=== PATIENT | male | born 1935 | race African-American/Black ===

== ENCOUNTER 2019-04-15 11:43 | Inpatient (IN) | payer MEDICARE, OTHER ==
[~2019-04-15] VITALS: Ht 175.3 cm; Wt 63.7 kg
--- NOTE | 2019-04-15 11:43 | NUR ---
ED Nurse Note: Pt brought in by ambulance from SNF d/t ALOC. Staff report change from baseline of mentation. Pt has eyes open, but does not answer questions in full sentences. Pt makes noises, but not words. Vital signs stable as documented. Respirations even and unlabored on room air.
[2019-04-15] MEDS ORDERED: Cefepime HCl 2 GM in D5W 55 ML IVPB ONE (11:45)
[2019-04-15] MEDS ORDERED: Vancomycin 1 GM in NS 275 ML IVPB ONE (11:45)
[2019-04-15 12:00] VITALS: BP 92/48
[2019-04-15 12:39] LABS: HEMATOCRIT 29.3 % (42.0-52.0); HEMOGLOBIN 9.9 G/DL (14.2-18.0); MEAN CORPUSCULAR VOLUME 91 FL (80-99); PLATELET COUNT 142 K/UL (150-450); RED BLOOD COUNT 3.23 M/UL (4.70-6.10); RED CELL DISTRIBUTION WIDTH 12.4 % (11.6-14.8)
[2019-04-15 12:43] LABS: APPEARANCE,URINE CLOUDY; BILIRUBIN, URINE NEGATIVE (NEGATIVE); GLUCOSE, URINE (UA) NEGATIVE (NEGATIVE); KETONES,URINE 1+ (NEGATIVE); LEUKOCYTE ESTERASE ,URINE 3+ (NEGATIVE); NITRITE,URINE NEGATIVE (NEGATIVE); PH,URINE 8 (4.5-8.0); PROTEIN,URINE 4+ (NEGATIVE); UROBILINOGEN,URINE NORMAL MG/DL (0.0-1.0)
--- NOTE | 2019-04-15 12:44 | Diagnostic Imaging Report ---
Indication: Altered level of consciousness Technique: Contiguous 5 mm thick transaxial imaging of the head obtained in a Siemens Sensation [address] scanner. Soft tissue and bone windows generated. Automatic Exposure Control was utilized. Total Dose length Product (DLP): 1457.[address] Dose Index Volume (CTDIvol): 62.7 mGy Comparison: none Findings: There is moderate prominence of the ventricles, basal cisterns, and cerebral sulci consistent with atrophy. Moderate, nonspecific, white matter hypoattenuation is noted throughout the brain consistent with chronic small vessel disease. There is no midline shift, edema, acute hemorrhage, mass effect, or abnormal extra-axial fluid collections. Bones are unremarkable. Fluid noted in the visualized part of the left maxillary sinus. Impression: No acute intracranial bleed, mass effect or edema. Moderate atrophy of the brain. Evidence of chronic small vessel disease involving white matter tracts. Sinusitis suspected. The CT scanner at [facility] is accredited by the [employer] and the scans are performed using dose optimization techniques as appropriate to a performed exam including Automatic Exposure control.
[2019-04-15 12:45] LABS: WHITE BLOOD COUNT 23.9 K/UL (4.8-10.8)
[2019-04-15 12:48] LABS: INR 1.1 (0.9-1.1)
[2019-04-15 12:50] LABS: COLOR,URINE YELLOW
--- NOTE | 2019-04-15 13:05 | NUR ---
ED Nurse Note: Pt is very hard stick. Attempting re-insertion of IV
[2019-04-15 13:10] LABS: ANION GAP 15 mmol/L (5-15); BLOOD UREA NITROGEN 41 mg/dL (7-18); CALCIUM 9.9 MG/DL (8.5-10.1); CARBON DIOXIDE 22 MMOL/L (21-32); CHLORIDE 107 MMOL/L (98-107); CREATININE 2.3 MG/DL (0.55-1.30); POTASSIUM 4.5 MMOL/L (3.5-5.1); SODIUM 144 MMOL/L (136-145)
[2019-04-15 13:22] LABS: ALANINE AMINOTRANSFERASE 37 U/L (12-78); ALBUMIN 2.2 G/DL (3.4-5.0); ALBUMIN/GLOBULIN RATIO 0.4 (1.0-2.7); ALKALINE PHOSPHATASE 145 U/L (46-116); ASPARTATE AMINO TRANSFERASE 119 U/L (15-37); BILIRUBIN,TOTAL 1.1 MG/DL (0.2-1.0)
--- NOTE | 2019-04-15 13:23 | Diagnostic Imaging Report ---
Indication: Dyspnea Comparison: 11/30/2010 A single view chest radiograph was obtained. Findings: The heart is mildly enlarged. The pulmonary vessels appear mildly prominent. Aorta is mildly ectatic. No pleural effusion appreciated. IMPRESSION: Suspected mild CHF. Correlate clinically
[2019-04-15 13:32] LABS: BILIRUBIN,DIRECT < 0.1 MG/DL (0.0-0.3)
--- NOTE | 2019-04-15 14:00 | NUR ---
ED Nurse Note: Multiple nurses attempted IV with no success. Let ED MD know and she said okay to insert IV in foot. Left foot 22 g inserted successfully
--- NOTE | 2019-04-15 14:38 | Emergency Room Report ---
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 Unclear baseline mental status. Unable to obtain further history due to patient being nonverbal at this time. Allergies: Coded Allergies: No Known Allergies (Unverified , 04/15/19) Patient History Limited by: other - non verbal Nursing Documentation-[facility] Past Medical History: No History, Except For Review of Systems All Other Systems: limited - ams Physical Exam Vital Signs Date Time Temp Pulse Resp B/P (MAP) Pulse Ox O2 Delivery O2 Flow Rate FiO2 04/15/19 11:18 98.2 94 18 91/46 (61) 98 Room Air Sp02 EP Interpretation: reviewed, normal General Appearance: normal inspection, no apparent distress, non-toxic Head: normocephalic, atraumatic ENT: dry mucus membranes Neck: normal inspection, supple Respiratory: no respiratory distress, no retraction, no accessory muscle use Cardiovascular #1: normal inspection, regular rate, rhythm Gastrointestinal: normal inspection, normal bowel sounds Rectal: deferred Genitourinary: other - indwelling jay catheter in foul smelling urine Neurologic: other - non-verbal Skin: no rash, normal color, warm/dry Procedures Critical Care Time Critical Care Time Total critical care time: Approximately 35 minutes. Due to a high probability of clinically significant, life threatening deterioration, the patient required my highest level of preparedness to intervene emergently and I personally spent this critical care time directly and personally managing the patient. This critical care time included obtaining a history; examining the patient; pulse oximetry; ordering and review of studies; arranging urgent treatment with development of a management plan; evaluation of patient's response to treatment ; frequent reassessment; and, discussions with other providers.This critical care time was performed to assess and manage the high probability of imminent, life-threatening deterioration that could result in multi-organ failure. It was exclusive of separately billable procedures and treating other patients and teaching time. Please see MDM section and the rest of the note for further information on patient assessment and treatment. Medical Decision Making Diagnostic Impression: Primary Impression: Sepsis Additional Impressions: UTI (urinary tract infection) Dehydration Severe sepsis Acute renal failure ER Course Patient started on broad-spectrum antibiotics and IV fluids. Patient's vital signs are stable. He will be admitted for further treatment and evaluation. Pending insurance authorization signed out to the oncoming physician EKG Diagnostic Results EKG Time: 12:17 EP Interpretation: MD Piper Rate: normal Rhythm: NSR ST Segments: no acute changes Rhythm Strip Diag. Results Rhythm Strip Time: 14:39 EP Interpretation: yes Rate: 87 Rhythm: NSR, no PVC's, no ectopy Last Vital Signs Date Time Temp Pulse Resp B/P (MAP) Pulse Ox O2 Delivery O2 Flow Rate FiO2 04/15/19 11:18 98.2 94 18 91/46 (61) 98 Room Air Disposition: ADMITTED INPATIENT Condition: Critical Signed Out To: Dr. Arthur Referrals: NOT CHOSEN IPA/,REFERRING (PCP) Sepsis Event Note Evaluation Current Stage of Sepsis: Severe Sepsis Possible Source: GI Tract/Intra-Abdominal, Genitourinary Focused Exam Allergies: Coded Allergies: No Known Allergies (Unverified , 04/15/19) Date Exam Occurred: Apr 15, 2019 Time Exam Occurred: 14:38 Laboratory Studies Laboratory Tests Test 04/15/19 12:00 04/15/19 13:40 White Blood Count 23.9 K/UL (4.8-10.8) *H Red Blood Count 3.23 M/UL (4.70-6.10) L Hemoglobin 9.9 G/DL (14.2-18.0) L Hematocrit 29.3 % (42.0-52.0) L Mean Corpuscular Volume 91 FL (80-99) Mean Corpuscular Hemoglobin 30.6 PG (27.0-31.0) Mean Corpuscular Hemoglobin Concent 33.6 G/DL (32.0-36.0) Red Cell Distribution Width 12.4 % (11.6-14.8) Platelet Count 142 K/UL (150-450) L Mean Platelet Volume 7.0 FL (6.5-10.1) Neutrophils (%) (Auto) % (45.0-75.0) Lymphocytes (%) (Auto) % (20.0-45.0) Monocytes (%) (Auto) % (1.0-10.0) Eosinophils (%) (Auto) % (0.0-3.0) Basophils (%) (Auto) % (0.0-2.0) Differential Total Cells Counted 100 Neutrophils % (Manual) 74 % (45-75) Lymphocytes % (Manual) 8 % (20-45) L Monocytes % (Manual) 6 % (1-10) Eosinophils % (Manual) 0 % (0-3) Basophils % (Manual) 0 % (0-2) Band Neutrophils 12 % (0-8) H Platelet Estimate Decreased L Platelet Morphology Normal Red Blood Cell Morphology Normal Prothrombin Time 11.4 SEC (9.30-11.50) Prothromb Time International Ratio 1.1 (0.9-1.1) Activated Partial Thromboplast Time 38 SEC (23-33) H Urine Color Yellow Urine Appearance Cloudy Urine pH 8 (4.5-8.0) Urine Specific [place] 1.010 (1.005-1.035) Urine Protein 4+ (NEGATIVE) H Urine Glucose (UA) Negative (NEGATIVE) Urine Ketones 1+ (NEGATIVE) H Urine Blood 5+ (NEGATIVE) H Urine Nitrite Negative (NEGATIVE) Urine Bilirubin Negative (NEGATIVE) Urine Urobilinogen Normal MG/DL (0.0-1.0) Urine Leukocyte Esterase 3+ (NEGATIVE) H Urine RBC 40-60 /HPF (0 - 0) H Urine WBC 30-40 /HPF (0 - 0) H Urine Squamous Epithelial Cells Occasional /LPF Urine Bacteria Moderate /HPF (NONE) H Sodium Level 144 MMOL/L (136-145) Potassium Level 4.5 MMOL/L (3.5-5.1) Chloride Level 107 MMOL/L (98-107) Carbon Dioxide Level 22 MMOL/L (21-32) Anion Gap 15 mmol/L (5-15) Blood Urea Nitrogen 41 mg/dL (7-18) H Creatinine 2.3 MG/DL (0.55-1.30) H Estimat Glomerular Filtration Rate mL/min (>60) Glucose Level 172 MG/DL (74-106) H Lactic Acid Level 4.50 mmol/L (0.4-2.0) H 3.90 mmol/L (0.66-2.22) H Calcium Level 9.9 MG/DL (8.5-10.1) Magnesium Level 1.1 MG/DL (1.8-2.4) L Total Bilirubin 1.1 MG/DL (0.2-1.0) H Direct Bilirubin < 0.1 MG/DL (0.0-0.3) Aspartate Amino Transf (AST/SGOT) 119 U/L (15-37) H Alanine Aminotransferase (ALT/SGPT) 37 U/L (12-78) Alkaline Phosphatase 145 U/L (46-116) H Troponin I 1.100 ng/mL (0.000-0.056) Pro-B-Type Natriuretic Peptide 8396 pg/mL (0-125) H Total Protein 7.2 G/DL (6.4-8.2) Albumin 2.2 G/DL (3.4-5.0) L Globulin 5.0 g/dL Albumin/Globulin Ratio 0.4 (1.0-2.7) L Vital Signs Last 24 Hour Vital Signs Date Time Temp Pulse Resp B/P (MAP) Pulse Ox O2 Delivery O2 Flow Rate FiO2 04/15/19 11:18 98.2 94 18 91/46 (61) 98 Room Air Respiratory Exam: Clear Cardiovascular Exam: RRR Capillary Refill: Less Than 2 Seconds Peripheral Pulse: Strong Veronika Saldaña M.D. Apr 15, 2019 14:38
[2019-04-15] MEDS ORDERED: ALBUTEROL2.5 MG/3 M INH (16:56)
[2019-04-15] MEDS ORDERED: BISACODYL5 MG ORAL (17:00)
[2019-04-15] MEDS ORDERED: LOVENOX10 M4 SUBQ (17:00)
[2019-04-15] MEDS ORDERED: ATORVASTATIN CA20 MG ORAL (17:00)
--- NOTE | 2019-04-15 17:05 | NUR ---
ED Nurse Note: Pike replaced 16 Fr. patent and draining.
[2019-04-15] MEDS ORDERED: METFORMIN HCL1000 M1 ORAL (17:06)
[2019-04-15] MEDS ORDERED: MULTIVITAMINS1 EAC2 ORAL (17:06)
[2019-04-15] MEDS ORDERED: LANTUS SOL100 UNIT/1 SUBQ (17:06)
[2019-04-15] MEDS ORDERED: GABAPENTIN100 MG ORAL (17:06)
[2019-04-15] MEDS ORDERED: LOSARTAN POTASS25 MG ORAL (17:06)
[2019-04-15] MEDS ORDERED: ACETAMINOPHEN325 M1 ORAL (17:06)
[2019-04-15] MEDS ORDERED: MELATONIN 3 MG1 EAC1 PO (17:06)
[2019-04-15] MEDS ORDERED: LATANOPROST2.5 ML BOTH EYES (17:06)
--- NOTE | 2019-04-15 18:20 | NUR ---
NURSE NOTES: Handoff received from KWASI Martinez from ED. Patient received awake and alert and able to make needs known, Patient has L foot IV 22g. Patient blood pressure 88/62 placed in Trendelenburg and BP went up to 119/91. Patient oriented to room and call light, no acute signs of distress noted. Contacted Dr Montes De Oca and left a message for admission orders. patient vitals are 113/91, pulse rate 117 patient has PVC's, RR of 19 and temp of 98.1, will continue to monitor.
--- NOTE | 2019-04-15 18:26 | NUR ---
ED Nurse Note: Pt transported safely to 2E. Plan of care endorsed to KWASI Laws
--- NOTE | 2019-04-15 19:42 | NUR ---
HAND-OFF: Report given to KWASI Carey.
--- NOTE | 2019-04-15 19:43 | NUR ---
NURSE NOTES: Received pt from KWASI Laws. Pt is awake and resting in bed in no acute distress. IV site intact. Bed locked in lowest position, bed alarm on, call light within reach. Will continue with plan of care.
[2019-04-15 20:00] VITALS: BP 99/60
[2019-04-15 20:15] VITALS: BP 109/58
[2019-04-15 23:26] LABS: BILIRUBIN, URINE NEGATIVE (NEGATIVE); GLUCOSE, URINE (UA) NEGATIVE (NEGATIVE); KETONES,URINE 1+ (NEGATIVE); NITRITE,URINE NEGATIVE (NEGATIVE); PH,URINE 6.5 (4.5-8.0); PROTEIN,URINE 4+ (NEGATIVE); UROBILINOGEN,URINE NORMAL MG/DL (0.0-1.0)
[2019-04-15 23:49] LABS: APPEARANCE,URINE CLOUDY; COLOR,URINE YELLOW; LEUKOCYTE ESTERASE ,URINE 2+ (NEGATIVE)
[2019-04-16] VITALS: BP 112/44
[2019-04-16 04:00] VITALS: BP 114/58
--- NOTE | 2019-04-16 04:45 | History and Physical Report ---
DATE OF ADMISSION: 04/15/2019 This is one of several admissions to [facility] of this 83-year-old patient because of dislodged G-tube. HISTORY OF PRESENT ILLNESS: The patient is a resident of [facility] where he has been for several years since his admission. He is known to have chronic medical syndrome, but has been stable on current medication. On the day of admission, G-tube got dislodged and he got the impression of having hemiparesis in the left upper extremity and left lower extremity. He was transferred by paramedics to [facility] ER where assessment revealed the patient has left and right legs, in addition hypotension, dehydration, and sepsis were identified and the patient was admitted. PAST MEDICAL HISTORY: Again, gastrostomy, tracheostomy, and [id number] amputation, which is approximately five years ago. Medically, known to have high blood pressure, diabetes mellitus, hyperlipidemia, and . FAMILY HISTORY: Noncontributory. SOCIAL HISTORY: He is single. He was born in [place]. He was a resident there for many years. 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 HABITS: The patient does not smoke, drink, or use illicit drugs. REVIEW OF SYSTEMS: CARDIOVASCULAR: The patient denied any chest pain, shortness of breath, palpitations, or dizziness. PULMONARY: The patient has chronic cough, intermittent wheezing, and chronic expectoration. GASTROINTESTINAL: Appetite is moderate and weight is stable. He has no dysphagia or dyspepsia. No bowel movement disorder. GENITOURINARY: The patient denied any dysuria, frequency, incontinence, and nocturia. Currently, has banding sensation to left knee. CENTRAL NERVOUS SYSTEM: Sleep is of good quality. No numbness, tingling, or seizure disorder, and has no headache. PHYSICAL EXAMINATION: VITAL SIGNS: Blood pressure 109/68, his pulse is 94, respirations are 20, and temperature 98.5 degrees. HEENT: Eyes were normal. Pupils were round, equal, and reactive to light. Sclerae were white. Conjunctivae were pink. Extraocular movements were normal. Temporal arteries were palpable bilaterally. There was no bilateral temporal wasting. Visual khanna to confrontation was normal and neglect sign was negative. ENT, mucous membranes were not dehydrated. Auditory canals were clear and tympanic membranes could not be visualized. Nasal cavity was not congested. Nasal septum was intact. Soft palate was free of ulcerations. Pharynx was clear from exudate or tonsillar hypertrophy. Uvula steven to phonation. Tongue was moist, midline, and normally papillated. NECK: Supple. There was no goiter. No mass. No lymphadenopathy. There was no JVD. No bruits. Carotid upstroke was 2+. LUNGS: Clear. HEART: PMI was in fourth left intercostal space in midclavicular line. There was normal S1 and normal S2. There was no murmur. No arrhythmia. No S3. No S4. No pericardial rub. ABDOMEN: Soft and nontender without organomegaly. There were no masses palpable. Normal bowel sounds without bruits. There was no guarding. No rebound tenderness. No ascites. No hernia. No CVA tenderness. Liver span was 8 cm, mostly nontender. IMPRESSION: The patient had high blood pressure, diabetes mellitus, and dryyq-etk-wjag amputation as well as sepsis. PLAN: The patient will be placed on cefepime 1 g IV piggyback q.12 h., vancomycin will be 1 g, . Repeat laboratory tests will be done in a.m. with abdomen and pelvic ultrasound. Domingo Anderson M.D. DR: CARLO JOB#: [id number] CC:
[2019-04-16] MEDS: NovoLOG Insulin Flexpen SUBQ SCH ×4 (06:17→21:00)
--- NOTE | 2019-04-16 07:10 | NUR ---
HAND-OFF: Report given to KWASI Snyder. Pt is awake and resting in bed in no acute distress. Endorsed plan of care.
--- NOTE | 2019-04-16 07:15 | NUR ---
NURSE NOTES: Received report from Aurelio/RN, Observed patient lying semi-cade's, resting comfortably, On room air, no acute distress/SOB noted. Breathing evenly and unlabored. Priti pain at this time. IV on left foot 22G, patent, and asymptomatic, NS running at 100cc/hr. Pike draining well to gravity. Bed in low position and locked, Bed alarm engaged. Call light within reach, Encouraged to use call light when needed. Will continue plan of care.
[2019-04-16 07:42] LABS: HEMATOCRIT 27.4 % (42.0-52.0); HEMOGLOBIN 9.2 G/DL (14.2-18.0); MEAN CORPUSCULAR VOLUME 90 FL (80-99); PLATELET COUNT 161 K/UL (150-450); RED BLOOD COUNT 3.04 M/UL (4.70-6.10); RED CELL DISTRIBUTION WIDTH 12.5 % (11.6-14.8); WHITE BLOOD COUNT 16.9 K/UL (4.8-10.8)
[2019-04-16 08:00] VITALS: BP 104/57
[2019-04-16 08:13] LABS: ALANINE AMINOTRANSFERASE 61 U/L (12-78); ALBUMIN 1.9 G/DL (3.4-5.0); ALKALINE PHOSPHATASE 143 U/L (46-116); ANION GAP 11 mmol/L (5-15); ASPARTATE AMINO TRANSFERASE 149 U/L (15-37); BILIRUBIN,DIRECT 0.3 MG/DL (0.0-0.3); BLOOD UREA NITROGEN 50 mg/dL (7-18); CALCIUM 8.7 MG/DL (8.5-10.1); CARBON DIOXIDE 23 MMOL/L (21-32); CHLORIDE 119 MMOL/L (98-107); CREATININE 2.1 MG/DL (0.55-1.30); POTASSIUM 3.8 MMOL/L (3.5-5.1); SODIUM 153 MMOL/L (136-145)
[2019-04-16] MEDS: Pantoprazole Inj IVP SCH ×2 (08:39→21:32)
[2019-04-16] MEDS: Heparin 5000 units/ml inj SUBQ SCH ×2 (08:40→21:34)
[2019-04-16] MEDS ORDERED: Vancomycin 1 GM in NS 275 ML IVPB ONE (10:00)
--- NOTE | 2019-04-16 11:04 | Consultation ---
History of Present Illness General Date patient seen: Apr 16, 2019 Chief Complaint: Altered Level of Consciousness Present Illness HPI 83-year-old male past medical history of right BKA diabetes, cognitive communication deficit, COPD, retirement resident who presents to the ER with CC of altered mental status. Unclear baseline mental status. Pt was diagnosed to have sepsis and admitted to telemetry for further management. Allergies: Coded Allergies: No Known Allergies (Unverified , 04/15/19) Medication History Scheduled Atorvastatin Calcium* (Atorvastatin Calcium*), 10 MG ORAL BEDTIME, (Reported) Bisacodyl* (Dulcolax*), 10 MG ORAL DAILY, (Reported) Enoxaparin* (Lovenox*), 40 MG SUBQ DAILY, (Reported) Gabapentin* (Gabapentin*), 100 MG ORAL THREE TIMES A DAY, (Reported) Insulin Glargine (Lantus), 0 SUBQ BEDTIME, (Reported) Latanoprost* (Xalatan*), 1 DROP BOTH EYES BEDTIME, (Reported) Losartan Potassium* (Losartan Potassium*), 25 MG ORAL DAILY, (Reported) Metformin Hcl* (Metformin Hcl*), 1,000 MG ORAL BID, (Reported) Multivitamins* (Multivitamins*), 1 TAB ORAL DAILY, (Reported) Scheduled PRN Acetaminophen* (Acetaminophen 325MG Tablet*), 650 MG ORAL Q4H PRN for Pain Scale (3-5), (Reported) Albuterol Sulfate* (Albuterol Sulfate Hhn*), 3 ML INH Q4H PRN for Shortness of Breath, (Reported) Miscellaneous Medications Melatonin/Pyridoxine HCl (B6) (Melatonin 3 mg Tablet), 1 EACH PO, (Reported) Patient History Healthcare decision maker N Resuscitation status Full Code Advanced Directive on File Past Medical/Surgical History Past Medical/Surgical History: (1) Hx of right BKA (2) COPD (chronic obstructive pulmonary disease) (3) History of hypertension (4) Diabetes mellitus Review of Systems All Other Systems: negative except mentioned in HPI Physical Exam General Appearance: cachetic, thin Lines, tubes and drains: peripheral HEENT: normocephalic, atraumatic Neck: non-tender, normal alignment Respiratory/Chest: chest wall non-tender, lungs clear Cardiovascular/Chest: normal peripheral pulses, normal rate Abdomen: normal bowel sounds, non tender Genitourinary/Rectal: normal genital exam Extremities: normal range of motion, non-pitting Neurologic: inspector returned materials II-XII grossly normal Last 24 Hour Vital Signs Date Time Temp Pulse Resp B/P (MAP) Pulse Ox O2 Delivery O2 Flow Rate FiO2 04/16/19 08:00 97.5 89 20 104/57 (73) 98 04/16/19 04:00 96 04/16/19 04:00 98.2 96 16 114/58 (76) 95 04/16/19 00:08 Room Air 04/16/19 00:00 92 04/16/19 00:00 98.1 92 16 112/44 (66) 93 04/15/19 20:15 109/58 (75) 04/15/19 20:00 97.7 92 17 99/60 (73) 95 04/15/19 20:00 92 04/15/19 19:35 98.5 94 20 109/68 98 Room Air 04/15/19 12:00 102 22 Room Air 04/15/19 12:00 98.0 102 18 92/48 98 Room Air 04/15/19 11:18 98.2 94 18 91/46 (61) 98 Room Air Intake and Output 04/15/19 04/16/19 19:00 07:00 Intake Total 0 ml Output Total 450 ml Balance 0 ml -450 ml Intake Oral 0 ml Output Urine Total 450 ml Laboratory Tests Test 04/15/19 12:00 04/15/19 13:40 04/15/19 22:30 04/16/19 05:36 White Blood Count 23.9 K/UL (4.8-10.8) *H 16.9 K/UL (4.8-10.8) H Red Blood Count 3.23 M/UL (4.70-6.10) L 3.04 M/UL (4.70-6.10) L Hemoglobin 9.9 G/DL (14.2-18.0) L 9.2 G/DL (14.2-18.0) L Hematocrit 29.3 % (42.0-52.0) L 27.4 % (42.0-52.0) L Mean Corpuscular Volume 91 FL (80-99) 90 FL (80-99) Mean Corpuscular Hemoglobin 30.6 PG (27.0-31.0) 30.4 PG (27.0-31.0) Mean Corpuscular Hemoglobin Concent 33.6 G/DL (32.0-36.0) 33.7 G/DL (32.0-36.0) Red Cell Distribution Width 12.4 % (11.6-14.8) 12.5 % (11.6-14.8) Platelet Count 142 K/UL (150-450) L 161 K/UL (150-450) Mean Platelet Volume 7.0 FL (6.5-10.1) 6.3 FL (6.5-10.1) L Neutrophils (%) (Auto) % (45.0-75.0) % (45.0-75.0) Lymphocytes (%) (Auto) % (20.0-45.0) % (20.0-45.0) Monocytes (%) (Auto) % (1.0-10.0) % (1.0-10.0) Eosinophils (%) (Auto) % (0.0-3.0) % (0.0-3.0) Basophils (%) (Auto) % (0.0-2.0) % (0.0-2.0) Differential Total Cells Counted 100 100 Neutrophils % (Manual) 74 % (45-75) 86 % (45-75) H Lymphocytes % (Manual) 8 % (20-45) L 10 % (20-45) L Monocytes % (Manual) 6 % (1-10) 2 % (1-10) Eosinophils % (Manual) 0 % (0-3) 2 % (0-3) Basophils % (Manual) 0 % (0-2) 0 % (0-2) Band Neutrophils 12 % (0-8) H 0 % (0-8) Platelet Estimate Decreased L Adequate Platelet Morphology Normal Normal Red Blood Cell Morphology Normal Prothrombin Time 11.4 SEC (9.30-11.50) Prothromb Time International Ratio 1.1 (0.9-1.1) Activated Partial Thromboplast Time 38 SEC (23-33) H Urine Color Yellow Yellow Urine Appearance Cloudy Cloudy Urine pH 8 (4.5-8.0) 6.5 (4.5-8.0) Urine Specific [place] 1.010 (1.005-1.035) 1.020 (1.005-1.035) Urine Protein 4+ (NEGATIVE) H 4+ (NEGATIVE) H Urine Glucose (UA) Negative (NEGATIVE) Negative (NEGATIVE) Urine Ketones 1+ (NEGATIVE) H 1+ (NEGATIVE) H Urine Blood 5+ (NEGATIVE) H 2+ (NEGATIVE) H Urine Nitrite Negative (NEGATIVE) Negative (NEGATIVE) Urine Bilirubin Negative (NEGATIVE) Negative (NEGATIVE) Urine Urobilinogen Normal MG/DL (0.0-1.0) Normal MG/DL (0.0-1.0) Urine Leukocyte Esterase 3+ (NEGATIVE) H 2+ (NEGATIVE) H Urine RBC 40-60 /HPF (0 - 0) H 10-15 /HPF (0 - 0) H Urine WBC 30-40 /HPF (0 - 0) H 20-30 /HPF (0 - 0) H Urine Squamous Epithelial Cells Occasional /LPF Few /LPF (NONE/OCC) Urine Bacteria Moderate /HPF (NONE) H Many /HPF (NONE) H Sodium Level 144 MMOL/L (136-145) 153 MMOL/L (136-145) H Potassium Level 4.5 MMOL/L (3.5-5.1) 3.8 MMOL/L (3.5-5.1) Chloride Level 107 MMOL/L (98-107) 119 MMOL/L (98-107) H Carbon Dioxide Level 22 MMOL/L (21-32) 23 MMOL/L (21-32) Anion Gap 15 mmol/L (5-15) 11 mmol/L (5-15) Blood Urea Nitrogen 41 mg/dL (7-18) H 50 mg/dL (7-18) H Creatinine 2.3 MG/DL (0.55-1.30) H 2.1 MG/DL (0.55-1.30) H Estimat Glomerular Filtration Rate mL/min (>60) mL/min (>60) Glucose Level 172 MG/DL (74-106) H 103 MG/DL (74-106) Lactic Acid Level 4.50 mmol/L (0.4-2.0) H 3.90 mmol/L (0.66-2.22) H Calcium Level 9.9 MG/DL (8.5-10.1) 8.7 MG/DL (8.5-10.1) Magnesium Level 1.1 MG/DL (1.8-2.4) L Total Bilirubin 1.1 MG/DL (0.2-1.0) H 1.0 MG/DL (0.2-1.0) Direct Bilirubin < 0.1 MG/DL (0.0-0.3) 0.3 MG/DL (0.0-0.3) Aspartate Amino Transf (AST/SGOT) 119 U/L (15-37) H 149 U/L (15-37) H Alanine Aminotransferase (ALT/SGPT) 37 U/L (12-78) 61 U/L (12-78) Alkaline Phosphatase 145 U/L (46-116) H 143 U/L (46-116) H Troponin I 1.100 ng/mL (0.000-0.056) Pro-B-Type Natriuretic Peptide 8396 pg/mL (0-125) H Total Protein 7.2 G/DL (6.4-8.2) 6.6 G/DL (6.4-8.2) Albumin 2.2 G/DL (3.4-5.0) L 1.9 G/DL (3.4-5.0) L Globulin 5.0 g/dL Albumin/Globulin Ratio 0.4 (1.0-2.7) L Hypochromasia 2+ Anisocytosis 1+ Hemoglobin A1c 6.1 % (4.3-6.0) H Thyroid Stimulating Hormone (TSH) 2.669 uiU/mL (0.358-3.740) Random Vancomycin Level 8.0 ug/mL Microbiology Date/Time Source Procedure Growth Status 04/15/19 12:25 Nasal Nares - Final Complete 04/15/19 12:25 Nasal Nares - Final Complete 04/15/19 12:00 Urine,Clean Catch Urine Culture - Preliminary Gram Negative Bacillus 1 Resulted 04/15/19 17:56 Rectum Received Height (Feet): 5 Height (Inches): 10.00 Weight (Pounds): 139 Medications Current Medications Medications (Trade) Dose Ordered Sig/Neftaly Route PRN Reason Start Time Stop Time Status Last Admin Dose Admin Cefepime HCl 2 gm/ Dextrose 55 ml @ 110 mls/hr Q24H IVPB 04/16/19 13:00 04/23/19 12:59 Dextrose (Dextrose 50%) 25 ml Q30M PRN IV Hypoglycemia 04/15/19 21:15 05/15/19 21:14 Dextrose (Dextrose 50%) 50 ml Q30M PRN IV Hypoglycemia 04/15/19 21:15 05/15/19 21:14 Heparin Sodium (Porcine) (Heparin 5000 units/ml) 5,000 units EVERY 12 HOURS SUBQ 04/16/19 09:00 05/16/19 08:59 04/16/19 08:40 Insulin Aspart (NovoLOG) BEFORE MEALS AND HS SUBQ 04/16/19 06:30 05/16/19 06:29 04/16/19 06:17 Pantoprazole (Protonix) 40 mg EVERY 12 HOURS IVP 04/16/19 09:00 05/16/19 08:59 04/16/19 08:39 Sodium Chloride 1,000 ml @ 100 mls/hr Q10H IV 04/15/19 21:15 05/15/19 21:14 04/16/19 08:40 Vancomycin HCl (Vanco rx to dose) 1 ea DAILY PRN MISC Per rx protocol 04/15/19 21:15 05/15/19 21:14 Vancomycin HCl 1 gm/Sodium Chloride 275 ml @ 183.708 mls/hr ONCE ONCE IVPB 04/16/19 10:00 04/16/19 11:29 04/16/19 10:04 Assessment/Plan Problem List: (1) Sepsis ICD Codes: A41.9 - Sepsis, unspecified organism SNOMED: 82264553 (2) Acute renal failure ICD Codes: N17.9 - Acute kidney failure, unspecified SNOMED: 92078810 (3) UTI (urinary tract infection) ICD Codes: N39.0 - Urinary tract infection, site not specified SNOMED: 95557286 (4) COPD (chronic obstructive pulmonary disease) ICD Codes: J44.9 - Chronic obstructive pulmonary disease, unspecified SNOMED: 41571066 (5) Hx of right BKA ICD Codes: Z89.511 - Acquired absence of right leg below knee SNOMED: 270490572, 732061780260549 (6) Dehydration ICD Codes: E86.0 - Dehydration SNOMED: 22154374 (7) Diabetes mellitus ICD Codes: E11.9 - Type 2 diabetes mellitus without complications SNOMED: 95125626 (8) History of hypertension ICD Codes: Z86.79 - Personal history of other diseases of the circulatory system SNOMED: 085565918 Assessment/Plan: espino culture iv abx iv fluids respiratory treatment dvt prophylaxis sliding scale diabetic diet aspiration precaution Dionne Chew MD Apr 16, 2019 11:04
[2019-04-16 11:32] LABS: CREATINE KINASE 4506 U/L (26-308)
[2019-04-16 12:00] VITALS: BP 107/64
--- NOTE | 2019-04-16 12:11 | NUR ---
CASE MANAGEMENT:REVIEW 83 YR OLD MALE BIBA FROM [facility] CC: AMS SI: SEPSIS. DEHYDRATION. ACUTE RENAL FAILURE 98.3 94 18 91/46 98% ON RA WBC+23.9 BUN+41 CR+2.3 IS: IV CEFEPIME IV VANCOMYCIN IVF NS CT HEAD CXR BLOOD CX : TO TELEMETRY DCP: FROM [facility]
[2019-04-16] MEDS ORDERED: Cefepime HCl 2 GM in D5W 55 ML IVPB SCH (13:00)
--- NOTE | 2019-04-16 13:27 | Diagnostic Imaging Report ---
Indication: Abnormal liver function tests. Abnormal renal function tests Technique: Chand-scale and duplex images of the upper abdomen were obtained Comparison: none Findings: Gallbladder is absent Common bile duct measures 10 mm in diameter. No intrahepatic biliary ductal dilatation. Liver demonstrates normal echogenicity, no focal abnormality. Portal vein and hepatic veins are patent. Pancreas is unremarkable. Spleen is unremarkable. Left kidney measures 10.9 cm in length. Right kidney measures 11.2 cm length. Both kidneys demonstrate normal echogenicity. There is no hydronephrosis. There is a very small amount of perinephric fluid surrounding the left kidney . Non-aneurysmal abdominal aorta . Bladder is empty, contains a Pike catheter Impression: Absent gallbladder, status post cholecystectomy Intrahepatic biliary ductal dilatation. Suspect on the basis of patient's age and postcholecystectomy state. However, downstream obstruction also possible. Correlate with liver function tests, consider MRCP for better characterization if clinically indicated Empty bladder with a Pike catheter Trace left perinephric fluid. This is a nonspecific finding, can be seen in the setting of renal inflammation
--- NOTE | 2019-04-16 14:01 | Diagnostic Imaging Report ---
Indication: Left lower extremity pain and edema Technique: Grayscale and duplex images of the left lower extremity veins Comparison: none Findings: Grayscale and duplex images demonstrate no evidence of intraluminal thrombus. Normal phasic Doppler waveforms, demonstrating normal augmentation response and no evidence of valvular insufficiency. Patient calf veins and greater saphenous vein Impression: Negative for evidence of left lower extremity deep venous thrombosis
--- NOTE | 2019-04-16 14:11 | Diagnostic Imaging Report ---
Indication: Left lower extremity pain and edema Technique: Grayscale and duplex images of the left lower extremity arteries Comparison: none Findings: Brachial duplex images demonstrate triphasic waveforms at the level of the common femoral artery, with sharp systolic peaks. There is atherosclerotic plaquing of the mid and distal superficial femoral artery, which results in slight gapping of the waveforms and loss of triphasic study. The distal superficial femoral artery demonstrates complete occlusion. There is reconstitution at the level of the distal superficial femoral artery, distal to which the waveforms are severely dampened and monophasic. There is also some atherosclerotic plaque within the popliteal artery. The tibial vessels are all patent, demonstrating severely dampened waveforms. 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 Evidence of resultant severe ischemia of the foot
[2019-04-16 16:00] VITALS: BP 122/67
[2019-04-16] MEDS ORDERED: Meropenem 500mg/NS 55ml IVPB SCH ×2 (16:00)
[2019-04-16 17:45] LABS: APPEARANCE,URINE CLOUDY; BILIRUBIN, URINE NEGATIVE (NEGATIVE); GLUCOSE, URINE (UA) NEGATIVE (NEGATIVE); KETONES,URINE 1+ (NEGATIVE); LEUKOCYTE ESTERASE ,URINE 3+ (NEGATIVE); NITRITE,URINE NEGATIVE (NEGATIVE); PH,URINE 5 (4.5-8.0); PROTEIN,URINE 3+ (NEGATIVE); UROBILINOGEN,URINE NORMAL MG/DL (0.0-1.0)
[2019-04-16 17:52] LABS: COLOR,URINE YELLOW
--- NOTE | 2019-04-16 19:13 | NUR ---
HAND-OFF: Report given to Aurelio/RN, Patient in stable condition. Endorsed plan of care.
--- NOTE | 2019-04-16 19:14 | NUR ---
NURSE NOTES: Received pt from KWASI Snyder. Pt is awake and resting in bed in no acute distress. Iv site intact and patent. Pkie catheter intact and patent. Bed locked in lowest position, bed alarm on, call light within reach. Will continue with plan of care.
[2019-04-16 20:00] VITALS: BP 134/72
[2019-04-16] MEDS ORDERED: ATORVASTATIN CA10 MG ORAL (20:04)
[2019-04-16] MEDS ORDERED: MELATONIN3 MG ORAL (20:04)
[2019-04-16] MEDS ORDERED: ARTIFICIAL TEA1 EAC2 BOTH EYES (20:04)
[2019-04-16] MEDS ORDERED: SENNA8.6 M2 PO (20:04)
[2019-04-16] MEDS ORDERED: BRIMONIDINE TART5 ML BOTH EYES (20:04)
[2019-04-16] MEDS ORDERED: DOCUSATE SODIU250 MG ORAL (20:04)
[2019-04-16] MEDS ORDERED: NOVOLOG100 UNIT/5 SUBQ (20:04)
[2019-04-16] MEDS ORDERED: ALBUTEROL SULF8.5 G1 IH (20:04)
[2019-04-16] MEDS ORDERED: VITAMIN D310000 UNIT PO (20:04)
[2019-04-16] MEDS ORDERED: TYLENOL EXTRA500 MG ORAL (20:04)
[2019-04-16] MEDS ORDERED: BISACODYL10 M1 RC (20:04)
[2019-04-16] MEDS ORDERED: Meropenem 1 GM in NS 55 ML IVPB SCH (22:00)
--- NOTE | 2019-04-16 23:58 | NUR ---
HAND-OFF: Report given to KWASI Doyle. Cardiac box removed. Pt transfered with belongings. Endrsed plan of care.
[2019-04-17] VITALS (7 sets, daily range): BP systolic 119–141; BP diastolic 62–73
--- NOTE | 2019-04-17 00:30 | NUR ---
NURSE NOTES: Patient arrived from telemetry via bed. AOx1. Left foot IV intact and patent. Belongings verified at bedside. No acute distress. Patient running temp of 100.4F. Dr. Anderson made aware, received order for tylenol, blood culturesx2. Also made aware of high Na level and patient still on NS @100. Order changed to D5W @100. Orders carried out. Addendum: 04/17/19 at 0101 by AYE POWERS RN RN Patient seen by Dr. Anderson at bedside.
[2019-04-17] MEDS ORDERED: Meropenem 500 MG in NS 55 ML IVPB SCH (04:00)
--- NOTE | 2019-04-17 06:00 | NUR ---
NURSE NOTES: While cleaning the patient, the cover for the overhead light fixture suddenly fell on top of the patients head. There was no direct contact made to the overhead light before it suddenly fell on the patients head. The cover was immediately removed from the patients head, assessed patient. Patient had facial grimacing, noted 2cm laceration on the right eyebrow, pressure was applied and bleeding was stopped immediately, picture was taken and wound was dressed. Patient also developed a bump on the right side on top of the head diameter of about 3 cm. Ice was applied on patients head. No loss of consciousness, patients mental status remained the same, aox2 to name and place, still verbally responsive, pupils are reactive bilaterally. Strength on extremities remained the same as prior to incident: 1/5 on legs and 3/5 on bilateral arms. We finished cleaning the patient and made him comfortable. We moved the patients bed more away from the wall and the light fixture. Engineering was called to assess the light fixture. Call was placed to Dr. Anderson, awaiting call back.
--- NOTE | 2019-04-17 06:15 | NUR ---
NURSE NOTES: Dr. Anderson called back. RN explained to MD regarding incident. Received order for Dr. Garzon to see patient, CT head stat, and give Tylenol for pain. Orders carried out. Radiology made aware.
[2019-04-17] MEDS: NovoLOG Insulin Flexpen SUBQ SCH ×4 (06:21→22:20)
--- NOTE | 2019-04-17 06:30 | NUR ---
NURSE NOTES: Patient out of the unit for stat CT head. Call placed to Ember Young [phone] and made aware of the incident. will see patient today. quality assurance supervisor chassis made aware.
--- NOTE | 2019-04-17 06:45 | NUR ---
NURSE NOTES: Patient back from CT Scan. Mental status unchanged, verbally responsive. Ice pack re-applied on the head. No active bleeding on the right eyebrow laceration.
[2019-04-17 07:11] LABS: HEMATOCRIT 24.2 % (42.0-52.0); HEMOGLOBIN 8.2 G/DL (14.2-18.0); MEAN CORPUSCULAR VOLUME 90 FL (80-99); PLATELET COUNT 164 K/UL (150-450); RED BLOOD COUNT 2.67 M/UL (4.70-6.10); WHITE BLOOD COUNT 12.2 K/UL (4.8-10.8)
--- NOTE | 2019-04-17 07:15 | NUR ---
NURSE NOTES: Patient was seen by PM and AM endless track vehicle supervisor at bedside.
--- NOTE | 2019-04-17 07:20 | NUR ---
HAND-OFF: Report given to Tiesha VILLALPANDO.
--- NOTE | 2019-04-17 07:26 | Diagnostic Imaging Report ---
Indications: Trauma, pain, status post object falling on head Technique: Spiral acquisitions obtained through the brain. Angled axial and coronal 5 x 5 mm slices were reconstructed. Total dose length product 1018 mGycm. CTDI vol(s) 53 mGy. Dose reduction achieved using automated exposure control Comparison: April 15, 2019 Findings: There is new finding of a small right frontal scalp hematoma. No acute intracranial hemorrhage or edema. No mass effect nor midline shift. There is age-related enlargement of the ventricles and extra-axial CSF spaces. There is periventricular deep white matter low-attenuation, consistent with chronic microvascular ischemic change. 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 There is again demonstrated chronic periosteal thickening and some mucosal disease of the left maxillary sinus. There is bilateral ethmoid sinus disease. The mastoids are clear. The calvarium is intact. Impression: Negative for acute intracranial bleed or mass effect Evidence of right frontal scalp contusion This agrees with the preliminary interpretation provided overnight by [facility] teleradiology service. The CT scanner at [facility] is accredited by the [employer] and the scans are performed using protocols designed to limit radiation exposure to as low as reasonably achievable to attain images of sufficient resolution adequate for diagnostic evaluation.
[2019-04-17 07:28] LABS: ANION GAP 10 mmol/L (5-15); BLOOD UREA NITROGEN 43 mg/dL (7-18); CALCIUM 8.9 MG/DL (8.5-10.1); CARBON DIOXIDE 22 MMOL/L (21-32); CHLORIDE 113 MMOL/L (98-107); CREATININE 1.6 MG/DL (0.55-1.30); POTASSIUM 3.5 MMOL/L (3.5-5.1); SODIUM 145 MMOL/L (136-145)
[2019-04-17 07:45] LABS: LACTATE DEHYDROGENASE 321 U/L (81-234); PHOSPHORUS 2.3 MG/DL (2.5-4.9)
[2019-04-17 08:14] LABS: % IRON SATURATION 39 % (15-50); IRON 43 ug/dL (50-175); TOTAL IRON BINDING CAPACITY 110 ug/dL (250-450)
--- NOTE | 2019-04-17 08:31 | NUR ---
NURSE NOTE Patient awake and alert to name and place,respirations unlabored.Noted steristrips to patient right brow,no bleeding noted,noted a small bump to the right upper part of patient head,ice pack is to that area.No complaint of pain when asked at this time.Pike catheter is in place and draining clear yellow urine.IV fluids infusing as ordered.Bed alarm is on,call light within reach.
[2019-04-17] MEDS: Heparin 5000 units/ml inj SUBQ SCH ×2 (09:00→22:22)
--- NOTE | 2019-04-17 09:53 | Consultation ---
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 Unclear baseline mental status. Unable to obtain further history due to patients current medical condition. While in hospital patient sustained a laceration to the right eyebrow after trauma from a light fixture falling onto him. Surgery called to evaluate and assist with care given trauma. Patient seen, patient evaluated, chart reviewed. Allergies: Coded Allergies: No Known Allergies (Unverified , 04/15/19) Medication History Scheduled Atorvastatin Calcium* (Lipitor*), 10 MG ORAL BEDTIME, (Reported) Brimonidine Tartrate* (Alphagan*), 1 DROP BOTH EYES BID, (Reported) Cholecalciferol (Vitamin D3) (Vitamin D3), 50,000 UNIT PO ONCE A WEEK, (Reported ) Dextran 70/Hypromellose (Artificial Tears), 1 EACH BOTH EYES Q4HR, (Reported) Docusate Sodium* (Docusate Sodium*), 250 MG ORAL DAILY, (Reported) Enoxaparin* (Lovenox*), 40 MG SUBQ DAILY, (Reported) Gabapentin* (Gabapentin*), 100 MG ORAL THREE TIMES A DAY, (Reported) Insulin Aspart (Novolog), 6 SUBQ THREE TIMES A DAY, (Reported) Insulin Glargine (Lantus), 34 UNIT SUBQ DAILY, (Reported) Latanoprost* (Xalatan*), 1 DROP BOTH EYES BEDTIME, (Reported) Losartan Potassium* (Losartan Potassium*), 25 MG ORAL DAILY, (Reported) Melatonin (Melatonin), 6 MG ORAL BEDTIME, (Reported) Metformin Hcl* (Metformin Hcl*), 1,000 MG ORAL BID, (Reported) Multivitamins* (Multivitamins*), 1 TAB ORAL DAILY, (Reported) Sennosides (Senna), 8.6 MG PO BEDTIME, (Reported) Scheduled PRN Acetaminophen* (Acetaminophen 325MG Tablet*), 650 MG ORAL Q4H PRN for Mild Pain/ Temp > 100.5, (Reported) Acetaminophen* (Tylenol Extra Strength*), 500 MG ORAL Q6H PRN for Mild Pain/ Temp > 100.5, (Reported) Albuterol Sulfate (Albuterol Sulfate Hfa), 2 PUFFS IH Q6HR PRN for Shortness of Breath, (Reported) Bisacodyl (Bisacodyl), 10 MG RC for Constipation, (Reported) Discontinued Medications Albuterol Sulfate* (Albuterol Sulfate Hhn*), 3 ML INH Q4H PRN for Shortness of Breath, (Reported) Discontinued Reason: Prescription changed Atorvastatin Calcium* (Atorvastatin Calcium*), 10 MG ORAL BEDTIME, (Reported) Discontinued Reason: Prescription changed Bisacodyl* (Dulcolax*), 10 MG ORAL DAILY, (Reported) Discontinued Reason: Prescription changed Melatonin/Pyridoxine HCl (B6) (Melatonin 3 mg Tablet), 1 EACH PO, (Reported) Discontinued Reason: Prescription changed Patient History Limited by: medical condition History Provided By: Medical Record, PMD Healthcare decision maker N Resuscitation status Full Code Advanced Directive on File Past Medical/Surgical History Past Medical/Surgical History: (1) Laceration of face (2) Dehydration (3) Acute renal failure (4) UTI (urinary tract infection) (5) Severe sepsis (6) Sepsis (7) Diabetes mellitus (8) History of hypertension (9) COPD (chronic obstructive pulmonary disease) (10) Anemia (11) Severe protein-calorie malnutrition Review of Systems ROS Narrative cannot obtain given medical condition Physical Exam General Appearance: no apparent distress Lines, tubes and drains: peripheral HEENT: mucous membranes moist, other - Right eyebrow 1 cm laceration Steri- Strips intact small hematoma no bleeding no signs of active infection Neck: normal inspection Respiratory/Chest: normal breath sounds, no respiratory distress, no accessory muscle use Cardiovascular/Chest: normal rate, regular rhythm Abdomen: normal bowel sounds, non tender, soft, no organomegaly, no mass Extremities: normal range of motion, non-tender, normal inspection, normal capillary refill Skin Exam: warm/dry Neurologic: alert, disoriented Last 24 Hour Vital Signs Date Time Temp Pulse Resp B/P (MAP) Pulse Ox O2 Delivery O2 Flow Rate FiO2 04/17/19 08:41 97.7 73 18 139/68 (91) 98 04/17/19 06:51 98.1 04/17/19 04:02 98.1 82 16 119/63 (81) 96 04/17/19 00:00 100.4 85 16 120/62 (81) 95 04/16/19 21:00 Room Air 04/16/19 20:00 88 04/16/19 20:00 99.8 88 22 134/72 (92) 94 04/16/19 16:00 90 04/16/19 16:00 97.9 90 20 122/67 (85) 95 04/16/19 12:00 84 04/16/19 12:00 97.5 85 20 107/64 (78) 96 04/16/19 10:52 Room Air Intake and Output 04/16/19 04/17/19 19:00 07:00 Intake Total 236 ml 470 ml Output Total 500 ml 600 ml Balance -264 ml -130 ml Intake Oral 236 ml IV Total 470 ml Output Urine Total 500 ml 600 ml # Voids 1 Laboratory Tests Test 04/16/19 16:50 04/17/19 04:40 04/17/19 05:15 Urine Color Yellow Urine Appearance Cloudy Urine pH 5 (4.5-8.0) Urine Specific [place] 1.015 (1.005-1.035) Urine Protein 3+ (NEGATIVE) H Urine Glucose (UA) Negative (NEGATIVE) Urine Ketones 1+ (NEGATIVE) H Urine Blood 5+ (NEGATIVE) H Urine Nitrite Negative (NEGATIVE) Urine Bilirubin Negative (NEGATIVE) Urine Urobilinogen Normal MG/DL (0.0-1.0) Urine Leukocyte Esterase 3+ (NEGATIVE) H Urine RBC 5-10 /HPF (0 - 0) H Urine WBC Tntc /HPF (0 - 0) H Urine Squamous Epithelial Cells Occasional /LPF Urine Bacteria Moderate /HPF (NONE) H Urine Eosinophils None seen (NONE SEEN) Urine Random Sodium 49 mmol/L (20-110) Urine Potassium Timed 53 mmol/L (12-62) White Blood Count 12.2 K/UL (4.8-10.8) H Red Blood Count 2.67 M/UL (4.70-6.10) L Hemoglobin 8.2 G/DL (14.2-18.0) L Hematocrit 24.2 % (42.0-52.0) L Mean Corpuscular Volume 90 FL (80-99) Mean Corpuscular Hemoglobin 30.6 PG (27.0-31.0) Mean Corpuscular Hemoglobin Concent 33.8 G/DL (32.0-36.0) Red Cell Distribution Width 13.0 % (11.6-14.8) Platelet Count 164 K/UL (150-450) Mean Platelet Volume 6.3 FL (6.5-10.1) L Neutrophils (%) (Auto) % (45.0-75.0) Lymphocytes (%) (Auto) % (20.0-45.0) Monocytes (%) (Auto) % (1.0-10.0) Eosinophils (%) (Auto) % (0.0-3.0) Basophils (%) (Auto) % (0.0-2.0) Neutrophils % (Manual) Pending Lymphocytes % (Manual) Pending Platelet Estimate Pending Platelet Morphology Pending Erythrocyte Sedimentation Rate Pending Reticulocyte Count Pending Prothrombin Time 10.2 SEC (9.30-11.50) Prothromb Time International Ratio 1.0 (0.9-1.1) Activated Partial Thromboplast Time 42 SEC (23-33) H Sodium Level 145 MMOL/L (136-145) Potassium Level 3.5 MMOL/L (3.5-5.1) Chloride Level 113 MMOL/L (98-107) H Carbon Dioxide Level 22 MMOL/L (21-32) Anion Gap 10 mmol/L (5-15) Blood Urea Nitrogen 43 mg/dL (7-18) H Creatinine 1.6 MG/DL (0.55-1.30) H Estimat Glomerular Filtration Rate 50.4 mL/min (>60) Glucose Level 197 MG/DL (74-106) H Calcium Level 8.9 MG/DL (8.5-10.1) Phosphorus Level 2.3 MG/DL (2.5-4.9) L Magnesium Level 1.8 MG/DL (1.8-2.4) Iron Level 43 ug/dL (50-175) L Total Iron Binding Capacity 110 ug/dL (250-450) L Percent Iron Saturation 39 % (15-50) Unsaturated Iron Binding 67 ug/dL (112-346) L Lactate Dehydrogenase 321 U/L (81-234) H C-Reactive Protein, Quantitative 31.6 mg/dL (0.00-0.90) H Carcinoembryonic Antigen Pending Vitamin B12 Level 393 PG/ML (193-986) Folate 7.3 NG/ML (8.6-58.9) L Microbiology Date/Time Source Procedure Growth Status 04/16/19 16:50 Urine,Clean Catch Urine Culture - Preliminary NO GROWTH Resulted Height (Feet): 5 Height (Inches): 10.00 Weight (Pounds): 145 Medications Current Medications Medications (Trade) Dose Ordered Sig/Neftaly Route PRN Reason Start Time Stop Time Status Last Admin Dose Admin Acetaminophen (Tylenol) 650 mg Q4H PRN ORAL Mild Pain/Temp > 100.0 04/17/19 00:30 05/17/19 00:29 04/17/19 06:21 Dextrose 1,000 ml @ 100 mls/hr Q10H IV 04/17/19 00:30 05/17/19 00:29 04/17/19 00:46 Dextrose (Dextrose 50%) 25 ml Q30M PRN IV Hypoglycemia 04/17/19 00:15 05/15/19 21:14 Dextrose (Dextrose 50%) 50 ml Q30M PRN IV Hypoglycemia 04/17/19 00:15 05/15/19 21:14 Heparin Sodium (Porcine) (Heparin 5000 units/ml) 5,000 units EVERY 12 HOURS SUBQ 04/17/19 09:00 05/16/19 08:59 Insulin Aspart (NovoLOG) BEFORE MEALS AND HS SUBQ 04/17/19 06:30 05/16/19 06:29 04/17/19 06:21 Meropenem 500 mg/ Sodium Chloride 55 ml @ 110 mls/hr Q12HR@0400,1600 IVPB 04/17/19 04:00 04/17/19 15:59 04/17/19 03:31 Pantoprazole (Protonix) 40 mg EVERY 12 HOURS IVP 04/17/19 09:00 05/16/19 08:59 Assessment/Plan Problem List: (1) Laceration of face Assessment & Plan: During admission and cleaning of the room patient sustained a laceration to his right face around the area of the eyebrow from a following light fixture. Wound wash Steri-Strips applied no signs of active infection no bleeding small hematoma. Mild tenderness on palpation. 1 cm laceration. No acute surgical intervention indicated recommended Keep Steri-Strips in place We will monitor closely to ensure no infection or hematoma or complication Nutritional optimization Findings: There is new finding of a small right frontal scalp hematoma. No acute intracranial hemorrhage or edema. No mass effect nor midline shift. There is age-related enlargement of the ventricles and extra-axial CSF spaces. There is periventricular deep white matter low-attenuation, consistent with chronic microvascular ischemic change. 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 There is again demonstrated chronic periosteal thickening and some mucosal disease of the left maxillary sinus. There is bilateral ethmoid sinus disease. The mastoids are clear. The calvarium is intact. Impression: Negative for acute intracranial bleed or mass effect Evidence of right frontal scalp contusion Thank you will follow with recommendations ICD Codes: S01.81XA - Laceration without foreign body of other part of head, initial encounter SNOMED: 743712317 (2) Severe protein-calorie malnutrition ICD Codes: E43 - Unspecified severe protein-calorie malnutrition SNOMED: 758731997, [id number], [id number] (3) Sepsis Assessment & Plan: This is a 83-year-old male who initially presented with leukocytosis, abnormal labs, lactic acidosis, sepsis admitted for further care and management on IV antibiotics undergoing medical care who is now improving. Altered mental status being worked up. Continue with current medical treatment. ICD Codes: A41.9 - Sepsis, unspecified organism SNOMED: [id number] Alex Garzon Apr 17, 2019 09:53
[2019-04-17] MEDS: Pantoprazole Inj IVP SCH ×2 (10:34→22:09)
--- NOTE | 2019-04-17 10:51 | NUR ---
*-* INSURANCE *-*- ALL CLINICALS AND REVIEWS HAVE BEEN FAXED TO: [facility] NO MOBILE SERVICE RV TECHNICIAN ASSIGNED AT THIS TIME PLEASE FAX THE REVIEW/CLINICAL P- [phone] F- [phone]....REVIEW/CLINICAL
--- NOTE | 2019-04-17 11:30 | Progress Note ---
DATE: 04/16/2019 SUBJECTIVE: The patient is afebrile without tachycardia; however, his blood culture became positive for gram-negative bacilli. PHYSICAL EXAMINATION: VITAL SIGNS: Blood pressure 134/72, his pulse is 88, respirations are 22, and temperature 99.8. HEENT: Eyes were normal. ENT, mucous membranes were moist and intact. NECK: Supple with no JVD without lymph nodes. LUNGS: Clear. HEART: Normal sounds with regular beat. There is no tachycardia at rest. ABDOMEN: Soft and nontender with normal bowel sounds. EXTREMITIES: Warm without cyanosis, clubbing, or edema. LABORATORY AND DIAGNOSTIC DATA: Hemoglobin is 9.2, hematocrit 37.4 with MCV of 90, WBC of 16.9, and platelets 161,000. His BUN and creatinine are 15 and 2.1 respectively. Sodium is 153, potassium 3.8, chloride 119, and CO2 is 23. The abdominal ultrasound revealed status post cholecystectomy. He has bilateral ductal dilatation due to post-cholecystostomy state and function is still possible. Liver function left kidney. IMPRESSION: The patient also had DVT lower extremity. possible superficial . Repeat laboratory tests will be done in the a.m. was called to assist in the management of this case. Domingo Anderson M.D. DR: JEFRFEY JOB#: [id number] CC:
--- NOTE | 2019-04-17 13:47 | NUR ---
RD ASSESSMENT & RECOMMENDATIONS SEE CARE ACTIVITY FOR COMPLETE ASSESSMENT DAILY ESTIMATED NEEDS: Needs based on sepsis 65.9kg 25-35 kcals/kg 9266-7990 total kcals 1.25-2 g protein/kg 82-132 g total protein 25-30 mL/kg 2326-8552 total fluid mLs NUTRITION DIAGNOSIS: Increased kcal and pro needs r/t sepsis and wound healing as evidenced by febrile, adm w. elev WBC (23.9-> trending down), elev LD, w/ sacral wound, eval is pending. CURRENT DIET: Regular mech soft chopped PO DIET RECOMMENDATIONS: Regular liberalized diet/ texture per SCREEN MAKER ADDITIONAL RECOMMENDATIONS: 1) Calibrated bed scale wts 2) 1:1 feeds, encouragement 3) WC eval for sacral wounds 4) Add GLUCERNA 1 tetra zach BID w/ variable po intake, add snacks 5) SCREEN MAKER eval for appropriate texture 6) Monitor BG w/ suboptimal po -> currently on D5 @100
--- NOTE | 2019-04-17 13:55 | Pulmonology Progress Note ---
Assessment/Plan Problems: (1) Sepsis (2) Acute renal failure (3) UTI (urinary tract infection) (4) COPD (chronic obstructive pulmonary disease) (5) Hx of right BKA (6) Dehydration (7) Diabetes mellitus (8) History of hypertension Assessment/Plan improving continue abc iv fluids add venofer stool for OB pending sliding scale Subjective ROS Limited/Unobtainable: No Constitutional: Reports: no symptoms HEENT: Repors: no symptoms Allergies: Coded Allergies: No Known Allergies (Unverified , 04/15/19) Objective Last 24 Hour Vital Signs Date Time Temp Pulse Resp B/P (MAP) Pulse Ox O2 Delivery O2 Flow Rate FiO2 04/17/19 08:41 97.7 73 18 139/68 (91) 98 04/17/19 06:51 98.1 04/17/19 04:02 98.1 82 16 119/63 (81) 96 04/17/19 00:00 100.4 85 16 120/62 (81) 95 04/16/19 21:00 Room Air 04/16/19 20:00 88 04/16/19 20:00 99.8 88 22 134/72 (92) 94 04/16/19 16:00 90 04/16/19 16:00 97.9 90 20 122/67 (85) 95 Intake and Output 04/16/19 04/17/19 19:00 07:00 Intake Total 236 ml 470 ml Output Total 500 ml 600 ml Balance -264 ml -130 ml Intake Oral 236 ml IV Total 470 ml Output Urine Total 500 ml 600 ml # Voids 1 General Appearance: no acute distress HEENT: normocephalic Respiratory/Chest: chest wall non-tender, lungs clear Cardiovascular: normal peripheral pulses, normal rate Abdomen: normal bowel sounds, soft, non tender Genitourinary: normal external genitalia Extremities: no clubbing Skin: no lesions Microbiology Date/Time Source Procedure Growth Status 04/15/19 12:00 Blood Blood Culture - Preliminary Gram Negative Bacillus 1 Resulted 04/15/19 12:00 Blood Blood Culture - Preliminary Gram Negative Bacillus 1 Resulted 04/15/19 17:56 Nasal Nares MRSA Culture - Final NO METHICILLIN RESISTANT STAPH AUREUS... Complete 04/15/19 12:25 Nasal Nares - Final Complete 04/15/19 12:25 Nasal Nares - Final Complete 04/16/19 16:50 Urine,Clean Catch Urine Culture - Preliminary NO GROWTH Resulted 04/15/19 22:30 Urine,Clean Catch Urine Culture - Preliminary Resulted 04/15/19 12:00 Urine,Clean Catch Urine Culture - Final Klebsiella Pneumoniae Complete 04/15/19 17:56 Rectum - Final NO CARBAPENEM-RESISTANT ENTEROBACTERI... Complete 04/15/19 17:56 Rectum VRE Culture - Final NO VANCOMYCIN RESISTANT ENTEROCOCCUS ... Complete Laboratory Tests 04/16/19 16:50: Urine Color Yellow, Urine Appearance Cloudy, Urine pH 5, Urine Specific [place] 1.015, Urine Protein 3+H, Urine Glucose (UA) Negative, Urine Ketones 1+H, Urine Blood 5+H, Urine Nitrite Negative, Urine Bilirubin Negative, Urine Urobilinogen Normal, Urine Leukocyte Esterase 3+H, Urine RBC 5-10H, Urine WBC TntcH, Urine Squamous Epithelial Cells Occasional, Urine Bacteria ModerateH, Urine Eosinophils None seen, Urine Random Sodium 49, Urine Potassium Timed 53 04/17/19 04:40: White Blood Count 12.2H, Red Blood Count 2.67L, Hemoglobin 8.2L, Hematocrit 24.2L, Mean Corpuscular Volume 90, Mean Corpuscular Hemoglobin 30.6, Mean Corpuscular Hemoglobin Concent 33.8, Red Cell Distribution Width 13.0, Platelet Count 164, Mean Platelet Volume 6.3L, Neutrophils (%) (Auto) , Lymphocytes (%) ( Auto) , Monocytes (%) (Auto) , Eosinophils (%) (Auto) , Basophils (%) (Auto) , Differential Total Cells Counted 100, Neutrophils % (Manual) 82H, Lymphocytes % (Manual) 13L, Monocytes % (Manual) 1, Eosinophils % (Manual) 4H, Basophils % ( Manual) 0, Band Neutrophils 0, Other Cell Type Pathologist review, Platelet Estimate Adequate, Platelet Morphology Normal, Hypochromasia 1+ 04/17/19 05:15: Erythrocyte Sedimentation Rate 130H, Reticulocyte Count 0.4L, Prothrombin Time 10.2, Prothromb Time International Ratio 1.0, Activated Partial Thromboplast Time 42H, Sodium Level 145, Potassium Level 3.5, Chloride Level 113H, Carbon Dioxide Level 22, Anion Gap 10, Blood Urea Nitrogen 43H, Creatinine 1.6H, Estimat Glomerular Filtration Rate 50.4, Glucose Level 197H, Calcium Level 8.9, Phosphorus Level 2.3L, Magnesium Level 1.8, Iron Level 43L, Total Iron Binding Capacity 110L, Percent Iron Saturation 39, Unsaturated Iron Binding 67L, Lactate Dehydrogenase 321H, C-Reactive Protein, Quantitative 31.6H, Carcinoembryonic Antigen [Pending], Vitamin B12 Level 393, Folate 7.3L Current Medications Medications (Trade) Dose Ordered Sig/Neftaly Route PRN Reason Start Time Stop Time Status Last Admin Dose Admin Acetaminophen (Tylenol) 650 mg Q4H PRN ORAL Mild Pain/Temp > 100.0 04/17/19 00:30 05/17/19 00:29 04/17/19 06:21 Dextrose 1,000 ml @ 100 mls/hr Q10H IV 04/17/19 00:30 05/17/19 00:29 04/17/19 10:43 Dextrose (Dextrose 50%) 25 ml Q30M PRN IV Hypoglycemia 04/17/19 00:15 05/15/19 21:14 Dextrose (Dextrose 50%) 50 ml Q30M PRN IV Hypoglycemia 04/17/19 00:15 05/15/19 21:14 Heparin Sodium (Porcine) (Heparin 5000 units/ml) 5,000 units EVERY 12 HOURS SUBQ 04/17/19 09:00 05/16/19 08:59 Insulin Aspart (NovoLOG) BEFORE MEALS AND HS SUBQ 04/17/19 06:30 05/16/19 06:29 04/17/19 12:24 Iron Sucrose 200 mg/Sodium Chloride 120 ml @ 240 mls/hr ONCE IV 04/17/19 16:00 04/17/19 18:00 Meropenem 500 mg/ Sodium Chloride 55 ml @ 110 mls/hr Q12HR@0400,1600 IVPB 04/17/19 04:00 04/17/19 15:59 04/17/19 03:31 Pantoprazole (Protonix) 40 mg EVERY 12 HOURS IVP 04/17/19 09:00 05/16/19 08:59 04/17/19 10:34 Dionne Chew MD Apr 17, 2019 13:55
[2019-04-17] MEDS ORDERED: Iron Sucrose 200 MG in NS 110 ML IV SCH (16:00)
--- NOTE | 2019-04-17 17:12 | NUR ---
CASE MANAGEMENT:REVIEW SI;SEPSIS. AC RENAL FAILURE. UTI. 98.1 83 19 139/68 94% ON RA WBC 12.2 H/H 8.2/24.2 BUN 43 CR 1.6 IS;IRON SUCROSE IV PROTONIX IV Q12 HRS DEXTROSE @ 100 ML/HR MEROPENEM IV Q12 HRS MED SURG STATUS DCP;FROM [facility]
--- NOTE | 2019-04-17 18:00 | NUR ---
NURSE NOTES: Patient resting no complaints at this time.Bed alarm on,Nurse aide has been aware of fall risk.call light within reach.
--- NOTE | 2019-04-17 18:30 | NUR ---
NURSE NOTES: Resting at this time,call light within reach,Nurse aide aware of fall status.
--- NOTE | 2019-04-17 20:00 | NUR ---
NURSE NOTES: Received patient in bed. A&OX1 with confusion. IV site patent and intact. Pike draining well by gravity, yellow urine noted. Bed in lowest position. Call light within reach. Will continue to monitor.
--- NOTE | 2019-04-17 21:00 | NUR ---
HAND-OFF: Report given to Sheron VILLALPANDO.
--- NOTE | 2019-04-17 21:05 | NUR ---
NURSE NOTES: Received report from KWASI Recio. Patient in bed and asleep at this time. On room air with no signs of distress or SOB. IV intact and running IVF as ordered. Pike in place and draining yellow urine. Bed locked and in lowest position. Call light in reach. Will continue to monitor the patient.
[2019-04-17] MEDS: Meropenem 1 GM in NS 55 ML IVPB SCH (22:06)
[2019-04-17 23:29] LABS: APPEARANCE,URINE SLIGHTLY CLOUDY; BILIRUBIN, URINE NEGATIVE (NEGATIVE); COLOR,URINE PALE YELLOW; GLUCOSE, URINE (UA) NEGATIVE (NEGATIVE); KETONES,URINE NEGATIVE (NEGATIVE); LEUKOCYTE ESTERASE ,URINE 3+ (NEGATIVE); NITRITE,URINE NEGATIVE (NEGATIVE); PH,URINE 5 (4.5-8.0); PROTEIN,URINE 3+ (NEGATIVE); UROBILINOGEN,URINE NORMAL MG/DL (0.0-1.0)
[2019-04-18 03:59] VITALS: BP 134/65
[2019-04-18] MEDS: NovoLOG Insulin Flexpen SUBQ SCH ×4 (06:18→20:53)
[2019-04-18 06:42] LABS: BASOPHILS % (AUTO) 0.4 % (0.0-2.0); EOSINOPHILS % (AUTO) 4.6 % (0.0-3.0); HEMATOCRIT 25.5 % (42.0-52.0); HEMOGLOBIN 8.5 G/DL (14.2-18.0); LYMPHOCYTES % (AUTO) 12.6 % (20.0-45.0); MEAN CORPUSCULAR VOLUME 90 FL (80-99); MONOCYTES % (AUTO) 4.3 % (1.0-10.0); PLATELET COUNT 168 K/UL (150-450); RED BLOOD COUNT 2.82 M/UL (4.70-6.10); RED CELL DISTRIBUTION WIDTH 12.7 % (11.6-14.8); WHITE BLOOD COUNT 8.7 K/UL (4.8-10.8)
--- NOTE | 2019-04-18 07:07 | NUR ---
HAND-OFF: Report given to KWASI Motley.
[2019-04-18 07:10] LABS: ALANINE AMINOTRANSFERASE 54 U/L (12-78); ALBUMIN 1.6 G/DL (3.4-5.0); ALBUMIN/GLOBULIN RATIO 0.4 (1.0-2.7); ALKALINE PHOSPHATASE 122 U/L (46-116); ANION GAP 7 mmol/L (5-15); ASPARTATE AMINO TRANSFERASE 50 U/L (15-37); BILIRUBIN,TOTAL 0.5 MG/DL (0.2-1.0); BLOOD UREA NITROGEN 27 mg/dL (7-18); CALCIUM 9.1 MG/DL (8.5-10.1); CARBON DIOXIDE 24 MMOL/L (21-32); CHLORIDE 111 MMOL/L (98-107); CREATININE 1.2 MG/DL (0.55-1.30); PHOSPHORUS 2.4 MG/DL (2.5-4.9); POTASSIUM 3.4 MMOL/L (3.5-5.1); SODIUM 142 MMOL/L (136-145)
--- NOTE | 2019-04-18 07:15 | Progress Note ---
DATE: 04/17/2019 SUBJECTIVE: The patient is awake, alert, afebrile, and hemodynamically stable. PHYSICAL EXAMINATION: VITAL SIGNS: Blood pressure is 141/68, his pulse is 80, respirations of 16, and temperature is 98. HEENT: Eyes were normal. ENT, mucous membranes were moist and intact. NECK: Supple with no JVD without lymph nodes. LUNGS: Clear. HEART: Normal sounds with regular beats. There is no tachycardia at rest. ABDOMEN: Soft, nontender, with normal bowel sounds. EXTREMITIES: Warm without cyanosis, clubbing, or edema. LABORATORY AND DIAGNOSTIC DATA: Hemoglobin is 8.2, hematocrit 24.2 with MCV of 90, WBC of 12.2, and platelets is 164,000. His WBC was 23,000 on and 16.9 on 04/16/2019. is 130. BUN and creatinine 43 and 1.6 respectively. It was 50 and 2.1 yesterday. Sodium is 145, potassium 3.5, chloride 113, CO2 is 22, and calcium is 8.9. The patient had an accident today which on his head that required stitches. Today, he was sent for CT scan of the brain. Finding was negative for acute intracranial bleed or mass effect or scalp hematoma was identified. IMPRESSION: Today, the patient was seen by Dr. Garzon does not require stitches. The patient's blood culture became available. 48 hours ago, the patient was found to have redd in the tube, gram-negative bacilli turned out in the blood and urine culture revealed Klebsiella pneumoniae, which was sensitive to imipenem. The patient already received 2 units of imipenem. was called to assist in the management of this case. The patient will continue on Merrem 1 g q.8 h. Repeat laboratory tests will be done in the a.m. To note, the patient's clinical condition has markedly improved as compared to yesterday. Today the patient was moderately obtunded, today he was completely awake, alert, afebrile with normal bed mobility. Repeat laboratory tests will be done in the a.m. Domingo Anderson M.D. DR: Josué JOB#: [id number] CC:
--- NOTE | 2019-04-18 07:47 | NUR ---
NURSE NOTES: Patient alert to name,respirations unlabored.IV fluids infusing as ordered.Pike catheter is in place and draing yellow urine.Breakfast at bedside will assist patient.Bed alarm is on,call light within reach.
[2019-04-18 08:00] VITALS: BP 148/72
[2019-04-18] MEDS: Pantoprazole Inj IVP SCH ×2 (09:23→20:45)
[2019-04-18] MEDS: Heparin 5000 units/ml inj SUBQ SCH ×2 (09:25→20:47)
[2019-04-18] MEDS: Meropenem 1 GM in NS 55 ML IVPB SCH (09:27)
--- NOTE | 2019-04-18 11:01 | Surgery Progress Note ---
Surgery Progress Note Subjective Additional Comments no acute events comfortable stable Objective Last 24 Hour Vital Signs Date Time Temp Pulse Resp B/P (MAP) Pulse Ox O2 Delivery O2 Flow Rate FiO2 04/18/19 03:59 98.6 76 17 134/65 (88) 99 04/17/19 23:35 98.8 78 18 132/68 (89) 99 04/17/19 21:00 Room Air 04/17/19 20:00 99.1 80 16 141/68 (92) 96 04/17/19 16:00 98.0 74 19 131/73 (92) 98 04/17/19 12:00 97.9 75 18 134/70 (91) 94 I&O Intake and Output 04/17/19 04/18/19 19:00 07:00 Intake Total 2060 ml Output Total 650 ml 700 ml Balance 1410 ml -700 ml Intake Oral 960 ml IV Total 1100 ml Output Urine Total 650 ml 700 ml # Voids 1 Dressing: dry, other Wound: clean, other Drains: other Cardiovascular: RSR Respiratory: decreased breath sounds Abdomen: soft, non-tender, present bowel sounds Extremities: no cyanosis Laboratory Tests Test 04/17/19 23:10 04/18/19 06:10 Urine Color Pale yellow Urine Appearance Slightly cloudy Urine pH 5 (4.5-8.0) Urine Specific [place] 1.010 (1.005-1.035) Urine Protein 3+ (NEGATIVE) H Urine Glucose (UA) Negative (NEGATIVE) Urine Ketones Negative (NEGATIVE) Urine Blood 4+ (NEGATIVE) H Urine Nitrite Negative (NEGATIVE) Urine Bilirubin Negative (NEGATIVE) Urine Urobilinogen Normal MG/DL (0.0-1.0) Urine Leukocyte Esterase 3+ (NEGATIVE) H Urine RBC Tntc /HPF (0 - 0) H Urine WBC Tntc /HPF (0 - 0) H Urine Squamous Epithelial Cells Moderate /LPF (NONE/OCC) H Urine Bacteria Many /HPF (NONE) H White Blood Count 8.7 K/UL (4.8-10.8) Red Blood Count 2.82 M/UL (4.70-6.10) L Hemoglobin 8.5 G/DL (14.2-18.0) L Hematocrit 25.5 % (42.0-52.0) L Mean Corpuscular Volume 90 FL (80-99) Mean Corpuscular Hemoglobin 30.3 PG (27.0-31.0) Mean Corpuscular Hemoglobin Concent 33.5 G/DL (32.0-36.0) Red Cell Distribution Width 12.7 % (11.6-14.8) Platelet Count 168 K/UL (150-450) Mean Platelet Volume 5.8 FL (6.5-10.1) L Neutrophils (%) (Auto) 78.0 % (45.0-75.0) H Lymphocytes (%) (Auto) 12.6 % (20.0-45.0) L Monocytes (%) (Auto) 4.3 % (1.0-10.0) Eosinophils (%) (Auto) 4.6 % (0.0-3.0) H Basophils (%) (Auto) 0.4 % (0.0-2.0) Erythrocyte Sedimentation Rate 123 MM/HR (0-20) H Sodium Level 142 MMOL/L (136-145) Potassium Level 3.4 MMOL/L (3.5-5.1) L Chloride Level 111 MMOL/L (98-107) H Carbon Dioxide Level 24 MMOL/L (21-32) Anion Gap 7 mmol/L (5-15) Blood Urea Nitrogen 27 mg/dL (7-18) H Creatinine 1.2 MG/DL (0.55-1.30) Estimat Glomerular Filtration Rate > 60 mL/min (>60) Glucose Level 203 MG/DL (74-106) H Calcium Level 9.1 MG/DL (8.5-10.1) Phosphorus Level 2.4 MG/DL (2.5-4.9) L Magnesium Level 1.6 MG/DL (1.8-2.4) L Total Bilirubin 0.5 MG/DL (0.2-1.0) Aspartate Amino Transf (AST/SGOT) 50 U/L (15-37) H Alanine Aminotransferase (ALT/SGPT) 54 U/L (12-78) Alkaline Phosphatase 122 U/L (46-116) H C-Reactive Protein, Quantitative 17.7 mg/dL (0.00-0.90) H Total Protein 6.0 G/DL (6.4-8.2) L Albumin 1.6 G/DL (3.4-5.0) L Globulin 4.4 g/dL Albumin/Globulin Ratio 0.4 (1.0-2.7) L Plan Problems: (1) Laceration of face Assessment & Plan: During admission and cleaning of the room patient sustained a laceration to his right face around the area of the eyebrow from a following light fixture. Wound wash Steri-Strips applied no signs of active infection no bleeding small hematoma. Mild tenderness on palpation. 1 cm laceration. No acute surgical intervention indicated recommended Keep Steri-Strips in place We will monitor closely to ensure no infection or hematoma or complication Nutritional optimization Findings: There is new finding of a small right frontal scalp hematoma. No acute intracranial hemorrhage or edema. No mass effect nor midline shift. There is age-related enlargement of the ventricles and extra-axial CSF spaces. There is periventricular deep white matter low-attenuation, consistent with chronic microvascular ischemic change. 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 There is again demonstrated chronic periosteal thickening and some mucosal disease of the left maxillary sinus. There is bilateral ethmoid sinus disease. The mastoids are clear. The calvarium is intact. Impression: Negative for acute intracranial bleed or mass effect Evidence of right frontal scalp contusion Thank you will follow with recommendations (2) Severe protein-calorie malnutrition Assessment & Plan: DAILY ESTIMATED NEEDS: Needs based on sepsis 65.9kg 25-35 kcals/kg 2576-7054 total kcals 1.25-2 g protein/kg 82-132 g total protein 25-30 mL/kg 7619-7624 total fluid mLs NUTRITION DIAGNOSIS: Increased kcal and pro needs r/t sepsis and wound healing as evidenced by febrile, adm w. elev WBC (23.9-> trending down), elev LD, w/ sacral wound, eval is pending. CURRENT DIET: Regular mech soft chopped PO DIET RECOMMENDATIONS: Regular liberalized diet/ texture per DIAGNOSTIC TECH ADDITIONAL RECOMMENDATIONS: 1) Calibrated bed scale wts 2) 1:1 feeds, encouragement 3) WC eval for sacral wounds 4) Add GLUCERNA 1 tetra zach BID w/ variable po intake, add snacks 5) DIAGNOSTIC TECH eval for appropriate texture 6) Monitor BG w/ suboptimal po -> currently on D5 @100 (3) Sepsis Assessment & Plan: This is a 83-year-old male who initially presented with leukocytosis, abnormal labs, lactic acidosis, sepsis admitted for further care and management on IV antibiotics undergoing medical care who is now improving. Altered mental status being worked up. Continue with current medical treatment. Alex Garzon Apr 18, 2019 11:01
--- NOTE | 2019-04-18 11:42 | Consultation ---
History of Present Illness General Date patient seen: Apr 18, 2019 Chief Complaint: Altered Level of Consciousness Present Illness HPI 83 y/o M with hx of R BKA w/ phantom limb syndrome, HLD, HTN, dyphagia s/p GT, chronic resp failure s/p trach, DM2, COPD, cognitive communication deficit, SNF resident presented to ED on 04/15 with altered mental status and dislodgment of GT. During hospital stay, patient sustained a laceration to the right eyebrow after trauma from a light fixture falling onto him. Allergies: Coded Allergies: No Known Allergies (Unverified , 04/15/19) Medication History Scheduled Atorvastatin Calcium* (Lipitor*), 10 MG ORAL BEDTIME, (Reported) Brimonidine Tartrate* (Alphagan*), 1 DROP BOTH EYES BID, (Reported) Cholecalciferol (Vitamin D3) (Vitamin D3), 50,000 UNIT PO ONCE A WEEK, (Reported ) Dextran 70/Hypromellose (Artificial Tears), 1 EACH BOTH EYES Q4HR, (Reported) Docusate Sodium* (Docusate Sodium*), 250 MG ORAL DAILY, (Reported) Enoxaparin* (Lovenox*), 40 MG SUBQ DAILY, (Reported) Gabapentin* (Gabapentin*), 100 MG ORAL THREE TIMES A DAY, (Reported) Insulin Aspart (Novolog), 6 SUBQ THREE TIMES A DAY, (Reported) Insulin Glargine (Lantus), 34 UNIT SUBQ DAILY, (Reported) Latanoprost* (Xalatan*), 1 DROP BOTH EYES BEDTIME, (Reported) Losartan Potassium* (Losartan Potassium*), 25 MG ORAL DAILY, (Reported) Melatonin (Melatonin), 6 MG ORAL BEDTIME, (Reported) Metformin Hcl* (Metformin Hcl*), 1,000 MG ORAL BID, (Reported) Multivitamins* (Multivitamins*), 1 TAB ORAL DAILY, (Reported) Sennosides (Senna), 8.6 MG PO BEDTIME, (Reported) Scheduled PRN Acetaminophen* (Acetaminophen 325MG Tablet*), 650 MG ORAL Q4H PRN for Mild Pain/ Temp > 100.5, (Reported) Acetaminophen* (Tylenol Extra Strength*), 500 MG ORAL Q6H PRN for Mild Pain/ Temp > 100.5, (Reported) Albuterol Sulfate (Albuterol Sulfate Hfa), 2 PUFFS IH Q6HR PRN for Shortness of Breath, (Reported) Bisacodyl (Bisacodyl), 10 MG RC for Constipation, (Reported) Discontinued Medications Albuterol Sulfate* (Albuterol Sulfate Hhn*), 3 ML INH Q4H PRN for Shortness of Breath, (Reported) Discontinued Reason: Prescription changed Atorvastatin Calcium* (Atorvastatin Calcium*), 10 MG ORAL BEDTIME, (Reported) Discontinued Reason: Prescription changed Bisacodyl* (Dulcolax*), 10 MG ORAL DAILY, (Reported) Discontinued Reason: Prescription changed Melatonin/Pyridoxine HCl (B6) (Melatonin 3 mg Tablet), 1 EACH PO, (Reported) Discontinued Reason: Prescription changed Patient History Healthcare decision maker N Resuscitation status Full Code Advanced Directive on File Patient History Narrative Pmhx: as above Shx: He is single. He was born in [place]. He was a resident there for many years. 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 The patient does not smoke, drink, or use illicit drugs. Fhx: non contributory Review of Systems All Other Systems: negative except mentioned in HPI Physical Exam Physical Exam Narrative HEENT: Eyes were normal. Pupils were round, equal, and reactive to light. Sclerae were white. ENT, mucous membranes were not dehydrated. NECK: Supple. There was no goiter. No mass. No lymphadenopathy. There was no JVD. No bruits. LUNGS: Clear. HEART: PMI was in fourth left intercostal space in midclavicular line. There was normal S1 and normal S2. There was no murmur. No arrhythmia. No S3. No S4. No pericardial rub. ABDOMEN: Soft and nontender without organomegaly. There were no masses palpable. Normal bowel sounds without bruits. There was no guarding. No rebound tenderness. No ascites. No hernia. No CVA tenderness. Last 24 Hour Vital Signs Date Time Temp Pulse Resp B/P (MAP) Pulse Ox O2 Delivery O2 Flow Rate FiO2 04/18/19 03:59 98.6 76 17 134/65 (88) 99 04/17/19 23:35 98.8 78 18 132/68 (89) 99 04/17/19 21:00 Room Air 04/17/19 20:00 99.1 80 16 141/68 (92) 96 04/17/19 16:00 98.0 74 19 131/73 (92) 98 04/17/19 12:00 97.9 75 18 134/70 (91) 94 Intake and Output 04/17/19 04/18/19 19:00 07:00 Intake Total 2060 ml Output Total 650 ml 700 ml Balance 1410 ml -700 ml Intake Oral 960 ml IV Total 1100 ml Output Urine Total 650 ml 700 ml # Voids 1 Laboratory Tests Test 04/17/19 23:10 04/18/19 06:10 Urine Color Pale yellow Urine Appearance Slightly cloudy Urine pH 5 (4.5-8.0) Urine Specific [place] 1.010 (1.005-1.035) Urine Protein 3+ (NEGATIVE) H Urine Glucose (UA) Negative (NEGATIVE) Urine Ketones Negative (NEGATIVE) Urine Blood 4+ (NEGATIVE) H Urine Nitrite Negative (NEGATIVE) Urine Bilirubin Negative (NEGATIVE) Urine Urobilinogen Normal MG/DL (0.0-1.0) Urine Leukocyte Esterase 3+ (NEGATIVE) H Urine RBC Tntc /HPF (0 - 0) H Urine WBC Tntc /HPF (0 - 0) H Urine Squamous Epithelial Cells Moderate /LPF (NONE/OCC) H Urine Bacteria Many /HPF (NONE) H White Blood Count 8.7 K/UL (4.8-10.8) Red Blood Count 2.82 M/UL (4.70-6.10) L Hemoglobin 8.5 G/DL (14.2-18.0) L Hematocrit 25.5 % (42.0-52.0) L Mean Corpuscular Volume 90 FL (80-99) Mean Corpuscular Hemoglobin 30.3 PG (27.0-31.0) Mean Corpuscular Hemoglobin Concent 33.5 G/DL (32.0-36.0) Red Cell Distribution Width 12.7 % (11.6-14.8) Platelet Count 168 K/UL (150-450) Mean Platelet Volume 5.8 FL (6.5-10.1) L Neutrophils (%) (Auto) 78.0 % (45.0-75.0) H Lymphocytes (%) (Auto) 12.6 % (20.0-45.0) L Monocytes (%) (Auto) 4.3 % (1.0-10.0) Eosinophils (%) (Auto) 4.6 % (0.0-3.0) H Basophils (%) (Auto) 0.4 % (0.0-2.0) Erythrocyte Sedimentation Rate 123 MM/HR (0-20) H Sodium Level 142 MMOL/L (136-145) Potassium Level 3.4 MMOL/L (3.5-5.1) L Chloride Level 111 MMOL/L (98-107) H Carbon Dioxide Level 24 MMOL/L (21-32) Anion Gap 7 mmol/L (5-15) Blood Urea Nitrogen 27 mg/dL (7-18) H Creatinine 1.2 MG/DL (0.55-1.30) Estimat Glomerular Filtration Rate > 60 mL/min (>60) Glucose Level 203 MG/DL (74-106) H Calcium Level 9.1 MG/DL (8.5-10.1) Phosphorus Level 2.4 MG/DL (2.5-4.9) L Magnesium Level 1.6 MG/DL (1.8-2.4) L Total Bilirubin 0.5 MG/DL (0.2-1.0) Aspartate Amino Transf (AST/SGOT) 50 U/L (15-37) H Alanine Aminotransferase (ALT/SGPT) 54 U/L (12-78) Alkaline Phosphatase 122 U/L (46-116) H C-Reactive Protein, Quantitative 17.7 mg/dL (0.00-0.90) H Total Protein 6.0 G/DL (6.4-8.2) L Albumin 1.6 G/DL (3.4-5.0) L Globulin 4.4 g/dL Albumin/Globulin Ratio 0.4 (1.0-2.7) L Height (Feet): 5 Height (Inches): 10.00 Weight (Pounds): 145 Medications Current Medications Medications (Trade) Dose Ordered Sig/Neftlay Route PRN Reason Start Time Stop Time Status Last Admin Dose Admin Acetaminophen (Tylenol) 650 mg Q4H PRN ORAL Mild Pain/Temp > 100.0 04/17/19 00:30 05/17/19 00:29 04/17/19 06:21 Dextrose 1,000 ml @ 100 mls/hr Q10H IV 04/17/19 00:30 05/17/19 00:29 04/18/19 06:45 Dextrose (Dextrose 50%) 25 ml Q30M PRN IV Hypoglycemia 04/17/19 00:15 05/15/19 21:14 Dextrose (Dextrose 50%) 50 ml Q30M PRN IV Hypoglycemia 04/17/19 00:15 05/15/19 21:14 Heparin Sodium (Porcine) (Heparin 5000 units/ml) 5,000 units EVERY 12 HOURS SUBQ 04/17/19 09:00 05/16/19 08:59 04/18/19 09:25 Insulin Aspart (NovoLOG) BEFORE MEALS AND HS SUBQ 04/17/19 06:30 05/16/19 06:29 04/18/19 06:18 Meropenem 1 gm/ Sodium Chloride 55 ml @ 110 mls/hr EVERY 12 HOURS IVPB 04/17/19 21:00 04/22/19 20:59 04/18/19 09:27 Pantoprazole (Protonix) 40 mg EVERY 12 HOURS IVP 04/17/19 09:00 05/16/19 08:59 04/18/19 09:23 Assessment/Plan Assessment/Plan: Abx: Meropenem 04/16- Cefepime 04/15-04/16 IV Vancomycin 04/15-04/16 Assessment: Sepsis Gram negative bacteremia UTI -04/18 u/a wbc tntc, nit neg, leuk +3 -04/17 Bcx p -04/16 ucx >100k strep sp, gamma-hemolytic -04/15 Bcx 06/07 K. pna (R Amp, I Ancef, Zosyn) ucx >100k K.pna (R amp, macrobid; otherwise S); repeat ucx >100k GNR #1, >100k GNR #2, >100k strep sp, gamma-hemolytic influenza sc neg CXR: Suspected mild CHF. Correlate clinically Low grade fever x1 Leukocytosis, SP Face laceration -04/[address]:Negative for acute intracranial bleed or mass effect. Evidence of right frontal scalp contusion SANNA, improving Elevated AST; improving -Abd US: Absent gallbladder, status post cholecystectomy Intrahepatic biliary ductal dilatation. Suspect on the basis of patient's age and postcholecystectomy state. However, downstream obstruction also possible. Correlate with liver function tests, consider MRCP for better characterization if clinically indicated. Empty bladder with a Pike catheter.Trace left perinephric fluid. This is a nonspecific finding, can be seen in the setting of renal inflammation PVD R BKA w/ phantom limb syndrome -a. 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 Evidence of resultant severe ischemia of the foot HLD HTN dyphagia s/p GT chronic resp failure s/p trach DM2 COPD cognitive communication deficit SNF resident Plan: -Switch Meropenem #3 to Cefepime for K.pna UTI and bacteremia -add empiric Zyvox for UTI -f/u cx -Monitor CBC/CMP, temperatures Thank you for this consultation. Will continue to follow along with you. Discussed with Ana M Faust M.D. Apr 18, 2019 11:42
[2019-04-18 12:00] VITALS: BP 139/81
--- NOTE | 2019-04-18 14:15 | Pulmonology Progress Note ---
Assessment/Plan Problems: (1) Sepsis (2) Acute renal failure (3) UTI (urinary tract infection) (4) COPD (chronic obstructive pulmonary disease) (5) Hx of right BKA (6) Dehydration (7) Diabetes mellitus (8) History of hypertension (9) Gram-negative bacteremia Assessment/Plan no new complains improving continue abc iv fluids, renal function better add venofer stool for OB pending sliding scale GI evaluation Subjective ROS Limited/Unobtainable: No Constitutional: Reports: no symptoms HEENT: Repors: no symptoms Allergies: Coded Allergies: No Known Allergies (Unverified , 04/15/19) Objective Last 24 Hour Vital Signs Date Time Temp Pulse Resp B/P (MAP) Pulse Ox O2 Delivery O2 Flow Rate FiO2 04/18/19 12:00 97.9 69 17 139/81 (100) 98 04/18/19 09:00 Room Air 04/18/19 08:00 98.0 64 17 148/72 (97) 99 04/18/19 03:59 98.6 76 17 134/65 (88) 99 04/17/19 23:35 98.8 78 18 132/68 (89) 99 04/17/19 21:00 Room Air 04/17/19 20:00 99.1 80 16 141/68 (92) 96 04/17/19 16:00 98.0 74 19 131/73 (92) 98 Intake and Output 04/17/19 04/18/19 19:00 07:00 Intake Total 2060 ml Output Total 650 ml 700 ml Balance 1410 ml -700 ml Intake Oral 960 ml IV Total 1100 ml Output Urine Total 650 ml 700 ml # Voids 1 General Appearance: cachetic HEENT: normocephalic, atraumatic, PERRL Respiratory/Chest: chest wall non-tender, lungs clear Cardiovascular: normal peripheral pulses Abdomen: normal bowel sounds, no organomegaly Genitourinary: normal external genitalia Skin: no rash Microbiology Date/Time Source Procedure Growth Status 04/15/19 17:56 Nasal Nares MRSA Culture - Final NO METHICILLIN RESISTANT STAPH AUREUS... Complete 04/16/19 16:50 Urine,Clean Catch Urine Culture - Preliminary Strep Species, Gamma-Hemolytic Resulted 04/15/19 22:30 Urine,Clean Catch Urine Culture - Preliminary Gram Negative Bacillus 1 Gram Negative Bacillus 2 Strep Species, Gamma-Hemolytic Resulted 04/15/19 17:56 Rectum - Final NO CARBAPENEM-RESISTANT ENTEROBACTERI... Complete 04/15/19 17:56 Rectum VRE Culture - Final NO VANCOMYCIN RESISTANT ENTEROCOCCUS ... Complete Laboratory Tests 04/17/19 23:10: Urine Color Pale yellow, Urine Appearance Slightly cloudy, Urine pH 5, Urine Specific Williams 1.010, Urine Protein 3+H, Urine Glucose (UA) Negative, Urine Ketones Negative, Urine Blood 4+H, Urine Nitrite Negative, Urine Bilirubin Negative, Urine Urobilinogen Normal, Urine Leukocyte Esterase 3+H, Urine RBC TntcH, Urine WBC TntcH, Urine Squamous Epithelial Cells ModerateH, Urine Bacteria ManyH 04/18/19 06:10: White Blood Count 8.7, Red Blood Count 2.82L, Hemoglobin 8.5L, Hematocrit 25.5L , Mean Corpuscular Volume 90, Mean Corpuscular Hemoglobin 30.3, Mean Corpuscular Hemoglobin Concent 33.5, Red Cell Distribution Width 12.7, Platelet Count 168, Mean Platelet Volume 5.8L, Neutrophils (%) (Auto) 78.0H, Lymphocytes (%) (Auto) 12.6L, Monocytes (%) (Auto) 4.3, Eosinophils (%) (Auto) 4.6H, Basophils (%) (Auto) 0.4, Erythrocyte Sedimentation Rate 123H, Sodium Level 142 , Potassium Level 3.4L, Chloride Level 111H, Carbon Dioxide Level 24, Anion Gap 7, Blood Urea Nitrogen 27H, Creatinine 1.2, Estimat Glomerular Filtration Rate > 60, Glucose Level 203H, Calcium Level 9.1, Phosphorus Level 2.4L, Magnesium Level 1.6L, Total Bilirubin 0.5, Aspartate Amino Transf (AST/SGOT) 50H, Alanine Aminotransferase (ALT/SGPT) 54, Alkaline Phosphatase 122H, C-Reactive Protein, Quantitative 17.7H, Total Protein 6.0L, Albumin 1.6L, Globulin 4.4, Albumin/ Globulin Ratio 0.4L Current Medications Medications (Trade) Dose Ordered Sig/Neftaly Route PRN Reason Start Time Stop Time Status Last Admin Dose Admin Acetaminophen (Tylenol) 650 mg Q4H PRN ORAL Mild Pain/Temp > 100.0 04/17/19 00:30 05/17/19 00:29 04/17/19 06:21 Cefepime HCl 1 gm/ Dextrose 55 ml @ 110 mls/hr EVERY 12 HOURS IVPB 04/18/19 21:00 04/25/19 20:59 Dextrose 1,000 ml @ 100 mls/hr Q10H IV 04/17/19 00:30 05/17/19 00:29 04/18/19 06:45 Dextrose (Dextrose 50%) 25 ml Q30M PRN IV Hypoglycemia 04/17/19 00:15 05/15/19 21:14 Dextrose (Dextrose 50%) 50 ml Q30M PRN IV Hypoglycemia 04/17/19 00:15 05/15/19 21:14 Heparin Sodium (Porcine) (Heparin 5000 units/ml) 5,000 units EVERY 12 HOURS SUBQ 04/17/19 09:00 05/16/19 08:59 04/18/19 09:25 Insulin Aspart (NovoLOG) BEFORE MEALS AND HS SUBQ 04/17/19 06:30 05/16/19 06:29 04/18/19 13:36 Linezolid (Zyvox) 600 mg EVERY 12 HOURS ORAL 04/18/19 11:45 04/23/19 11:44 04/18/19 13:10 Pantoprazole (Protonix) 40 mg EVERY 12 HOURS IVP 04/17/19 09:00 05/16/19 08:59 04/18/19 09:23 Dionne Chew MD Apr 18, 2019 14:15
--- NOTE | 2019-04-18 15:43 | NUR ---
CASE MANAGEMENT:REVIEW SI;SEPSIS. ARF. GRAM NEGATIVE BACTEREMIA. 99.1 80 19 148/72 94% ON RA H/H 8.5/25.5 K+ 3.4 BUN 27 BG 203 PHOS 2.4 MG 1.6 AST 50 IS;CEFEPIME OV Q12 HRS ZYVOX PO Q12 HRS MEROPENEM IV Q12 HRS MED SURG STATUS DCP;FROM [place]
[2019-04-18 16:00] VITALS: BP 149/77
--- NOTE | 2019-04-18 16:37 | NUR ---
*-* INSURANCE *-*- ALL CLINICALS AND REVIEWS HAVE BEEN FAXED TO: [employer] OPERATOR ASSIGNED AT THIS TIME PLEASE FAX THE REVIEW/CLINICAL P- [phone] F- [phone]....REVIEW/CLINICAL
--- NOTE | 2019-04-18 18:00 | NUR ---
NURSE NOTES: Patient resting,no complaints of pain.Bed alarm on
[2019-04-18 20:00] VITALS: BP 123/55
--- NOTE | 2019-04-18 20:00 | NUR ---
NURSE NOTES: Received pt from KWASI Motley. AAO x 1, confused, on room air. Pike intact and secure to the leg. IV site intact and running IVF. Denies pain and no acute distress noted. OB stool uncollected. Fall precaution maintained. Bed locked, lowest position, alarm on, call light within reach, side rails up. Will continue to monitor.
--- NOTE | 2019-04-18 20:09 | NUR ---
HAND-OFF: Report given to tom VILLALPANDO.
[2019-04-18] MEDS: Cefepime HCl 1 GM in D5W 55 ML IVPB SCH (20:45)
--- NOTE | 2019-04-18 23:15 | Progress Note ---
DATE: 04/18/2019 SUBJECTIVE: The patient is awake, alert, afebrile, and hemodynamically stable. PHYSICAL EXAMINATION: VITAL SIGNS: Blood pressure 143/77, his pulse is 79, respirations are 18, temperature 98.8. HEENT: Eyes were normal. ENT, mucous membranes moist and intact. NECK: Supple with no JVD. LUNGS: Clear. HEART: Normal sounds with regular beats. ABDOMEN: Soft and nontender with normal bowel sounds. EXTREMITIES: Warm without cyanosis, clubbing, or edema. LABORATORY DATA: His hemoglobin is 8.5, hematocrit 25.5 with MCV of 90, WBC of 8.7, and platelets 168. His WBC was 13.2 on April 17, 2019. His BUN and creatinine are 27 and 1.2 respectively. His sodium is 142, potassium 3.4, chloride 111, CO2 is 24. His calcium is 9.3, phosphorus is 2.4, his magnesium is 1.6. His CRP is 12.7, albumin is 1.6, and total protein is 6.9. His urinalysis showed too numerous to count WBC. IMPRESSION: The patient clinically is markedly improved. He is afebrile, hemodynamically stable and without tachycardia. Yesterday, he had a traumatic brain injury. CT scan of the brain was negative for intracerebral hemorrhage. The patient currently is on meropenem and he is back on cefepime 1 g IV piggyback q.12 h. Repeat laboratory tests will be done in the a.m. Domingo Anderson M.D. DR: LONNIE JOB#: [id number] CC:
[2019-04-19] VITALS: BP 125/83
[2019-04-19 04:00] VITALS: BP 140/75
--- NOTE | 2019-04-19 04:48 | NUR ---
NURSE NOTES: Provided wound care and changed dressing.
[2019-04-19] MEDS: NovoLOG Insulin Flexpen SUBQ SCH ×4 (05:40→20:56)
[2019-04-19 06:40] LABS: BASOPHILS % (AUTO) 0.5 % (0.0-2.0); EOSINOPHILS % (AUTO) 3.9 % (0.0-3.0); HEMOGLOBIN 9.6 G/DL (14.2-18.0); LYMPHOCYTES % (AUTO) 18.6 % (20.0-45.0); MEAN CORPUSCULAR VOLUME 90 FL (80-99); MONOCYTES % (AUTO) 5.7 % (1.0-10.0); NEUTROPHILS % (AUTO) 71.3 % (45.0-75.0); PLATELET COUNT 150 K/UL (150-450); RED BLOOD COUNT 3.23 M/UL (4.70-6.10); RED CELL DISTRIBUTION WIDTH 12.9 % (11.6-14.8); WHITE BLOOD COUNT 7.1 K/UL (4.8-10.8)
[2019-04-19 07:10] LABS: ALANINE AMINOTRANSFERASE 46 U/L (12-78); ALBUMIN 1.8 G/DL (3.4-5.0); ALBUMIN/GLOBULIN RATIO 0.4 (1.0-2.7); ALKALINE PHOSPHATASE 118 U/L (46-116); ANION GAP 10 mmol/L (5-15); ASPARTATE AMINO TRANSFERASE 34 U/L (15-37); BILIRUBIN,TOTAL 0.4 MG/DL (0.2-1.0); BLOOD UREA NITROGEN 19 mg/dL (7-18); CALCIUM 9.1 MG/DL (8.5-10.1); CARBON DIOXIDE 24 MMOL/L (21-32); CHLORIDE 108 MMOL/L (98-107); CREATININE 1.1 MG/DL (0.55-1.30); PHOSPHORUS 2.7 MG/DL (2.5-4.9); POTASSIUM 3.1 MMOL/L (3.5-5.1); SODIUM 142 MMOL/L (136-145)
--- NOTE | 2019-04-19 07:16 | NUR ---
HAND-OFF: Report given to KWASI Chun.Endorsed high fall risk status to oncoming shift.
--- NOTE | 2019-04-19 07:55 | NUR ---
NURSE NOTES: Received patient on bed, awake. IV site intact and patent. Pike catheter intact, patent and draining. Bed in low and locked position, call light in reach. No signs of respiratory distress or pain. Room board updated, will continue to monitor.
[2019-04-19 08:00] VITALS: BP 166/81
[2019-04-19] MEDS: Cefepime HCl 1 GM in D5W 55 ML IVPB SCH ×2 (09:02→20:54)
[2019-04-19] MEDS: Pantoprazole Inj IVP SCH (09:02)
[2019-04-19] MEDS: Heparin 5000 units/ml inj SUBQ SCH ×2 (09:03→20:55)
--- NOTE | 2019-04-19 11:53 | Infectious Diseases Prog Note ---
Assessment/Plan Assessment/Plan Assessment: Sepsis Klebsiella pna bacteremia Polymicrobial UTI -04/18 u/a wbc tntc, nit neg, leuk +3l; ucx p -04/17 Bcx NTD -04/16 ucx >100kE. fecalis -04/15 Bcx 4/ K. pna (R Amp, I Ancef, Zosyn) ucx >100k K.pna (R amp, macrobid; otherwise S); repeat ucx >100k K, pna (R Amp, I Ancef), >100k P stuarti (R Amp, cipro.levo), macrobid, ancef, > 100k enterococcus fecalis (S Amp, Vanco, macrobid) influenza sc neg CXR: Suspected mild CHF. Correlate clinically Low grade fever x1 Leukocytosis, SP Face laceration -04/[address]:Negative for acute intracranial bleed or mass effect. Evidence of right frontal scalp contusion SANNA, improving Elevated AST; improving -Abd US: Absent gallbladder, status post cholecystectomy Intrahepatic biliary ductal dilatation. Suspect on the basis of patient's age and postcholecystectomy state. However, downstream obstruction also possible. Correlate with liver function tests, consider MRCP for better characterization if clinically indicated. Empty bladder with a Pike catheter.Trace left perinephric fluid. This is a nonspecific finding, can be seen in the setting of renal inflammation PVD R BKA w/ phantom limb syndrome -a. 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 Evidence of resultant severe ischemia of the foot HLD HTN dyphagia s/p GT chronic resp failure s/p trach DM2 COPD cognitive communication deficit SN[facility] resident Plan: -Continue Cefepime #2 (abx d #07/17) for K.pna UTI and bacteremia -Switch empiric Zyvox #2/-7 to PO Macrobid for enterococcal UTI -04/18 SP Meropenem #3 -04/16 SP IV Vancomycin #2 -f/u cx -Monitor CBC/CMP, temperatures Thank you for this consultation. Will continue to follow along with you. Discussed with RN. Subjective Allergies: Coded Allergies: No Known Allergies (Unverified , 04/15/19) Objective Vital Signs Last 24 Hour Vital Signs Date Time Temp Pulse Resp B/P (MAP) Pulse Ox O2 Delivery O2 Flow Rate FiO2 04/19/19 08:00 97.7 68 20 166/81 (109) 95 04/19/19 04:00 98.0 75 22 140/75 (96) 96 04/19/19 00:00 97.6 82 22 125/83 (97) 98 04/18/19 21:00 Room Air 04/18/19 20:00 98.2 81 21 123/55 (77) 98 04/18/19 16:00 98.8 79 18 149/77 (101) 99 04/18/19 12:00 97.9 69 17 139/81 (100) 98 Height (Feet): 5 Height (Inches): 10.00 Weight (Pounds): 145 Objective HEENT: Eyes were normal. Pupils were round, equal, and reactive to light. Sclerae were white. ENT, mucous membranes were not dehydrated. NECK: Supple. There was no goiter. No mass. No lymphadenopathy. There was no JVD. No bruits. LUNGS: Clear. HEART: PMI was in fourth left intercostal space in midclavicular line. There was normal S1 and normal S2. There was no murmur. No arrhythmia. No S3. No S4. No pericardial rub. ABDOMEN: Soft and nontender without organomegaly. There were no masses palpable. Normal bowel sounds without bruits. There was no guarding. No rebound tenderness. No ascites. No hernia. No CVA tenderness. Microbiology Date/Time Source Procedure Growth Status 04/17/19 05:30 Blood Blood Culture - Preliminary NO GROWTH AFTER 48 HOURS Resulted 04/17/19 05:15 Blood Blood Culture - Preliminary NO GROWTH AFTER 48 HOURS Resulted 04/18/19 00:10 Urine,Clean Catch Urine Culture - Preliminary Resulted 04/16/19 16:50 Urine,Clean Catch Urine Culture - Final Enterococcus Faecalis Complete Laboratory Tests Test 04/19/19 06:02 White Blood Count 7.1 K/UL (4.8-10.8) Red Blood Count 3.23 M/UL (4.70-6.10) L Hemoglobin 9.6 G/DL (14.2-18.0) L Hematocrit 29.0 % (42.0-52.0) L Mean Corpuscular Volume 90 FL (80-99) Mean Corpuscular Hemoglobin 29.9 PG (27.0-31.0) Mean Corpuscular Hemoglobin Concent 33.2 G/DL (32.0-36.0) Red Cell Distribution Width 12.9 % (11.6-14.8) Platelet Count 150 K/UL (150-450) Mean Platelet Volume 6.1 FL (6.5-10.1) L Neutrophils (%) (Auto) 71.3 % (45.0-75.0) Lymphocytes (%) (Auto) 18.6 % (20.0-45.0) L Monocytes (%) (Auto) 5.7 % (1.0-10.0) Eosinophils (%) (Auto) 3.9 % (0.0-3.0) H Basophils (%) (Auto) 0.5 % (0.0-2.0) Erythrocyte Sedimentation Rate 117 MM/HR (0-20) H Sodium Level 142 MMOL/L (136-145) Potassium Level 3.1 MMOL/L (3.5-5.1) L Chloride Level 108 MMOL/L (98-107) H Carbon Dioxide Level 24 MMOL/L (21-32) Anion Gap 10 mmol/L (5-15) Blood Urea Nitrogen 19 mg/dL (7-18) H Creatinine 1.1 MG/DL (0.55-1.30) Estimat Glomerular Filtration Rate > 60 mL/min (>60) Glucose Level 229 MG/DL (74-106) H Calcium Level 9.1 MG/DL (8.5-10.1) Phosphorus Level 2.7 MG/DL (2.5-4.9) Magnesium Level 1.6 MG/DL (1.8-2.4) L Total Bilirubin 0.4 MG/DL (0.2-1.0) Aspartate Amino Transf (AST/SGOT) 34 U/L (15-37) Alanine Aminotransferase (ALT/SGPT) 46 U/L (12-78) Alkaline Phosphatase 118 U/L (46-116) H C-Reactive Protein, Quantitative 13.2 mg/dL (0.00-0.90) H Total Protein 6.3 G/DL (6.4-8.2) L Albumin 1.8 G/DL (3.4-5.0) L Globulin 4.5 g/dL Albumin/Globulin Ratio 0.4 (1.0-2.7) L Current Medications Medications (Trade) Dose Ordered Sig/Neftaly Route PRN Reason Start Time Stop Time Status Last Admin Dose Admin Acetaminophen (Tylenol) 650 mg Q4H PRN ORAL Mild Pain/Temp > 100.0 04/17/19 00:30 05/17/19 00:29 04/17/19 06:21 Cefepime HCl 1 gm/ Dextrose 55 ml @ 110 mls/hr EVERY 12 HOURS IVPB 04/18/19 21:00 04/25/19 20:59 04/19/19 09:02 Dextrose 1,000 ml @ 100 mls/hr Q10H IV 04/17/19 00:30 05/17/19 00:29 04/19/19 05:38 Dextrose (Dextrose 50%) 25 ml Q30M PRN IV Hypoglycemia 04/17/19 00:15 05/15/19 21:14 Dextrose (Dextrose 50%) 50 ml Q30M PRN IV Hypoglycemia 04/17/19 00:15 05/15/19 21:14 Heparin Sodium (Porcine) (Heparin 5000 units/ml) 5,000 units EVERY 12 HOURS SUBQ 04/17/19 09:00 05/16/19 08:59 04/19/19 09:03 Insulin Aspart (NovoLOG) BEFORE MEALS AND HS SUBQ 04/17/19 06:30 05/16/19 06:29 04/19/19 05:40 Linezolid (Zyvox) 600 mg EVERY 12 HOURS ORAL 04/18/19 11:45 04/23/19 11:44 04/19/19 09:02 Pantoprazole (Protonix) 40 mg EVERY 12 HOURS IVP 04/17/19 09:00 05/16/19 08:59 04/19/19 09:02 Potassium Chloride (K-Dur) 40 meq ONCE ORAL 04/19/19 11:15 04/19/19 12:15 Ana M Kramer M.D. Apr 19, 2019 11:53
[2019-04-19 12:00] VITALS: BP 157/79
--- NOTE | 2019-04-19 12:39 | Pulmonology Progress Note ---
Assessment/Plan Problems: (1) Sepsis (2) Gram-negative bacteremia (3) Acute renal failure (4) UTI (urinary tract infection) (5) COPD (chronic obstructive pulmonary disease) (6) Hx of right BKA (7) Dehydration (8) Diabetes mellitus (9) History of hypertension Assessment/Plan doing better WBC normal improving continue abc iv fluids, renal function better add venofer stool for OB pending sliding scale GI evaluation pending Subjective Interval Events: doing better Allergies: Coded Allergies: No Known Allergies (Unverified , 04/15/19) Objective Last 24 Hour Vital Signs Date Time Temp Pulse Resp B/P (MAP) Pulse Ox O2 Delivery O2 Flow Rate FiO2 04/19/19 12:00 98.9 77 18 157/79 (105) 98 04/19/19 08:00 97.7 68 20 166/81 (109) 95 04/19/19 04:00 98.0 75 22 140/75 (96) 96 04/19/19 00:00 97.6 82 22 125/83 (97) 98 04/18/19 21:00 Room Air 04/18/19 20:00 98.2 81 21 123/55 (77) 98 04/18/19 16:00 98.8 79 18 149/77 (101) 99 Intake and Output 04/18/19 04/19/19 19:00 07:00 Intake Total 1800 ml 900 ml Output Total 750 ml 400 ml Balance 1050 ml 500 ml IV Total 1000 ml 900 ml Other 800 ml Output Urine Total 750 ml 400 ml # Voids 1 General Appearance: cachetic HEENT: normocephalic, atraumatic Respiratory/Chest: chest wall non-tender, lungs clear Cardiovascular: normal peripheral pulses, regular rhythm Abdomen: normal bowel sounds, soft, non tender Genitourinary: normal external genitalia Extremities: no clubbing Skin: no rash Microbiology Date/Time Source Procedure Growth Status 04/17/19 05:30 Blood Blood Culture - Preliminary NO GROWTH AFTER 48 HOURS Resulted 04/17/19 05:15 Blood Blood Culture - Preliminary NO GROWTH AFTER 48 HOURS Resulted 04/18/19 00:10 Urine,Clean Catch Urine Culture - Preliminary Resulted 04/16/19 16:50 Urine,Clean Catch Urine Culture - Final Enterococcus Faecalis Complete Laboratory Tests 04/19/19 06:02: White Blood Count 7.1, Red Blood Count 3.23L, Hemoglobin 9.6L, Hematocrit 29.0L , Mean Corpuscular Volume 90, Mean Corpuscular Hemoglobin 29.9, Mean Corpuscular Hemoglobin Concent 33.2, Red Cell Distribution Width 12.9, Platelet Count 150, Mean Platelet Volume 6.1L, Neutrophils (%) (Auto) 71.3, Lymphocytes ( %) (Auto) 18.6L, Monocytes (%) (Auto) 5.7, Eosinophils (%) (Auto) 3.9H, Basophils (%) (Auto) 0.5, Erythrocyte Sedimentation Rate 117H, Sodium Level 142 , Potassium Level 3.1L, Chloride Level 108H, Carbon Dioxide Level 24, Anion Gap 10, Blood Urea Nitrogen 19H, Creatinine 1.1, Estimat Glomerular Filtration Rate > 60, Glucose Level 229H, Calcium Level 9.1, Phosphorus Level 2.7, Magnesium Level 1.6L, Total Bilirubin 0.4, Aspartate Amino Transf (AST/SGOT) 34, Alanine Aminotransferase (ALT/SGPT) 46, Alkaline Phosphatase 118H, C-Reactive Protein, Quantitative 13.2H, Total Protein 6.3L, Albumin 1.8L, Globulin 4.5, Albumin/ Globulin Ratio 0.4L Current Medications Medications (Trade) Dose Ordered Sig/Neftaly Route PRN Reason Start Time Stop Time Status Last Admin Dose Admin Acetaminophen (Tylenol) 650 mg Q4H PRN ORAL Mild Pain/Temp > 100.0 04/17/19 00:30 05/17/19 00:29 04/17/19 06:21 Cefepime HCl 1 gm/ Dextrose 55 ml @ 110 mls/hr EVERY 12 HOURS IVPB 04/18/19 21:00 04/25/19 20:59 04/19/19 09:02 Dextrose 1,000 ml @ 100 mls/hr Q10H IV 04/17/19 00:30 05/17/19 00:29 04/19/19 05:38 Dextrose (Dextrose 50%) 25 ml Q30M PRN IV Hypoglycemia 04/17/19 00:15 05/15/19 21:14 Dextrose (Dextrose 50%) 50 ml Q30M PRN IV Hypoglycemia 04/17/19 00:15 05/15/19 21:14 Heparin Sodium (Porcine) (Heparin 5000 units/ml) 5,000 units EVERY 12 HOURS SUBQ 04/17/19 09:00 05/16/19 08:59 04/19/19 09:03 Insulin Aspart (NovoLOG) BEFORE MEALS AND HS SUBQ 04/17/19 06:30 05/16/19 06:29 04/19/19 12:12 Nitrofurantoin (Macrobid) 100 mg EVERY 12 HOURS ORAL 04/19/19 21:00 05/19/19 20:59 Pantoprazole (Protonix) 40 mg EVERY 12 HOURS IVP 04/17/19 09:00 05/16/19 08:59 04/19/19 09:02 Dionne Chew MD Apr 19, 2019 12:39
--- NOTE | 2019-04-19 12:49 | GI Initial Consult Note ---
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 Unclear baseline mental status. Unable to obtain further history due to patient being nonverbal at this time. GI consulted for CBD dilation. Patient seen, awake A&O NAD with no active N/V. At the time of evaluation, the patient denies any abdominal pain, constipation or diarrhea. The patient had an abdominal US perform noted with common bile ductal dilation of 10mm. In addition, patient has elevated alkaline phosphatase with no transaminitis or hyperbilirubinemia. Patient unsure of his endoscopic /colonoscopic history. Home Meds Reported Medications Sennosides (SENNA) 8.6 Mg Tablet, 8.6 MG PO BEDTIME for CONSTIPATION, TAB 04/16/19 Acetaminophen* (TYLENOL EXTRA STRENGTH*) 500 Mg Tablet, 500 MG ORAL Q6H PRN for Mild Pain/Temp > 100.5, TAB 0 Refills 04/16/19 Insulin Aspart (NOVOLOG) 100 Unit/1 Ml Vial, 6 SUBQ THREE TIMES A DAY for DM 04/16/19 Docusate Sodium* (DOCUSATE SODIUM*) 250 Mg Capsule, 250 MG ORAL DAILY for BOWEL MANAGEMENT, CAP 04/16/19 Cholecalciferol (Vitamin D3) (Vitamin D3) 10,000 Unit Capsule, 03843 UNIT PO ONCE A WEEK for SUPPLEMENT, CAP EVERY Monday04/16/19 Brimonidine Tartrate* (ALPHAGAN*) 5 Ml Drops, 1 DROP BOTH EYES BID for GLAUCOMA , ML 04/16/19 Dextran 70/Hypromellose (ARTIFICIAL TEARS) 1 Each Droperette, 1 EACH BOTH EYES Q4HR for DRY EYES 04/16/19 Melatonin (MELATONIN) 3 Mg Tablet, 6 MG ORAL BEDTIME for SLEEP, TAB 04/16/19 Bisacodyl (BISACODYL) 10 Mg Supp.rect, 10 MG RC PRN for Constipation, SUPP 04/16/19 Atorvastatin Calcium* (LIPITOR*) 10 Mg Tablet, 10 MG ORAL BEDTIME for HYPERLIPIDEMIA, TAB 04/16/19 Albuterol Sulfate (Albuterol Sulfate Hfa) 8.5 Gm Hfa.aer.ad, 2 PUFFS IH Q6HR PRN for Shortness of Breath 04/16/19 Acetaminophen* (ACETAMINOPHEN 325MG TABLET*) 325 Mg Tablet, 650 MG ORAL Q4H PRN for Mild Pain/Temp > 100.5, TAB 04/15/19 Multivitamins* (MULTIVITAMINS*) 1 Each Tablet, 1 TAB ORAL DAILY for SUPPLEMENT, TAB 0 Refills 04/15/19 Metformin Hcl* (METFORMIN HCL*) 1,000 Mg Tablet, 1000 MG ORAL BID for DM, TAB 04/15/19 Losartan Potassium* (LOSARTAN POTASSIUM*) 25 Mg Tablet, 25 MG ORAL DAILY for HYPERTENSION, TAB 04/15/19 Latanoprost* (XALATAN*) 2.5 Ml Drops, 1 DROP BOTH EYES BEDTIME for GLAUCOMA, ML 0 Refills 04/15/19 Insulin Glargine (LANTUS) 100 Unit/1 Ml Insuln.pen, 34 UNIT SUBQ DAILY for DM, # 1 EA 0 Refills 04/15/19 Gabapentin* (GABAPENTIN*) 100 Mg Capsule, 100 MG ORAL THREE TIMES A DAY for PHANTOM LIMB SYNDROME, CAP 04/15/19 Enoxaparin* (LOVENOX*) 40 Mg/0.4 Ml Inj, 40 MG SUBQ DAILY for DVT 04/15/19 Discontinued Reported Medications Melatonin/Pyridoxine HCl (B6) (Melatonin 3 mg Tablet) 1 Each Tablet, 1 EACH PO for unk, TAB 04/15/19 Bisacodyl* (DULCOLAX*) 5 Mg Tablet.dr, 10 MG ORAL DAILY for unk, #10 TAB 0 Refills 04/15/19 Atorvastatin Calcium* (ATORVASTATIN CALCIUM*) 20 Mg Tablet, 10 MG ORAL BEDTIME for unk, TAB 04/15/19 Albuterol Sulfate* (ALBUTEROL SULFATE HHN*) 2.5 Mg/3 Ml Vial.neb, 3 ML INH Q4H PRN for Shortness of Breath, EA 04/15/19 Med list reviewed/reconciled: Yes Allergies: Coded Allergies: No Known Allergies (Unverified , 04/15/19) Patient History History Provided By: Patient, Medical Record [facility] Narrative Past Medical History: No History, Except For Social History: Denies: smoking, alcohol use, drug use, other Review of Systems All Other Systems: negative except mentioned in HPI Physical Exam Vital Signs Date Time Temp Pulse Resp B/P (MAP) Pulse Ox O2 Delivery O2 Flow Rate FiO2 04/15/19 11:18 98.2 94 18 91/46 (61) 98 Room Air Sp02 EP Interpretation: reviewed, normal Labs Laboratory Tests Test 04/19/19 06:02 White Blood Count 7.1 K/UL (4.8-10.8) Red Blood Count 3.23 M/UL (4.70-6.10) L Hemoglobin 9.6 G/DL (14.2-18.0) L Hematocrit 29.0 % (42.0-52.0) L Mean Corpuscular Volume 90 FL (80-99) Mean Corpuscular Hemoglobin 29.9 PG (27.0-31.0) Mean Corpuscular Hemoglobin Concent 33.2 G/DL (32.0-36.0) Red Cell Distribution Width 12.9 % (11.6-14.8) Platelet Count 150 K/UL (150-450) Mean Platelet Volume 6.1 FL (6.5-10.1) L Neutrophils (%) (Auto) 71.3 % (45.0-75.0) Lymphocytes (%) (Auto) 18.6 % (20.0-45.0) L Monocytes (%) (Auto) 5.7 % (1.0-10.0) Eosinophils (%) (Auto) 3.9 % (0.0-3.0) H Basophils (%) (Auto) 0.5 % (0.0-2.0) Erythrocyte Sedimentation Rate 117 MM/HR (0-20) H Sodium Level 142 MMOL/L (136-145) Potassium Level 3.1 MMOL/L (3.5-5.1) L Chloride Level 108 MMOL/L (98-107) H Carbon Dioxide Level 24 MMOL/L (21-32) Anion Gap 10 mmol/L (5-15) Blood Urea Nitrogen 19 mg/dL (7-18) H Creatinine 1.1 MG/DL (0.55-1.30) Estimat Glomerular Filtration Rate > 60 mL/min (>60) Glucose Level 229 MG/DL (74-106) H Calcium Level 9.1 MG/DL (8.5-10.1) Phosphorus Level 2.7 MG/DL (2.5-4.9) Magnesium Level 1.6 MG/DL (1.8-2.4) L Total Bilirubin 0.4 MG/DL (0.2-1.0) Aspartate Amino Transf (AST/SGOT) 34 U/L (15-37) Alanine Aminotransferase (ALT/SGPT) 46 U/L (12-78) Alkaline Phosphatase 118 U/L (46-116) H C-Reactive Protein, Quantitative 13.2 mg/dL (0.00-0.90) H Total Protein 6.3 G/DL (6.4-8.2) L Albumin 1.8 G/DL (3.4-5.0) L Globulin 4.5 g/dL Albumin/Globulin Ratio 0.4 (1.0-2.7) L General Appearance: well appearing, no apparent distress, alert Head: normocephalic EENT: PERRL/EOMI, normal ENT inspection Neck: supple Respiratory: normal breath sounds, no respiratory distress Cardiovascular: normal rate Gastrointestinal: normal inspection, non tender, soft, normal bowel sounds, non -distended Rectal: deferred Genitourinary: deferred Musculoskeletal: normal inspection, back normal Neurologic: alert, oriented x3, responsive, normal inspection Psychiatric: normal inspection, judgement/insight normal, memory normal Skin: normal inspection, normal color, no rash, warm/dry, palpation normal, well hydrated Lymphatic: normal inspection, no adenopathy Current Medications Current Medications Medications (Trade) Dose Ordered Sig/Neftaly Route PRN Reason Start Time Stop Time Status Last Admin Dose Admin Acetaminophen (Tylenol) 650 mg Q4H PRN ORAL Mild Pain/Temp > 100.0 04/17/19 00:30 05/17/19 00:29 04/17/19 06:21 Cefepime HCl 1 gm/ Dextrose 55 ml @ 110 mls/hr EVERY 12 HOURS IVPB 04/18/19 21:00 04/25/19 20:59 04/19/19 09:02 Dextrose 1,000 ml @ 100 mls/hr Q10H IV 04/17/19 00:30 05/17/19 00:29 04/19/19 05:38 Dextrose (Dextrose 50%) 25 ml Q30M PRN IV Hypoglycemia 04/17/19 00:15 05/15/19 21:14 Dextrose (Dextrose 50%) 50 ml Q30M PRN IV Hypoglycemia 04/17/19 00:15 05/15/19 21:14 Heparin Sodium (Porcine) (Heparin 5000 units/ml) 5,000 units EVERY 12 HOURS SUBQ 04/17/19 09:00 05/16/19 08:59 04/19/19 09:03 Insulin Aspart (NovoLOG) BEFORE MEALS AND HS SUBQ 04/17/19 06:30 05/16/19 06:29 04/19/19 12:12 Nitrofurantoin (Macrobid) 100 mg EVERY 12 HOURS ORAL 04/19/19 21:00 05/19/19 20:59 Pantoprazole (Protonix) 40 mg EVERY 12 HOURS IVP 04/17/19 09:00 05/16/19 08:59 04/19/19 09:02 GI: Plan Problems: (1) Dilated cbd, acquired (2) Anemia (3) Severe protein-calorie malnutrition (4) Dehydration Plan Abdominal US reviewed >> CBD dilation of 10mm anemia work up reviewed, folate deficient MRCP, may need EUS advance diet as tolerated folate follow up OB stool evaluate for GI bleed repeat liver function tests for tomorrow ppi prn transfusions electrolyte correction will follow with additional recommendations post imaging study Discussed with Dr. Daugherty. Thank you for this patient referral, we will follow. The patient was seen and examined at bedside and all new and available data was reviewed in the patients chart. I agree with the above findings, impression and plan. (Patient seen earlier today. Signature stamp does not reflect patient encounter time.). - MD Susanne VillanuevaA[facility] PRIVATE BANKER Apr 19, 2019 12:49
--- NOTE | 2019-04-19 14:27 | NUR ---
CASE MANAGEMENT:REVIEW SI;SEPSIS. BACTEREMIA. UTI. 98.9 82 22 166/81 95% ON RA H/H 9.6/29.0 K+ 3.1 BUN 19 MG 1.6 IS;MACROBID PO Q12 HRS CEFEPIME IV Q12 HRS PROTONIX IV Q12 HRS ZYVOX IV Q12 HRS MED SURG STATUS DCP;BANNER
--- NOTE | 2019-04-19 14:30 | NUR ---
NURSE NOTES: Patient off floor for MRI.
--- NOTE | 2019-04-19 14:39 | NUR ---
*_*DISCHARGE PLANNING*_* PATIENT HAS BEEN REFERRED TO [facility]. ALL CLINICALS FAXED. P: [phone] F: [phone] Addendum: 04/19/19 at 1733 by PAULINA JAMA LVN LVN FOLLOW UP TO [facility]. SPOKE WITH JOSE FRANCISCO AND CONFIRMED ACCEPTANCE. RM 32-C LONG-TERM JOSE FRANCISCO INFORMED PATIENT ANTICIPATED TO DISCHARGE TOMORROW SAT 04/20/2019. RN TO ARRANGE TRANSPORTATION UPON DISCHARGE.
--- NOTE | 2019-04-19 15:13 | Surgery Progress Note ---
Surgery Progress Note Subjective Symptoms: improved, voiding well, passing flatus Objective Last 24 Hour Vital Signs Date Time Temp Pulse Resp B/P (MAP) Pulse Ox O2 Delivery O2 Flow Rate FiO2 04/19/19 12:00 98.9 77 18 157/79 (105) 98 04/19/19 09:00 Room Air 04/19/19 08:00 97.7 68 20 166/81 (109) 95 04/19/19 04:00 98.0 75 22 140/75 (96) 96 04/19/19 00:00 97.6 82 22 125/83 (97) 98 04/18/19 21:00 Room Air 04/18/19 20:00 98.2 81 21 123/55 (77) 98 04/18/19 16:00 98.8 79 18 149/77 (101) 99 I&O Intake and Output 04/18/19 04/19/19 19:00 07:00 Intake Total 1800 ml 900 ml Output Total 750 ml 400 ml Balance 1050 ml 500 ml IV Total 1000 ml 900 ml Other 800 ml Output Urine Total 750 ml 400 ml # Voids 1 Dressing: other Wound: other Drains: other Cardiovascular: RSR Respiratory: decreased breath sounds Abdomen: soft, present bowel sounds Extremities: no cyanosis Laboratory Tests Test 04/19/19 06:02 White Blood Count 7.1 K/UL (4.8-10.8) Red Blood Count 3.23 M/UL (4.70-6.10) L Hemoglobin 9.6 G/DL (14.2-18.0) L Hematocrit 29.0 % (42.0-52.0) L Mean Corpuscular Volume 90 FL (80-99) Mean Corpuscular Hemoglobin 29.9 PG (27.0-31.0) Mean Corpuscular Hemoglobin Concent 33.2 G/DL (32.0-36.0) Red Cell Distribution Width 12.9 % (11.6-14.8) Platelet Count 150 K/UL (150-450) Mean Platelet Volume 6.1 FL (6.5-10.1) L Neutrophils (%) (Auto) 71.3 % (45.0-75.0) Lymphocytes (%) (Auto) 18.6 % (20.0-45.0) L Monocytes (%) (Auto) 5.7 % (1.0-10.0) Eosinophils (%) (Auto) 3.9 % (0.0-3.0) H Basophils (%) (Auto) 0.5 % (0.0-2.0) Erythrocyte Sedimentation Rate 117 MM/HR (0-20) H Sodium Level 142 MMOL/L (136-145) Potassium Level 3.1 MMOL/L (3.5-5.1) L Chloride Level 108 MMOL/L (98-107) H Carbon Dioxide Level 24 MMOL/L (21-32) Anion Gap 10 mmol/L (5-15) Blood Urea Nitrogen 19 mg/dL (7-18) H Creatinine 1.1 MG/DL (0.55-1.30) Estimat Glomerular Filtration Rate > 60 mL/min (>60) Glucose Level 229 MG/DL (74-106) H Calcium Level 9.1 MG/DL (8.5-10.1) Phosphorus Level 2.7 MG/DL (2.5-4.9) Magnesium Level 1.6 MG/DL (1.8-2.4) L Total Bilirubin 0.4 MG/DL (0.2-1.0) Aspartate Amino Transf (AST/SGOT) 34 U/L (15-37) Alanine Aminotransferase (ALT/SGPT) 46 U/L (12-78) Alkaline Phosphatase 118 U/L (46-116) H C-Reactive Protein, Quantitative 13.2 mg/dL (0.00-0.90) H Total Protein 6.3 G/DL (6.4-8.2) L Albumin 1.8 G/DL (3.4-5.0) L Globulin 4.5 g/dL Albumin/Globulin Ratio 0.4 (1.0-2.7) L Plan Problems: (1) Laceration of face Assessment & Plan: During admission and cleaning of the room patient sustained a laceration to his right face around the area of the eyebrow from a following light fixture. Wound wash Steri-Strips applied no signs of active infection no bleeding small hematoma. Mild tenderness on palpation. 1 cm laceration. No acute surgical intervention indicated recommended Keep Steri-Strips in place We will monitor closely to ensure no infection or hematoma or complication Nutritional optimization Findings: There is new finding of a small right frontal scalp hematoma. No acute intracranial hemorrhage or edema. No mass effect nor midline shift. There is age-related enlargement of the ventricles and extra-axial CSF spaces. There is periventricular deep white matter low-attenuation, consistent with chronic microvascular ischemic change. 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 There is again demonstrated chronic periosteal thickening and some mucosal disease of the left maxillary sinus. There is bilateral ethmoid sinus disease. The mastoids are clear. The calvarium is intact. Impression: Negative for acute intracranial bleed or mass effect Evidence of right frontal scalp contusion Thank you will follow with recommendations (2) Severe protein-calorie malnutrition Assessment & Plan: DAILY ESTIMATED NEEDS: Needs based on sepsis 65.9kg 25-35 kcals/kg 9949-8725 total kcals 1.25-2 g protein/kg 82-132 g total protein 25-30 mL/kg 0907-2775 total fluid mLs NUTRITION DIAGNOSIS: Increased kcal and pro needs r/t sepsis and wound healing as evidenced by febrile, adm w. elev WBC (23.9-> trending down), elev LD, w/ sacral wound, eval is pending. CURRENT DIET: Regular mech soft chopped PO DIET RECOMMENDATIONS: Regular liberalized diet/ texture per WEIGHER AND CHARGER ADDITIONAL RECOMMENDATIONS: 1) Calibrated bed scale wts 2) 1:1 feeds, encouragement 3) WC eval for sacral wounds 4) Add GLUCERNA 1 tetra zach BID w/ variable po intake, add snacks 5) WEIGHER AND CHARGER eval for appropriate texture 6) Monitor BG w/ suboptimal po -> currently on D5 @100 (3) Sepsis Assessment & Plan: This is a 83-year-old male who initially presented with leukocytosis, abnormal labs, lactic acidosis, sepsis admitted for further care and management on IV antibiotics undergoing medical care who is now improving. Altered mental status being worked up. Continue with current medical treatment. Alex Garzon Apr 19, 2019 15:13
--- NOTE | 2019-04-19 15:37 | NUR ---
NURSE NOTES: patient back on floor.
[2019-04-19 15:59] VITALS: BP 155/77
--- NOTE | 2019-04-19 16:08 | Diagnostic Imaging Report ---
Indication: Abnormal ultrasound showing biliary ductal dilatation Technique: MRI of the abdomen was performed in a 1.5 Jerrica magnet. Pulse sequences obtained include coronal and axial T2 single shot fast spin echo breathhold and respiratory gated coronal T2 3-D M.R.C.P.; this data set was displayed in different projections or MIPs. In addition, multiple coronal oblique thin T2 weighted, fat saturated SE sequences obtained through the CBD. Comparison: None Findings: The study is very limited because of motion. The intrahepatic biliary ducts are dilated. The CBD is dilated measuring about 14 mm. No definite filling defect demonstrated within the CBD. A subtle mass is difficult to exclude at the ampulla. The main pancreatic duct is also mildly dilated. The gallbladder is absent. Trace bilateral pleural effusions are noted. IMPRESSION: Very limited study due to breathing motion. Biliary ductal dilatation without demonstration of choledocholithiasis. Biliary obstruction at the level of ampulla is difficult to exclude on this study. Status post cholecystectomy Trace bilateral pleural effusions
--- NOTE | 2019-04-19 19:27 | NUR ---
HAND-OFF: Report given to KWASI Marcano.
[2019-04-19 20:31] VITALS: BP 158/75
--- NOTE | 2019-04-19 20:41 | NUR ---
NURSE NOTES: Received patient awake, follows simple command, confused at times, resting in bed comfortably without complaints.
[2019-04-20 00:06] VITALS: BP 151/70
[2019-04-20 04:00] VITALS: BP 156/76
[2019-04-20] MEDS: NovoLOG Insulin Flexpen SUBQ SCH ×4 (06:22→20:34)
--- NOTE | 2019-04-20 06:45 | Infectious Diseases Prog Note ---
Assessment/Plan Assessment/Plan Assessment: Sepsis Klebsiella pna bacteremia Polymicrobial UTI -04/18 u/a wbc tntc, nit neg, leuk +3l; ucx p -04/17 Bcx NTD -04/16 ucx >100kE. fecalis -04/15 Bcx 06/07 K. pna (R Amp, I Ancef, Zosyn) ucx >100k K.pna (R amp, macrobid; otherwise S); repeat ucx >100k K, pna (R Amp, I Ancef), >100k P stuarti (R Amp, cipro.levo), macrobid, ancef, > 100k enterococcus fecalis (S Amp, Vanco, macrobid) influenza sc neg CXR: Suspected mild CHF. Correlate clinically Low grade fever x1 Leukocytosis, SP Face laceration -04/[address]:Negative for acute intracranial bleed or mass effect. Evidence of right frontal scalp contusion SANNA, improving Elevated AST; improving -Abd US: Absent gallbladder, status post cholecystectomy Intrahepatic biliary ductal dilatation. Suspect on the basis of patient's age and postcholecystectomy state. However, downstream obstruction also possible. Correlate with liver function tests, consider MRCP for better characterization if clinically indicated. Empty bladder with a Pike catheter.Trace left perinephric fluid. This is a nonspecific finding, can be seen in the setting of renal inflammation - MRI Abd: Biliary ductal dilatation without demonstration of choledocholithiasis. Biliary obstruction at the level of ampulla is difficult to exclude on this study. Status post cholecystectomy PVD R BKA w/ phantom limb syndrome -a. 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 Evidence of resultant severe ischemia of the foot HLD HTN dyphagia s/p GT chronic resp failure s/p trach DM2 COPD cognitive communication deficit SNF resident Plan: -Continue Cefepime #3 (abx d #08/17) for K.pna UTI and bacteremia - continue PO Macrobid #2(Abx #3/5-7) -04/19 SP linezolid #2 -04/18 SP Meropenem #3 -04/16 SP IV Vancomycin #2 -f/u cx -Monitor CBC/CMP, temperatures - surg follow up for MRI result Thank you for this consultation. Will continue to follow along with you. Subjective Allergies: Coded Allergies: No Known Allergies (Unverified , 04/15/19) Subjective Afebrile. RA Objective Vital Signs Last 24 Hour Vital Signs Date Time Temp Pulse Resp B/P (MAP) Pulse Ox O2 Delivery O2 Flow Rate FiO2 04/20/19 04:00 97.8 74 21 156/76 (102) 95 04/20/19 00:06 98.2 76 22 151/70 (97) 99 04/19/19 21:00 Room Air 04/19/19 20:31 98.9 75 22 158/75 (102) 98 04/19/19 15:59 99.5 70 20 155/77 (103) 97 04/19/19 12:00 98.9 77 18 157/79 (105) 98 04/19/19 09:00 Room Air 04/19/19 08:00 97.7 68 20 166/81 (109) 95 Height (Feet): 5 Height (Inches): 10.00 Weight (Pounds): 145 Objective LUNGS: Clear. HEART: PMI was in fourth left intercostal space in midclavicular line. There was normal S1 and normal S2. There was no murmur. No arrhythmia. No S3. No S4. No pericardial rub. ABDOMEN: Soft and nontender without organomegaly. There were no masses palpable. Normal bowel sounds without bruits. There was no guarding. No rebound tenderness. No ascites. No hernia. No CVA tenderness. Microbiology Date/Time Source Procedure Growth Status 04/18/19 00:10 Urine,Clean Catch Urine Culture - Preliminary Resulted Current Medications Medications (Trade) Dose Ordered Sig/Neftaly Route PRN Reason Start Time Stop Time Status Last Admin Dose Admin Acetaminophen (Tylenol) 650 mg Q4H PRN ORAL Mild Pain/Temp > 100.0 04/17/19 00:30 05/17/19 00:29 04/17/19 06:21 Cefepime HCl 1 gm/ Dextrose 55 ml @ 110 mls/hr EVERY 12 HOURS IVPB 04/18/19 21:00 04/25/19 20:59 04/19/19 20:54 Dextrose 1,000 ml @ 100 mls/hr Q10H IV 04/17/19 00:30 05/17/19 00:29 04/20/19 06:23 Dextrose (Dextrose 50%) 25 ml Q30M PRN IV Hypoglycemia 04/17/19 00:15 05/15/19 21:14 Dextrose (Dextrose 50%) 50 ml Q30M PRN IV Hypoglycemia 04/17/19 00:15 05/15/19 21:14 Heparin Sodium (Porcine) (Heparin 5000 units/ml) 5,000 units EVERY 12 HOURS SUBQ 04/17/19 09:00 05/16/19 08:59 04/19/19 20:55 Insulin Aspart (NovoLOG) BEFORE MEALS AND HS SUBQ 04/17/19 06:30 05/16/19 06:29 04/20/19 06:22 Nitrofurantoin (Macrobid) 100 mg EVERY 12 HOURS ORAL 04/19/19 21:00 05/19/19 20:59 04/19/19 20:54 Pantoprazole (Protonix) 40 mg BIAC ORAL 04/19/19 18:00 05/19/19 17:59 04/20/19 06:21 Kenneth Doll MD Apr 20, 2019 06:45
--- NOTE | 2019-04-20 07:22 | NUR ---
HAND-OFF: Report given to Suhas Grossman RN.
--- NOTE | 2019-04-20 07:30 | NUR ---
NURSE NOTES: Received pt in bed, sleeping. No s/s of distress/pain. IV on LFA 24g noted, running D5W @ 100 ml/hr. FC intact and patent, draining by gravity. Side rails x 2. Bed in the lowest, locked, and alarm on. Call light within reach. Will continue to monitor
[2019-04-20 07:35] LABS: ANION GAP 8 mmol/L (5-15); BLOOD UREA NITROGEN 17 mg/dL (7-18); CALCIUM 9.8 MG/DL (8.5-10.1); CARBON DIOXIDE 27 MMOL/L (21-32); CHLORIDE 109 MMOL/L (98-107); CREATININE 1.1 MG/DL (0.55-1.30); POTASSIUM 3.5 MMOL/L (3.5-5.1); SODIUM 144 MMOL/L (136-145)
[2019-04-20 07:43] LABS: ALANINE AMINOTRANSFERASE 40 U/L (12-78); ALKALINE PHOSPHATASE 119 U/L (46-116); ASPARTATE AMINO TRANSFERASE 22 U/L (15-37); BASOPHILS % (AUTO) 0.5 % (0.0-2.0); BILIRUBIN,DIRECT < 0.1 MG/DL (0.0-0.3); BILIRUBIN,TOTAL 0.5 MG/DL (0.2-1.0); HEMATOCRIT 29.4 % (42.0-52.0); HEMOGLOBIN 9.9 G/DL (14.2-18.0); LYMPHOCYTES % (AUTO) 17.1 % (20.0-45.0); MEAN CORPUSCULAR VOLUME 89 FL (80-99); MONOCYTES % (AUTO) 6.5 % (1.0-10.0); NEUTROPHILS % (AUTO) 72.9 % (45.0-75.0); PLATELET COUNT 185 K/UL (150-450); RED CELL DISTRIBUTION WIDTH 12.7 % (11.6-14.8); WHITE BLOOD COUNT 7.8 K/UL (4.8-10.8)
--- NOTE | 2019-04-20 07:46 | Pulmonology Progress Note ---
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 SANNA resolved ; decrease IV fluids abdominal US with intrahepatic biliary ductal dilatation GI on board MRCP biliary ductal dilatation noted without demonstration of choledocholithiasis status post cholecystectomy LFT down to normal monitor H&H with goal to keep hemoglobin above 7 stool OB pending, CEA within normal limits anemia work-up consistent with anemia of chronic disease , ferritin very high case discussed and evaluated by supervising physician Subjective Allergies: Coded Allergies: No Known Allergies (Unverified , 04/15/19) Subjective leuk resolved, no signs of resp distress Objective Last 24 Hour Vital Signs Date Time Temp Pulse Resp B/P (MAP) Pulse Ox O2 Delivery O2 Flow Rate FiO2 04/20/19 04:00 97.8 74 21 156/76 (102) 95 04/20/19 00:06 98.2 76 22 151/70 (97) 99 04/19/19 21:00 Room Air 04/19/19 20:31 98.9 75 22 158/75 (102) 98 04/19/19 15:59 99.5 70 20 155/77 (103) 97 04/19/19 12:00 98.9 77 18 157/79 (105) 98 04/19/19 09:00 Room Air 04/19/19 08:00 97.7 68 20 166/81 (109) 95 Intake and Output 04/19/19 04/20/19 19:00 07:00 Intake Total 720 ml 1205 ml Output Total 1400 ml 1350 ml Balance -680 ml -145 ml Intake Oral 720 ml IV Total 1205 ml Output Urine Total 1400 ml 1350 ml # Voids 2 General Appearance: no acute distress, other - AA male eating his breakfast HEENT: normocephalic, atraumatic, anicteric Respiratory/Chest: lungs clear, no respiratory distress, no accessory muscle use Cardiovascular: normal rate Abdomen: normal bowel sounds, soft, non tender Extremities: no edema Neurologic/Psychiatric: alert Musculoskeletal: atrophy - BLE Microbiology Date/Time Source Procedure Growth Status 04/18/19 00:10 Urine,Clean Catch Urine Culture - Final Gram Positive Cocci Complete Laboratory Tests 04/20/19 06:35: White Blood Count [Pending], Red Blood Count [Pending], Hemoglobin [Pending], Hematocrit [Pending], Mean Corpuscular Volume [Pending], Mean Corpuscular Hemoglobin [Pending], Mean Corpuscular Hemoglobin Concent [Pending], Red Cell Distribution Width [Pending], Platelet Count [Pending], Mean Platelet Volume [ Pending], Neutrophils (%) (Auto) [Pending], Lymphocytes (%) (Auto) [Pending], Monocytes (%) (Auto) [Pending], Eosinophils (%) (Auto) [Pending], Basophils (%) (Auto) [Pending], Sodium Level 144, Potassium Level 3.5, Chloride Level 109H, Carbon Dioxide Level 27, Anion Gap 8, Blood Urea Nitrogen 17, Creatinine 1.1, Estimat Glomerular Filtration Rate > 60, Glucose Level 198H, Calcium Level 9.8, Total Bilirubin [Pending], Direct Bilirubin [Pending], Aspartate Amino Transf ( AST/SGOT) [Pending], Alanine Aminotransferase (ALT/SGPT) [Pending], Alkaline Phosphatase [Pending], Total Protein [Pending], Albumin [Pending] Current Medications Medications (Trade) Dose Ordered Sig/Neftaly Route PRN Reason Start Time Stop Time Status Last Admin Dose Admin Acetaminophen (Tylenol) 650 mg Q4H PRN ORAL Mild Pain/Temp > 100.0 04/17/19 00:30 05/17/19 00:29 04/17/19 06:21 Cefepime HCl 1 gm/ Dextrose 55 ml @ 110 mls/hr EVERY 12 HOURS IVPB 04/18/19 21:00 04/25/19 20:59 04/19/19 20:54 Dextrose 1,000 ml @ 100 mls/hr Q10H IV 04/17/19 00:30 05/17/19 00:29 04/20/19 06:23 Dextrose (Dextrose 50%) 25 ml Q30M PRN IV Hypoglycemia 2/12/20 00:15 05/15/19 21:14 Dextrose (Dextrose 50%) 50 ml Q30M PRN IV Hypoglycemia 04/17/19 00:15 05/15/19 21:14 Heparin Sodium (Porcine) (Heparin 5000 units/ml) 5,000 units EVERY 12 HOURS SUBQ 04/17/19 09:00 05/16/19 08:59 04/19/19 20:55 Insulin Aspart (NovoLOG) BEFORE MEALS AND HS SUBQ 04/17/19 06:30 05/16/19 06:29 04/20/19 06:22 Nitrofurantoin (Macrobid) 100 mg EVERY 12 HOURS ORAL 04/19/19 21:00 05/19/19 20:59 04/19/19 20:54 Pantoprazole (Protonix) 40 mg BIAC ORAL 04/19/19 18:00 05/19/19 17:59 04/20/19 06:21 Nidhi Fallon HOME THERAPY TEACHER Apr 20, 2019 07:46
[2019-04-20 08:00] VITALS: BP 150/80
[2019-04-20] MEDS: Heparin 5000 units/ml inj SUBQ SCH ×2 (09:07→20:33)
[2019-04-20] MEDS: Cefepime HCl 1 GM in D5W 55 ML IVPB SCH ×2 (09:07→20:29)
[2019-04-20 12:00] VITALS: BP 148/83
--- NOTE | 2019-04-20 14:52 | Surgery Progress Note ---
Surgery Progress Note Subjective Additional Comments no acute events MRI noted exam stable comfortable Objective Last 24 Hour Vital Signs Date Time Temp Pulse Resp B/P (MAP) Pulse Ox O2 Delivery O2 Flow Rate FiO2 04/20/19 12:00 98.2 86 19 148/83 (104) 97 04/20/19 09:00 Room Air 04/20/19 08:00 98.0 81 20 150/80 (103) 96 04/20/19 04:00 97.8 74 21 156/76 (102) 95 04/20/19 00:06 98.2 76 22 151/70 (97) 99 04/19/19 21:00 Room Air 04/19/19 20:31 98.9 75 22 158/75 (102) 98 04/19/19 15:59 99.5 70 20 155/77 (103) 97 I&O Intake and Output 04/19/19 04/20/19 19:00 07:00 Intake Total 720 ml 1205 ml Output Total 1400 ml 1350 ml Balance -680 ml -145 ml Intake Oral 720 ml IV Total 1205 ml Output Urine Total 1400 ml 1350 ml # Voids 2 Dressing: other Wound: other Drains: other Cardiovascular: RSR Respiratory: decreased breath sounds Abdomen: soft, present bowel sounds Extremities: no cyanosis Laboratory Tests Test 04/20/19 06:35 White Blood Count 7.8 K/UL (4.8-10.8) Red Blood Count 3.30 M/UL (4.70-6.10) L Hemoglobin 9.9 G/DL (14.2-18.0) L Hematocrit 29.4 % (42.0-52.0) L Mean Corpuscular Volume 89 FL (80-99) Mean Corpuscular Hemoglobin 30.2 PG (27.0-31.0) Mean Corpuscular Hemoglobin Concent 33.9 G/DL (32.0-36.0) Red Cell Distribution Width 12.7 % (11.6-14.8) Platelet Count 185 K/UL (150-450) Mean Platelet Volume 7.2 FL (6.5-10.1) Neutrophils (%) (Auto) 72.9 % (45.0-75.0) Lymphocytes (%) (Auto) 17.1 % (20.0-45.0) L Monocytes (%) (Auto) 6.5 % (1.0-10.0) Eosinophils (%) (Auto) 3.0 % (0.0-3.0) Basophils (%) (Auto) 0.5 % (0.0-2.0) Sodium Level 144 MMOL/L (136-145) Potassium Level 3.5 MMOL/L (3.5-5.1) Chloride Level 109 MMOL/L (98-107) H Carbon Dioxide Level 27 MMOL/L (21-32) Anion Gap 8 mmol/L (5-15) Blood Urea Nitrogen 17 mg/dL (7-18) Creatinine 1.1 MG/DL (0.55-1.30) Estimat Glomerular Filtration Rate > 60 mL/min (>60) Glucose Level 198 MG/DL (74-106) H Calcium Level 9.8 MG/DL (8.5-10.1) Ferritin 1193 NG/ML (8-388) H Total Bilirubin 0.5 MG/DL (0.2-1.0) Direct Bilirubin < 0.1 MG/DL (0.0-0.3) Aspartate Amino Transf (AST/SGOT) 22 U/L (15-37) Alanine Aminotransferase (ALT/SGPT) 40 U/L (12-78) Alkaline Phosphatase 119 U/L (46-116) H Total Protein 6.8 G/DL (6.4-8.2) Albumin 2.0 G/DL (3.4-5.0) L Plan Problems: (1) Laceration of face Assessment & Plan: During admission and cleaning of the room patient sustained a laceration to his right face around the area of the eyebrow from a following light fixture. Wound wash Steri-Strips applied no signs of active infection no bleeding small hematoma. Mild tenderness on palpation. 1 cm laceration. No acute surgical intervention indicated recommended Keep Steri-Strips in place We will monitor closely to ensure no infection or hematoma or complication Nutritional optimization Findings: There is new finding of a small right frontal scalp hematoma. No acute intracranial hemorrhage or edema. No mass effect nor midline shift. There is age-related enlargement of the ventricles and extra-axial CSF spaces. There is periventricular deep white matter low-attenuation, consistent with chronic microvascular ischemic change. 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 There is again demonstrated chronic periosteal thickening and some mucosal disease of the left maxillary sinus. There is bilateral ethmoid sinus disease. The mastoids are clear. The calvarium is intact. Impression: Negative for acute intracranial bleed or mass effect Evidence of right frontal scalp contusion Thank you will follow with recommendations (2) Severe protein-calorie malnutrition Assessment & Plan: DAILY ESTIMATED NEEDS: Needs based on sepsis 65.9kg 25-35 kcals/kg 2663-9418 total kcals 1.25-2 g protein/kg 82-132 g total protein 25-30 mL/kg 2672-2776 total fluid mLs NUTRITION DIAGNOSIS: Increased kcal and pro needs r/t sepsis and wound healing as evidenced by febrile, adm w. elev WBC (23.9-> trending down), elev LD, w/ sacral wound, eval is pending. CURRENT DIET: Regular mech soft chopped PO DIET RECOMMENDATIONS: Regular liberalized diet/ texture per RAILWAY ENGINEER ADDITIONAL RECOMMENDATIONS: 1) Calibrated bed scale wts 2) 1:1 feeds, encouragement 3) WC eval for sacral wounds 4) Add GLUCERNA 1 tetra zach BID w/ variable po intake, add snacks 5) RAILWAY ENGINEER eval for appropriate texture 6) Monitor BG w/ suboptimal po -> currently on D5 @100 Findings: The study is very limited because of motion. The intrahepatic biliary ducts are dilated. The CBD is dilated measuring about 14 mm. No definite filling defect demonstrated within the CBD. A subtle mass is difficult to exclude at the ampulla. The main pancreatic duct is also mildly dilated. The gallbladder is absent. Trace bilateral pleural effusions are noted. IMPRESSION: Very limited study due to breathing motion. Biliary ductal dilatation without demonstration of choledocholithiasis. Biliary obstruction at the level of ampulla is difficult to exclude on this study. Status post cholecystectomy Trace bilateral pleural effusions (3) Sepsis Assessment & Plan: This is a 83-year-old male who initially presented with leukocytosis, abnormal labs, lactic acidosis, sepsis admitted for further care and management on IV antibiotics undergoing medical care who is now improving. Altered mental status being worked up. Continue with current medical treatment. Alex Garzon Apr 20, 2019 14:52
[2019-04-20 16:00] VITALS: BP 140/81
--- NOTE | 2019-04-20 16:56 | General Progress Note ---
Assessment/Plan Assessment/Plan: GI: Plan Problems: (1) Dilated cbd, acquired (2) Anemia (3) Severe protein-calorie malnutrition (4) Dehydration Plan Abdominal US reviewed >> CBD dilation of 10mm anemia work up reviewed, folate deficient MRCP, may need EUS advance diet as tolerated folate follow up OB stool evaluate for GI bleed repeat liver function tests for tomorrow ppi prn transfusions electrolyte correction will follow with additional recommendations post imaging study Subjective Allergies: Coded Allergies: No Known Allergies (Unverified , 04/15/19) Subjective feels OK no abd c/o Objective Last 24 Hour Vital Signs Date Time Temp Pulse Resp B/P (MAP) Pulse Ox O2 Delivery O2 Flow Rate FiO2 04/20/19 16:00 98.0 82 18 140/81 (100) 98 04/20/19 12:00 98.2 86 19 148/83 (104) 97 04/20/19 09:00 Room Air 04/20/19 08:00 98.0 81 20 150/80 (103) 96 04/20/19 04:00 97.8 74 21 156/76 (102) 95 04/20/19 00:06 98.2 76 22 151/70 (97) 99 04/19/19 21:00 Room Air 04/19/19 20:31 98.9 75 22 158/75 (102) 98 Intake and Output 04/19/19 04/20/19 19:00 07:00 Intake Total 720 ml 1205 ml Output Total 1400 ml 1350 ml Balance -680 ml -145 ml Intake Oral 720 ml IV Total 1205 ml Output Urine Total 1400 ml 1350 ml # Voids 2 Laboratory Tests 04/20/19 06:35: White Blood Count 7.8, Red Blood Count 3.30L, Hemoglobin 9.9L, Hematocrit 29.4L , Mean Corpuscular Volume 89, Mean Corpuscular Hemoglobin 30.2, Mean Corpuscular Hemoglobin Concent 33.9, Red Cell Distribution Width 12.7, Platelet Count 185, Mean Platelet Volume 7.2, Neutrophils (%) (Auto) 72.9, Lymphocytes (% ) (Auto) 17.1L, Monocytes (%) (Auto) 6.5, Eosinophils (%) (Auto) 3.0, Basophils (%) (Auto) 0.5, Sodium Level 144, Potassium Level 3.5, Chloride Level 109H, Carbon Dioxide Level 27, Anion Gap 8, Blood Urea Nitrogen 17, Creatinine 1.1, Estimat Glomerular Filtration Rate > 60, Glucose Level 198H, Calcium Level 9.8, Ferritin 1193H, Total Bilirubin 0.5, Direct Bilirubin < 0.1, Aspartate Amino Transf (AST/SGOT) 22, Alanine Aminotransferase (ALT/SGPT) 40, Alkaline Phosphatase 119H, Total Protein 6.8, Albumin 2.0L Height (Feet): 5 Height (Inches): 10.00 Weight (Pounds): 145 Objective WDWN NCAT supple CTA RR abd soft no edema Casper Bolton MD Apr 20, 2019 16:56
--- NOTE | 2019-04-20 19:13 | NUR ---
HAND-OFF: Report given to KWASI Walsh.
--- NOTE | 2019-04-20 19:30 | NUR ---
NURSE NOTES: Received patient comfortably sleeping, kept clean and dry.
[2019-04-20 20:00] VITALS: BP 165/73
[2019-04-21] VITALS (7 sets, daily range): BP systolic 136–158; BP diastolic 60–80
--- NOTE | 2019-04-21 04:30 | Discharge Summary ---
DATE OF ADMISSION: 04/15/2019 This is one of several admissions to [facility] of this 83-year-old patient because of sepsis. HISTORY OF PRESENT ILLNESS: Details of the event and circumstances that led the patient to be admitted to this medical unit can be found in the H and P. In brief, the patient is a resident [facility] where he has been in a stable condition for the last several years. He is known to have several chronic medical syndrome, but has been stable on his current medication. On the day of admission, he had an impression of having hemiparesis in the left upper extremity, left lower extremity, and patient was transferred to [facility] ER. In the ER, this finding was not ascertained. The patient was found to have hypotension, dehydration, sepsis, and malfunctioning G-tube, and the patient was admitted. HOSPITAL COURSE: Upon admission, the patient underwent clinical, biological, and imaging studies. He received volume replacement and normal saline. Currently, he is placed on cefepime 1 g IV piggyback q.12 h. and vancomycin 1 g IV piggyback q.12 h. and was transferred to the intensive care unit. In the intensive care unit, the patient required still pressor support. However, his condition rapidly improved over the next several days and the patient was transferred to cardiac observation unit. During assessment, he underwent imaging studies. He had a chest x-ray, CT scan of the head, venous duplex scan, arterial duplex scan, and abdominal ultrasound during his admission. Lateral portion of the bed frame fell on his head that required head CT and admission. Abdominal MRI result showed biliary obstruction at the level of the ampulla, was difficult to exclude. The patient will require further imaging studies. Repeat laboratory tests will be done in a.m. Domingo Anderson M.D. DR: Josué JOB#: [id number] CC:
[2019-04-21] MEDS: NovoLOG Insulin Flexpen SUBQ SCH ×4 (06:00→21:24)
--- NOTE | 2019-04-21 07:26 | NUR ---
HAND-OFF: Report given to Sixto Magana RN.
[2019-04-21 08:27] LABS: BASOPHILS % (AUTO) 0.6 % (0.0-2.0); EOSINOPHILS % (AUTO) 3.5 % (0.0-3.0); HEMATOCRIT 25.2 % (42.0-52.0); HEMOGLOBIN 8.4 G/DL (14.2-18.0); MEAN CORPUSCULAR VOLUME 90 FL (80-99); MONOCYTES % (AUTO) 5.8 % (1.0-10.0); NEUTROPHILS % (AUTO) 72.1 % (45.0-75.0); PLATELET COUNT 269 K/UL (150-450); RED BLOOD COUNT 2.79 M/UL (4.70-6.10); RED CELL DISTRIBUTION WIDTH 12.9 % (11.6-14.8); WHITE BLOOD COUNT 8.8 K/UL (4.8-10.8)
--- NOTE | 2019-04-21 08:45 | NUR ---
NURSE NOTES: Received patient report from KWASI Walsh. Patient in supine position, resting comfortably, respirations at 16 breaths per minute, on room air, in no apparent distress, bed in lowest position, call light within reach.
--- NOTE | 2019-04-21 09:05 | Pulmonology Progress Note ---
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 SANNA resolved ; decrease IV fluids abdominal US with intrahepatic biliary ductal dilatation GI on board MRCP biliary ductal dilatation noted without demonstration of choledocholithiasis status post cholecystectomy LFT down to normal monitor H&H with goal to keep hemoglobin above 7 stool OB pending, CEA within normal limits anemia work-up consistent with anemia of chronic disease , ferritin very high case discussed and evaluated by supervising physician Subjective Allergies: Coded Allergies: No Known Allergies (Unverified , 04/15/19) Subjective leuk resolved, no signs of resp distress Objective Last 24 Hour Vital Signs Date Time Temp Pulse Resp B/P (MAP) Pulse Ox O2 Delivery O2 Flow Rate FiO2 04/21/19 08:00 98.5 83 18 144/79 (100) 95 04/21/19 04:00 99.0 75 18 155/78 (103) 95 04/21/19 00:01 99.5 82 20 158/75 (102) 95 04/20/19 21:19 Room Air 04/20/19 20:00 100.0 93 20 165/73 (103) 94 04/20/19 16:00 98.0 82 18 140/81 (100) 98 04/20/19 12:00 98.2 86 19 148/83 (104) 97 Intake and Output 04/20/19 04/21/19 19:00 07:00 Intake Total 780 ml 1625 ml Output Total 800 ml 900 ml Balance -20 ml 725 ml Intake Oral 680 ml 180 ml IV Total 100 ml 1205 ml Other 240 ml Output Urine Total 800 ml 900 ml # Voids 1 Objective General Appearance: no acute distress, other - AA male eating his breakfast HEENT: normocephalic, atraumatic, anicteric Respiratory/Chest: lungs clear, no respiratory distress, no accessory muscle use Cardiovascular: normal rate Abdomen: normal bowel sounds, soft, non tender Extremities: no edema Neurologic/Psychiatric: alert Musculoskeletal: atrophy - BLE Laboratory Tests 04/21/19 06:43: White Blood Count 8.8, Red Blood Count 2.79L, Hemoglobin 8.4L, Hematocrit 25.2L , Mean Corpuscular Volume 90, Mean Corpuscular Hemoglobin 30.1, Mean Corpuscular Hemoglobin Concent 33.3, Red Cell Distribution Width 12.9, Platelet Count 269, Mean Platelet Volume 5.4L, Neutrophils (%) (Auto) 72.1, Lymphocytes ( %) (Auto) 18.0L, Monocytes (%) (Auto) 5.8, Eosinophils (%) (Auto) 3.5H, Basophils (%) (Auto) 0.6, Sodium Level [Pending], Potassium Level [Pending], Chloride Level [Pending], Carbon Dioxide Level [Pending], Blood Urea Nitrogen [ Pending], Creatinine [Pending], Estimat Glomerular Filtration Rate [Pending], Glucose Level [Pending], Calcium Level [Pending] Current Medications Medications (Trade) Dose Ordered Sig/Neftaly Route PRN Reason Start Time Stop Time Status Last Admin Dose Admin Acetaminophen (Tylenol) 650 mg Q4H PRN ORAL Mild Pain/Temp > 100.0 04/17/19 00:30 05/17/19 00:29 04/17/19 06:21 Cefepime HCl 1 gm/ Dextrose 55 ml @ 110 mls/hr EVERY 12 HOURS IVPB 04/18/19 21:00 04/25/19 20:59 04/20/19 20:29 Dextrose 1,000 ml @ 100 mls/hr Q10H IV 04/17/19 00:30 05/17/19 00:29 04/21/19 04:00 Dextrose (Dextrose 50%) 25 ml Q30M PRN IV Hypoglycemia 04/17/19 00:15 05/15/19 21:14 Dextrose (Dextrose 50%) 50 ml Q30M PRN IV Hypoglycemia 04/17/19 00:15 05/15/19 21:14 Heparin Sodium (Porcine) (Heparin 5000 units/ml) 5,000 units EVERY 12 HOURS SUBQ 04/17/19 09:00 05/16/19 08:59 04/20/19 20:33 Insulin Aspart (NovoLOG) BEFORE MEALS AND HS SUBQ 04/17/19 06:30 05/16/19 06:29 04/21/19 06:00 Nitrofurantoin (Macrobid) 100 mg EVERY 12 HOURS ORAL 04/19/19 21:00 05/19/19 20:59 04/20/19 20:29 Pantoprazole (Protonix) 40 mg BIAC ORAL 04/19/19 18:00 05/19/19 17:59 04/21/19 05:58 Nidhi Fallon DANCE HALL HOST/HOSTESS Apr 21, 2019 09:05
[2019-04-21] MEDS: Cefepime HCl 1 GM in D5W 55 ML IVPB SCH ×2 (09:18→16:17)
[2019-04-21] MEDS: Heparin 5000 units/ml inj SUBQ SCH ×2 (09:19→21:22)
--- NOTE | 2019-04-21 09:29 | NUR ---
NURSE NOTES: Prevent a fall agreement posted at head of bed, patient wearing yellow gown and one yellow sock on left foot, side rails up x 3, bed in lowest position, and locked call light within reach.
[2019-04-21 09:30] LABS: ANION GAP 9 mmol/L (5-15); BLOOD UREA NITROGEN 17 mg/dL (7-18); CALCIUM 9.4 MG/DL (8.5-10.1); CARBON DIOXIDE 26 MMOL/L (21-32); CHLORIDE 106 MMOL/L (98-107); POTASSIUM 3.2 MMOL/L (3.5-5.1); SODIUM 141 MMOL/L (136-145)
--- NOTE | 2019-04-21 10:48 | NUR ---
NURSE NOTES: Contacted Dr. Casper Bolton and relayed message regarding OK to discharge patient if dilatated ducts not an issue.
--- NOTE | 2019-04-21 11:30 | General Progress Note ---
Assessment/Plan Assessment/Plan: GI: Plan Problems: (1) Dilated cbd, acquired (2) Anemia (3) Severe protein-calorie malnutrition (4) Dehydration Plan Abdominal US reviewed >> CBD dilation of 10mm anemia work up reviewed, folate deficient MRCP noted - unable to clear distal DBD follow up OB stool evaluate for GI bleed ppi prn transfusions electrolyte correction Will keep NPO after MN for possible GI endoscopy in am Subjective Allergies: Coded Allergies: No Known Allergies (Unverified , 04/15/19) Subjective feels OK no abd c/o d/w Dr.Vosoghi pedroza possible GI endoscopy tomorrow will make NPO after MN Objective Last 24 Hour Vital Signs Date Time Temp Pulse Resp B/P (MAP) Pulse Ox O2 Delivery O2 Flow Rate FiO2 04/21/19 09:00 Room Air 04/21/19 08:00 98.5 83 18 144/79 (100) 95 04/21/19 04:00 99.0 75 18 155/78 (103) 95 04/21/19 00:01 99.5 82 20 158/75 (102) 95 04/20/19 21:19 Room Air 04/20/19 20:00 100.0 93 20 165/73 (103) 94 04/20/19 16:00 98.0 82 18 140/81 (100) 98 04/20/19 12:00 98.2 86 19 148/83 (104) 97 Intake and Output 04/20/19 04/21/19 19:00 07:00 Intake Total 780 ml 1625 ml Output Total 800 ml 900 ml Balance -20 ml 725 ml Intake Oral 680 ml 180 ml IV Total 100 ml 1205 ml Other 240 ml Output Urine Total 800 ml 900 ml # Voids 1 Laboratory Tests 04/21/19 06:43: White Blood Count 8.8, Red Blood Count 2.79L, Hemoglobin 8.4L, Hematocrit 25.2L , Mean Corpuscular Volume 90, Mean Corpuscular Hemoglobin 30.1, Mean Corpuscular Hemoglobin Concent 33.3, Red Cell Distribution Width 12.9, Platelet Count 269, Mean Platelet Volume 5.4L, Neutrophils (%) (Auto) 72.1, Lymphocytes ( %) (Auto) 18.0L, Monocytes (%) (Auto) 5.8, Eosinophils (%) (Auto) 3.5H, Basophils (%) (Auto) 0.6, Sodium Level 141, Potassium Level 3.2L, Chloride Level 106, Carbon Dioxide Level 26, Anion Gap 9, Blood Urea Nitrogen 17, Creatinine 1.0, Estimat Glomerular Filtration Rate > 60, Glucose Level 218H, Calcium Level 9.4 Height (Feet): 5 Height (Inches): 10.00 Weight (Pounds): 145 Objective WDWN NCAT supple CTA RR abd soft no edema Casper Bolton MD Apr 21, 2019 11:30
--- NOTE | 2019-04-21 12:38 | Surgery Progress Note ---
Surgery Progress Note Subjective Additional Comments no acute events Objective Last 24 Hour Vital Signs Date Time Temp Pulse Resp B/P (MAP) Pulse Ox O2 Delivery O2 Flow Rate FiO2 04/21/19 09:00 Room Air 04/21/19 08:00 98.5 83 18 144/79 (100) 95 04/21/19 04:00 99.0 75 18 155/78 (103) 95 04/21/19 00:01 99.5 82 20 158/75 (102) 95 04/20/19 21:19 Room Air 04/20/19 20:00 100.0 93 20 165/73 (103) 94 04/20/19 16:00 98.0 82 18 140/81 (100) 98 I&O Intake and Output 04/20/19 04/21/19 19:00 07:00 Intake Total 780 ml 1625 ml Output Total 800 ml 900 ml Balance -20 ml 725 ml Intake Oral 680 ml 180 ml IV Total 100 ml 1205 ml Other 240 ml Output Urine Total 800 ml 900 ml # Voids 1 Dressing: other Wound: other Drains: other Cardiovascular: RSR Respiratory: decreased breath sounds Abdomen: soft, present bowel sounds Extremities: no cyanosis Laboratory Tests Test 04/21/19 06:43 White Blood Count 8.8 K/UL (4.8-10.8) Red Blood Count 2.79 M/UL (4.70-6.10) L Hemoglobin 8.4 G/DL (14.2-18.0) L Hematocrit 25.2 % (42.0-52.0) L Mean Corpuscular Volume 90 FL (80-99) Mean Corpuscular Hemoglobin 30.1 PG (27.0-31.0) Mean Corpuscular Hemoglobin Concent 33.3 G/DL (32.0-36.0) Red Cell Distribution Width 12.9 % (11.6-14.8) Platelet Count 269 K/UL (150-450) Mean Platelet Volume 5.4 FL (6.5-10.1) L Neutrophils (%) (Auto) 72.1 % (45.0-75.0) Lymphocytes (%) (Auto) 18.0 % (20.0-45.0) L Monocytes (%) (Auto) 5.8 % (1.0-10.0) Eosinophils (%) (Auto) 3.5 % (0.0-3.0) H Basophils (%) (Auto) 0.6 % (0.0-2.0) Sodium Level 141 MMOL/L (136-145) Potassium Level 3.2 MMOL/L (3.5-5.1) L Chloride Level 106 MMOL/L (98-107) Carbon Dioxide Level 26 MMOL/L (21-32) Anion Gap 9 mmol/L (5-15) Blood Urea Nitrogen 17 mg/dL (7-18) Creatinine 1.0 MG/DL (0.55-1.30) Estimat Glomerular Filtration Rate > 60 mL/min (>60) Glucose Level 218 MG/DL (74-106) H Calcium Level 9.4 MG/DL (8.5-10.1) Plan Problems: (1) Laceration of face Assessment & Plan: During admission and cleaning of the room patient sustained a laceration to his right face around the area of the eyebrow from a following light fixture. Wound wash Steri-Strips applied no signs of active infection no bleeding small hematoma. Mild tenderness on palpation. 1 cm laceration. No acute surgical intervention indicated recommended Keep Steri-Strips in place We will monitor closely to ensure no infection or hematoma or complication Nutritional optimization Findings: There is new finding of a small right frontal scalp hematoma. No acute intracranial hemorrhage or edema. No mass effect nor midline shift. There is age-related enlargement of the ventricles and extra-axial CSF spaces. There is periventricular deep white matter low-attenuation, consistent with chronic microvascular ischemic change. 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 There is again demonstrated chronic periosteal thickening and some mucosal disease of the left maxillary sinus. There is bilateral ethmoid sinus disease. The mastoids are clear. The calvarium is intact. Impression: Negative for acute intracranial bleed or mass effect Evidence of right frontal scalp contusion Thank you will follow with recommendations (2) Severe protein-calorie malnutrition Assessment & Plan: DAILY ESTIMATED NEEDS: Needs based on sepsis 65.9kg 25-35 kcals/kg 0992-7266 total kcals 1.25-2 g protein/kg 82-132 g total protein 25-30 mL/kg 3311-8658 total fluid mLs NUTRITION DIAGNOSIS: Increased kcal and pro needs r/t sepsis and wound healing as evidenced by febrile, adm w. elev WBC (23.9-> trending down), elev LD, w/ sacral wound, eval is pending. CURRENT DIET: Regular mech soft chopped PO DIET RECOMMENDATIONS: Regular liberalized diet/ texture per HOSTESS ADDITIONAL RECOMMENDATIONS: 1) Calibrated bed scale wts 2) 1:1 feeds, encouragement 3) WC eval for sacral wounds 4) Add GLUCERNA 1 tetra zach BID w/ variable po intake, add snacks 5) HOSTESS eval for appropriate texture 6) Monitor BG w/ suboptimal po -> currently on D5 @100 Findings: The study is very limited because of motion. The intrahepatic biliary ducts are dilated. The CBD is dilated measuring about 14 mm. No definite filling defect demonstrated within the CBD. A subtle mass is difficult to exclude at the ampulla. The main pancreatic duct is also mildly dilated. The gallbladder is absent. Trace bilateral pleural effusions are noted. IMPRESSION: Very limited study due to breathing motion. Biliary ductal dilatation without demonstration of choledocholithiasis. Biliary obstruction at the level of ampulla is difficult to exclude on this study. Status post cholecystectomy Trace bilateral pleural effusions (3) Sepsis Assessment & Plan: This is a 83-year-old male who initially presented with leukocytosis, abnormal labs, lactic acidosis, sepsis admitted for further care and management on IV antibiotics undergoing medical care who is now improving. Altered mental status being worked up. Continue with current medical treatment. Alex Garzon Apr 21, 2019 12:38
--- NOTE | 2019-04-21 19:21 | NUR ---
HAND-OFF: Report given to Jeet Walsh RN. Patient sitting up in bed, awake, watching television, bed in lowest position, call light within reach, on room air, no c/o pain, no SOB, in no apparent distress.
--- NOTE | 2019-04-21 19:33 | NUR ---
NURSE NOTES: Received patient awake, verbal, follows simple command, resting in bed, comfortable.
--- NOTE | 2019-04-21 21:15 | Progress Note ---
DATE: 04/21/2019 SUBJECTIVE: The patient is afebrile and hemodynamically stable. PHYSICAL EXAMINATION: VITAL SIGNS: Blood pressure 138/80, pulse 87, respirations are 18, and temperature 98.2. HEENT: Eyes were normal. ENT, mucous membranes were moist and intact. NECK: Supple with no JVD without lymph nodes. LUNGS: Clear. HEART: Normal sounds with regular beats. There is no tachycardia at rest. ABDOMEN: Soft and nontender with normal bowel sounds. EXTREMITIES: Warm without cyanosis, clubbing, or edema. LABORATORY AND DIAGNOSTIC DATA: Hemoglobin is 8.4, hematocrit 25.2 with MCV of 19, WBC of 8.8 and platelets 269. BUN and creatinine is 17 and 1.0 respectively. Sodium is 141, potassium 3.2, chloride 106, CO2 was 26. His calcium was 9.4. IMPRESSION: 1. The patient has hypokalemia. He will receive 40 mEq of KCl p.o. 2. The patient's imaging study has been assessed today by the dinkey engine operator who found the patient having normocytic anemia, elevated ESR, dilated common bile duct and intrahepatic. Therefore, the patient is scheduled to undergo upper gastrointestinal endoscopy in the morning. Repeat laboratory tests will be done in the morning. Domingo Anderson M.D. DR: Zena JOB#: [id number] CC:
[2019-04-22 04:00] VITALS: BP 138/66
[2019-04-22] MEDS: NovoLOG Insulin Flexpen SUBQ SCH ×4 (06:27→20:12)
--- NOTE | 2019-04-22 07:25 | NUR ---
HAND-OFF: Report given to Dottie Hills RN.
--- NOTE | 2019-04-22 07:51 | NUR ---
NURSE NOTES: Received patient in bed. No SOB or acute distress. IV line intact and patent. HOB elevated. Bed locked in lowest position, alarm on high sensitivity setting. Side rails up. Call light within reach. Will continue frequent rounding and plan of care.
[2019-04-22 08:00] VITALS: BP 141/70
[2019-04-22] MEDS: Cefepime HCl 1 GM in D5W 55 ML IVPB SCH ×2 (08:29→20:11)
[2019-04-22] MEDS: Heparin 5000 units/ml inj SUBQ SCH ×2 (08:31→20:12)
[2019-04-22 08:46] LABS: HEMATOCRIT 23.6 % (42.0-52.0); HEMOGLOBIN 7.9 G/DL (14.2-18.0); MEAN CORPUSCULAR VOLUME 91 FL (80-99); PLATELET COUNT 371 K/UL (150-450); RED BLOOD COUNT 2.58 M/UL (4.70-6.10); RED CELL DISTRIBUTION WIDTH 13.1 % (11.6-14.8); WHITE BLOOD COUNT 10.2 K/UL (4.8-10.8)
[2019-04-22 09:07] LABS: ANION GAP 7 mmol/L (5-15); BLOOD UREA NITROGEN 16 mg/dL (7-18); CALCIUM 9.5 MG/DL (8.5-10.1); CARBON DIOXIDE 30 MMOL/L (21-32); CHLORIDE 105 MMOL/L (98-107); POTASSIUM 3.5 MMOL/L (3.5-5.1); SODIUM 141 MMOL/L (136-145)
--- NOTE | 2019-04-22 09:27 | Pulmonology Progress Note ---
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 SANNA resolved ; decrease IV fluids abdominal US with intrahepatic biliary ductal dilatation GI on board MRCP biliary ductal dilatation noted without demonstration of choledocholithiasis status post cholecystectomy LFT down to normal monitor H&H with goal to keep hemoglobin above 7 stool OB pending, CEA within normal limits anemia work-up consistent with anemia of chronic disease , ferritin very high case discussed and evaluated by supervising physician Subjective Allergies: Coded Allergies: No Known Allergies (Unverified , 04/15/19) Subjective leuk resolved, no signs of resp distress Objective Last 24 Hour Vital Signs Date Time Temp Pulse Resp B/P (MAP) Pulse Ox O2 Delivery O2 Flow Rate FiO2 04/22/19 08:00 98.6 80 20 141/70 (93) 98 04/22/19 04:00 98.2 75 20 138/66 (90) 96 04/21/19 23:46 99.0 82 18 138/66 (90) 98 04/21/19 20:16 Room Air 04/21/19 20:09 98.8 77 18 141/60 (87) 98 04/21/19 16:00 97.4 72 18 156/78 (104) 98 04/21/19 12:00 98.2 87 18 136/80 (98) 99 Intake and Output 04/21/19 04/22/19 19:00 07:00 Intake Total 1790 ml 1380 ml Output Total 1000 ml 1600 ml Balance 790 ml -220 ml Intake Oral 880 ml 480 ml IV Total 910 ml 900 ml Output Urine Total 1000 ml 1600 ml # Voids 1 Objective General Appearance: no acute distress, other - AA male eating his breakfast HEENT: normocephalic, atraumatic, anicteric Respiratory/Chest: lungs clear, no respiratory distress, no accessory muscle use Cardiovascular: normal rate Abdomen: normal bowel sounds, soft, non tender Extremities: no edema Neurologic/Psychiatric: alert Musculoskeletal: atrophy - BLE Laboratory Tests 04/22/19 07:40: White Blood Count 10.2, Red Blood Count 2.58L, Hemoglobin 7.9L, Hematocrit 23.6L , Mean Corpuscular Volume 91, Mean Corpuscular Hemoglobin 30.6, Mean Corpuscular Hemoglobin Concent 33.4, Red Cell Distribution Width 13.1, Platelet Count 371, Mean Platelet Volume 5.2L, Neutrophils (%) (Auto) , Lymphocytes (%) ( Auto) , Monocytes (%) (Auto) , Eosinophils (%) (Auto) , Basophils (%) (Auto) , Neutrophils % (Manual) [Pending], Lymphocytes % (Manual) [Pending], Platelet Estimate [Pending], Platelet Morphology [Pending], Sodium Level 141, Potassium Level 3.5, Chloride Level 105, Carbon Dioxide Level 30, Anion Gap 7, Blood Urea Nitrogen 16, Creatinine 1.0, Estimat Glomerular Filtration Rate > 60, Glucose Level 271H, Calcium Level 9.5 Current Medications Medications (Trade) Dose Ordered Sig/Neftaly Route PRN Reason Start Time Stop Time Status Last Admin Dose Admin Acetaminophen (Tylenol) 650 mg Q4H PRN ORAL Mild Pain/Temp > 100.0 04/17/19 00:30 05/17/19 00:29 04/17/19 06:21 Cefepime HCl 1 gm/ Dextrose 55 ml @ 110 mls/hr EVERY 12 HOURS IVPB 04/18/19 21:00 04/25/19 20:59 04/22/19 08:29 Dextrose 1,000 ml @ 100 mls/hr Q10H IV 04/17/19 00:30 05/17/19 00:29 04/22/19 04:01 Dextrose (Dextrose 50%) 25 ml Q30M PRN IV Hypoglycemia 04/17/19 00:15 05/15/19 21:14 Dextrose (Dextrose 50%) 50 ml Q30M PRN IV Hypoglycemia 04/17/19 00:15 05/15/19 21:14 Heparin Sodium (Porcine) (Heparin 5000 units/ml) 5,000 units EVERY 12 HOURS SUBQ 04/17/19 09:00 05/16/19 08:59 04/22/19 08:31 Insulin Aspart (NovoLOG) BEFORE MEALS AND HS SUBQ 04/17/19 06:30 05/16/19 06:29 04/22/19 06:27 Nitrofurantoin (Macrobid) 100 mg EVERY 12 HOURS ORAL 04/19/19 21:00 05/19/19 20:59 04/22/19 08:29 Pantoprazole (Protonix) 40 mg BIAC ORAL 04/19/19 18:00 05/19/19 17:59 04/22/19 06:26 Nidhi Fallon [employer] Apr 22, 2019 09:27
--- NOTE | 2019-04-22 10:13 | General Progress Note ---
Assessment/Plan Problem List: (1) Hx of right BKA ICD Codes: Z89.511 - Acquired absence of right leg below knee SNOMED: 579985419, 914683076709447 (2) Severe protein-calorie malnutrition ICD Codes: E43 - Unspecified severe protein-calorie malnutrition SNOMED: 055442460, 335942677, 764175542 (3) COPD (chronic obstructive pulmonary disease) ICD Codes: J44.9 - Chronic obstructive pulmonary disease, unspecified SNOMED: 47110133 (4) History of hypertension ICD Codes: Z86.79 - Personal history of other diseases of the circulatory system SNOMED: 297090033 (5) Diabetes mellitus ICD Codes: E11.9 - Type 2 diabetes mellitus without complications SNOMED: 32962316 (6) UTI (urinary tract infection) ICD Codes: N39.0 - Urinary tract infection, site not specified SNOMED: 25791593 (7) Dilated cbd, acquired ICD Codes: K83.8 - Other specified diseases of biliary tract SNOMED: 333403449 Assessment/Plan: plan EGd and colonoscopy for tomorrow prep for today fu labs bowel regimen Subjective ROS Limited/Unobtainable: Yes Allergies: Coded Allergies: No Known Allergies (Unverified , 04/15/19) Objective Last 24 Hour Vital Signs Date Time Temp Pulse Resp B/P (MAP) Pulse Ox O2 Delivery O2 Flow Rate FiO2 04/22/19 08:00 98.6 80 20 141/70 (93) 98 04/22/19 04:00 98.2 75 20 138/66 (90) 96 04/21/19 23:46 99.0 82 18 138/66 (90) 98 04/21/19 20:16 Room Air 04/21/19 20:09 98.8 77 18 141/60 (87) 98 04/21/19 16:00 97.4 72 18 156/78 (104) 98 04/21/19 12:00 98.2 87 18 136/80 (98) 99 Intake and Output 04/21/19 04/22/19 19:00 07:00 Intake Total 1790 ml 1380 ml Output Total 1000 ml 1600 ml Balance 790 ml -220 ml Intake Oral 880 ml 480 ml IV Total 910 ml 900 ml Output Urine Total 1000 ml 1600 ml # Voids 1 Laboratory Tests 04/22/19 07:40: White Blood Count 10.2, Red Blood Count 2.58L, Hemoglobin 7.9L, Hematocrit 23.6L , Mean Corpuscular Volume 91, Mean Corpuscular Hemoglobin 30.6, Mean Corpuscular Hemoglobin Concent 33.4, Red Cell Distribution Width 13.1, Platelet Count 371, Mean Platelet Volume 5.2L, Neutrophils (%) (Auto) , Lymphocytes (%) ( Auto) , Monocytes (%) (Auto) , Eosinophils (%) (Auto) , Basophils (%) (Auto) , Differential Total Cells Counted 100, Neutrophils % (Manual) 68, Lymphocytes % ( Manual) 26, Monocytes % (Manual) 5, Eosinophils % (Manual) 1, Basophils % ( Manual) 0, Band Neutrophils 0, Platelet Estimate Adequate, Platelet Morphology Normal, Hypochromasia 1+, Sodium Level 141, Potassium Level 3.5, Chloride Level 105, Carbon Dioxide Level 30, Anion Gap 7, Blood Urea Nitrogen 16, Creatinine 1.0, Estimat Glomerular Filtration Rate > 60, Glucose Level 271H, Calcium Level 9.5 Height (Feet): 5 Height (Inches): 10.00 Weight (Pounds): 145 General Appearance: alert EENT: normal ENT inspection Neck: supple Cardiovascular: normal rate Respiratory/Chest: lungs clear Abdomen: normal bowel sounds, non tender, soft Extremities: non-tender Roberto Daugherty MD Apr 22, 2019 10:13
--- NOTE | 2019-04-22 11:22 | Infectious Diseases Prog Note ---
Assessment/Plan Assessment/Plan Assessment: Sepsis Klebsiella pna bacteremia Polymicrobial UTI -04/18 u/a wbc tntc, nit neg, leuk +3l; ucx GPC -04/17 Bcx NTD -04/16 ucx >100kE. fecalis -04/15 Bcx 06/07 K. pna (R Amp, I Ancef, Zosyn) ucx >100k K.pna (R amp, macrobid; otherwise S); repeat ucx >100k K, pna (R Amp, I Ancef), >100k P stuarti (R Amp, cipro.levo), macrobid, ancef, > 100k enterococcus fecalis (S Amp, Vanco, macrobid) influenza sc neg CXR: Suspected mild CHF. Correlate clinically Low grade fever; improving Leukocytosis, SP Face laceration -04/[address]:Negative for acute intracranial bleed or mass effect. Evidence of right frontal scalp contusion SANNA, improving Elevated AST; improving -04/19 Abd MRI:Very limited study due to breathing motion. Biliary ductal dilatation without demonstration of choledocholithiasis. Biliary obstruction at the level of ampulla is difficult to exclude on this study. Status post cholecystectomy. Trace bilateral pleural effusions -Abd US: Absent gallbladder, status post cholecystectomy Intrahepatic biliary ductal dilatation. Suspect on the basis of patient's age and postcholecystectomy state. However, downstream obstruction also possible. Correlate with liver function tests, consider MRCP for better characterization if clinically indicated. Empty bladder with a Pike catheter.Trace left perinephric fluid. This is a nonspecific finding, can be seen in the setting of renal inflammation - MRI Abd: Biliary ductal dilatation without demonstration of choledocholithiasis. Biliary obstruction at the level of ampulla is difficult to exclude on this study. Status post cholecystectomy PVD R BKA w/ phantom limb syndrome -a. 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 Evidence of resultant severe ischemia of the foot HLD HTN dyphagia s/p GT chronic resp failure s/p trach DM2 COPD cognitive communication deficit SNF resident Plan: -Continue Cefepime #5 (abx d #10/17) for K.pna UTI and bacteremia - continue PO Macrobid #4(Abx #5/5-7) -04/19 SP linezolid #2 -04/18 SP Meropenem #3 -04/16 SP IV Vancomycin #2 -f/u cx -Monitor CBC/CMP, temperatures Thank you for this consultation. Will continue to follow along with you. Subjective Allergies: Coded Allergies: No Known Allergies (Unverified , 04/15/19) Subjective afebrile in ~36hrs no leukocytosis Objective Vital Signs Last 24 Hour Vital Signs Date Time Temp Pulse Resp B/P (MAP) Pulse Ox O2 Delivery O2 Flow Rate FiO2 04/22/19 08:00 98.6 80 20 141/70 (93) 98 04/22/19 04:00 98.2 75 20 138/66 (90) 96 04/21/19 23:46 99.0 82 18 138/66 (90) 98 04/21/19 20:16 Room Air 04/21/19 20:09 98.8 77 18 141/60 (87) 98 04/21/19 16:00 97.4 72 18 156/78 (104) 98 04/21/19 12:00 98.2 87 18 136/80 (98) 99 Height (Feet): 5 Height (Inches): 10.00 Weight (Pounds): 145 Objective HEENT: Eyes were normal. Pupils were round, equal, and reactive to light. Sclerae were white. ENT, mucous membranes were not dehydrated. NECK: Supple. There was no goiter. No mass. No lymphadenopathy. There was no JVD. No bruits. LUNGS: Clear. HEART: PMI was in fourth left intercostal space in midclavicular line. There was normal S1 and normal S2. There was no murmur. No arrhythmia. No S3. No S4. No pericardial rub. ABDOMEN: Soft and nontender without organomegaly. There were no masses palpable. Normal bowel sounds without bruits. There was no guarding. No rebound tenderness. No ascites. No hernia. No CVA tenderness. Laboratory Tests Test 04/22/19 07:40 White Blood Count 10.2 K/UL (4.8-10.8) Red Blood Count 2.58 M/UL (4.70-6.10) L Hemoglobin 7.9 G/DL (14.2-18.0) L Hematocrit 23.6 % (42.0-52.0) L Mean Corpuscular Volume 91 FL (80-99) Mean Corpuscular Hemoglobin 30.6 PG (27.0-31.0) Mean Corpuscular Hemoglobin Concent 33.4 G/DL (32.0-36.0) Red Cell Distribution Width 13.1 % (11.6-14.8) Platelet Count 371 K/UL (150-450) Mean Platelet Volume 5.2 FL (6.5-10.1) L Neutrophils (%) (Auto) % (45.0-75.0) Lymphocytes (%) (Auto) % (20.0-45.0) Monocytes (%) (Auto) % (1.0-10.0) Eosinophils (%) (Auto) % (0.0-3.0) Basophils (%) (Auto) % (0.0-2.0) Differential Total Cells Counted 100 Neutrophils % (Manual) 68 % (45-75) Lymphocytes % (Manual) 26 % (20-45) Monocytes % (Manual) 5 % (1-10) Eosinophils % (Manual) 1 % (0-3) Basophils % (Manual) 0 % (0-2) Band Neutrophils 0 % (0-8) Platelet Estimate Adequate Platelet Morphology Normal Hypochromasia 1+ Sodium Level 141 MMOL/L (136-145) Potassium Level 3.5 MMOL/L (3.5-5.1) Chloride Level 105 MMOL/L (98-107) Carbon Dioxide Level 30 MMOL/L (21-32) Anion Gap 7 mmol/L (5-15) Blood Urea Nitrogen 16 mg/dL (7-18) Creatinine 1.0 MG/DL (0.55-1.30) Estimat Glomerular Filtration Rate > 60 mL/min (>60) Glucose Level 271 MG/DL (74-106) H Calcium Level 9.5 MG/DL (8.5-10.1) Current Medications Medications (Trade) Dose Ordered Sig/Neftaly Route PRN Reason Start Time Stop Time Status Last Admin Dose Admin Acetaminophen (Tylenol) 650 mg Q4H PRN ORAL Mild Pain/Temp > 100.0 04/17/19 00:30 05/17/19 00:29 04/17/19 06:21 Cefepime HCl 1 gm/ Dextrose 55 ml @ 110 mls/hr EVERY 12 HOURS IVPB 04/18/19 21:00 04/25/19 20:59 04/22/19 08:29 Dextrose 1,000 ml @ 100 mls/hr Q10H IV 04/17/19 00:30 05/17/19 00:29 04/22/19 04:01 Dextrose (Dextrose 50%) 25 ml Q30M PRN IV Hypoglycemia 04/17/19 00:15 05/15/19 21:14 Dextrose (Dextrose 50%) 50 ml Q30M PRN IV Hypoglycemia 04/17/19 00:15 05/15/19 21:14 Docusate Sodium (Colace) 100 mg TWICE A DAY ORAL 04/22/19 18:00 05/22/19 17:59 Heparin Sodium (Porcine) (Heparin 5000 units/ml) 5,000 units EVERY 12 HOURS SUBQ 04/17/19 09:00 05/16/19 08:59 04/22/19 08:31 Insulin Aspart (NovoLOG) BEFORE MEALS AND HS SUBQ 04/17/19 06:30 05/16/19 06:29 04/22/19 06:27 Nitrofurantoin (Macrobid) 100 mg EVERY 12 HOURS ORAL 04/19/19 21:00 05/19/19 20:59 04/22/19 08:29 Pantoprazole (Protonix) 40 mg BIAC ORAL 04/19/19 18:00 05/19/19 17:59 04/22/19 06:26 Polyethylene Glycol/ Electrolytes (Nulytely) 4,000 ml ONCE ONCE ORAL 04/22/19 14:00 04/22/19 14:01 Ana M Kramer M.D. Apr 22, 2019 11:22
--- NOTE | 2019-04-22 13:53 | Surgery Progress Note ---
Surgery Progress Note Subjective Additional Comments stable comfortable no n/v/f/c labs noted Objective Last 24 Hour Vital Signs Date Time Temp Pulse Resp B/P (MAP) Pulse Ox O2 Delivery O2 Flow Rate FiO2 04/22/19 08:00 98.6 80 20 141/70 (93) 98 04/22/19 04:00 98.2 75 20 138/66 (90) 96 04/21/19 23:46 99.0 82 18 138/66 (90) 98 04/21/19 20:16 Room Air 04/21/19 20:09 98.8 77 18 141/60 (87) 98 04/21/19 16:00 97.4 72 18 156/78 (104) 98 I&O Intake and Output 04/21/19 04/22/19 19:00 07:00 Intake Total 1790 ml 1380 ml Output Total 1000 ml 1600 ml Balance 790 ml -220 ml Intake Oral 880 ml 480 ml IV Total 910 ml 900 ml Output Urine Total 1000 ml 1600 ml # Voids 1 Dressing: other Wound: other Drains: other Cardiovascular: RSR Respiratory: decreased breath sounds Abdomen: soft, present bowel sounds Extremities: no cyanosis Laboratory Tests Test 04/22/19 07:40 White Blood Count 10.2 K/UL (4.8-10.8) Red Blood Count 2.58 M/UL (4.70-6.10) L Hemoglobin 7.9 G/DL (14.2-18.0) L Hematocrit 23.6 % (42.0-52.0) L Mean Corpuscular Volume 91 FL (80-99) Mean Corpuscular Hemoglobin 30.6 PG (27.0-31.0) Mean Corpuscular Hemoglobin Concent 33.4 G/DL (32.0-36.0) Red Cell Distribution Width 13.1 % (11.6-14.8) Platelet Count 371 K/UL (150-450) Mean Platelet Volume 5.2 FL (6.5-10.1) L Neutrophils (%) (Auto) % (45.0-75.0) Lymphocytes (%) (Auto) % (20.0-45.0) Monocytes (%) (Auto) % (1.0-10.0) Eosinophils (%) (Auto) % (0.0-3.0) Basophils (%) (Auto) % (0.0-2.0) Differential Total Cells Counted 100 Neutrophils % (Manual) 68 % (45-75) Lymphocytes % (Manual) 26 % (20-45) Monocytes % (Manual) 5 % (1-10) Eosinophils % (Manual) 1 % (0-3) Basophils % (Manual) 0 % (0-2) Band Neutrophils 0 % (0-8) Platelet Estimate Adequate Platelet Morphology Normal Hypochromasia 1+ Sodium Level 141 MMOL/L (136-145) Potassium Level 3.5 MMOL/L (3.5-5.1) Chloride Level 105 MMOL/L (98-107) Carbon Dioxide Level 30 MMOL/L (21-32) Anion Gap 7 mmol/L (5-15) Blood Urea Nitrogen 16 mg/dL (7-18) Creatinine 1.0 MG/DL (0.55-1.30) Estimat Glomerular Filtration Rate > 60 mL/min (>60) Glucose Level 271 MG/DL (74-106) H Calcium Level 9.5 MG/DL (8.5-10.1) Plan Problems: (1) Laceration of face Assessment & Plan: During admission and cleaning of the room patient sustained a laceration to his right face around the area of the eyebrow from a following light fixture. Wound wash Steri-Strips applied no signs of active infection no bleeding small hematoma. Mild tenderness on palpation. 1 cm laceration. No acute surgical intervention indicated recommended Keep Steri-Strips in place We will monitor closely to ensure no infection or hematoma or complication Nutritional optimization Findings: There is new finding of a small right frontal scalp hematoma. No acute intracranial hemorrhage or edema. No mass effect nor midline shift. There is age-related enlargement of the ventricles and extra-axial CSF spaces. There is periventricular deep white matter low-attenuation, consistent with chronic microvascular ischemic change. 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 There is again demonstrated chronic periosteal thickening and some mucosal disease of the left maxillary sinus. There is bilateral ethmoid sinus disease. The mastoids are clear. The calvarium is intact. Impression: Negative for acute intracranial bleed or mass effect Evidence of right frontal scalp contusion Thank you will follow with recommendations (2) Severe protein-calorie malnutrition Assessment & Plan: DAILY ESTIMATED NEEDS: Needs based on sepsis 65.9kg 25-35 kcals/kg 3626-8640 total kcals 1.25-2 g protein/kg 82-132 g total protein 25-30 mL/kg 0565-4766 total fluid mLs NUTRITION DIAGNOSIS: Increased kcal and pro needs r/t sepsis and wound healing as evidenced by febrile, adm w. elev WBC (23.9-> trending down), elev LD, w/ sacral wound, eval is pending. CURRENT DIET: Regular mech soft chopped PO DIET RECOMMENDATIONS: Regular liberalized diet/ texture per SOLE LAYER ADDITIONAL RECOMMENDATIONS: 1) Calibrated bed scale wts 2) 1:1 feeds, encouragement 3) WC eval for sacral wounds 4) Add GLUCERNA 1 tetra zach BID w/ variable po intake, add snacks 5) SOLE LAYER eval for appropriate texture 6) Monitor BG w/ suboptimal po -> currently on D5 @100 Findings: The study is very limited because of motion. The intrahepatic biliary ducts are dilated. The CBD is dilated measuring about 14 mm. No definite filling defect demonstrated within the CBD. A subtle mass is difficult to exclude at the ampulla. The main pancreatic duct is also mildly dilated. The gallbladder is absent. Trace bilateral pleural effusions are noted. IMPRESSION: Very limited study due to breathing motion. Biliary ductal dilatation without demonstration of choledocholithiasis. Biliary obstruction at the level of ampulla is difficult to exclude on this study. Status post cholecystectomy Trace bilateral pleural effusions (3) Sepsis Assessment & Plan: This is a 83-year-old male who initially presented with leukocytosis, abnormal labs, lactic acidosis, sepsis admitted for further care and management on IV antibiotics undergoing medical care who is now improving. Altered mental status being worked up. Continue with current medical treatment. Alex Garzon Apr 22, 2019 13:53
[2019-04-22] MEDS ORDERED: Nulytely 4L ORAL ONE (14:00)
--- NOTE | 2019-04-22 15:32 | Consultation ---
History of Present Illness General Chief Complaint: Altered Level of Consciousness Referring physician: DONTAE Reason for Consultation: CBD Dilation Present Illness Allergies: Coded Allergies: No Known Allergies (Unverified , 04/15/19) Medication History Scheduled Atorvastatin Calcium* (Lipitor*), 10 MG ORAL BEDTIME, (Reported) Brimonidine Tartrate* (Alphagan*), 1 DROP BOTH EYES BID, (Reported) Cholecalciferol (Vitamin D3) (Vitamin D3), 50,000 UNIT PO ONCE A WEEK, (Reported ) Dextran 70/Hypromellose (Artificial Tears), 1 EACH BOTH EYES Q4HR, (Reported) Docusate Sodium* (Docusate Sodium*), 250 MG ORAL DAILY, (Reported) Enoxaparin* (Lovenox*), 40 MG SUBQ DAILY, (Reported) Gabapentin* (Gabapentin*), 100 MG ORAL THREE TIMES A DAY, (Reported) Insulin Aspart (Novolog), 6 SUBQ THREE TIMES A DAY, (Reported) Insulin Glargine (Lantus), 34 UNIT SUBQ DAILY, (Reported) Latanoprost* (Xalatan*), 1 DROP BOTH EYES BEDTIME, (Reported) Losartan Potassium* (Losartan Potassium*), 25 MG ORAL DAILY, (Reported) Melatonin (Melatonin), 6 MG ORAL BEDTIME, (Reported) Metformin Hcl* (Metformin Hcl*), 1,000 MG ORAL BID, (Reported) Multivitamins* (Multivitamins*), 1 TAB ORAL DAILY, (Reported) Sennosides (Senna), 8.6 MG PO BEDTIME, (Reported) Scheduled PRN Acetaminophen* (Acetaminophen 325MG Tablet*), 650 MG ORAL Q4H PRN for Mild Pain/ Temp > 100.5, (Reported) Acetaminophen* (Tylenol Extra Strength*), 500 MG ORAL Q6H PRN for Mild Pain/ Temp > 100.5, (Reported) Albuterol Sulfate (Albuterol Sulfate Hfa), 2 PUFFS IH Q6HR PRN for Shortness of Breath, (Reported) Bisacodyl (Bisacodyl), 10 MG RC for Constipation, (Reported) Discontinued Medications Albuterol Sulfate* (Albuterol Sulfate Hhn*), 3 ML INH Q4H PRN for Shortness of Breath, (Reported) Discontinued Reason: Prescription changed Atorvastatin Calcium* (Atorvastatin Calcium*), 10 MG ORAL BEDTIME, (Reported) Discontinued Reason: Prescription changed Bisacodyl* (Dulcolax*), 10 MG ORAL DAILY, (Reported) Discontinued Reason: Prescription changed Melatonin/Pyridoxine HCl (B6) (Melatonin 3 mg Tablet), 1 EACH PO, (Reported) Discontinued Reason: Prescription changed Patient History Healthcare decision maker N Resuscitation status Full Code Advanced Directive on File Physical Exam Last 24 Hour Vital Signs Date Time Temp Pulse Resp B/P (MAP) Pulse Ox O2 Delivery O2 Flow Rate FiO2 04/22/19 08:00 98.6 80 20 141/70 (93) 98 04/22/19 04:00 98.2 75 20 138/66 (90) 96 04/21/19 23:46 99.0 82 18 138/66 (90) 98 04/21/19 20:16 Room Air 04/21/19 20:09 98.8 77 18 141/60 (87) 98 04/21/19 16:00 97.4 72 18 156/78 (104) 98 Intake and Output 04/21/19 04/22/19 19:00 07:00 Intake Total 1790 ml 1380 ml Output Total 1000 ml 1600 ml Balance 790 ml -220 ml Intake Oral 880 ml 480 ml IV Total 910 ml 900 ml Output Urine Total 1000 ml 1600 ml # Voids 1 Laboratory Tests Test 04/22/19 07:40 White Blood Count 10.2 K/UL (4.8-10.8) Red Blood Count 2.58 M/UL (4.70-6.10) L Hemoglobin 7.9 G/DL (14.2-18.0) L Hematocrit 23.6 % (42.0-52.0) L Mean Corpuscular Volume 91 FL (80-99) Mean Corpuscular Hemoglobin 30.6 PG (27.0-31.0) Mean Corpuscular Hemoglobin Concent 33.4 G/DL (32.0-36.0) Red Cell Distribution Width 13.1 % (11.6-14.8) Platelet Count 371 K/UL (150-450) Mean Platelet Volume 5.2 FL (6.5-10.1) L Neutrophils (%) (Auto) % (45.0-75.0) Lymphocytes (%) (Auto) % (20.0-45.0) Monocytes (%) (Auto) % (1.0-10.0) Eosinophils (%) (Auto) % (0.0-3.0) Basophils (%) (Auto) % (0.0-2.0) Differential Total Cells Counted 100 Neutrophils % (Manual) 68 % (45-75) Lymphocytes % (Manual) 26 % (20-45) Monocytes % (Manual) 5 % (1-10) Eosinophils % (Manual) 1 % (0-3) Basophils % (Manual) 0 % (0-2) Band Neutrophils 0 % (0-8) Platelet Estimate Adequate Platelet Morphology Normal Hypochromasia 1+ Sodium Level 141 MMOL/L (136-145) Potassium Level 3.5 MMOL/L (3.5-5.1) Chloride Level 105 MMOL/L (98-107) Carbon Dioxide Level 30 MMOL/L (21-32) Anion Gap 7 mmol/L (5-15) Blood Urea Nitrogen 16 mg/dL (7-18) Creatinine 1.0 MG/DL (0.55-1.30) Estimat Glomerular Filtration Rate > 60 mL/min (>60) Glucose Level 271 MG/DL (74-106) H Calcium Level 9.5 MG/DL (8.5-10.1) Height (Feet): 5 Height (Inches): 10.00 Weight (Pounds): 145 Medications Current Medications Medications (Trade) Dose Ordered Sig/Neftaly Route PRN Reason Start Time Stop Time Status Last Admin Dose Admin Acetaminophen (Tylenol) 650 mg Q4H PRN ORAL Mild Pain/Temp > 100.0 04/17/19 00:30 05/17/19 00:29 04/17/19 06:21 Cefepime HCl 1 gm/ Dextrose 55 ml @ 110 mls/hr EVERY 12 HOURS IVPB 04/18/19 21:00 04/25/19 20:59 04/22/19 08:29 Dextrose 1,000 ml @ 100 mls/hr Q10H IV 04/17/19 00:30 05/17/19 00:29 04/22/19 04:01 Dextrose (Dextrose 50%) 25 ml Q30M PRN IV Hypoglycemia 04/17/19 00:15 05/15/19 21:14 Dextrose (Dextrose 50%) 50 ml Q30M PRN IV Hypoglycemia 04/17/19 00:15 05/15/19 21:14 Docusate Sodium (Colace) 100 mg TWICE A DAY ORAL 04/22/19 18:00 05/22/19 17:59 Heparin Sodium (Porcine) (Heparin 5000 units/ml) 5,000 units EVERY 12 HOURS SUBQ 04/17/19 09:00 05/16/19 08:59 04/22/19 08:31 Insulin Aspart (NovoLOG) BEFORE MEALS AND HS SUBQ 04/17/19 06:30 05/16/19 06:29 04/22/19 12:16 Nitrofurantoin (Macrobid) 100 mg EVERY 12 HOURS ORAL 04/19/19 21:00 05/19/19 20:59 04/22/19 08:29 Pantoprazole (Protonix) 40 mg BIAC ORAL 04/19/19 18:00 05/19/19 17:59 04/22/19 06:26 Assessment/Plan Assessment/Plan: Hematology Consultation REQ MD: Paola Anderson RFC: Progressive anemia since admission DOS: 04/22/19 HPI Called by Domingo Anderson to eval 83-year-old male past medical history of 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 Unclear baseline mental status. Unable to obtain further history due to patient being nonverbal at this time. GI consulted for CBD dilation. Patient seen, awake A&O NAD with no active N/V. At the time of evaluation, the patient denies any abdominal pain, constipation or diarrhea. The patient had an abdominal US perform noted with common bile ductal dilation of 10mm. In addition, patient has elevated alkaline phosphatase with no transaminitis or hyperbilirubinemia. Patient unsure of his endoscopic /colonoscopic history. Seen by surg, id, pulm, and notes have been reviewed, pending for colo and egd for tomorrow, hgb currently 7.9 and has dropped over the last several days. Home Meds Reported Medications Sennosides (SENNA) 8.6 Mg Tablet, 8.6 MG PO BEDTIME for CONSTIPATION, TAB 04/16/19 Acetaminophen* (TYLENOL EXTRA STRENGTH*) 500 Mg Tablet, 500 MG ORAL Q6H PRN for Mild Pain/Temp > 100.5, TAB 0 Refills 04/16/19 Insulin Aspart (NOVOLOG) 100 Unit/1 Ml Vial, 6 SUBQ THREE TIMES A DAY for DM 04/16/19 Docusate Sodium* (DOCUSATE SODIUM*) 250 Mg Capsule, 250 MG ORAL DAILY for BOWEL MANAGEMENT, CAP 04/16/19 Cholecalciferol (Vitamin D3) (Vitamin D3) 10,000 Unit Capsule, 09643 UNIT PO ONCE A WEEK for SUPPLEMENT, CAP EVERY Monday04/16/19 Brimonidine Tartrate* (ALPHAGAN*) 5 Ml Drops, 1 DROP BOTH EYES BID for GLAUCOMA , ML 04/16/19 Dextran 70/Hypromellose (ARTIFICIAL TEARS) 1 Each Droperette, 1 EACH BOTH EYES Q4HR for DRY EYES 04/16/19 Melatonin (MELATONIN) 3 Mg Tablet, 6 MG ORAL BEDTIME for SLEEP, TAB 04/16/19 Bisacodyl (BISACODYL) 10 Mg Supp.rect, 10 MG RC PRN for Constipation, SUPP 04/16/19 Atorvastatin Calcium* (LIPITOR*) 10 Mg Tablet, 10 MG ORAL BEDTIME for HYPERLIPIDEMIA, TAB 04/16/19 Albuterol Sulfate (Albuterol Sulfate Hfa) 8.5 Gm Hfa.aer.ad, 2 PUFFS IH Q6HR PRN for Shortness of Breath 04/16/19 Acetaminophen* (ACETAMINOPHEN 325MG TABLET*) 325 Mg Tablet, 650 MG ORAL Q4H PRN for Mild Pain/Temp > 100.5, TAB 04/15/19 Multivitamins* (MULTIVITAMINS*) 1 Each Tablet, 1 TAB ORAL DAILY for SUPPLEMENT, TAB 0 Refills 04/15/19 Metformin Hcl* (METFORMIN HCL*) 1,000 Mg Tablet, 1000 MG ORAL BID for DM, TAB 04/15/19 Losartan Potassium* (LOSARTAN POTASSIUM*) 25 Mg Tablet, 25 MG ORAL DAILY for HYPERTENSION, TAB 04/15/19 Latanoprost* (XALATAN*) 2.5 Ml Drops, 1 DROP BOTH EYES BEDTIME for GLAUCOMA, ML 0 Refills 04/15/19 Insulin Glargine (LANTUS) 100 Unit/1 Ml Insuln.pen, 34 UNIT SUBQ DAILY for DM, # 1 EA 0 Refills 04/15/19 Gabapentin* (GABAPENTIN*) 100 Mg Capsule, 100 MG ORAL THREE TIMES A DAY for PHANTOM LIMB SYNDROME, CAP 04/15/19 Enoxaparin* (LOVENOX*) 40 Mg/0.4 Ml Inj, 40 MG SUBQ DAILY for DVT 04/15/19 Discontinued Reported Medications Melatonin/Pyridoxine HCl (B6) (Melatonin 3 mg Tablet) 1 Each Tablet, 1 EACH PO for unk, TAB 04/15/19 Bisacodyl* (DULCOLAX*) 5 Mg Tablet.dr, 10 MG ORAL DAILY for unk, #10 TAB 0 Refills 04/15/19 Atorvastatin Calcium* (ATORVASTATIN CALCIUM*) 20 Mg Tablet, 10 MG ORAL BEDTIME for unk, TAB 04/15/19 Albuterol Sulfate* (ALBUTEROL SULFATE HHN*) 2.5 Mg/3 Ml Vial.neb, 3 ML INH Q4H PRN for Shortness of Breath, EA 04/15/19 Med list reviewed/reconciled: Yes Allergies: No Known Allergies (Unverified , 04/15/19) History Provided By: Patient, Medical Record PM Narrative Past Medical History: No History, Except For Social History: Denies: smoking, alcohol use, drug use, other Review of Systems All Other Systems: negative except mentioned in HPI Physical Exam: Vitals: reviewed General: NAD HEENT: nc, at Neck: supple + trach/vent Chest: clear breath sounds bilaterally Cardiovascular: RRR, no s3, s4 Abdomen: soft, nontender, nd Extremities: no cce, normal range of motion, R++ bka Neuro: confused Labs: reviewed Imaging: noted Assessment and Recs: # Anemia of chronic disease due to underlying chronic medical issues, multifactorial v Gi bleed --> Anemia workup has been ordered, rule out gi bleed --> ferritin is >1500 --> No evidence of hemolysis is noted, peripheral smear has been reviewed. --> Hgb goal >7. Transfuse prn. --> Epogen or iron at this time is not particularly indicated --> Medications have been reviewed --> low threshold for gi evaluation in case has occult + --> EGD/COLO 04/23 --> bone marrow biopsy is not indicated given the other more likely causes # Protein caloric malnutrition --> ensure and 1:1 feeding recommended --> have added mirtazapine for appetite stimulant --> avoid megace as is vte risk --> daily weight count # Dilated cbd, acquired --> as per surg, is aware, and id # Transaminitis --> has improved # Sepsis with uti, polymicrobial --> s/p abx # Dehydration --> renal prn # Dvt ppx heparin sq The timing of this note does not necessarily reflect the time of the patient was seen. Greatly appreciate consultation. Jett Nicole MD Apr 22, 2019 15:32
[2019-04-22 16:00] VITALS: BP_SYST 124; BP_SYST 150; BP_DIAS 80; BP_DIAS 83
--- NOTE | 2019-04-22 16:58 | NUR ---
CASE MANAGEMENT:REVIEW 04/20/2019 SI;SEPSIS. KLESBIELLA PNA BACTEREMIA. POLYMICROBIAL UTI. 100.0 93 20 165/73 94% ON RA CL 109 BG 198 FERRITIN 1193 IS; MACROBID PO Q12 HRS CEFEPIME IV Q12 HRS DEXTROSE IV Q10 HRS @ 100 ML/HR PROTONIX BIAC PO MED SURG STATUS CASE MANAGEMENT:REVIEW 04/21/2019 SI;SEPSIS. KLESBIELLA PNA BACTEREMIA. POLYMICROBIAL UTI. 99.0 82 20 156/78 95% ON RA H/H 8.4/25.2 K+ 3.2 IS; MACROBID PO Q12 HRS CEFEPIME IV Q12 HRS DEXTROSE IV Q10 HRS @ 100 ML/HR PROTONIX BIAC PO MED SURG STATUS CASE MANAGEMENT:REVIEW 04/22/2019 SI;SEPSIS. KLESBIELLA PNA BACTEREMIA. POLYMICROBIAL UTI. 98.8 82 20 150/80 96% ON RA H/H 7.9/23.6 IS; MACROBID PO Q12 HRS CEFEPIME IV Q12 HRS DEXTROSE IV Q10 HRS @ 100 ML/HR PROTONIX BIAC PO MED SURG STATUS PLAN;EGD. COLONOSCOPY. DCP;FROM [facility]
--- NOTE | 2019-04-22 17:16 | NUR ---
CHARGE NURSE NOTE: Pt is scheduled for EGD, colonoscopy tomorrow. Pt refused to do bowel prep (Vincenzo). notified.
[2019-04-22] MEDS: Docusate 100mg cap ORAL SCH (17:44)
[2019-04-22] MEDS ORDERED: Polyethylene Glycol 238gm bottle ORAL SCH (18:30)
--- NOTE | 2019-04-22 18:30 | NUR ---
NURSE NOTES: Consent for colonoscopy and EGD obtained by phone from , verified with RN Ruben Bartlett.
--- NOTE | 2019-04-22 19:35 | NUR ---
NURSE NOTES: Patient received in bed, aox2. Unable to drink golytely and miralax with [address] Daugherty made aware. Received order for 1 bottle of mag citrate. Will carry out order. IV is intact and patent. FC draining via gravity. No acute distress. Will continue plan of care and monitor for BM.
--- NOTE | 2019-04-22 19:44 | NUR ---
HAND-OFF: Report given to xyris.
[2019-04-22 20:00] VITALS: BP 164/87
--- NOTE | 2019-04-22 20:45 | Progress Note ---
DATE: 04/19/2019 SUBJECTIVE: The patient is awake, alert, afebrile, hemodynamically stable, but with poor memory. He does not recall how many days he had been in the hospital. He does not recall seeing any physician. PHYSICAL EXAMINATION: VITAL SIGNS: Blood pressure 156/81, his pulse is 68, respirations of 20, temperature 97.7. HEENT: Eyes were normal. ENT, mucous membranes were moist and intact. NECK: Supple with no JVD without lymph nodes. LUNGS: Clear. HEART: Normal sounds with regular beat. ABDOMEN: Soft and nontender with normal bowel sounds. EXTREMITIES: Warm without cyanosis, clubbing, or edema. LABORATORY DATA: His hemoglobin 9.6, hematocrit 29.2 with MCV of 90, WBC of 01:06, and platelets is 150. His BUN and creatinine is 19 and 1.1 respectively. Sodium is 142, potassium 3.1, chloride 108, CO2 is 24. His calcium is 9.1. His phosphorus is 2.7 and magnesium is 1.6. His CRP continued to decline, it was 31 on 04/17/2019, it was 17 on 04/18/2019, and 13 on 04/19/2019. IMPRESSION: The patient has hypokalemia and received 40 mEq p.o. We will continue. The patient has 06/07 01:58 Gram-negative bacilli in blood culture and he is now on cefepime 1 g IV piggyback q.12. We will continue with the same regimen for the next few days. Urine culture grew Enterococci and 02:46 organisms, Providencia, Klebsiella, and Enterococci. Repeat laboratory tests will be done in the a.m. Domingo Anderson M.D. DR: WADE JOB#: [id number] CC:
[2019-04-22] MEDS ORDERED: Magnesium Citrate Liq Btl ORAL SCH (21:00)
[2019-04-23] VITALS (9 sets, daily range): BP systolic 107–165; BP diastolic 67–86
--- NOTE | 2019-04-23 03:00 | Progress Note ---
DATE: 04/22/2019 SUBJECTIVE: The patient is awake, alert, afebrile, and hemodynamically stable. He was assessed yesterday by the mine shifter and is scheduled for upper GI endoscopy and colonoscopy as well. PHYSICAL EXAMINATION: VITAL SIGNS: Blood pressure is 164/87, pulse is 79, respirations of 20, and temperature 97.6. HEENT: Eyes were normal. ENT, mucous membranes were moist and intact. NECK: Supple with no JVD without lymph nodes. LUNGS: Clear. HEART: Normal sounds with regular beats. There is no tachycardia at rest. ABDOMEN: Soft and nontender with normal bowel sounds. Gastrostomy site is clean. EXTREMITIES: Warm without cyanosis, clubbing, or edema. LABORATORY AND DIAGNOSTIC DATA: Hemoglobin is 7.9, hematocrit 23.6 with MCV of 91, WBC of 10.2, and platelets 371. His H and H were 8.4 and 25.2 yesterday. His BUN and creatinine are 16 and 1.0 respectively. Sodium is 141, potassium 3.5, chloride 105, CO2 is 30, and calcium is 9.5. IMPRESSION AND PLAN: The patient is in stable condition. He was given preparation. swallowed more than 2 glasses of the material. He was then given magnesium sulfate that he was able to complete and we are awaiting the results of the liquid. Repeat laboratory tests will be done in the a.m. The case has been discussed with the patient. Domingo Anderson M.D. DR: MARY LOU JOB#: [id number] CC:
[2019-04-23] MEDS: NovoLOG Insulin Flexpen SUBQ SCH ×4 (06:09→20:58)
--- NOTE | 2019-04-23 06:32 | Hematology/Onc Progress Note ---
Assessment/Plan Assessment/Plan Assessment and Recs: # Anemia of chronic disease due to underlying chronic medical issues, multifactorial v Gi bleed --> Anemia workup has been ordered, rule out gi bleed --> ferritin is >1500 --> No evidence of hemolysis is noted, peripheral smear has been reviewed. --> Hgb goal >7. Transfuse prn. --> Epogen or iron at this time is not particularly indicated --> Medications have been reviewed --> low threshold for gi evaluation in case has occult + --> EGD/COLO 04/23 --> bone marrow biopsy is not indicated given the other more likely causes # Protein caloric malnutrition --> ensure and 1:1 feeding recommended --> have added mirtazapine for appetite stimulant --> avoid megace as is vte risk --> daily weight count # Dilated cbd, acquired --> as per surg, is aware, and id # Transaminitis --> has improved # Sepsis with uti, polymicrobial --> s/p abx # Dehydration --> renal prn # Dvt ppx heparin sq The timing of this note does not necessarily reflect the time of the patient was seen. Greatly appreciate consultation. Subjective Constitutional: Denies: no symptoms, chills, fever, malaise, weakness, other HEENT: Denies: no symptoms, eye pain, blurred vision, tearing, double vision, ear pain, ear discharge, nose pain, nose congestion, throat pain, throat swelling, mouth pain, mouth swelling, other Cardiovascular: Denies: no symptoms, chest pain, edema, irregular heart rate, lightheadedness, palpitations, syncope, other Respiratory: Denies: no symptoms, cough, shortness of breath, SOB with excertion, SOB at rest, sputum, wheezing, other Gastrointestinal/Abdominal: Denies: no symptoms, abdomen distended, abdominal pain, black stools, tarry stools, blood in stool, constipated, diarrhea, difficulty swallowing, nausea, poor appetite, poor fluid intake, rectal bleeding , vomiting, other Genitourinary: Denies: no symptoms, burning, discharge, frequency, flank pain, hematuria, incontinence, pain, urgency, other Neurologic/Psychiatric: Denies: no symptoms, anxiety, depressed, emotional problems, headache, numbness, paresthesia, pre-existing deficit, seizure, tingling, tremors, weakness, other Endocrine: Denies: no symptoms, excessive sweating, flushing, intolerance to cold, intolerance to heat, increased hunger, increased thirst, increased urine, unexplained weight gain, unexplained weight loss, other Hematologic/Lymphatic: Denies: no symptoms, anemia, easy bleeding, easy bruising, adenopathy, other Allergies: Coded Allergies: No Known Allergies (Unverified , 04/15/19) Subjective 04/23: no major changes, labs have been reviewed, no bleeding, dw pcp, for egd/ colo Objective Objective Current Medications Medications (Trade) Dose Ordered Sig/Neftaly Route PRN Reason Start Time Stop Time Status Last Admin Dose Admin Acetaminophen (Tylenol) 650 mg Q4H PRN ORAL Mild Pain/Temp > 100.0 04/17/19 00:30 05/17/19 00:29 04/17/19 06:21 Cefepime HCl 1 gm/ Dextrose 55 ml @ 110 mls/hr EVERY 12 HOURS IVPB 04/18/19 21:00 04/25/19 20:59 04/22/19 20:11 Dextrose 1,000 ml @ 100 mls/hr Q10H IV 04/17/19 00:30 05/17/19 00:29 04/22/19 20:11 Dextrose (Dextrose 50%) 25 ml Q30M PRN IV Hypoglycemia 04/17/19 00:15 05/15/19 21:14 Dextrose (Dextrose 50%) 50 ml Q30M PRN IV Hypoglycemia 04/17/19 00:15 05/15/19 21:14 Docusate Sodium (Colace) 100 mg TWICE A DAY ORAL 04/22/19 18:00 05/22/19 17:59 04/22/19 17:44 Heparin Sodium (Porcine) (Heparin 5000 units/ml) 5,000 units EVERY 12 HOURS SUBQ 04/17/19 09:00 05/16/19 08:59 04/22/19 08:31 Insulin Aspart (NovoLOG) BEFORE MEALS AND HS SUBQ 04/17/19 06:30 05/16/19 06:29 04/23/19 06:09 Mirtazapine (Remeron) 7.5 mg BEDTIME ORAL 04/22/19 21:00 05/22/19 20:59 04/22/19 20:11 Nitrofurantoin (Macrobid) 100 mg EVERY 12 HOURS ORAL 04/19/19 21:00 05/19/19 20:59 04/22/19 20:11 Pantoprazole (Protonix) 40 mg BIAC ORAL 04/19/19 18:00 05/19/19 17:59 04/22/19 17:44 Last 24 Hour Vital Signs Date Time Temp Pulse Resp B/P (MAP) Pulse Ox O2 Delivery O2 Flow Rate FiO2 04/23/19 04:00 96.9 84 22 107/71 (83) 96 04/23/19 00:00 98.2 92 20 158/86 (110) 98 04/22/19 21:00 Room Air 04/22/19 20:00 97.6 79 20 164/87 (112) 100 04/22/19 16:00 98.6 73 20 150/80 (103) 100 04/22/19 09:00 Room Air 04/22/19 08:00 98.6 80 20 141/70 (93) 98 04/22/19 04:00 98.2 75 20 138/66 (90) 96 04/21/19 23:46 99.0 82 18 138/66 (90) 98 04/21/19 20:16 Room Air 04/21/19 20:09 98.8 77 18 141/60 (87) 98 04/21/19 16:00 97.4 72 18 156/78 (104) 98 04/21/19 12:00 98.2 87 18 136/80 (98) 99 04/21/19 09:00 Room Air 04/21/19 08:00 98.5 83 18 144/79 (100) 95 Intake and Output 04/22/19 04/23/19 19:00 07:00 Intake Total 840 ml 755 ml Output Total 900 ml 1400 ml Balance -60 ml -645 ml Intake Oral 840 ml IV Total 755 ml Output Urine Total 900 ml 1400 ml # Voids 1 Labs Test 04/20/19 06:35 04/21/19 06:43 04/22/19 07:40 White Blood Count 7.8 K/UL (4.8-10.8) 8.8 K/UL (4.8-10.8) 10.2 K/UL (4.8-10.8) Red Blood Count 3.30 M/UL (4.70-6.10) 2.79 M/UL (4.70-6.10) 2.58 M/UL (4.70-6.10) Hemoglobin 9.9 G/DL (14.2-18.0) 8.4 G/DL (14.2-18.0) 7.9 G/DL (14.2-18.0) Hematocrit 29.4 % (42.0-52.0) 25.2 % (42.0-52.0) 23.6 % (42.0-52.0) Mean Corpuscular Volume 89 FL (80-99) 90 FL (80-99) 91 FL (80-99) Mean Corpuscular Hemoglobin 30.2 PG (27.0-31.0) 30.1 PG (27.0-31.0) 30.6 PG (27.0-31.0) Mean Corpuscular Hemoglobin Concent 33.9 G/DL (32.0-36.0) 33.3 G/DL (32.0-36.0) 33.4 G/DL (32.0-36.0) Red Cell Distribution Width 12.7 % (11.6-14.8) 12.9 % (11.6-14.8) 13.1 % (11.6-14.8) Platelet Count 185 K/UL (150-450) 269 K/UL (150-450) 371 K/UL (150-450) Mean Platelet Volume 7.2 FL (6.5-10.1) 5.4 FL (6.5-10.1) 5.2 FL (6.5-10.1) Neutrophils (%) (Auto) 72.9 % (45.0-75.0) 72.1 % (45.0-75.0) % (45.0-75.0) Lymphocytes (%) (Auto) 17.1 % (20.0-45.0) 18.0 % (20.0-45.0) % (20.0-45.0) Monocytes (%) (Auto) 6.5 % (1.0-10.0) 5.8 % (1.0-10.0) % (1.0-10.0) Eosinophils (%) (Auto) 3.0 % (0.0-3.0) 3.5 % (0.0-3.0) % (0.0-3.0) Basophils (%) (Auto) 0.5 % (0.0-2.0) 0.6 % (0.0-2.0) % (0.0-2.0) Sodium Level 144 MMOL/L (136-145) 141 MMOL/L (136-145) 141 MMOL/L (136-145) Potassium Level 3.5 MMOL/L (3.5-5.1) 3.2 MMOL/L (3.5-5.1) 3.5 MMOL/L (3.5-5.1) Chloride Level 109 MMOL/L (98-107) 106 MMOL/L (98-107) 105 MMOL/L (98-107) Carbon Dioxide Level 27 MMOL/L (21-32) 26 MMOL/L (21-32) 30 MMOL/L (21-32) Anion Gap 8 mmol/L (5-15) 9 mmol/L (5-15) 7 mmol/L (5-15) Blood Urea Nitrogen 17 mg/dL (7-18) 17 mg/dL (7-18) 16 mg/dL (7-18) Creatinine 1.1 MG/DL (0.55-1.30) 1.0 MG/DL (0.55-1.30) 1.0 MG/DL (0.55-1.30) Estimat Glomerular Filtration Rate > 60 mL/min (>60) > 60 mL/min (>60) > 60 mL/min (>60) Glucose Level 198 MG/DL (74-106) 218 MG/DL (74-106) 271 MG/DL (74-106) Calcium Level 9.8 MG/DL (8.5-10.1) 9.4 MG/DL (8.5-10.1) 9.5 MG/DL (8.5-10.1) Ferritin 1193 NG/ML (8-388) Total Bilirubin 0.5 MG/DL (0.2-1.0) Direct Bilirubin < 0.1 MG/DL (0.0-0.3) Aspartate Amino Transf (AST/SGOT) 22 U/L (15-37) Alanine Aminotransferase (ALT/SGPT) 40 U/L (12-78) Alkaline Phosphatase 119 U/L (46-116) Total Protein 6.8 G/DL (6.4-8.2) Albumin 2.0 G/DL (3.4-5.0) Differential Total Cells Counted 100 Neutrophils % (Manual) 68 % (45-75) Lymphocytes % (Manual) 26 % (20-45) Monocytes % (Manual) 5 % (1-10) Eosinophils % (Manual) 1 % (0-3) Basophils % (Manual) 0 % (0-2) Band Neutrophils 0 % (0-8) Platelet Estimate Adequate Platelet Morphology Normal Hypochromasia 1+ Height (Feet): 5 Height (Inches): 10.00 Weight (Pounds): 145 Objective Physical Exam: Vitals: reviewed General: NAD HEENT: nc, at Neck: supple + trach/vent Chest: clear breath sounds bilaterally Cardiovascular: RRR, no s3, s4 Abdomen: soft, nontender, nd Extremities: no cce, normal range of motion, R++ bka Neuro: confused Jett Nicole MD Apr 23, 2019 06:32
--- NOTE | 2019-04-23 07:20 | NUR ---
NURSE NOTES: Patient still has yellow diarrhea, no clear bowels for Colonoscopy. Dr. Daugherty made aware and received order for tap water enema. Endorsed to next shift.
--- NOTE | 2019-04-23 07:30 | NUR ---
HAND-OFF: Report given to Dottie VILLALPANDO. Endorsed patient was kept NPO for EGD. and tap water enema as MD ordered for colonoscopy.
--- NOTE | 2019-04-23 07:32 | NUR ---
NURSE NOTES: Received patient in bed awake. No SOB or acute distress. IV line on left AC g22 intact and patent. Pike catheter intact, draining yellow colored urine. Maintained on NPO for procedure. HOB elevated. Bed locked in lowest position. Call light within reach. Will continue plan of care.
[2019-04-23] MEDS: Docusate 100mg cap ORAL SCH ×2 (08:35→17:05)
[2019-04-23] MEDS: Cefepime HCl 1 GM in D5W 55 ML IVPB SCH ×2 (08:35→20:57)
[2019-04-23] MEDS: Heparin 5000 units/ml inj SUBQ SCH ×2 (08:42→20:57)
--- NOTE | 2019-04-23 10:00 | NUR ---
NURSE NOTES: IV line occluded and removed. Called for assistance from ICU for IV reinsertion. IV line reinserted to left upper arm by RN duke Roche. Tap water enema given as ordered.
--- NOTE | 2019-04-23 10:45 | NUR ---
NURSE NOTES: Patient transported for procedure.
[2019-04-23] MEDS ORDERED: LR 1000ml ONE (11:00)
[2019-04-23] MEDS ORDERED: Lidocaine 1% MPF 10mg/ml 5ml ONE (11:00)
[2019-04-23] MEDS ORDERED: Propofol 200mg/20ml IV ONE (11:00)
[2019-04-23] MEDS ORDERED: LR 1000ml 1,000 ML IVLG SCH (11:07)
--- NOTE | 2019-04-23 11:07 | Anethesia Preoperative Eval ---
Anesthesia Pre-op PMH/ROS General Date of Evaluation: Apr 23, 2019 Anesthesiologist: Ru ASA Score: ASA 3 Mallampati Score Class I : Soft palate, uvula, fauces, pillars visible Class II: Soft palate, uvula, fauces visible Class III: Soft palate, base of uvula visible Class IV: Only hard plate visible Mallampati Classification: Class III Surgeon: Dat Diagnosis: GI bleed Surgical Procedure: EGD and colonoscopy Anesthesia History: none Family History: no anesthesia problems Allergies: Coded Allergies: No Known Allergies (Unverified , 04/15/19) Medications: see eMAR Patient NPO?: Yes NPO Date: Apr 23, 2019 NPO Time: 00:00 Past Medical History Cardiovascular: Reports: other - HLD; Denies: HTN, CAD, RI, valve dz, arrhythmia Pulmonary: Denies: asthma, COPD, ALYSE, other Gastrointestinal/Genitourinary: Reports: other - GI bleed; Denies: GERD, CRI, ESRD Neurologic/Psychiatric: Reports: dementia; Denies: CVA, depression/anxiety, TIA, other Endocrine: Reports: DM; Denies: hypothyroidism, steroids, other HEENT: Denies: cataract (L), cataract (R), glaucoma, [place] (L), [place] (R), other Hematology/Immune: Denies: anemia, DVT, bleeding disorder, other Musculoskeletal/Integumentary: Denies: OA, RA, DJD, DDD, edema, other PSxH Narrative: Right BKA Anesthesia Pre-op Phys. Exam Physician Exam Last Vital Signs Date Time Temp Pulse Resp B/P (MAP) Pulse Ox O2 Delivery O2 Flow Rate FiO2 04/23/19 08:00 98.0 70 18 160/72 (101) 100 04/22/19 21:00 Room Air Constitutional: NAD Cardiovascular: RRR Respiratory: CTA Airway Exam Mallampati Score: Class II MO: full ROM: limited Anesthesia Pre-op A/P Labs see chart Studies Pre-op Studies: EKG - sr Risk Assessment & Plan Assessment: ASA III Plan: MAC Status Change Before Surgery: No Pre-Antibiotics Drug: N/A Gris Webb MD Apr 23, 2019 11:07
[2019-04-23] MEDS ORDERED: DiphenhydrAMINE 50mg/ml Inj IVP PRN (11:15)
[2019-04-23] MEDS ORDERED: NS 500ML IVPB ONE (11:15)
--- NOTE | 2019-04-23 11:17 | Infectious Diseases Prog Note ---
Assessment/Plan Assessment/Plan Assessment: Severe Sepsis ; resolving Klebsiella pna bacteremia Polymicrobial UTI -04/18 u/a wbc tntc, nit neg, leuk +3l; ucx GPC -04/17 Bcx Neg -04/16 ucx >100kE. fecalis -04/15 Bcx 06/07 K. pna (R Amp, I Ancef, Zosyn) ucx >100k K.pna (R amp, macrobid; otherwise S); repeat ucx >100k K, pna (R Amp, I Ancef), >100k P stuarti (R Amp, cipro.levo), macrobid, ancef, > 100k enterococcus fecalis (S Amp, Vanco, macrobid) influenza sc neg CXR: Suspected mild CHF. Correlate clinically Low grade fever; SP Leukocytosis, SP Face laceration -04/[address]:Negative for acute intracranial bleed or mass effect. Evidence of right frontal scalp contusion SANNA,SP Elevated AST; SP -04/19 Abd MRI:Very limited study due to breathing motion. Biliary ductal dilatation without demonstration of choledocholithiasis. Biliary obstruction at the level of ampulla is difficult to exclude on this study. Status post cholecystectomy. Trace bilateral pleural effusions -Abd US: Absent gallbladder, status post cholecystectomy Intrahepatic biliary ductal dilatation. Suspect on the basis of patient's age and postcholecystectomy state. However, downstream obstruction also possible. Correlate with liver function tests, consider MRCP for better characterization if clinically indicated. Empty bladder with a Pike catheter.Trace left perinephric fluid. This is a nonspecific finding, can be seen in the setting of renal inflammation - MRI Abd: Biliary ductal dilatation without demonstration of choledocholithiasis. Biliary obstruction at the level of ampulla is difficult to exclude on this study. Status post cholecystectomy PVD R BKA w/ phantom limb syndrome -a. 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 Evidence of resultant severe ischemia of the foot HLD HTN dyphagia s/p GT chronic resp failure s/p trach DM2 COPD cognitive communication deficit SN[facility] resident Plan: -Continue Cefepime #6 (abx d #11/17) for K.pna UTI and bacteremia - continue PO Macrobid #5(Abx #6/7) -04/19 SP linezolid #2 -04/18 SP Meropenem #3 -04/16 SP IV Vancomycin #2 -f/u cx -Monitor CBC/CMP, temperatures Thank you for this consultation. Will continue to follow along with you. Subjective Allergies: Coded Allergies: No Known Allergies (Unverified , 04/15/19) Subjective afebrile in >48hrs no leukocytosis Objective Vital Signs Last 24 Hour Vital Signs Date Time Temp Pulse Resp B/P (MAP) Pulse Ox O2 Delivery O2 Flow Rate FiO2 04/23/19 08:00 98.0 70 18 160/72 (101) 100 04/23/19 04:00 96.9 84 22 107/71 (83) 96 04/23/19 00:00 98.2 92 20 158/86 (110) 98 04/22/19 21:00 Room Air 04/22/19 20:00 97.6 79 20 164/87 (112) 100 04/22/19 16:00 98.6 73 20 150/80 (103) 100 Height (Feet): 5 Height (Inches): 10.00 Weight (Pounds): 145 Objective HEENT: Eyes were normal. Pupils were round, equal, and reactive to light. ENT, mucous membranes were not dehydrated. NECK: Supple. There was no goiter. No mass. No lymphadenopathy. LUNGS: Clear. HEART: There was normal S1 and normal S2. There was no murmur. No S3. No S4. No pericardial rub. ABDOMEN: Soft and nontender without organomegaly. There were no masses palpable. Normal bowel sounds without bruits. There was no guarding. No rebound tenderness. No ascites. Laboratory Tests Test 04/23/19 07:00 Stool Occult Blood Pending Current Medications Medications (Trade) Dose Ordered Sig/Neftaly Route PRN Reason Start Time Stop Time Status Last Admin Dose Admin Acetaminophen (Tylenol) 650 mg Q4H PRN ORAL Mild Pain/Temp > 100.0 04/17/19 00:30 05/17/19 00:29 04/17/19 06:21 Acetaminophen (Tylenol) 650 mg Q4H PRN ORAL Mild Pain (Pain Scale 1-3) 04/23/19 11:15 04/23/19 18:00 Cefepime HCl 1 gm/ Dextrose 55 ml @ 110 mls/hr EVERY 12 HOURS IVPB 04/18/19 21:00 04/25/19 20:59 04/23/19 08:35 Dextrose 1,000 ml @ 100 mls/hr Q10H IV 04/17/19 00:30 05/17/19 00:29 04/22/19 20:11 Dextrose (Dextrose 50%) 25 ml Q30M PRN IV Hypoglycemia 04/17/19 00:15 05/15/19 21:14 Dextrose (Dextrose 50%) 50 ml Q30M PRN IV Hypoglycemia 04/17/19 00:15 05/15/19 21:14 Diphenhydramine HCl (Benadryl) 25 mg Q15M PRN IVP Itching 04/23/19 11:15 04/23/19 18:00 Docusate Sodium (Colace) 100 mg TWICE A DAY ORAL 04/22/19 18:00 05/22/19 17:59 04/23/19 08:35 Heparin Sodium (Porcine) (Heparin 5000 units/ml) 5,000 units EVERY 12 HOURS SUBQ 04/17/19 09:00 05/16/19 08:59 04/23/19 08:42 Hydralazine HCl (Apresoline) 5 mg Q30M PRN IV SBP>160 /DBP>90 04/23/19 11:15 04/23/19 18:00 Insulin Aspart (NovoLOG) BEFORE MEALS AND HS SUBQ 04/17/19 06:30 05/16/19 06:29 04/23/19 06:09 Lactated Ringer's 1,000 ml @ 10 mls/hr Q24H IVLG 04/23/19 11:07 04/23/19 13:06 UNV Mirtazapine (Remeron) 7.5 mg BEDTIME ORAL 04/22/19 21:00 05/22/19 20:59 04/22/19 20:11 Nitrofurantoin (Macrobid) 100 mg EVERY 12 HOURS ORAL 04/19/19 21:00 05/19/19 20:59 04/23/19 08:35 Ondansetron HCl (Zofran) 4 mg Q1H PRN IVP Nausea & Vomiting 04/23/19 11:15 04/23/19 18:00 Pantoprazole (Protonix) 40 mg BIAC ORAL 04/19/19 18:00 05/19/19 17:59 04/22/19 17:44 Ana M Kramer M.D. Apr 23, 2019 11:17
--- NOTE | 2019-04-23 11:26 | NUR ---
RD ASSESSMENT & RECOMMENDATIONS SEE CARE ACTIVITY FOR COMPLETE ASSESSMENT DAILY ESTIMATED NEEDS: Needs based on sepsis 65.9kg 25-35 kcals/kg 6907-3188 total kcals 1.25-2 g protein/kg 82-132 g total protein 25-30 mL/kg 4985-8162 total fluid mLs NUTRITION DIAGNOSIS: Increased kcal and pro needs r/t sepsis and wound healing as evidenced by febrile, adm w. elev WBC (23.9-> wnl) elev LD, w/ sacral wound, eval is pending. CURRENT DIET: Regular mech soft chopped -> NPO for procedure PO DIET RECOMMENDATIONS: Regular liberalized diet/ texture per [employer] ADDITIONAL RECOMMENDATIONS: 1) Calibrated bed scale wts 2) 1:1 feeds, encouragement 3) WC eval for sacral wounds 4) Add GLUCERNA 1 tetra zach BID w/ variable po intake, add snacks 5) [employer] eval for appropriate texture .
--- NOTE | 2019-04-23 12:10 | Endoscopy Procedure Note ---
Endoscopy Procedure Note General Indication for Procedure: anemia Procedures Performed: EGD, colonoscopy Operative Findings/Diagnosis: gastritis, poor prep Specimen: yes Pt Tolerated Procedure Well: Yes Estimated Blood Loss: none Anesthesia Anesthesiologist: amanda Anesthesia: MAC Inserted Devices Implant(s) used?: No GI Core Measures 50 yrs or older w/o bx or poly: Not Applicable 10yrs. F/U recommended: Not Applicable Roberto Daugherty MD Apr 23, 2019 12:10
--- NOTE | 2019-04-23 12:20 | Immediate Post-Op Evaluation ---
Immediate Post-Op Evalulation Immediate Post-Op Evalulation Procedure: EGd and colonoscopy Date of Evaluation: Apr 23, 2019 Time of Evaluation: 12:22 IV Fluids: 300 Blood Products: 0 Estimated Blood Loss: 0 Urinary Output: 0 Blood Pressure Systolic: 149 Blood Pressure Diastolic: 74 Pulse Rate: 65 Respiratory Rate: 16 O2 Sat by Pulse Oximetry: 100 Temperature (Fahrenheit): 97.3 Pain Score (1-10): 0 Nausea: No Vomiting: No Complications 0 Patient Status: awake, reacts, patent, none Hydration Status: adequate Drug: N/A Gris Webb MD Apr 23, 2019 12:20
--- NOTE | 2019-04-23 12:21 | 48 Hour Post Anesthesia Eval ---
Post Anesthesia Evaluation Procedure: EGd and colonoscopy Date of Evaluation: Apr 23, 2019 Airway: patent Nausea: No Vomiting: No Hydration Status: adequate Cardiopulmonary Status: at [place] Mental Status/LOC: patient returned to baseline Post-Anesthesia Complications: 0 Follow-up care needed: N/A - further care as per primary team Gris Webb MD Apr 23, 2019 12:21
--- NOTE | 2019-04-23 12:27 | Surgery Progress Note ---
Surgery Progress Note Subjective Additional Comments no acute events comfortable Objective Last 24 Hour Vital Signs Date Time Temp Pulse Resp B/P (MAP) Pulse Ox O2 Delivery O2 Flow Rate FiO2 04/23/19 12:23 64 16 134/71 100 Nasal Cannula 3 04/23/19 12:20 65 16 100 04/23/19 12:18 97.3 65 18 149/79 100 Nasal Cannula 3 04/23/19 09:00 Room Air 04/23/19 08:00 98.0 70 18 160/72 (101) 100 04/23/19 04:00 96.9 84 22 107/71 (83) 96 04/23/19 00:00 98.2 92 20 158/86 (110) 98 04/22/19 21:00 Room Air 04/22/19 20:00 97.6 79 20 164/87 (112) 100 04/22/19 16:00 98.6 73 20 150/80 (103) 100 I&O Intake and Output 04/22/19 04/23/19 19:00 07:00 Intake Total 840 ml 855 ml Output Total 900 ml 2250 ml Balance -60 ml -1395 ml Intake Oral 840 ml IV Total 855 ml Output Urine Total 900 ml 2250 ml # Voids 1 Dressing: other Wound: other Cardiovascular: RSR Respiratory: decreased breath sounds Abdomen: soft, present bowel sounds, non-distended Extremities: no cyanosis Laboratory Tests Test 04/23/19 07:00 Stool Occult Blood Negative (NEGATIVE) Plan Problems: (1) Laceration of face Assessment & Plan: During admission and cleaning of the room patient sustained a laceration to his right face around the area of the eyebrow from a following light fixture. Wound wash Steri-Strips applied no signs of active infection no bleeding small hematoma. Mild tenderness on palpation. 1 cm laceration. No acute surgical intervention indicated recommended Keep Steri-Strips in place We will monitor closely to ensure no infection or hematoma or complication Nutritional optimization Findings: There is new finding of a small right frontal scalp hematoma. No acute intracranial hemorrhage or edema. No mass effect nor midline shift. There is age-related enlargement of the ventricles and extra-axial CSF spaces. There is periventricular deep white matter low-attenuation, consistent with chronic microvascular ischemic change. 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 There is again demonstrated chronic periosteal thickening and some mucosal disease of the left maxillary sinus. There is bilateral ethmoid sinus disease. The mastoids are clear. The calvarium is intact. Impression: Negative for acute intracranial bleed or mass effect Evidence of right frontal scalp contusion Thank you will follow with recommendations (2) Severe protein-calorie malnutrition Assessment & Plan: DAILY ESTIMATED NEEDS: Needs based on sepsis 65.9kg 25-35 kcals/kg 6581-3470 total kcals 1.25-2 g protein/kg 82-132 g total protein 25-30 mL/kg 7579-1684 total fluid mLs NUTRITION DIAGNOSIS: Increased kcal and pro needs r/t sepsis and wound healing as evidenced by febrile, adm w. elev WBC (23.9-> trending down), elev LD, w/ sacral wound, eval is pending. CURRENT DIET: Regular mech soft chopped PO DIET RECOMMENDATIONS: Regular liberalized diet/ texture per [employer] ADDITIONAL RECOMMENDATIONS: 1) Calibrated bed scale wts 2) 1:1 feeds, encouragement 3) WC eval for sacral wounds 4) Add GLUCERNA 1 tetra zach BID w/ variable po intake, add snacks 5) [employer] eval for appropriate texture 6) Monitor BG w/ suboptimal po -> currently on D5 @100 Findings: The study is very limited because of motion. The intrahepatic biliary ducts are dilated. The CBD is dilated measuring about 14 mm. No definite filling defect demonstrated within the CBD. A subtle mass is difficult to exclude at the ampulla. The main pancreatic duct is also mildly dilated. The gallbladder is absent. Trace bilateral pleural effusions are noted. IMPRESSION: Very limited study due to breathing motion. Biliary ductal dilatation without demonstration of choledocholithiasis. Biliary obstruction at the level of ampulla is difficult to exclude on this study. Status post cholecystectomy Trace bilateral pleural effusions (3) Sepsis Assessment & Plan: This is a 83-year-old male who initially presented with leukocytosis, abnormal labs, lactic acidosis, sepsis admitted for further care and management on IV antibiotics undergoing medical care who is now improving. Altered mental status being worked up. Continue with current medical treatment. Alex Garzon Apr 23, 2019 12:27
--- NOTE | 2019-04-23 12:48 | NUR ---
NURSE NOTES: Patient back in unit. May resume diet as ordered.
--- NOTE | 2019-04-23 13:27 | Pulmonology Progress Note ---
Assessment/Plan Problems: (1) Sepsis (2) Gram-negative bacteremia (3) Acute renal failure (4) UTI (urinary tract infection) (5) COPD (chronic obstructive pulmonary disease) (6) Hx of right BKA (7) Dehydration (8) Diabetes mellitus (9) History of hypertension Assessment/Plan doing better WBC normal improving continue abc iv fluids, renal function better add venofer stool for OB negative sliding scale GI evaluation reviewed, endoscopy done Subjective ROS Limited/Unobtainable: No Constitutional: Reports: no symptoms HEENT: Repors: no symptoms Respiratory: Reports: no symptoms Allergies: Coded Allergies: No Known Allergies (Unverified , 04/15/19) Objective Last 24 Hour Vital Signs Date Time Temp Pulse Resp B/P (MAP) Pulse Ox O2 Delivery O2 Flow Rate FiO2 04/23/19 12:38 97.9 63 16 165/78 100 Nasal Cannula 3 04/23/19 12:28 62 16 131/71 100 Nasal Cannula 3 04/23/19 12:23 64 16 134/71 100 Nasal Cannula 3 04/23/19 12:20 65 16 100 04/23/19 12:18 97.3 65 18 149/79 100 Nasal Cannula 3 04/23/19 09:00 Room Air 04/23/19 08:00 98.0 70 18 160/72 (101) 100 04/23/19 04:00 96.9 84 22 107/71 (83) 96 04/23/19 00:00 98.2 92 20 158/86 (110) 98 04/22/19 21:00 Room Air 04/22/19 20:00 97.6 79 20 164/87 (112) 100 04/22/19 16:00 98.6 73 20 150/80 (103) 100 Intake and Output 04/22/19 04/23/19 19:00 07:00 Intake Total 840 ml 855 ml Output Total 900 ml 2250 ml Balance -60 ml -1395 ml Intake Oral 840 ml IV Total 855 ml Output Urine Total 900 ml 2250 ml # Voids 1 General Appearance: cachetic HEENT: normocephalic, atraumatic Respiratory/Chest: chest wall non-tender, lungs clear Cardiovascular: normal peripheral pulses, regular rhythm Abdomen: soft, non tender Extremities: no clubbing Skin: no lesions Laboratory Tests 04/23/19 07:00: Stool Occult Blood Negative Current Medications Medications (Trade) Dose Ordered Sig/Neftaly Route PRN Reason Start Time Stop Time Status Last Admin Dose Admin Acetaminophen (Tylenol) 650 mg Q4H PRN ORAL Mild Pain/Temp > 100.0 04/17/19 00:30 05/17/19 00:29 04/17/19 06:21 Cefepime HCl 1 gm/ Dextrose 55 ml @ 110 mls/hr EVERY 12 HOURS IVPB 04/18/19 21:00 04/25/19 20:59 04/23/19 08:35 Dextrose 1,000 ml @ 100 mls/hr Q10H IV 04/17/19 00:30 05/17/19 00:29 04/22/19 20:11 Dextrose (Dextrose 50%) 25 ml Q30M PRN IV Hypoglycemia 04/17/19 00:15 05/15/19 21:14 Dextrose (Dextrose 50%) 50 ml Q30M PRN IV Hypoglycemia 04/17/19 00:15 05/15/19 21:14 Docusate Sodium (Colace) 100 mg TWICE A DAY ORAL 04/22/19 18:00 05/22/19 17:59 04/23/19 08:35 Heparin Sodium (Porcine) (Heparin 5000 units/ml) 5,000 units EVERY 12 HOURS SUBQ 04/17/19 09:00 05/16/19 08:59 04/23/19 08:42 Insulin Aspart (NovoLOG) BEFORE MEALS AND HS SUBQ 04/17/19 06:30 05/16/19 06:29 04/23/19 06:09 Mirtazapine (Remeron) 7.5 mg BEDTIME ORAL 04/22/19 21:00 05/22/19 20:59 04/22/19 20:11 Nitrofurantoin (Macrobid) 100 mg EVERY 12 HOURS ORAL 04/19/19 21:00 05/19/19 20:59 04/23/19 08:35 Pantoprazole (Protonix) 40 mg BIAC ORAL 04/19/19 18:00 05/19/19 17:59 04/22/19 17:44 Dionne Chew MD Apr 23, 2019 13:27
--- NOTE | 2019-04-23 13:58 | NUR ---
CASE MANAGEMENT: REVIEW SI;S/P EGD AND COLONOSCOPY 98.0 65 16 165/78 100% 3L NC NO LABS AVAILABLE IS;CEFEPIME IV Q12 HRS PROTONIX PO BIAC IVF DEXTROSE @ 100 ML/HR IVF BOLUS NS POST OP STATUS DCP;FROM [facility]
--- NOTE | 2019-04-23 16:00 | Procedure Note ---
DATE OF PROCEDURE: 04/23/2019 SURGEON: Roberto Daugherty M.D. PROCEDURE: 1. Upper endoscopy with biopsy. 2. Colonoscopy. ANESTHESIA: Per Dr. Vences. INSTRUMENT: Olympus adult flexible upper endoscope and colonoscope. INDICATION: Stool OB positive, anemia. REASON FOR PROCEDURE: The procedure, risks, benefits, and possible consequences, including hemorrhage, aspiration, perforation and infection, and alternative treatments, were explained to the patient/legal guardian by Dr. Roberto Daugherty and the patient/legal guardian understood and accepted these risks. DESCRIPTION OF PROCEDURE: After informed consent was obtained and the patient was adequately sedated, Olympus upper endoscope was advanced from mouth into the second portion of the duodenum and retroflexion was performed in the stomach. The patient prominent ampulla without any obvious mass. In the stomach, there was diffuse gastritis. Random biopsy from antrum was obtained to rule out H. pylori infection. Otherwise, the rest of the upper endoscopic examination was grossly within normal limits. At this time, the upper endoscope was retrieved and the patient was turned over for colonoscopy. First, rectal examination was performed, which was positive for internal hemorrhoids. Then, the scope was advanced from rectum into the transverse colon. Given poor prep, we could not advance the scope beyond this point. The patient has some significant diverticulosis. Given this poor prep and significant diverticulosis and risks of perforation, we decided to stop the procedure in the mid transverse. At this time, the scope was retrieved and procedure was terminated. SUMMARY OF FINDINGS: 1. Gastritis, status post biopsy. 2. Prominent ampulla. 3. Poor colonic prep and incomplete colonoscopy. 4. Diverticulosis. 5. Internal hemorrhoids. RECOMMENDATIONS: 1. Follow labs. 2. The patient will need a repeat colonoscopy done as an outpatient with a better prep. I want to thank, Dr. Anderson for this kind referral. Roberto Daugherty M.D. DR: AMOS JOB#: [id number] CC: Domingo Anderson M.D.; Fax#: [phone]
--- NOTE | 2019-04-23 19:48 | NUR ---
HAND-OFF: Report given to xyris.
--- NOTE | 2019-04-23 20:00 | NUR ---
NURSE NOTES: Patient received in bed, asleep, easily arousable. IV infusing in left upper arm. FC draining via gravity. Bed locked in low position, bed alarm on. Will continue to monitor.
--- NOTE | 2019-04-23 20:45 | Progress Note ---
DATE: 04/23/2019 SUBJECTIVE: The patient is awake, alert, afebrile, and hemodynamically stable. He underwent today upper GI endoscopy and colonoscopy. PHYSICAL EXAMINATION: VITAL SIGNS: Blood pressure 119/68, pulse 77, respirations are 19, temperature 98.3. HEENT: Eyes were normal. ENT, mucous membranes were moist and intact. NECK: Supple with no JVD without lymph nodes. LUNGS: Clear. HEART: Normal sounds with regular beats. There is no tachycardia at rest. ABDOMEN: Soft, nontender with normal bowel sounds. EXTREMITIES: Warm without cyanosis, clubbing, or edema. The patient has [id number] amputation of right lower extremity. LABORATORY AND DIAGNOSTIC DATA: Hemoglobin 7.9, hematocrit 23.3, with MCV of 91, WBC of 10.2, and platelets is 371. BUN and creatinine is 16 and 1.0 respectively. Sodium is 141, potassium 3.5, chloride 105, CO2 is 30. postprocedure evaluation reveal that the patient was in stable condition following endoscopy procedure. Official report and finding of endoscopy are not available yet. Repeat laboratory tests will be done in the morning. Domingo Anderson M.D. DR: Zena JOB#: [id number] CC:
[2019-04-24] VITALS: BP 148/69
[2019-04-24 04:00] VITALS: BP 128/57
[2019-04-24] MEDS: NovoLOG Insulin Flexpen SUBQ SCH ×4 (05:27→20:31)
--- NOTE | 2019-04-24 05:45 | NUR ---
NURSE NOTES: Upon changing dressing, removed optifoam from the sacrum, noted previous DTI has opened up. Pictures taken, wound care protocol re-initiated.
--- NOTE | 2019-04-24 07:33 | NUR ---
HAND-OFF: Report given to Arabella VILLALPANDO.
--- NOTE | 2019-04-24 07:43 | NUR ---
NURSE NOTES: Patient awake, alert x3; on room air, no sing of distress and shortness of breath; no sing of chest pain; IV Left Upper arm 22G D5W 100cc running; side rails up x2, breaks engaged, bed alarm on; call light within reach; will keep monitoring.
[2019-04-24 07:54] LABS: ALANINE AMINOTRANSFERASE 20 U/L (12-78); ALBUMIN 1.8 G/DL (3.4-5.0); ALBUMIN/GLOBULIN RATIO 0.3 (1.0-2.7); ALKALINE PHOSPHATASE 114 U/L (46-116); ANION GAP 13 mmol/L (5-15); ASPARTATE AMINO TRANSFERASE 15 U/L (15-37); BILIRUBIN,TOTAL 0.7 MG/DL (0.2-1.0); BLOOD UREA NITROGEN 14 mg/dL (7-18); CALCIUM 9.9 MG/DL (8.5-10.1); CARBON DIOXIDE 25 MMOL/L (21-32); CHLORIDE 103 MMOL/L (98-107); PHOSPHORUS 2.8 MG/DL (2.5-4.9); POTASSIUM 3.2 MMOL/L (3.5-5.1); SODIUM 141 MMOL/L (136-145)
[2019-04-24 08:00] VITALS: BP 140/77
[2019-04-24] MEDS: Docusate 100mg cap ORAL SCH ×2 (08:34→17:08)
[2019-04-24] MEDS: Heparin 5000 units/ml inj SUBQ SCH ×2 (08:35→20:27)
[2019-04-24] MEDS: Cefepime HCl 1 GM in D5W 55 ML IVPB SCH ×2 (08:35→21:00)
[2019-04-24 08:40] LABS: HEMATOCRIT 21.9 % (42.0-52.0); HEMOGLOBIN 7.4 G/DL (14.2-18.0); MEAN CORPUSCULAR VOLUME 91 FL (80-99); PLATELET COUNT 475 K/UL (150-450); RED BLOOD COUNT 2.41 M/UL (4.70-6.10); RED CELL DISTRIBUTION WIDTH 13.2 % (11.6-14.8); WHITE BLOOD COUNT 11.8 K/UL (4.8-10.8)
--- NOTE | 2019-04-24 11:32 | Infectious Diseases Prog Note ---
Assessment/Plan Assessment/Plan Assessment: Severe Sepsis ; resolving Klebsiella pna bacteremia Polymicrobial UTI -04/18 u/a wbc tntc, nit neg, leuk +3l; ucx GPC -04/17 Bcx Neg -04/16 ucx >100kE. fecalis -04/15 Bcx 06/07 K. pna (R Amp, I Ancef, Zosyn) ucx >100k K.pna (R amp, macrobid; otherwise S); repeat ucx >100k K, pna (R Amp, I Ancef), >100k P stuarti (R Amp, cipro.levo), macrobid, ancef, > 100k enterococcus fecalis (S Amp, Vanco, macrobid) influenza sc neg CXR: Suspected mild CHF. Correlate clinically Low grade fever; SP Leukocytosis, recurrent, mild Face laceration -04/[address]:Negative for acute intracranial bleed or mass effect. Evidence of right frontal scalp contusion SANNA,SP Elevated AST; SP -04/19 Abd MRI:Very limited study due to breathing motion. Biliary ductal dilatation without demonstration of choledocholithiasis. Biliary obstruction at the level of ampulla is difficult to exclude on this study. Status post cholecystectomy. Trace bilateral pleural effusions -Abd US: Absent gallbladder, status post cholecystectomy Intrahepatic biliary ductal dilatation. Suspect on the basis of patient's age and postcholecystectomy state. However, downstream obstruction also possible. Correlate with liver function tests, consider MRCP for better characterization if clinically indicated. Empty bladder with a Pike catheter.Trace left perinephric fluid. This is a nonspecific finding, can be seen in the setting of renal inflammation - MRI Abd: Biliary ductal dilatation without demonstration of choledocholithiasis. Biliary obstruction at the level of ampulla is difficult to exclude on this study. Status post cholecystectomy PVD R BKA w/ phantom limb syndrome -a. 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 Evidence of resultant severe ischemia of the foot HLD HTN dyphagia s/p GT chronic resp failure s/p trach DM2 COPD cognitive communication deficit SNF resident Plan: -Continue Cefepime #7 (abx d #12/17) for K.pna UTI and bacteremia - continue PO Macrobid #6(Abx #7/7) -04/19 SP linezolid #2 -04/18 SP Meropenem #3 -04/16 SP IV Vancomycin #2 -f/u cx -Monitor CBC/CMP, temperatures Thank you for this consultation. Will continue to follow along with you. Subjective Allergies: Coded Allergies: No Known Allergies (Unverified , 04/15/19) Subjective afebrile in >72hrs mild leukocytosis Objective Vital Signs Last 24 Hour Vital Signs Date Time Temp Pulse Resp B/P (MAP) Pulse Ox O2 Delivery O2 Flow Rate FiO2 04/24/19 09:00 Room Air 04/24/19 08:00 98.0 68 18 140/77 (98) 99 04/24/19 04:00 97.7 83 20 128/57 (80) 99 04/24/19 00:00 98.7 88 20 148/69 (95) 98 04/23/19 21:00 Room Air 04/23/19 20:00 98.8 83 18 138/67 (90) 100 04/23/19 16:00 98.3 77 18 119/68 (85) 98 04/23/19 12:38 97.9 63 16 165/78 100 Nasal Cannula 3 04/23/19 12:28 62 16 131/71 100 Nasal Cannula 3 04/23/19 12:23 64 16 134/71 100 Nasal Cannula 3 04/23/19 12:20 65 16 100 04/23/19 12:18 97.3 65 18 149/79 100 Nasal Cannula 3 Height (Feet): 5 Height (Inches): 9.00 Weight (Pounds): 140 Objective HEENT: Eyes were normal. Pupils were round, equal, and reactive to light. ENT, mucous membranes were not dehydrated. NECK: Supple. No mass. LUNGS: Clear. HEART: There was normal S1 and normal S2. There was no murmur. ABDOMEN: Soft and nontender without organomegaly. There were no masses palpable. Normal bowel sounds without bruits. There was no guarding. No rebound tenderness. No ascites. Laboratory Tests Test 04/24/19 05:52 04/24/19 08:15 Sodium Level 141 MMOL/L (136-145) Potassium Level 3.2 MMOL/L (3.5-5.1) L Chloride Level 103 MMOL/L (98-107) Carbon Dioxide Level 25 MMOL/L (21-32) Anion Gap 13 mmol/L (5-15) Blood Urea Nitrogen 14 mg/dL (7-18) Creatinine 1.0 MG/DL (0.55-1.30) Estimat Glomerular Filtration Rate > 60 mL/min (>60) Glucose Level 217 MG/DL (74-106) H Calcium Level 9.9 MG/DL (8.5-10.1) Phosphorus Level 2.8 MG/DL (2.5-4.9) Magnesium Level 1.9 MG/DL (1.8-2.4) Total Bilirubin 0.7 MG/DL (0.2-1.0) Aspartate Amino Transf (AST/SGOT) 15 U/L (15-37) Alanine Aminotransferase (ALT/SGPT) 20 U/L (12-78) Alkaline Phosphatase 114 U/L (46-116) C-Reactive Protein, Quantitative 16.3 mg/dL (0.00-0.90) H Total Protein 7.1 G/DL (6.4-8.2) Albumin 1.8 G/DL (3.4-5.0) L Globulin 5.3 g/dL Albumin/Globulin Ratio 0.3 (1.0-2.7) L White Blood Count 11.8 K/UL (4.8-10.8) H Red Blood Count 2.41 M/UL (4.70-6.10) L Hemoglobin 7.4 G/DL (14.2-18.0) L Hematocrit 21.9 % (42.0-52.0) L Mean Corpuscular Volume 91 FL (80-99) Mean Corpuscular Hemoglobin 30.6 PG (27.0-31.0) Mean Corpuscular Hemoglobin Concent 33.6 G/DL (32.0-36.0) Red Cell Distribution Width 13.2 % (11.6-14.8) Platelet Count 475 K/UL (150-450) H Mean Platelet Volume 4.7 FL (6.5-10.1) L Neutrophils (%) (Auto) % (45.0-75.0) Lymphocytes (%) (Auto) % (20.0-45.0) Monocytes (%) (Auto) % (1.0-10.0) Eosinophils (%) (Auto) % (0.0-3.0) Basophils (%) (Auto) % (0.0-2.0) Neutrophils % (Manual) Pending Lymphocytes % (Manual) Pending Platelet Estimate Pending Platelet Morphology Pending Erythrocyte Sedimentation Rate Pending Current Medications Medications (Trade) Dose Ordered Sig/Neftaly Route PRN Reason Start Time Stop Time Status Last Admin Dose Admin Acetaminophen (Tylenol) 650 mg Q4H PRN ORAL Mild Pain/Temp > 100.0 04/17/19 00:30 05/17/19 00:29 04/17/19 06:21 Cefepime HCl 1 gm/ Dextrose 55 ml @ 110 mls/hr EVERY 12 HOURS IVPB 04/18/19 21:00 04/25/19 20:59 04/24/19 08:35 Dextrose 1,000 ml @ 100 mls/hr Q10H IV 04/17/19 00:30 05/17/19 00:29 04/24/19 02:40 Dextrose (Dextrose 50%) 25 ml Q30M PRN IV Hypoglycemia 04/17/19 00:15 05/15/19 21:14 Dextrose (Dextrose 50%) 50 ml Q30M PRN IV Hypoglycemia 04/17/19 00:15 05/15/19 21:14 Docusate Sodium (Colace) 100 mg TWICE A DAY ORAL 04/22/19 18:00 05/22/19 17:59 04/24/19 08:34 Heparin Sodium (Porcine) (Heparin 5000 units/ml) 5,000 units EVERY 12 HOURS SUBQ 04/17/19 09:00 05/16/19 08:59 04/24/19 08:35 Insulin Aspart (NovoLOG) BEFORE MEALS AND HS SUBQ 04/17/19 06:30 05/16/19 06:29 04/24/19 05:27 Mirtazapine (Remeron) 7.5 mg BEDTIME ORAL 04/22/19 21:00 05/22/19 20:59 04/23/19 20:56 Nitrofurantoin (Macrobid) 100 mg EVERY 12 HOURS ORAL 04/19/19 21:00 05/19/19 20:59 04/24/19 08:34 Pantoprazole (Protonix) 40 mg BIAC ORAL 04/19/19 18:00 05/19/19 17:59 04/24/19 05:26 Ana M Kramer M.D. Apr 24, 2019 11:32
--- NOTE | 2019-04-24 11:50 | GI Progress Note ---
Assessment/Plan Problems: (1) Severe protein-calorie malnutrition ICD Codes: E43 - Unspecified severe protein-calorie malnutrition SNOMED: 983427636, 528048466, 425356702 (2) Anemia ICD Codes: D64.9 - Anemia, unspecified SNOMED: 290491406 (3) Diabetes mellitus ICD Codes: E11.9 - Type 2 diabetes mellitus without complications SNOMED: 87682048 (4) GI bleeding ICD Codes: K92.2 - Gastrointestinal hemorrhage, unspecified SNOMED: 51276140 Status: stable Status Narrative Discussed with Dr. Daugherty. Assessment/Plan SUMMARY OF FINDINGS: 1. Gastritis, status post biopsy. 2. Prominent ampulla. 3. Poor colonic prep and incomplete colonoscopy. 4. Diverticulosis. 5. Internal hemorrhoids. RECOMMENDATIONS: 1. Follow labs. 2. The patient will need a repeat colonoscopy done as an outpatient with a better prep. Advance diet PPI DC planning The patient was seen and examined at bedside and all new and available data was reviewed in the patients chart. I agree with the above findings, impression and plan. (Patient seen earlier today. Signature stamp does not reflect patient encounter time.). - Roberto Daugherty MD Subjective Gastrointestinal/Abdominal: Reports: no symptoms Objective Last 24 Hour Vital Signs Date Time Temp Pulse Resp B/P (MAP) Pulse Ox O2 Delivery O2 Flow Rate FiO2 04/24/19 09:00 Room Air 04/24/19 08:00 98.0 68 18 140/77 (98) 99 04/24/19 04:00 97.7 83 20 128/57 (80) 99 04/24/19 00:00 98.7 88 20 148/69 (95) 98 04/23/19 21:00 Room Air 04/23/19 20:00 98.8 83 18 138/67 (90) 100 04/23/19 16:00 98.3 77 18 119/68 (85) 98 04/23/19 12:38 97.9 63 16 165/78 100 Nasal Cannula 3 04/23/19 12:28 62 16 131/71 100 Nasal Cannula 3 04/23/19 12:23 64 16 134/71 100 Nasal Cannula 3 04/23/19 12:20 65 16 100 04/23/19 12:18 97.3 65 18 149/79 100 Nasal Cannula 3 Intake and Output 04/23/19 04/24/19 19:00 07:00 Intake Total 605 ml 1705 ml Output Total 400 ml 1750 ml Balance 205 ml -45 ml Intake Oral 150 ml IV Total 605 ml 1055 ml Other 500 ml Output Urine Total 400 ml 1750 ml # Bowel Movements 2 Laboratory Tests Test 04/24/19 05:52 04/24/19 08:15 Sodium Level 141 MMOL/L (136-145) Potassium Level 3.2 MMOL/L (3.5-5.1) L Chloride Level 103 MMOL/L (98-107) Carbon Dioxide Level 25 MMOL/L (21-32) Anion Gap 13 mmol/L (5-15) Blood Urea Nitrogen 14 mg/dL (7-18) Creatinine 1.0 MG/DL (0.55-1.30) Estimat Glomerular Filtration Rate > 60 mL/min (>60) Glucose Level 217 MG/DL (74-106) H Calcium Level 9.9 MG/DL (8.5-10.1) Phosphorus Level 2.8 MG/DL (2.5-4.9) Magnesium Level 1.9 MG/DL (1.8-2.4) Total Bilirubin 0.7 MG/DL (0.2-1.0) Aspartate Amino Transf (AST/SGOT) 15 U/L (15-37) Alanine Aminotransferase (ALT/SGPT) 20 U/L (12-78) Alkaline Phosphatase 114 U/L (46-116) C-Reactive Protein, Quantitative 16.3 mg/dL (0.00-0.90) H Total Protein 7.1 G/DL (6.4-8.2) Albumin 1.8 G/DL (3.4-5.0) L Globulin 5.3 g/dL Albumin/Globulin Ratio 0.3 (1.0-2.7) L White Blood Count 11.8 K/UL (4.8-10.8) H Red Blood Count 2.41 M/UL (4.70-6.10) L Hemoglobin 7.4 G/DL (14.2-18.0) L Hematocrit 21.9 % (42.0-52.0) L Mean Corpuscular Volume 91 FL (80-99) Mean Corpuscular Hemoglobin 30.6 PG (27.0-31.0) Mean Corpuscular Hemoglobin Concent 33.6 G/DL (32.0-36.0) Red Cell Distribution Width 13.2 % (11.6-14.8) Platelet Count 475 K/UL (150-450) H Mean Platelet Volume 4.7 FL (6.5-10.1) L Neutrophils (%) (Auto) % (45.0-75.0) Lymphocytes (%) (Auto) % (20.0-45.0) Monocytes (%) (Auto) % (1.0-10.0) Eosinophils (%) (Auto) % (0.0-3.0) Basophils (%) (Auto) % (0.0-2.0) Neutrophils % (Manual) Pending Lymphocytes % (Manual) Pending Platelet Estimate Pending Platelet Morphology Pending Erythrocyte Sedimentation Rate Pending Height (Feet): 5 Height (Inches): 9.00 Weight (Pounds): 140 General Appearance: WD/WN, no apparent distress, alert Cardiovascular: normal rate Respiratory/Chest: normal breath sounds, no respiratory distress Abdominal Exam: normal bowel sounds, non tender, soft Extremities: normal range of motion, non-tender Cong Skinner NP Apr 24, 2019 11:50
[2019-04-24 12:00] VITALS: BP 155/64
--- NOTE | 2019-04-24 13:05 | Pulmonology Progress Note ---
Assessment/Plan Problems: (1) Sepsis (2) Gram-negative bacteremia (3) Acute renal failure (4) UTI (urinary tract infection) (5) COPD (chronic obstructive pulmonary disease) (6) Hx of right BKA (7) Dehydration (8) Diabetes mellitus (9) History of hypertension Assessment/Plan hem consult was called for severe anemia doing better, eating well WBC normal improving continue abc iv fluids, renal function better add venofer stool for OB negative sliding scale GI evaluation reviewed, endoscopy done Subjective ROS Limited/Unobtainable: No Constitutional: Reports: no symptoms HEENT: Repors: no symptoms Allergies: Coded Allergies: No Known Allergies (Unverified , 04/15/19) Objective Last 24 Hour Vital Signs Date Time Temp Pulse Resp B/P (MAP) Pulse Ox O2 Delivery O2 Flow Rate FiO2 04/24/19 09:00 Room Air 04/24/19 08:00 98.0 68 18 140/77 (98) 99 04/24/19 04:00 97.7 83 20 128/57 (80) 99 04/24/19 00:00 98.7 88 20 148/69 (95) 98 04/23/19 21:00 Room Air 04/23/19 20:00 98.8 83 18 138/67 (90) 100 04/23/19 16:00 98.3 77 18 119/68 (85) 98 Intake and Output 04/23/19 04/24/19 19:00 07:00 Intake Total 605 ml 1705 ml Output Total 400 ml 1750 ml Balance 205 ml -45 ml Intake Oral 150 ml IV Total 605 ml 1055 ml Other 500 ml Output Urine Total 400 ml 1750 ml # Bowel Movements 2 General Appearance: cachetic HEENT: normocephalic, atraumatic Respiratory/Chest: chest wall non-tender, lungs clear Cardiovascular: normal peripheral pulses, normal rate Abdomen: normal bowel sounds, soft, non tender Extremities: no cyanosis, no clubbing Skin: no rash Laboratory Tests 04/24/19 05:52: Sodium Level 141, Potassium Level 3.2L, Chloride Level 103, Carbon Dioxide Level 25, Anion Gap 13, Blood Urea Nitrogen 14, Creatinine 1.0, Estimat Glomerular Filtration Rate > 60, Glucose Level 217H, Calcium Level 9.9, Phosphorus Level 2.8, Magnesium Level 1.9, Total Bilirubin 0.7, Aspartate Amino Transf (AST/SGOT) 15, Alanine Aminotransferase (ALT/SGPT) 20, Alkaline Phosphatase 114, C-Reactive Protein, Quantitative 16.3H, Total Protein 7.1, Albumin 1.8L, Globulin 5.3, Albumin/Globulin Ratio 0.3L 04/24/19 08:15: White Blood Count 11.8H, Red Blood Count 2.41L, Hemoglobin 7.4L, Hematocrit 21.9L, Mean Corpuscular Volume 91, Mean Corpuscular Hemoglobin 30.6, Mean Corpuscular Hemoglobin Concent 33.6, Red Cell Distribution Width 13.2, Platelet Count 475H, Mean Platelet Volume 4.7L, Neutrophils (%) (Auto) , Lymphocytes (%) (Auto) , Monocytes (%) (Auto) , Eosinophils (%) (Auto) , Basophils (%) (Auto) , Differential Total Cells Counted 100, Neutrophils % (Manual) 76H, Lymphocytes % (Manual) 18L, Monocytes % (Manual) 4, Eosinophils % (Manual) 2, Basophils % ( Manual) 0, Band Neutrophils 0, Platelet Estimate Adequate, Platelet Morphology Normal, Hypochromasia 3+, Anisocytosis 1+, Spherocytes 1+, Erythrocyte Sedimentation Rate [Pending] Current Medications Medications (Trade) Dose Ordered Sig/Neftaly Route PRN Reason Start Time Stop Time Status Last Admin Dose Admin Acetaminophen (Tylenol) 650 mg Q4H PRN ORAL Mild Pain/Temp > 100.0 04/17/19 00:30 05/17/19 00:29 04/17/19 06:21 Cefepime HCl 1 gm/ Dextrose 55 ml @ 110 mls/hr EVERY 12 HOURS IVPB 04/18/19 21:00 04/25/19 20:59 04/24/19 08:35 Dextrose 1,000 ml @ 100 mls/hr Q10H IV 04/17/19 00:30 05/17/19 00:29 04/24/19 12:33 Dextrose (Dextrose 50%) 25 ml Q30M PRN IV Hypoglycemia 04/17/19 00:15 05/15/19 21:14 Dextrose (Dextrose 50%) 50 ml Q30M PRN IV Hypoglycemia 04/17/19 00:15 05/15/19 21:14 Docusate Sodium (Colace) 100 mg TWICE A DAY ORAL 04/22/19 18:00 05/22/19 17:59 04/24/19 08:34 Heparin Sodium (Porcine) (Heparin 5000 units/ml) 5,000 units EVERY 12 HOURS SUBQ 04/17/19 09:00 05/16/19 08:59 04/24/19 08:35 Insulin Aspart (NovoLOG) BEFORE MEALS AND HS SUBQ 04/17/19 06:30 05/16/19 06:29 04/24/19 12:35 Mirtazapine (Remeron) 7.5 mg BEDTIME ORAL 04/22/19 21:00 05/22/19 20:59 04/23/19 20:56 Nitrofurantoin (Macrobid) 100 mg EVERY 12 HOURS ORAL 04/19/19 21:00 05/19/19 20:59 04/24/19 08:34 Pantoprazole (Protonix) 40 mg BIAC ORAL 04/19/19 18:00 05/19/19 17:59 04/24/19 05:26 Dionne Chew MD Apr 24, 2019 13:05
--- NOTE | 2019-04-24 14:44 | NUR ---
CASE MANAGEMENT:REVIEW SI;SEPSIS. GRAM NEGATIVE BACTEREMIA. ARF. UTI. 98.8 88 20 148/69 98% ON RA WBC 11.8 H/H 7.4/21.9 K+ 3.2 CRP 16.3 IS;CEFEPIME IV Q12 HRS PROTONIX PI BIAC MACROBID PO Q12 HRS HEPARIN SUBQ Q12 HRS MED SURG STATUS DCP;TO LISA
--- NOTE | 2019-04-24 14:54 | NUR ---
*-* INSURANCE *-*- ALL CLINICALS AND REVIEWS HAVE BEEN FAXED TO: [facility] AND [employer] ASSIGNED AT THIS TIME PLEASE FAX THE REVIEW/CLINICAL P- [phone] F- [phone]....REVIEW/CLINICAL
--- NOTE | 2019-04-24 15:30 | Hematology/Onc Progress Note ---
Assessment/Plan Assessment/Plan Assessment and Recs: # Anemia of chronic disease due to underlying chronic medical issues, multifactorial v Gi bleed --> Anemia workup has been ordered, rule out gi bleed --> ferritin is >1500 --> No evidence of hemolysis is noted, peripheral smear has been reviewed. --> Hgb goal >7. Transfuse prn. --> Epogen or iron at this time is not particularly indicated --> Medications have been reviewed --> low threshold for gi evaluation in case has occult + --> EGD/COLO 04/23-> reviewed with gastritis/iH --> bone marrow biopsy is not indicated given the other more likely causes --> hgb 8-->7.4 # Protein caloric malnutrition --> ensure and 1:1 feeding recommended --> have added mirtazapine for appetite stimulant --> avoid megace as is vte risk --> daily weight count # Dilated cbd, acquired --> as per surg, is aware, and id # Transaminitis --> has improved # Sepsis with uti, polymicrobial --> s/p abx # Dehydration --> renal prn # Dvt ppx heparin sq The timing of this note does not necessarily reflect the time of the patient was seen. Greatly appreciate consultation. Subjective Constitutional: Denies: no symptoms, chills, fever, malaise, weakness, other HEENT: Denies: no symptoms, eye pain, blurred vision, tearing, double vision, ear pain, ear discharge, nose pain, nose congestion, throat pain, throat swelling, mouth pain, mouth swelling, other Cardiovascular: Denies: no symptoms, chest pain, edema, irregular heart rate, lightheadedness, palpitations, syncope, other Respiratory: Denies: no symptoms, cough, shortness of breath, SOB with excertion, SOB at rest, sputum, wheezing, other Gastrointestinal/Abdominal: Denies: no symptoms, abdomen distended, abdominal pain, black stools, tarry stools, blood in stool, constipated, diarrhea, difficulty swallowing, nausea, poor appetite, poor fluid intake, rectal bleeding , vomiting, other Genitourinary: Denies: no symptoms, burning, discharge, frequency, flank pain, hematuria, incontinence, pain, urgency, other Neurologic/Psychiatric: Denies: no symptoms, anxiety, depressed, emotional problems, headache, numbness, paresthesia, pre-existing deficit, seizure, tingling, tremors, weakness, other Hematologic/Lymphatic: Denies: no symptoms, anemia, easy bleeding, easy bruising, adenopathy, other Allergies: Coded Allergies: No Known Allergies (Unverified , 04/15/19) Subjective 04/23: no major changes, labs have been reviewed, no bleeding, dw pcp, for egd/ colo 04/24: no events, no bleeding, no night sweats, egd/colo results noted, hgb 7.4 Objective Objective Current Medications Medications (Trade) Dose Ordered Sig/Neftaly Route PRN Reason Start Time Stop Time Status Last Admin Dose Admin Acetaminophen (Tylenol) 650 mg Q4H PRN ORAL Mild Pain/Temp > 100.0 04/17/19 00:30 05/17/19 00:29 04/17/19 06:21 Cefepime HCl 1 gm/ Dextrose 55 ml @ 110 mls/hr EVERY 12 HOURS IVPB 04/18/19 21:00 04/28/19 23:59 04/24/19 08:35 Dextrose 1,000 ml @ 100 mls/hr Q10H IV 04/17/19 00:30 05/17/19 00:29 04/24/19 12:33 Dextrose (Dextrose 50%) 25 ml Q30M PRN IV Hypoglycemia 04/17/19 00:15 05/15/19 21:14 Dextrose (Dextrose 50%) 50 ml Q30M PRN IV Hypoglycemia 04/17/19 00:15 05/15/19 21:14 Docusate Sodium (Colace) 100 mg TWICE A DAY ORAL 04/22/19 18:00 05/22/19 17:59 04/24/19 08:34 Heparin Sodium (Porcine) (Heparin 5000 units/ml) 5,000 units EVERY 12 HOURS SUBQ 04/17/19 09:00 05/16/19 08:59 04/24/19 08:35 Insulin Aspart (NovoLOG) BEFORE MEALS AND HS SUBQ 04/17/19 06:30 05/16/19 06:29 04/24/19 12:35 Mirtazapine (Remeron) 7.5 mg BEDTIME ORAL 04/22/19 21:00 05/22/19 20:59 04/23/19 20:56 Nitrofurantoin (Macrobid) 100 mg EVERY 12 HOURS ORAL 04/19/19 21:00 04/25/19 23:59 04/24/19 08:34 Pantoprazole (Protonix) 40 mg BIAC ORAL 04/19/19 18:00 05/19/19 17:59 04/24/19 05:26 Last 24 Hour Vital Signs Date Time Temp Pulse Resp B/P (MAP) Pulse Ox O2 Delivery O2 Flow Rate FiO2 04/24/19 12:00 98.0 81 18 155/64 (94) 98 04/24/19 09:00 Room Air 04/24/19 08:00 98.0 68 18 140/77 (98) 99 04/24/19 04:00 97.7 83 20 128/57 (80) 99 04/24/19 00:00 98.7 88 20 148/69 (95) 98 04/23/19 21:00 Room Air 04/23/19 20:00 98.8 83 18 138/67 (90) 100 04/23/19 16:00 98.3 77 18 119/68 (85) 98 04/23/19 12:38 97.9 63 16 165/78 100 Nasal Cannula 3 04/23/19 12:28 62 16 131/71 100 Nasal Cannula 3 04/23/19 12:23 64 16 134/71 100 Nasal Cannula 3 04/23/19 12:20 65 16 100 04/23/19 12:18 97.3 65 18 149/79 100 Nasal Cannula 3 04/23/19 09:00 Room Air 04/23/19 08:00 98.0 70 18 160/72 (101) 100 04/23/19 04:00 96.9 84 22 107/71 (83) 96 04/23/19 00:00 98.2 92 20 158/86 (110) 98 04/22/19 21:00 Room Air 04/22/19 20:00 97.6 79 20 164/87 (112) 100 04/22/19 16:00 98.6 73 20 150/80 (103) 100 Intake and Output 04/23/19 04/24/19 19:00 07:00 Intake Total 605 ml 1705 ml Output Total 400 ml 1750 ml Balance 205 ml -45 ml Intake Oral 150 ml IV Total 605 ml 1055 ml Other 500 ml Output Urine Total 400 ml 1750 ml # Bowel Movements 2 Labs Test 04/22/19 07:40 04/23/19 07:00 04/24/19 05:52 04/24/19 08:15 White Blood Count 10.2 K/UL (4.8-10.8) 11.8 K/UL (4.8-10.8) Red Blood Count 2.58 M/UL (4.70-6.10) 2.41 M/UL (4.70-6.10) Hemoglobin 7.9 G/DL (14.2-18.0) 7.4 G/DL (14.2-18.0) Hematocrit 23.6 % (42.0-52.0) 21.9 % (42.0-52.0) Mean Corpuscular Volume 91 FL (80-99) 91 FL (80-99) Mean Corpuscular Hemoglobin 30.6 PG (27.0-31.0) 30.6 PG (27.0-31.0) Mean Corpuscular Hemoglobin Concent 33.4 G/DL (32.0-36.0) 33.6 G/DL (32.0-36.0) Red Cell Distribution Width 13.1 % (11.6-14.8) 13.2 % (11.6-14.8) Platelet Count 371 K/UL (150-450) 475 K/UL (150-450) Mean Platelet Volume 5.2 FL (6.5-10.1) 4.7 FL (6.5-10.1) Neutrophils (%) (Auto) % (45.0-75.0) % (45.0-75.0) Lymphocytes (%) (Auto) % (20.0-45.0) % (20.0-45.0) Monocytes (%) (Auto) % (1.0-10.0) % (1.0-10.0) Eosinophils (%) (Auto) % (0.0-3.0) % (0.0-3.0) Basophils (%) (Auto) % (0.0-2.0) % (0.0-2.0) Differential Total Cells Counted 100 100 Neutrophils % (Manual) 68 % (45-75) 76 % (45-75) Lymphocytes % (Manual) 26 % (20-45) 18 % (20-45) Monocytes % (Manual) 5 % (1-10) 4 % (1-10) Eosinophils % (Manual) 1 % (0-3) 2 % (0-3) Basophils % (Manual) 0 % (0-2) 0 % (0-2) Band Neutrophils 0 % (0-8) 0 % (0-8) Platelet Estimate Adequate Adequate Platelet Morphology Normal Normal Hypochromasia 1+ 3+ Sodium Level 141 MMOL/L (136-145) 141 MMOL/L (136-145) Potassium Level 3.5 MMOL/L (3.5-5.1) 3.2 MMOL/L (3.5-5.1) Chloride Level 105 MMOL/L (98-107) 103 MMOL/L (98-107) Carbon Dioxide Level 30 MMOL/L (21-32) 25 MMOL/L (21-32) Anion Gap 7 mmol/L (5-15) 13 mmol/L (5-15) Blood Urea Nitrogen 16 mg/dL (7-18) 14 mg/dL (7-18) Creatinine 1.0 MG/DL (0.55-1.30) 1.0 MG/DL (0.55-1.30) Estimat Glomerular Filtration Rate > 60 mL/min (>60) > 60 mL/min (>60) Glucose Level 271 MG/DL (74-106) 217 MG/DL (74-106) Calcium Level 9.5 MG/DL (8.5-10.1) 9.9 MG/DL (8.5-10.1) Stool Occult Blood Negative (NEGATIVE) Phosphorus Level 2.8 MG/DL (2.5-4.9) Magnesium Level 1.9 MG/DL (1.8-2.4) Total Bilirubin 0.7 MG/DL (0.2-1.0) Aspartate Amino Transf (AST/SGOT) 15 U/L (15-37) Alanine Aminotransferase (ALT/SGPT) 20 U/L (12-78) Alkaline Phosphatase 114 U/L (46-116) C-Reactive Protein, Quantitative 16.3 mg/dL (0.00-0.90) Total Protein 7.1 G/DL (6.4-8.2) Albumin 1.8 G/DL (3.4-5.0) Globulin 5.3 g/dL Albumin/Globulin Ratio 0.3 (1.0-2.7) Anisocytosis 1+ Spherocytes 1+ Erythrocyte Sedimentation Rate 138 MM/HR (0-20) Height (Feet): 5 Height (Inches): 9.00 Weight (Pounds): 140 Objective Physical Exam: Vitals: reviewed General: NAD HEENT: nc, at Neck: supple + trach/vent Chest: clear breath sounds bilaterally Cardiovascular: RRR, no s3, s4 Abdomen: soft, nontender, nd Extremities: no cce, normal range of motion, R++ bka Neuro: confused Jett Nicole MD Apr 24, 2019 15:30
[2019-04-24 16:00] VITALS: BP_SYST 128; BP_SYST 144; BP_DIAS 60; BP_DIAS 93
--- NOTE | 2019-04-24 17:07 | NUR ---
CASE MANAGEMENT:DISCHARGE PLAN NOTE CALL MADE TO [facility] COLLINS WITH [facility], CONFIRMED PATIENT OK TO RETURN UPON DISCHARGE TO ROOM [address] HALF-WAY WILL ANTICIPATE DISCHARGE TO LISA DOLAN 04/25/2019
--- NOTE | 2019-04-24 17:46 | NUR ---
NURSE NOTES:WOUND CARE NOTES: Pt noted to have partial thickness shearing sacrum (L)5.5cm x (W)8cm. Base of wound is moist and viable with moist rolled skin-flap. Darker skin tone along edges and periwound without erythema or induration.No odor or exudate noted. Pt denied tenderness areas around borders of wound palpated. Resolving pressure injury L trochanter. Dry,[place] epithelial at base of wound.No evidence of skin breakdown periwound. Large intact blood Blister noted to dorsal L foot(L)9.6cm x (W)3.5cm. Small reabsorbing blood blister noted to dorso/flexor L foot(L01.2cm x (W)1cm. Blood Blister noted to lateral L heel(L)2.4cm x (W)4.5cm.No evidence of fluctuance ,erythema or induration periwound. L 2nd metatarsal noted to be black in colour. 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 Tx.Plan: Apply Moisture Barrier Paste to sacrum. Cover with Optifoam drsg. Change every 3 days and prn. Apply Cavilon Skin Barrier to R and L trochanter. Cover each area with Optifoam drsg. Change every 7 days and prn. Apply Betadine to dorsal L foot, dorso/Flexor L foot and L heel. Cover with Abd pads. Wrap with Kerlix every 3 days and prn. APM/VIRIDIANA Mattress overlay. Reposition at least every 2hours or as tolerated. Off-load L heel with pillow.
--- NOTE | 2019-04-24 18:47 | NUR ---
NURSE NOTES: Patient pulled his IV line out; three different nurse's however couldn't succeed to get the IV line;
--- NOTE | 2019-04-24 19:22 | NUR ---
HAND-OFF: Report given to KWASI Conrad.
--- NOTE | 2019-04-24 19:30 | NUR ---
NURSE NOTES: Pt. received from KWASI Bell. Pt. AAOx2, on room air, no complaints of pain and no indications of respiratory distress at this time. No IV access at this time, will attempt to reestablish. Pike intact and patent, draining yellow urine well. Dressing on left foot clean dry and intact. Bed is low and locked, side rails x2 up, bed alarm active, and call light is in reach. Will continue to monitor.
[2019-04-24 20:00] VITALS: BP 161/67
--- NOTE | 2019-04-24 22:50 | NUR ---
NURSE NOTES: Unable to establish IV access at this time. Dr. Anderson aware, orders in place for midline.
[2019-04-25] VITALS: BP 159/71
[2019-04-25] MEDS ORDERED: Lidocaine 1% Plain 30 ml INJ ONE (00:30)
[2019-04-25] MEDS ORDERED: Heparin1,000 units/500ml Premix(Conc:2 units/ml) IV ONE (00:30)
--- NOTE | 2019-04-25 04:00 | NUR ---
NURSE NOTES: Pt. refused 0400 vital signs assessment.
[2019-04-25] MEDS: NovoLOG Insulin Flexpen SUBQ SCH ×2 (06:39→12:14)
--- NOTE | 2019-04-25 07:00 | Progress Note ---
DATE: 04/24/2019 SUBJECTIVE: The patient is awake, alert, afebrile, and hemodynamically stable. PHYSICAL EXAMINATION: VITAL SIGNS: Blood pressure 128/60, pulse is 90, respirations 19, and temperature 98.7. HEENT: Eyes were normal. ENT, mucous membranes were moist and intact. NECK: Supple with no JVD without lymph nodes. Tracheostomy site is clean. LUNGS: Clear without rhonchi, rales, or wheezing. HEART: Normal sounds with regular beats. ABDOMEN: Soft and nontender with normal bowel sounds. Gastrostomy site is clean. EXTREMITIES: Warm without cyanosis, clubbing, or edema. LABORATORY AND DIAGNOSTIC DATA: Hemoglobin is 7.4, hematocrit 21.9 with MCV of 91, WBC of 11.8, and platelets are 475,000. His BUN and creatinine are 14 and 1.0 respectively. Sodium is 141, potassium 3.2, chloride 103, CO2 is 25. His calcium is 9.9, his phosphorus is 2.8, and magnesium is 1.9. His albumin is 1.8. His total protein is 7.1. IMPRESSION AND PLAN: The patient is in stable condition. Because of his drop in hemoglobin and hematocrit, the patient has been ordered packed RBCs. In the last 24 hours, the patient has received transfusion of 1 unit packed RBCs. If hemoglobin and hematocrit , he can be discharged back to the extended care facility subacute unit. Domingo Anderson M.D. DR: JEFFREY JOB#: [id number] CC:
--- NOTE | 2019-04-25 07:03 | NUR ---
NURSE NOTES: Pt. waiting for midline placement to receive blood transfusion. Dr. Monica freeman'reymundo pt. for discharge after transfusion.
--- NOTE | 2019-04-25 07:04 | NUR ---
HAND-OFF: Report given to KWASI Bell. Pt. stable, endorsed blood transfusion.
--- NOTE | 2019-04-25 07:10 | NUR ---
HAND-OFF: Report given to KWASI Bell.
--- NOTE | 2019-04-25 07:14 | NUR ---
NURSE NOTES: Patient awake, alert x2; on room air, no sign of distress and shortness of breath; no sing of chest pain; No IV access; there is a new order for PICC placement, PM nurse, Lonnie trammell get consent from patient's next of kin; Pike in place, drains yellow urine; side rails up x2, breaks engaged, bed at lowest position; call light within reach; will keep monitoring.
[2019-04-25 07:25] LABS: HEMATOCRIT 22.7 % (42.0-52.0); HEMOGLOBIN 7.5 G/DL (14.2-18.0); MEAN CORPUSCULAR VOLUME 91 FL (80-99); PLATELET COUNT 508 K/UL (150-450); RED BLOOD COUNT 2.48 M/UL (4.70-6.10); RED CELL DISTRIBUTION WIDTH 13.3 % (11.6-14.8)
[2019-04-25 08:00] VITALS: BP 139/85
[2019-04-25] MEDS: Docusate 100mg cap ORAL SCH (08:23)
[2019-04-25] MEDS: Heparin 5000 units/ml inj SUBQ SCH (08:24)
[2019-04-25] MEDS ORDERED: Heparin1,000 units/500ml Premix(Conc:2 units/ml) IV PRN (08:30)
[2019-04-25] MEDS ORDERED: Lidocaine 1% Plain 30 ml INJ PRN (08:30)
[2019-04-25] MEDS: Cefepime HCl 1 GM in D5W 55 ML IVPB SCH (09:17)
--- NOTE | 2019-04-25 10:18 | Hematology/Onc Progress Note ---
Assessment/Plan Assessment/Plan Assessment and Recs: # Anemia of chronic disease due to underlying chronic medical issues, multifactorial v Gi bleed --> Anemia workup has been ordered, rule out gi bleed --> ferritin is >1500 --> No evidence of hemolysis is noted, peripheral smear has been reviewed. --> Hgb goal >7. Transfuse prn. --> Epogen or iron at this time is not particularly indicated --> Medications have been reviewed --> low threshold for gi evaluation in case has occult + --> EGD/COLO 04/23-> reviewed with gastritis/iH --> bone marrow biopsy is not indicated given the other more likely causes --> hgb 8-->7.4 --> blood tx: pending for 04/25 # Protein caloric malnutrition --> ensure and 1:1 feeding recommended --> have added mirtazapine for appetite stimulant --> avoid megace as is vte risk --> daily weight count # Dilated cbd, acquired --> as per surg, is aware, and id # Transaminitis --> has improved # Sepsis with uti, polymicrobial --> s/p abx # Dehydration --> renal prn # Dvt ppx heparin sq The timing of this note does not necessarily reflect the time of the patient was seen. Greatly appreciate consultation. Subjective Allergies: Coded Allergies: No Known Allergies (Unverified , 04/15/19) Subjective 04/23: no major changes, labs have been reviewed, no bleeding, dw pcp, for egd/ colo 04/24: no events, no bleeding, no night sweats, egd/colo results noted, hgb 7.4 04/25: awake and alert, picc for today, blood tx pending, hgb 7.5 Objective Objective Current Medications Medications (Trade) Dose Ordered Sig/Neftaly Route PRN Reason Start Time Stop Time Status Last Admin Dose Admin Acetaminophen (Tylenol) 650 mg Q4H PRN ORAL Mild Pain/Temp > 100.0 04/17/19 00:30 05/17/19 00:29 04/17/19 06:21 Cefepime HCl 1 gm/ Dextrose 55 ml @ 110 mls/hr EVERY 12 HOURS IVPB 04/18/19 21:00 04/28/19 23:59 04/25/19 09:17 Chlorhexidine Gluconate (Noelle-Hex 2%) 1 applic DAILY@2000 TOPIC 04/25/19 20:00 05/25/19 19:59 Dextrose 1,000 ml @ 100 mls/hr Q10H IV 04/17/19 00:30 05/17/19 00:29 04/25/19 09:11 Dextrose (Dextrose 50%) 25 ml Q30M PRN IV Hypoglycemia 04/17/19 00:15 05/15/19 21:14 Dextrose (Dextrose 50%) 50 ml Q30M PRN IV Hypoglycemia 04/17/19 00:15 05/15/19 21:14 Docusate Sodium (Colace) 100 mg TWICE A DAY ORAL 04/22/19 18:00 05/22/19 17:59 04/25/19 08:23 Heparin Sodium (Porcine) (Heparin 5000 units/ml) 5,000 units EVERY 12 HOURS SUBQ 04/17/19 09:00 05/16/19 08:59 04/25/19 08:24 Heparin Sodium/ Sodium Chloride (Heparin 1000 units/500ml Premix) 1,000 unit ONCE PRN IV PICC LINE PLACEMENT 04/25/19 08:30 04/27/19 08:29 Insulin Aspart (NovoLOG) BEFORE MEALS AND HS SUBQ 04/17/19 06:30 05/16/19 06:29 04/25/19 06:39 Lidocaine HCl (Xylocaine 1% 30ml) 30 ml ONCE PRN INJ PICC LINE PLACEMENT 04/25/19 08:30 04/27/19 08:29 Mirtazapine (Remeron) 7.5 mg BEDTIME ORAL 04/22/19 21:00 05/22/19 20:59 04/24/19 20:25 Nitrofurantoin (Macrobid) 100 mg EVERY 12 HOURS ORAL 04/19/19 21:00 04/25/19 23:59 04/25/19 08:23 Pantoprazole (Protonix) 40 mg BIAC ORAL 04/19/19 18:00 05/19/19 17:59 04/25/19 06:39 Last 24 Hour Vital Signs Date Time Temp Pulse Resp B/P (MAP) Pulse Ox O2 Delivery O2 Flow Rate FiO2 04/25/19 08:00 97.6 77 18 139/85 (103) 98 04/25/19 00:00 98.4 82 20 159/71 (100) 95 04/24/19 21:00 Room Air 04/24/19 20:00 99.3 76 20 161/67 (98) 97 04/24/19 16:00 98.7 90 19 128/60 (82) 98 04/24/19 12:00 98.0 81 18 155/64 (94) 98 04/24/19 09:00 Room Air 04/24/19 08:00 98.0 68 18 140/77 (98) 99 04/24/19 04:00 97.7 83 20 128/57 (80) 99 04/24/19 00:00 98.7 88 20 148/69 (95) 98 04/23/19 21:00 Room Air 04/23/19 20:00 98.8 83 18 138/67 (90) 100 04/23/19 16:00 98.3 77 18 119/68 (85) 98 04/23/19 12:38 97.9 63 16 165/78 100 Nasal Cannula 3 04/23/19 12:28 62 16 131/71 100 Nasal Cannula 3 04/23/19 12:23 64 16 134/71 100 Nasal Cannula 3 04/23/19 12:20 65 16 100 04/23/19 12:18 97.3 65 18 149/79 100 Nasal Cannula 3 Intake and Output 04/24/19 04/25/19 19:00 07:00 Intake Total 1720 ml Output Total 1400 ml 1450 ml Balance 320 ml -1450 ml Intake Oral 800 ml IV Total 920 ml Output Urine Total 1400 ml 1450 ml Labs Test 04/23/19 07:00 04/24/19 05:52 04/24/19 08:15 04/25/19 06:35 Stool Occult Blood Negative (NEGATIVE) Sodium Level 141 MMOL/L (136-145) Potassium Level 3.2 MMOL/L (3.5-5.1) Chloride Level 103 MMOL/L (98-107) Carbon Dioxide Level 25 MMOL/L (21-32) Anion Gap 13 mmol/L (5-15) Blood Urea Nitrogen 14 mg/dL (7-18) Creatinine 1.0 MG/DL (0.55-1.30) Estimat Glomerular Filtration Rate > 60 mL/min (>60) Glucose Level 217 MG/DL (74-106) Calcium Level 9.9 MG/DL (8.5-10.1) Phosphorus Level 2.8 MG/DL (2.5-4.9) Magnesium Level 1.9 MG/DL (1.8-2.4) Total Bilirubin 0.7 MG/DL (0.2-1.0) Aspartate Amino Transf (AST/SGOT) 15 U/L (15-37) Alanine Aminotransferase (ALT/SGPT) 20 U/L (12-78) Alkaline Phosphatase 114 U/L (46-116) C-Reactive Protein, Quantitative 16.3 mg/dL (0.00-0.90) Total Protein 7.1 G/DL (6.4-8.2) Albumin 1.8 G/DL (3.4-5.0) Globulin 5.3 g/dL Albumin/Globulin Ratio 0.3 (1.0-2.7) White Blood Count 11.8 K/UL (4.8-10.8) 9.0 K/UL (4.8-10.8) Red Blood Count 2.41 M/UL (4.70-6.10) 2.48 M/UL (4.70-6.10) Hemoglobin 7.4 G/DL (14.2-18.0) 7.5 G/DL (14.2-18.0) Hematocrit 21.9 % (42.0-52.0) 22.7 % (42.0-52.0) Mean Corpuscular Volume 91 FL (80-99) 91 FL (80-99) Mean Corpuscular Hemoglobin 30.6 PG (27.0-31.0) 30.0 PG (27.0-31.0) Mean Corpuscular Hemoglobin Concent 33.6 G/DL (32.0-36.0) 32.9 G/DL (32.0-36.0) Red Cell Distribution Width 13.2 % (11.6-14.8) 13.3 % (11.6-14.8) Platelet Count 475 K/UL (150-450) 508 K/UL (150-450) Mean Platelet Volume 4.7 FL (6.5-10.1) 4.8 FL (6.5-10.1) Neutrophils (%) (Auto) % (45.0-75.0) % (45.0-75.0) Lymphocytes (%) (Auto) % (20.0-45.0) % (20.0-45.0) Monocytes (%) (Auto) % (1.0-10.0) % (1.0-10.0) Eosinophils (%) (Auto) % (0.0-3.0) % (0.0-3.0) Basophils (%) (Auto) % (0.0-2.0) % (0.0-2.0) Differential Total Cells Counted 100 100 Neutrophils % (Manual) 76 % (45-75) 74 % (45-75) Lymphocytes % (Manual) 18 % (20-45) 18 % (20-45) Monocytes % (Manual) 4 % (1-10) 3 % (1-10) Eosinophils % (Manual) 2 % (0-3) 4 % (0-3) Basophils % (Manual) 0 % (0-2) 1 % (0-2) Band Neutrophils 0 % (0-8) 0 % (0-8) Platelet Estimate Adequate Adequate Platelet Morphology Normal Normal Hypochromasia 3+ 3+ Anisocytosis 1+ 1+ Spherocytes 1+ 1+ Erythrocyte Sedimentation Rate 138 MM/HR (0-20) Height (Feet): 5 Height (Inches): 9.00 Weight (Pounds): 140 Objective Physical Exam: Vitals: reviewed General: NAD HEENT: nc, at Neck: supple + trach/vent Chest: clear breath sounds bilaterally Cardiovascular: RRR, no s3, s4 Abdomen: soft, nontender, nd Extremities: no cce, normal range of motion, R++ bka Neuro: confused Jett Nicole MD Apr 25, 2019 10:18
--- NOTE | 2019-04-25 10:45 | NUR ---
NURSE NOTES: Blood transfusion started; will keep monitoring.
--- NOTE | 2019-04-25 10:47 | Infectious Diseases Prog Note ---
Assessment/Plan Assessment/Plan Assessment: Severe Sepsis ; resolving Klebsiella pna bacteremia Polymicrobial UTI -04/18 u/a wbc tntc, nit neg, leuk +3l; ucx <10k GPC -04/17 Bcx Neg -04/16 ucx >100kE. fecalis -04/15 Bcx / K. pna (R Amp, I Ancef, Zosyn) ucx >100k K.pna (R amp, macrobid; otherwise S); repeat ucx >100k K, pna (R Amp, I Ancef), >100k P stuarti (R Amp, cipro.levo), macrobid, ancef, > 100k enterococcus fecalis (S Amp, Vanco, macrobid) influenza sc neg CXR: Suspected mild CHF. Correlate clinically Low grade fever; SP Leukocytosis, recurrent, mild- SP Face laceration -04/[address]:Negative for acute intracranial bleed or mass effect. Evidence of right frontal scalp contusion SANNA,SP Elevated AST; SP -04/19 Abd MRI:Very limited study due to breathing motion. Biliary ductal dilatation without demonstration of choledocholithiasis. Biliary obstruction at the level of ampulla is difficult to exclude on this study. Status post cholecystectomy. Trace bilateral pleural effusions -Abd US: Absent gallbladder, status post cholecystectomy Intrahepatic biliary ductal dilatation. Suspect on the basis of patient's age and postcholecystectomy state. However, downstream obstruction also possible. Correlate with liver function tests, consider MRCP for better characterization if clinically indicated. Empty bladder with a Pike catheter.Trace left perinephric fluid. This is a nonspecific finding, can be seen in the setting of renal inflammation - MRI Abd: Biliary ductal dilatation without demonstration of choledocholithiasis. Biliary obstruction at the level of ampulla is difficult to exclude on this study. Status post cholecystectomy PVD R BKA w/ phantom limb syndrome -a. 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 Will continue to follow along with you. Subjective Allergies: Coded Allergies: No Known Allergies (Unverified , 04/15/19) Subjective afebrile mild leukocytosis resolved Objective Vital Signs Last 24 Hour Vital Signs Date Time Temp Pulse Resp B/P (MAP) Pulse Ox O2 Delivery O2 Flow Rate FiO2 04/25/19 08:00 97.6 77 18 139/85 (103) 98 04/25/19 00:00 98.4 82 20 159/71 (100) 95 04/24/19 21:00 Room Air 04/24/19 20:00 99.3 76 20 161/67 (98) 97 04/24/19 16:00 98.7 90 19 128/60 (82) 98 04/24/19 12:00 98.0 81 18 155/64 (94) 98 Height (Feet): 5 Height (Inches): 9.00 Weight (Pounds): 140 Objective HEENT: Eyes were normal. Pupils were round, equal, and reactive to light. ENT, mucous membranes were not dehydrated. NECK: Supple. No mass. LUNGS: Clear. HEART: There was normal S1 and normal S2. There was no murmur. ABDOMEN: Soft and nontender without organomegaly. There were no masses palpable. Normal bowel sounds without bruits. There was no guarding. No rebound tenderness. No ascites. Laboratory Tests Test 04/25/19 06:35 White Blood Count 9.0 K/UL (4.8-10.8) Red Blood Count 2.48 M/UL (4.70-6.10) L Hemoglobin 7.5 G/DL (14.2-18.0) L Hematocrit 22.7 % (42.0-52.0) L Mean Corpuscular Volume 91 FL (80-99) Mean Corpuscular Hemoglobin 30.0 PG (27.0-31.0) Mean Corpuscular Hemoglobin Concent 32.9 G/DL (32.0-36.0) Red Cell Distribution Width 13.3 % (11.6-14.8) Platelet Count 508 K/UL (150-450) H Mean Platelet Volume 4.8 FL (6.5-10.1) L Neutrophils (%) (Auto) % (45.0-75.0) Lymphocytes (%) (Auto) % (20.0-45.0) Monocytes (%) (Auto) % (1.0-10.0) Eosinophils (%) (Auto) % (0.0-3.0) Basophils (%) (Auto) % (0.0-2.0) Differential Total Cells Counted 100 Neutrophils % (Manual) 74 % (45-75) Lymphocytes % (Manual) 18 % (20-45) L Monocytes % (Manual) 3 % (1-10) Eosinophils % (Manual) 4 % (0-3) H Basophils % (Manual) 1 % (0-2) Band Neutrophils 0 % (0-8) Platelet Estimate Adequate Platelet Morphology Normal Hypochromasia 3+ Anisocytosis 1+ Spherocytes 1+ Current Medications Medications (Trade) Dose Ordered Sig/Neftaly Route PRN Reason Start Time Stop Time Status Last Admin Dose Admin Acetaminophen (Tylenol) 650 mg Q4H PRN ORAL Mild Pain/Temp > 100.0 04/17/19 00:30 05/17/19 00:29 04/17/19 06:21 Cefepime HCl 1 gm/ Dextrose 55 ml @ 110 mls/hr EVERY 12 HOURS IVPB 04/18/19 21:00 04/28/19 23:59 04/25/19 09:17 Chlorhexidine Gluconate (Noelle-Hex 2%) 1 applic DAILY@2000 TOPIC 04/25/19 20:00 05/25/19 19:59 Dextrose 1,000 ml @ 100 mls/hr Q10H IV 04/17/19 00:30 05/17/19 00:29 04/25/19 09:11 Dextrose (Dextrose 50%) 25 ml Q30M PRN IV Hypoglycemia 04/17/19 00:15 05/15/19 21:14 Dextrose (Dextrose 50%) 50 ml Q30M PRN IV Hypoglycemia 04/17/19 00:15 05/15/19 21:14 Docusate Sodium (Colace) 100 mg TWICE A DAY ORAL 04/22/19 18:00 05/22/19 17:59 04/25/19 08:23 Heparin Sodium (Porcine) (Heparin 5000 units/ml) 5,000 units EVERY 12 HOURS SUBQ 04/17/19 09:00 05/16/19 08:59 04/25/19 08:24 Heparin Sodium/ Sodium Chloride (Heparin 1000 units/500ml Premix) 1,000 unit ONCE PRN IV PICC LINE PLACEMENT 04/25/19 08:30 04/27/19 08:29 Insulin Aspart (NovoLOG) BEFORE MEALS AND HS SUBQ 04/17/19 06:30 05/16/19 06:29 04/25/19 06:39 Lidocaine HCl (Xylocaine 1% 30ml) 30 ml ONCE PRN INJ PICC LINE PLACEMENT 04/25/19 08:30 04/27/19 08:29 Mirtazapine (Remeron) 7.5 mg BEDTIME ORAL 04/22/19 21:00 05/22/19 20:59 04/24/19 20:25 Nitrofurantoin (Macrobid) 100 mg EVERY 12 HOURS ORAL 04/19/19 21:00 04/25/19 23:59 04/25/19 08:23 Pantoprazole (Protonix) 40 mg BIAC ORAL 04/19/19 18:00 05/19/19 17:59 04/25/19 06:39 Ana M Kramer M.D. Apr 25, 2019 10:47
--- NOTE | 2019-04-25 10:53 | GI Progress Note ---
Assessment/Plan Problems: (1) Severe protein-calorie malnutrition ICD Codes: E43 - Unspecified severe protein-calorie malnutrition SNOMED: 629593378, 168633445, 321333912 (2) Anemia ICD Codes: D64.9 - Anemia, unspecified SNOMED: 055258451 (3) Diabetes mellitus ICD Codes: E11.9 - Type 2 diabetes mellitus without complications SNOMED: 16877390 (4) GI bleeding ICD Codes: K92.2 - Gastrointestinal hemorrhage, unspecified SNOMED: 19620775 Status: stable Status Narrative Discussed with Dr. Daugherty. Assessment/Plan SUMMARY OF FINDINGS: 1. Gastritis, status post biopsy. 2. Prominent ampulla. 3. Poor colonic prep and incomplete colonoscopy. 4. Diverticulosis. 5. Internal hemorrhoids. OB stool negative RECOMMENDATIONS: 1. Follow labs. 2. The patient will need a repeat colonoscopy done as an outpatient with a better prep. follow up hematology recs Advance diet PPI DC planning The patient was seen and examined at bedside and all new and available data was reviewed in the patients chart. I agree with the above findings, impression and plan. (Patient seen earlier today. Signature stamp does not reflect patient encounter time.). - Roberto Daugherty MD Subjective Gastrointestinal/Abdominal: Reports: no symptoms Objective Last 24 Hour Vital Signs Date Time Temp Pulse Resp B/P (MAP) Pulse Ox O2 Delivery O2 Flow Rate FiO2 04/25/19 09:00 Room Air 04/25/19 08:00 97.6 77 18 139/85 (103) 98 04/25/19 00:00 98.4 82 20 159/71 (100) 95 04/24/19 21:00 Room Air 04/24/19 20:00 99.3 76 20 161/67 (98) 97 04/24/19 16:00 98.7 90 19 128/60 (82) 98 04/24/19 12:00 98.0 81 18 155/64 (94) 98 Intake and Output 04/24/19 04/25/19 19:00 07:00 Intake Total 1720 ml Output Total 1400 ml 1450 ml Balance 320 ml -1450 ml Intake Oral 800 ml IV Total 920 ml Output Urine Total 1400 ml 1450 ml Laboratory Tests Test 04/25/19 06:35 White Blood Count 9.0 K/UL (4.8-10.8) Red Blood Count 2.48 M/UL (4.70-6.10) L Hemoglobin 7.5 G/DL (14.2-18.0) L Hematocrit 22.7 % (42.0-52.0) L Mean Corpuscular Volume 91 FL (80-99) Mean Corpuscular Hemoglobin 30.0 PG (27.0-31.0) Mean Corpuscular Hemoglobin Concent 32.9 G/DL (32.0-36.0) Red Cell Distribution Width 13.3 % (11.6-14.8) Platelet Count 508 K/UL (150-450) H Mean Platelet Volume 4.8 FL (6.5-10.1) L Neutrophils (%) (Auto) % (45.0-75.0) Lymphocytes (%) (Auto) % (20.0-45.0) Monocytes (%) (Auto) % (1.0-10.0) Eosinophils (%) (Auto) % (0.0-3.0) Basophils (%) (Auto) % (0.0-2.0) Differential Total Cells Counted 100 Neutrophils % (Manual) 74 % (45-75) Lymphocytes % (Manual) 18 % (20-45) L Monocytes % (Manual) 3 % (1-10) Eosinophils % (Manual) 4 % (0-3) H Basophils % (Manual) 1 % (0-2) Band Neutrophils 0 % (0-8) Platelet Estimate Adequate Platelet Morphology Normal Hypochromasia 3+ Anisocytosis 1+ Spherocytes 1+ Height (Feet): 5 Height (Inches): 9.00 Weight (Pounds): 140 General Appearance: WD/WN, no apparent distress, alert Cardiovascular: normal rate Respiratory/Chest: normal breath sounds, no respiratory distress Abdominal Exam: normal bowel sounds, non tender, soft Extremities: normal range of motion, non-tender Cong Skinner NP Apr 25, 2019 10:53
--- NOTE | 2019-04-25 11:00 | NUR ---
NURSE NOTES: Blood transfusion is going on; vitals rechecked after 15 minutes of the start of the transfusion; no reaction; will keep monitoring.
[2019-04-25 12:00] VITALS: BP 140/82
--- NOTE | 2019-04-25 12:18 | NUR ---
*-*DISCHARGE PLANNING*-* PATIENT HAS BEEN REFERRED BACK TO: [facility] P: [phone] F: [phone] *-* CLINICALS FAXED*-*
--- NOTE | 2019-04-25 12:54 | NUR ---
*-*DISCHARGE PLANNING*-* PATIENT HAS BEEN ACCEPTED BACK TO: [facility] P: [phone] F: [phone] *-* CLINICALS FAXED*-*
--- NOTE | 2019-04-25 12:55 | NUR ---
*-*DISCHARGE PLANNED*-* PATIENT IS BEING DISCHARGED BACK TO: [facility] P: [phone] F: [phone] # 32.[facility] [id number] ETA 1:45PM/1345PM
--- NOTE | 2019-04-25 13:03 | Pulmonology Progress Note ---
Assessment/Plan Problems: (1) Sepsis (2) Anemia (3) Gram-negative bacteremia (4) Acute renal failure (5) UTI (urinary tract infection) (6) COPD (chronic obstructive pulmonary disease) (7) Hx of right BKA (8) Dehydration (9) Diabetes mellitus (10) History of hypertension (11) Severe protein-calorie malnutrition Assessment/Plan prbc ordered today hem consult was called for severe anemia doing better, eating well WBC normal improving continue abc iv fluids, renal function better add venofer stool for OB negative sliding scale Subjective ROS Limited/Unobtainable: No Constitutional: Reports: no symptoms HEENT: Repors: no symptoms Allergies: Coded Allergies: No Known Allergies (Unverified , 04/15/19) Objective Last 24 Hour Vital Signs Date Time Temp Pulse Resp B/P (MAP) Pulse Ox O2 Delivery O2 Flow Rate FiO2 04/25/19 12:00 97.5 83 18 140/82 (101) 97 04/25/19 09:00 Room Air 04/25/19 08:00 97.6 77 18 139/85 (103) 98 04/25/19 00:00 98.4 82 20 159/71 (100) 95 04/24/19 21:00 Room Air 04/24/19 20:00 99.3 76 20 161/67 (98) 97 04/24/19 16:00 98.7 90 19 128/60 (82) 98 Intake and Output 04/24/19 04/25/19 19:00 07:00 Intake Total 1720 ml Output Total 1400 ml 1450 ml Balance 320 ml -1450 ml Intake Oral 800 ml IV Total 920 ml Output Urine Total 1400 ml 1450 ml General Appearance: cachetic HEENT: normocephalic, atraumatic Respiratory/Chest: lungs clear, normal breath sounds Cardiovascular: normal peripheral pulses, normal rate Abdomen: normal bowel sounds, no organomegaly Skin: no rash Laboratory Tests 04/25/19 06:35: White Blood Count 9.0, Red Blood Count 2.48L, Hemoglobin 7.5L, Hematocrit 22.7L , Mean Corpuscular Volume 91, Mean Corpuscular Hemoglobin 30.0, Mean Corpuscular Hemoglobin Concent 32.9, Red Cell Distribution Width 13.3, Platelet Count 508H, Mean Platelet Volume 4.8L, Neutrophils (%) (Auto) , Lymphocytes (%) (Auto) , Monocytes (%) (Auto) , Eosinophils (%) (Auto) , Basophils (%) (Auto) , Differential Total Cells Counted 100, Neutrophils % (Manual) 74, Lymphocytes % ( Manual) 18L, Monocytes % (Manual) 3, Eosinophils % (Manual) 4H, Basophils % ( Manual) 1, Band Neutrophils 0, Platelet Estimate Adequate, Platelet Morphology Normal, Hypochromasia 3+, Anisocytosis 1+, Spherocytes 1+ Current Medications Medications (Trade) Dose Ordered Sig/Neftaly Route PRN Reason Start Time Stop Time Status Last Admin Dose Admin Acetaminophen (Tylenol) 650 mg Q4H PRN ORAL Mild Pain/Temp > 100.0 04/17/19 00:30 05/17/19 00:29 04/17/19 06:21 Cefepime HCl 1 gm/ Dextrose 55 ml @ 110 mls/hr EVERY 12 HOURS IVPB 04/18/19 21:00 04/28/19 23:59 04/25/19 09:17 Chlorhexidine Gluconate (Noelle-Hex 2%) 1 applic DAILY@2000 TOPIC 04/25/19 20:00 05/25/19 19:59 Dextrose 1,000 ml @ 100 mls/hr Q10H IV 04/17/19 00:30 05/17/19 00:29 04/25/19 09:11 Dextrose (Dextrose 50%) 25 ml Q30M PRN IV Hypoglycemia 04/17/19 00:15 05/15/19 21:14 Dextrose (Dextrose 50%) 50 ml Q30M PRN IV Hypoglycemia 04/17/19 00:15 05/15/19 21:14 Docusate Sodium (Colace) 100 mg TWICE A DAY ORAL 04/22/19 18:00 05/22/19 17:59 04/25/19 08:23 Heparin Sodium (Porcine) (Heparin 5000 units/ml) 5,000 units EVERY 12 HOURS SUBQ 04/17/19 09:00 05/16/19 08:59 04/25/19 08:24 Heparin Sodium/ Sodium Chloride (Heparin 1000 units/500ml Premix) 1,000 unit ONCE PRN IV PICC LINE PLACEMENT 04/25/19 08:30 04/27/19 08:29 Insulin Aspart (NovoLOG) BEFORE MEALS AND HS SUBQ 04/17/19 06:30 05/16/19 06:29 04/25/19 12:14 Lidocaine HCl (Xylocaine 1% 30ml) 30 ml ONCE PRN INJ PICC LINE PLACEMENT 04/25/19 08:30 04/27/19 08:29 Mirtazapine (Remeron) 7.5 mg BEDTIME ORAL 04/22/19 21:00 05/22/19 20:59 04/24/19 20:25 Nitrofurantoin (Macrobid) 100 mg EVERY 12 HOURS ORAL 04/19/19 21:00 04/25/19 23:59 04/25/19 08:23 Pantoprazole (Protonix) 40 mg BIAC ORAL 04/19/19 18:00 05/19/19 17:59 04/25/19 06:39 Dionne Chew MD Apr 25, 2019 13:03
--- NOTE | 2019-04-25 13:10 | Surgery Progress Note ---
Surgery Progress Note Subjective Additional Comments no acute events Objective Last 24 Hour Vital Signs Date Time Temp Pulse Resp B/P (MAP) Pulse Ox O2 Delivery O2 Flow Rate FiO2 04/25/19 12:00 97.5 83 18 140/82 (101) 97 04/25/19 09:00 Room Air 04/25/19 08:00 97.6 77 18 139/85 (103) 98 04/25/19 00:00 98.4 82 20 159/71 (100) 95 04/24/19 21:00 Room Air 04/24/19 20:00 99.3 76 20 161/67 (98) 97 04/24/19 16:00 98.7 90 19 128/60 (82) 98 I&O Intake and Output 04/24/19 04/25/19 19:00 07:00 Intake Total 1720 ml Output Total 1400 ml 1450 ml Balance 320 ml -1450 ml Intake Oral 800 ml IV Total 920 ml Output Urine Total 1400 ml 1450 ml Cardiovascular: RSR Respiratory: clear Abdomen: soft, non-tender, present bowel sounds Extremities: no edema, no cyanosis Laboratory Tests Test 04/25/19 06:35 White Blood Count 9.0 K/UL (4.8-10.8) Red Blood Count 2.48 M/UL (4.70-6.10) L Hemoglobin 7.5 G/DL (14.2-18.0) L Hematocrit 22.7 % (42.0-52.0) L Mean Corpuscular Volume 91 FL (80-99) Mean Corpuscular Hemoglobin 30.0 PG (27.0-31.0) Mean Corpuscular Hemoglobin Concent 32.9 G/DL (32.0-36.0) Red Cell Distribution Width 13.3 % (11.6-14.8) Platelet Count 508 K/UL (150-450) H Mean Platelet Volume 4.8 FL (6.5-10.1) L Neutrophils (%) (Auto) % (45.0-75.0) Lymphocytes (%) (Auto) % (20.0-45.0) Monocytes (%) (Auto) % (1.0-10.0) Eosinophils (%) (Auto) % (0.0-3.0) Basophils (%) (Auto) % (0.0-2.0) Differential Total Cells Counted 100 Neutrophils % (Manual) 74 % (45-75) Lymphocytes % (Manual) 18 % (20-45) L Monocytes % (Manual) 3 % (1-10) Eosinophils % (Manual) 4 % (0-3) H Basophils % (Manual) 1 % (0-2) Band Neutrophils 0 % (0-8) Platelet Estimate Adequate Platelet Morphology Normal Hypochromasia 3+ Anisocytosis 1+ Spherocytes 1+ Plan Problems: (1) Laceration of face Assessment & Plan: During admission and cleaning of the room patient sustained a laceration to his right face around the area of the eyebrow from a following light fixture. Wound wash Steri-Strips applied no signs of active infection no bleeding small hematoma. Mild tenderness on palpation. 1 cm laceration. No acute surgical intervention indicated recommended Keep Steri-Strips in place We will monitor closely to ensure no infection or hematoma or complication Nutritional optimization Findings: There is new finding of a small right frontal scalp hematoma. No acute intracranial hemorrhage or edema. No mass effect nor midline shift. There is age-related enlargement of the ventricles and extra-axial CSF spaces. There is periventricular deep white matter low-attenuation, consistent with chronic microvascular ischemic change. 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 There is again demonstrated chronic periosteal thickening and some mucosal disease of the left maxillary sinus. There is bilateral ethmoid sinus disease. The mastoids are clear. The calvarium is intact. Impression: Negative for acute intracranial bleed or mass effect Evidence of right frontal scalp contusion Thank you will follow with recommendations (2) Severe protein-calorie malnutrition Assessment & Plan: DAILY ESTIMATED NEEDS: Needs based on sepsis 65.9kg 25-35 kcals/kg 5424-9829 total kcals 1.25-2 g protein/kg 82-132 g total protein 25-30 mL/kg 4298-4926 total fluid mLs NUTRITION DIAGNOSIS: Increased kcal and pro needs r/t sepsis and wound healing as evidenced by febrile, adm w. elev WBC (23.9-> trending down), elev LD, w/ sacral wound, eval is pending. CURRENT DIET: Regular mech soft chopped PO DIET RECOMMENDATIONS: Regular liberalized diet/ texture per CO[employer] P[employer]ER ADDITIONAL RECOMMENDATIONS: 1) Calibrated bed scale wts 2) 1:1 feeds, encouragement 3) WC eval for sacral wounds 4) Add GLUCERNA 1 tetra zach BID w/ variable po intake, add snacks 5) COAL PICKER eval for appropriate texture 6) Monitor BG w/ suboptimal po -> currently on D5 @100 Findings: The study is very limited because of motion. The intrahepatic biliary ducts are dilated. The CBD is dilated measuring about 14 mm. No definite filling defect demonstrated within the CBD. A subtle mass is difficult to exclude at the ampulla. The main pancreatic duct is also mildly dilated. The gallbladder is absent. Trace bilateral pleural effusions are noted. IMPRESSION: Very limited study due to breathing motion. Biliary ductal dilatation without demonstration of choledocholithiasis. Biliary obstruction at the level of ampulla is difficult to exclude on this study. Status post cholecystectomy Trace bilateral pleural effusions (3) Sepsis Assessment & Plan: This is a 83-year-old male who initially presented with leukocytosis, abnormal labs, lactic acidosis, sepsis admitted for further care and management on IV antibiotics undergoing medical care who is now improving. Altered mental status being worked up. Continue with current medical treatment. Additional Comments This is a late entry for April 24, 2019. Patient was seen examined bedside. Unfortunately I was called to the emergency department following to the operating room was unable to complete my note at that time. Alex Garzon Apr 25, 2019 13:10
--- NOTE | 2019-04-25 13:11 | Surgery Progress Note ---
Surgery Progress Note Subjective Symptoms: improved Additional Comments Patient seen exam bedside. Improving. Labs noted. No nausea fever chills. Tolerating diet. Discharge planning. Objective Last 24 Hour Vital Signs Date Time Temp Pulse Resp B/P (MAP) Pulse Ox O2 Delivery O2 Flow Rate FiO2 04/25/19 12:00 97.5 83 18 140/82 (101) 97 04/25/19 09:00 Room Air 04/25/19 08:00 97.6 77 18 139/85 (103) 98 04/25/19 00:00 98.4 82 20 159/71 (100) 95 04/24/19 21:00 Room Air 04/24/19 20:00 99.3 76 20 161/67 (98) 97 04/24/19 16:00 98.7 90 19 128/60 (82) 98 I&O Intake and Output 04/24/19 04/25/19 19:00 07:00 Intake Total 1720 ml Output Total 1400 ml 1450 ml Balance 320 ml -1450 ml Intake Oral 800 ml IV Total 920 ml Output Urine Total 1400 ml 1450 ml Dressing: dry Wound: clean Cardiovascular: RSR Respiratory: clear Abdomen: soft, non-tender, present bowel sounds Extremities: no cyanosis Laboratory Tests Test 04/25/19 06:35 White Blood Count 9.0 K/UL (4.8-10.8) Red Blood Count 2.48 M/UL (4.70-6.10) L Hemoglobin 7.5 G/DL (14.2-18.0) L Hematocrit 22.7 % (42.0-52.0) L Mean Corpuscular Volume 91 FL (80-99) Mean Corpuscular Hemoglobin 30.0 PG (27.0-31.0) Mean Corpuscular Hemoglobin Concent 32.9 G/DL (32.0-36.0) Red Cell Distribution Width 13.3 % (11.6-14.8) Platelet Count 508 K/UL (150-450) H Mean Platelet Volume 4.8 FL (6.5-10.1) L Neutrophils (%) (Auto) % (45.0-75.0) Lymphocytes (%) (Auto) % (20.0-45.0) Monocytes (%) (Auto) % (1.0-10.0) Eosinophils (%) (Auto) % (0.0-3.0) Basophils (%) (Auto) % (0.0-2.0) Differential Total Cells Counted 100 Neutrophils % (Manual) 74 % (45-75) Lymphocytes % (Manual) 18 % (20-45) L Monocytes % (Manual) 3 % (1-10) Eosinophils % (Manual) 4 % (0-3) H Basophils % (Manual) 1 % (0-2) Band Neutrophils 0 % (0-8) Platelet Estimate Adequate Platelet Morphology Normal Hypochromasia 3+ Anisocytosis 1+ Spherocytes 1+ Plan Problems: (1) Laceration of face Assessment & Plan: During admission and cleaning of the room patient sustained a laceration to his right face around the area of the eyebrow from a following light fixture. Wound wash Steri-Strips applied no signs of active infection no bleeding small hematoma. Mild tenderness on palpation. 1 cm laceration. No acute surgical intervention indicated recommended Keep Steri-Strips in place We will monitor closely to ensure no infection or hematoma or complication Nutritional optimization Findings: There is new finding of a small right frontal scalp hematoma. No acute intracranial hemorrhage or edema. No mass effect nor midline shift. There is age-related enlargement of the ventricles and extra-axial CSF spaces. There is periventricular deep white matter low-attenuation, consistent with chronic microvascular ischemic change. 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 There is again demonstrated chronic periosteal thickening and some mucosal disease of the left maxillary sinus. There is bilateral ethmoid sinus disease. The mastoids are clear. The calvarium is intact. Impression: Negative for acute intracranial bleed or mass effect Evidence of right frontal scalp contusion Thank you will follow with recommendations (2) Severe protein-calorie malnutrition Assessment & Plan: DAILY ESTIMATED NEEDS: Needs based on sepsis 65.9kg 25-35 kcals/kg 1114-4319 total kcals 1.25-2 g protein/kg 82-132 g total protein 25-30 mL/kg 8538-4798 total fluid mLs NUTRITION DIAGNOSIS: Increased kcal and pro needs r/t sepsis and wound healing as evidenced by febrile, adm w. elev WBC (23.9-> trending down), elev LD, w/ sacral wound, eval is pending. CURRENT DIET: Regular mech soft chopped PO DIET RECOMMENDATIONS: Regular liberalized diet/ texture per ALARM SIGNAL OPERATOR ADDITIONAL RECOMMENDATIONS: 1) Calibrated bed scale wts 2) 1:1 feeds, encouragement 3) WC eval for sacral wounds 4) Add GLUCERNA 1 tetra zach BID w/ variable po intake, add snacks 5) ALARM SIGNAL OPERATOR eval for appropriate texture 6) Monitor BG w/ suboptimal po -> currently on D5 @100 Findings: The study is very limited because of motion. The intrahepatic biliary ducts are dilated. The CBD is dilated measuring about 14 mm. No definite filling defect demonstrated within the CBD. A subtle mass is difficult to exclude at the ampulla. The main pancreatic duct is also mildly dilated. The gallbladder is absent. Trace bilateral pleural effusions are noted. IMPRESSION: Very limited study due to breathing motion. Biliary ductal dilatation without demonstration of choledocholithiasis. Biliary obstruction at the level of ampulla is difficult to exclude on this study. Status post cholecystectomy Trace bilateral pleural effusions (3) Sepsis Assessment & Plan: This is a 83-year-old male who initially presented with leukocytosis, abnormal labs, lactic acidosis, sepsis admitted for further care and management on IV antibiotics undergoing medical care who is now improving. Altered mental status being worked up. Continue with current medical treatment. Pt noted to have partial thickness shearing sacrum (L)5.5cm x (W)8cm. Base of wound is moist and viable with moist rolled skin-flap. Darker skin tone along edges and periwound without erythema or induration.No odor or exudate noted. Pt denied tenderness areas around borders of wound palpated. Resolving pressure injury L trochanter. Dry,[place] epithelial at base of wound.No evidence of skin breakdown periwound. Large intact blood Blister noted to dorsal L foot(L)9.6cm x (W)3.5cm. Small reabsorbing blood blister noted to dorso/flexor L foot(L01.2cm x (W)1cm. Blood Blister noted to lateral L heel(L)2.4cm x (W)4.5cm.No evidence of fluctuance ,erythema or induration periwound. L 2nd metatarsal noted to be black in colour. 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 Tx.Plan: Apply Moisture Barrier Paste to sacrum. Cover with Optifoam drsg. Change every 3 days and prn. Apply Cavilon Skin Barrier to R and L trochanter. Cover each area with Optifoam drsg. Change every 7 days and prn. Apply Betadine to dorsal L foot, dorso/Flexor L foot and L heel. Cover with Abd pads. Wrap with Kerlix every 3 days and prn. APM/VIRIDIANA Mattress overlay. Reposition at least every 2hours or as tolerated. Off-load L heel with pillow. Alex Garzon Apr 25, 2019 13:10
--- NOTE | 2019-04-25 14:30 | NUR ---
NURSE NOTES: One Unit blood transfusion completed;will keep monitoring.
--- NOTE | 2019-04-25 16:04 | NUR ---
NURSE NOTES: Patient discharged to [facility]; report given to Miki; patient left the floor with two [facility] personnel; vital were stable; IV access, name tag and Pike removed upon discharge; belonging lists checked and sent with patient; wound care provided and pictures taken and uploaded on patient's file;
--- NOTE | 2019-04-25 16:33 | NUR ---
*-* INSURANCE *-*- ALL CLINICALS AND REVIEWS HAVE BEEN FAXED TO: GLADIS/THEA NO SOUND DESIGNER ASSIGNED AT THIS TIME PLEASE FAX THE REVIEW/CLINICAL P- [phone] F- [phone]....REVIEW/CLINICAL
[2019-04-25] MEDS ORDERED: Dyna-Hex 2% Top Sol 2oz TOPIC SCH (20:00)
--- NOTE | 2019-04-28 08:38 | Discharge Summary ---
Discharge Summary Discharge Summary _ DC SUMMARY ( please see dc summary done by Dr Anderson) DISCHARGE DIAGNOSIS Severe sepsis with klebsiella pneumonia bacteremia Polymicrobial UTI Acute renal failure- resolved Dehydration PVD Right BKA with phantom limb syndrome Diabetes mellitus Hypertension COPD Dysphagia , feeding by G-tube Anemia of chronic disease GI bleeding Status post EGD and colonoscopy Gastritis Diverticulosis Transaminitis resolved Severe protein calorie malnutrition Dilated common bile duct Facial laceration right side Hyperlipidemia Nidhi Fallon NP Apr 28, 2019 08:38
== END 2019-04-25 16:00 | DRG 720 ==
LOC: EDBD 11:43 → EMR 12:30 → 2E 14:11 → EDBEDREQ 16:00 → 4E 04-16 23:46
PROC: 0DB78ZX Excision of Stomach, Pylorus, Via Natural or Artificial Opening Endoscopic, Diagnostic (ICD-10-PCS; principal; 2019-04-23 11:55)
PROC: 0DJD8ZZ Inspection of Lower Intestinal Tract, Via Natural or Artificial Opening Endoscopic (ICD-10-PCS; 2019-04-23 11:55)
PROC: 30233N1 Transfusion of Nonautologous Red Blood Cells into Peripheral Vein, Percutaneous Approach (ICD-10-PCS; 2019-04-25)
DX: A41.59 Other Gram-negative sepsis (principal); E43 Unspecified severe protein-calorie malnutrition; N17.9 Acute kidney failure, unspecified; I82.412 Acute embolism and thrombosis of left femoral vein; N39.0 Urinary tract infection, site not specified; S01.111A Laceration without foreign body of right eyelid and periocular area, initial encounter; G54.7 Phantom limb syndrome without pain; K29.70 Gastritis, unspecified, without bleeding; K57.90 Diverticulosis of intestine, part unspecified, without perforation or abscess without bleeding; E86.0 Dehydration; Z43.1 Encounter for attention to gastrostomy; Z43.0 Encounter for attention to tracheostomy; Z89.511 Acquired absence of right leg below knee; R13.10 Dysphagia, unspecified; Z79.4 Long term (current) use of insulin; K83.8 Other specified diseases of biliary tract; D63.8 Anemia in other chronic diseases classified elsewhere; R65.20 Severe sepsis without septic shock; K64.8 Other hemorrhoids; J44.9 Chronic obstructive pulmonary disease, unspecified; E11.9 Type 2 diabetes mellitus without complications; X58.XXXA Exposure to other specified factors, initial encounter
CPT/HCPCS: 36415; 70450; 71045; 74181; 76700; 80048; 80053; 80076; 80202; 81001; 81003; 82248; 82270; 82378; 82550; 82607; 82728; 82746; 82803; 82962; 83036; 83540; 83550; 83605; 83615; 83735; 83880; 84100; 84133; 84300; 84443; 84484; 84550; 85007; 85025; 85044; 85060; 85610; 85651; 85730; 86140; 86710; 86850; 86900; 86901; 86920; 87040; 87081; 87086; 87181; 89050; 93005; 93926; 93971; 94003; 94150; 96365; 96368; 99285; J1815; J7030; J8499

== ENCOUNTER 2019-12-11 12:34 | Inpatient (IN) | payer MEDICARE, OTHER ==
[~2019-12-11] VITALS: Ht 167.6 cm; Wt 37.2 kg
[~2019-12-11 12:34] MED LIST: ACETAMINOPHEN325 M1 ORAL; ALBUTEROL SULF8.5 G1 IH; ALBUTEROL2.5 MG/3 M INH; ARTIFICIAL TEA1 EAC2 BOTH EYES; ATORVASTATIN CA10 MG ORAL; ATORVASTATIN CA20 MG ORAL; BISACODYL10 M1 RC; BISACODYL5 MG ORAL; BRIMONIDINE TART5 ML BOTH EYES; DOCUSATE SODIU250 MG ORAL; GABAPENTIN100 MG ORAL; LANTUS SOL100 UNIT/1 SUBQ; LATANOPROST2.5 ML BOTH EYES; LOSARTAN POTASS25 MG ORAL; LOVENOX10 M4 SUBQ; MELATONIN 3 MG1 EAC1 PO; MELATONIN3 MG ORAL; METFORMIN HCL1000 M1 ORAL; MULTIVITAMINS1 EAC2 ORAL; NOVOLOG100 UNIT/5 SUBQ; SENNA8.6 M2 PO; TYLENOL EXTRA500 MG ORAL; VITAMIN D310000 UNIT PO
--- NOTE | 2019-12-11 12:45 | NUR ---
ED Nurse Note: pt presents to ED from [facility] for hgb of 5.1 and necrotic L foot ulcer. [place] staff report that pt has had a decreased appetite because every time he eats it seems like he is "choking." pt presents with a R BKA, L foot and sacral ulcers and a jay cath with brown urine. pt is non-verbal but can nod his head/groan to answer yes/no questions. pt has stable vital signs, satting at 100% on RA. SNF staff report a (-) COVID result form 12/04/2019
[2019-12-11] MEDS ORDERED: Cefepime HCl 2 GM in NS 110 ML IV ONE (13:00)
[2019-12-11] MEDS ORDERED: Vancomycin 1 GM in NS 275 ML IV ONE (13:00)
[2019-12-11] MEDS ORDERED: INSULIN AS100 UNIT/2 SQ (13:07)
[2019-12-11] MEDS ORDERED: FERROUS SULFAT325 MG ORAL (13:07)
[2019-12-11] MEDS ORDERED: CRANBERRY450 M5 PO (13:07)
[2019-12-11] MEDS ORDERED: GABAPENTIN100 MG ORAL (13:07)
[2019-12-11] MEDS ORDERED: HEPARIN SO5000 UNIT2 SUBQ (13:07)
[2019-12-11] MEDS ORDERED: NORCO 5-325 TA1 EAC1 ORAL (13:07)
[2019-12-11] MEDS ORDERED: LOSARTAN POTASS50 MG ORAL (13:07)
[2019-12-11 13:21] LABS: HEMATOCRIT 15.9 % (42.0-52.0); MEAN CORPUSCULAR VOLUME 83 FL (80-99); PLATELET COUNT 426 K/UL (150-450); RED BLOOD COUNT 1.92 M/UL (4.70-6.10); RED CELL DISTRIBUTION WIDTH 15.2 % (11.6-14.8); WHITE BLOOD COUNT 11.9 K/UL (4.8-10.8)
[2019-12-11 13:24] LABS: HEMOGLOBIN 4.9 G/DL (14.2-18.0)
[2019-12-11 13:29] LABS: CALCIUM 9.3 MG/DL (8.5-10.1); CREATININE 2.1 MG/DL (0.55-1.30); INR 1.1 (0.9-1.1); POTASSIUM 4.3 MMOL/L (3.5-5.1)
[2019-12-11 13:30] VITALS: BP 114/89
[2019-12-11 13:32] LABS: APPEARANCE,URINE VERY CLOUDY; BILIRUBIN, URINE NEGATIVE (NEGATIVE); COLOR,URINE BROWN; GLUCOSE, URINE (UA) NEGATIVE (NEGATIVE); KETONES,URINE 2+ (NEGATIVE); LEUKOCYTE ESTERASE ,URINE 3+ (NEGATIVE); NITRITE,URINE NEGATIVE (NEGATIVE); PH,URINE 7 (4.5-8.0); PROTEIN,URINE 4+ (NEGATIVE); UROBILINOGEN,URINE 1 MG/DL (0.0-1.0)
--- NOTE | 2019-12-11 13:37 | Emergency Room Report ---
History of Present Illness General Chief Complaint: General Complaint Source: Patient Present Illness HPI Patient is an 84-year-old male sent in by nursing facility for decreased hemoglobin. Patient had prior history of chronic debilitation. He was noted to have a hemoglobin of 5.1 at his facility. This was changed from his baseline which was approximately 9. No known recent bleeding. History is limited by patient's mental status. Patient is alert and oriented x1. Allergies: Coded Allergies: No Known Allergies (Unverified , 04/15/19) COVID-19 Screening Contact w/high risk pt: No Experienced COVID-19 symptoms?: No COVID-19 Testing performed SANDER HAND: Yes - 12/04/19 COVID-19 Screening: Negative COVID-19 COVID-19 Testing Source: golf cart maker Patient History Past Medical History: see triage record Reviewed Nursing Documentation: PMH: Agreed; PSxH: Agreed Nursing Documentation-PMH Past Medical History: No History, Except For Hx Hypertension: Yes - glaucoma, osteoarthritis Hx Asthma: Yes Hx Diabetes: Yes Review of Systems All Other Systems: limited - Limited by poor historian Physical Exam Vital Signs Date Time Temp Pulse Resp B/P (MAP) Pulse Ox O2 Delivery O2 Flow Rate FiO2 12/11/19 12:35 98.1 88 18 114/89 (97) 95 Room Air Sp02 EP Interpretation: reviewed, normal General Appearance: well appearing, alert, Chronically Ill Head: atraumatic ENT: normal ENT inspection, hearing grossly normal, normal voice Neck: normal inspection, full range of motion, supple, no bony tend Respiratory: normal inspection, lungs clear, normal breath sounds, no respiratory distress, no retraction, no wheezing Cardiovascular #1: regular rate, rhythm, edema - Leg edema Gastrointestinal: normal inspection, normal bowel sounds, non tender, soft, no guarding, no hernia Genitourinary: no CVA tenderness Musculoskeletal: back normal, other - Left lower extremity discolored, right lower extremity absent below the knee Neurologic: alert, oriented x3, responsive, normal inspection Psychiatric: normal inspection, judgement/insight normal, mood/affect normal Procedures Critical Care Time Critical Care Time Critical care time excluding separately billed procedures was 45 minutes. Medical Decision Making Diagnostic Impression: Primary Impression: COPD (chronic obstructive pulmonary disease) Additional Impressions: Severe anemia Lactic acidosis Lung nodule Urinary tract infection ER Course Patient presented for severe anemia. Differential diagnosis include was not limited to GI bleed, sepsis, anemia of chronic disease among others. Because of complexity of patient's case laboratory tests and imaging studies were ordered. Patient was noted to have initial significantly low hemoglobin. He appears to be somewhat pale. Patient was typed and crossed for blood and IV access was established. Patient was noted to have significant abnormal hemoglobin and repeat hemoglobin showed a 4.9. Patient was given IV antibiotics due to urinary infection. Had previous gram-negative bacteremia in the past. Patient will require admission for further evaluation and transfusion. He was started on blood transfusion. Dr. Domingo Anderson was contacted for inpatient management due to primary care physician. Labs Test 12/11/19 12:50 12/11/19 13:05 White Blood Count 11.9 K/UL (4.8-10.8) Red Blood Count 1.92 M/UL (4.70-6.10) Hemoglobin 4.9 G/DL (14.2-18.0) Hematocrit 15.9 % (42.0-52.0) Mean Corpuscular Volume 83 FL (80-99) Mean Corpuscular Hemoglobin 25.3 PG (27.0-31.0) Mean Corpuscular Hemoglobin Concent 30.6 G/DL (32.0-36.0) Red Cell Distribution Width 15.2 % (11.6-14.8) Platelet Count 426 K/UL (150-450) Mean Platelet Volume 5.3 FL (6.5-10.1) Neutrophils (%) (Auto) % (45.0-75.0) Lymphocytes (%) (Auto) % (20.0-45.0) Monocytes (%) (Auto) % (1.0-10.0) Eosinophils (%) (Auto) % (0.0-3.0) Basophils (%) (Auto) % (0.0-2.0) Prothrombin Time 11.6 SEC (9.30-11.50) Prothromb Time International Ratio 1.1 (0.9-1.1) Activated Partial Thromboplast Time 37 SEC (23-33) Sodium Level 138 MMOL/L (136-145) Potassium Level 4.3 MMOL/L (3.5-5.1) Chloride Level 102 MMOL/L (98-107) Carbon Dioxide Level 26 MMOL/L (21-32) Anion Gap 10 mmol/L (5-15) Blood Urea Nitrogen 57 mg/dL (7-18) Creatinine 2.1 MG/DL (0.55-1.30) Estimat Glomerular Filtration Rate 36.7 mL/min (>60) Glucose Level 238 MG/DL (74-106) Calcium Level 9.3 MG/DL (8.5-10.1) Troponin I 0.000 ng/mL (0.000-0.056) Urine Color Brown Urine Appearance Very cloudy Urine pH 7 (4.5-8.0) Urine Specific [place] 1.015 (1.005-1.035) Urine Protein 4+ (NEGATIVE) Urine Glucose (UA) Negative (NEGATIVE) Urine Ketones 2+ (NEGATIVE) Urine Blood 5+ (NEGATIVE) Urine Nitrite Negative (NEGATIVE) Urine Bilirubin Negative (NEGATIVE) Urine Urobilinogen 1 MG/DL (0.0-1.0) Urine Leukocyte Esterase 3+ (NEGATIVE) EKG Diagnostic Results Rate: tachycardiac Rhythm: NSR ST Segments: no acute changes Last Vital Signs Date Time Temp Pulse Resp B/P (MAP) Pulse Ox O2 Delivery O2 Flow Rate FiO2 12/11/19 12:35 98.1 88 18 114/89 (97) 95 Room Air Status: unchanged Disposition: ADMITTED INPATIENT Condition: Stable Rakan Reyes MD Dec 11, 2019 13:37
[2019-12-11 13:44] LABS: ALBUMIN 1.6 G/DL (3.4-5.0); ALBUMIN/GLOBULIN RATIO 0.3 (1.0-2.7); BILIRUBIN,TOTAL 0.4 MG/DL (0.2-1.0); CKMB 0.7 NG/ML (0.0-3.6); PHOSPHORUS 2.3 MG/DL (2.5-4.9)
[2019-12-11 14:00] VITALS: BP 103/50
--- NOTE | 2019-12-11 14:09 | Diagnostic Imaging Report ---
Indication: Shortness of breath Technique: One view of the chest Comparison: 04/15/2019 Findings: Very slight fullness of the right perihilar region probably just represents vascular prominence but infiltrate in this area also possible. Mass or adenopathy also possible. The pleural spaces are clear. The remainder of the lungs are clear. Heart size is normal. Impression: Right perihilar fullness, possibly on the basis of prominent normal vasculature, but appears asymmetric and increased from earlier studies. Possibility of infiltrate or mass or adenopathy should be considered. This was discussed by phone with Dr. Reyes in the emergency room at the time of interpretation No acute process otherwise
--- NOTE | 2019-12-11 14:30 | NUR ---
ED Nurse Note: pt;s Sukhwinder [phone]
--- NOTE | 2019-12-11 14:30 | NUR ---
ED Nurse Note: blood transfusion started, 2 RN verification completed with Angela Kidd RN
--- NOTE | 2019-12-11 14:30 | NUR ---
ED Nurse Note: Pt has IV site to R EJ placed by Dr. Reyes, pt is receiveing blood transfusion to site but turns his head and creates an occlusion often, pt constantly reminded to keep head straight for blood to transfuse but he often forgets
--- NOTE | 2019-12-11 15:11 | NUR ---
ED Nurse Note: US at pt bedside for L leg venous duplex scan, pt has blood transfusion running into L EJ IV site, no acute distress is noted at this time, VSS on weasand trimmer
[2019-12-11 16:00] VITALS: BP 98/47
--- NOTE | 2019-12-11 16:31 | NUR ---
ED Nurse Note: admitting RN Lena not ready to take report, will call back
--- NOTE | 2019-12-11 16:41 | NUR ---
ED Nurse Note: report given to KWASI Lewis
[2019-12-11 19:05] VITALS: BP 95/62
--- NOTE | 2019-12-11 19:59 | NUR ---
NURSE HAND-OFF REPORT: Important Events on Shift:Admission started, finished first bag of transfusion of PRBC's and began second unit of PRBC's. Patient Status: Stable Diet: Need admission orders. Pending Orders: Need admission orders. Pending Results/Labs:N/A Pending MD notification:Need admission orders. Latest Vital Signs: Temperature 97.5 , Pulse 79 , B/P 95 /62 , Respiratory Rate 20 , O2 SAT 100 , Room Air, O2 Flow Rate . Vital Sign Comment: Hypotensive. EKG Rhythm: NSR, pulse=83 Rhythm change?: MD Notified?: - MD Response: Latest Clark Fall Score: 50 Fall Risk: Safety Measures: Call light , Bed Alarm Zone 2, Side Rails Side Rails x2, Bed position Low and Locked. Fall Precautions: Yellow Socks Report given to Jonathan Fritz RN.
--- NOTE | 2019-12-11 20:06 | NUR ---
NURSE NOTES: Pt. received from KWASI Henson. Pt. AAOx1 to name, breathing even and unlabored on room air, no indications of respiratory distress, no indications of pain at this time. IV noted right EJ 20g intact and patent with blood transfusion running at 160cc/hr. Bed low and locked, side rails x3 up, bed alarm active, and call light in reach. Will follow up with primary MD for admission orders.
--- NOTE | 2019-12-11 20:22 | NUR ---
NURSE NOTES: Dr. Chavez called for admission orders. Pt. currently receiving blood transfusion, stable, no signs of distress.
[2019-12-11] MEDS ORDERED: Albuterol 90mcg Inhaler 8gm INH PRN (20:45)
[2019-12-11] MEDS ORDERED: HYDROcodone/Acetamin 5/325 tab ORAL PRN (20:45)
[2019-12-11] MEDS ORDERED: Heparin 5000 units/ml inj SUBQ SCH (21:00)
[2019-12-11] MEDS ORDERED: cefTRIAXone 1 GM in D5W 55 ML IVPB SCH (21:30)
--- NOTE | 2019-12-11 21:30 | NUR ---
NURSE NOTES: Admission orders received from Dr. Anderson, entered and will continue with plan of care. Pt. finished with blood transfusion, no signs of adverse reaction, pt. alert x2 to name and purpose, VS BP 104/54, T 98.6 HR 76 O2 97% RR 18. Addendum: 12/12/19 at 0349 by Lonnie Conrad RN Orders to resume SNF medications.
[2019-12-11] MEDS: Latanoprost 0.005% Opth 2.5ml Soln BOTH EYES SCH (21:49)
[2019-12-11] MEDS: Sennosides 8.6mg tab ORAL SCH (21:49)
--- NOTE | 2019-12-11 22:02 | Diagnostic Imaging Report ---
Indication: Left leg pain Technique: Grayscale and duplex images of the left lower extremity arteries Comparison: April 16, 2019 Findings: Borderline triphasic waveforms are seen in the common femoral artery level. The superficial femoral artery waveforms are monophasic with sharp upstroke. No flow is seen in the distal superficial femoral artery. There is distal reconstitution of the superficial femoral artery, by collaterals, upstroke remain sharp. Monophasic popliteal waveforms with sharp upstroke and amplitude are demonstrated. Increasingly monophasic waveforms with slower upstroke and lower amplitude are seen in the posterior tibial, peroneal, and anterior tibial arteries. Findings are overall similar to those reported previously, although the amplitude of the waveforms of the tibial vessels and popliteal and distal superficial femoral artery appear increased Impression: Left distal superficial femoral artery occlusion. Distal waveforms remain monophasic, although the upstroke and amplitude appears somewhat increased as compared to prior study of 04/16/2019. This may reflect improved collateral flow
[2019-12-11] MEDS ORDERED: Vancomycin 1.25 GM in NS 275 ML IVPB ONE (23:00)
[2019-12-11] MEDS ORDERED: Vancomycin 1.25gm/NS Premix IVPB ONE (23:00)
[2019-12-12] VITALS: BP 100/53
[2019-12-12] MEDS ORDERED: cefTRIAXone 1 GM in D5W 55 ML IVPB SCH ×2
--- NOTE | 2019-12-12 02:30 | History and Physical Report ---
DATE OF ADMISSION: 12/11/2019 This is one of several admissions to [facility] of this 84-year-old patient because of severe drop in hemoglobin, hematocrit, and nonresponsive wound in the left lower extremity to conservative treatment. HISTORY OF PRESENT ILLNESS: The patient is a resident of an extended care facility where he has been in stable condition over the last several months. He is known to have several chronic medical syndromes that will be detailed in the following paragraphs, but has been stable on current medication. The patient has an extensive ischemic wound in the posterior portion of the left lower extremity that has been managed and treated by the wound team headed by a dinkey engine firer/fireman. After several weeks of attempt to wound, it became apparently clear that the patient may need a vascular assessment for the wound to respond to conservative treatment. He was transferred to [facility] ER where his H and H were found to be 4.9 and 50.9 and patient was admitted. PAST MEDICAL/SURGICAL HISTORY: The patient underwent [id number] amputation of his right lower extremity several years ago. Medically, he is known to have diabetes mellitus, chronic pain syndrome, glaucoma, infected ischemic wounds, hyperlipidemia, motility disorder. MEDICATIONS: The patient is on enoxaparin 30 gram subcutaneously q.24 hours, use of multivitamin tablet daily, metformin 1000 mg b.i.d., losartan 50 mg daily, sliding scale regular insulin associated with insulin aspart 6 units 3 times a day prior to meals. He is on gabapentin 300 mg b.i.d., ferrous sulfate 325 mg b.i.d., brimonidine tartrate 1 drop b.i.d. He is on ceftriaxone 1 g IV piggyback q.24 hours since he has arrived to [facility]. He is on latanoprost 0.05 mg 1 drop in each eye daily. He is on hydrocodone 5/325 mg q.6h. p.r.n. He has multiple medications for motility disorder on a p.r.n. basis. FAMILY HISTORY: Noncontributory due to the fact that the patient declined to discuss the medical issue of his parents and other family member. SOCIAL HISTORY: He is single. He was born in [place]. He has been on SSI since his care home. Prior to the appearance of his total disability, he worked at different jobs. HABITS: The patient does not smoke, drink, or use illicit drugs. REVIEW OF SYSTEMS: The patient is unable to give any information regarding his state of health. PHYSICAL EXAMINATION: VITAL SIGNS: His blood pressure is 98/47, his pulse is 88, respirations are 18, temperature 98.9. HEENT: Eyes were normal. Pupils were round, equal, and reactive to light. Sclerae were white. Conjunctivae were pink. Extraocular movements were normal. Temporal arteries were palpable bilaterally. There was no bilateral temporal wasting. Visual khanna to confrontation were normal and neglect sign was negative. ENT: Mucous membranes were not dehydrated. Auditory canals were clear and tympanic membranes could not be visualized. Nasal cavity was not congested. Nasal septum was intact. Soft palate was free of ulcerations. Pharynx was clear from exudate and tonsillar hypertrophy. Uvula steven to phonation. Tongue was moist, midline, and normally papillated. NECK: Supple. There was no goiter. No mass. No lymphadenopathy. No JVD. No bruits. Carotid upstroke was 1+. LUNGS: Clear. HEART: PMI was fifth left intercostal space in midclavicular line. There was normal S1 and normal S2. There was no murmur. No arrhythmia. No S3. No S4. No pericardial rub. ABDOMEN: Soft and nontender without organomegaly. There were no masses palpable. Normal bowel sounds without bruit. There was no guarding. No rebound tenderness. No ascites. No hernia. No CVA tenderness. Liver span was 8 cm, mostly nontender. EXTREMITIES: There were no cyanosis, no clubbing, and no edema in the left lower extremity. However, the large wound in the posterior portion of the lower third of the leg. There was a deep wound with foul smell and moist at least 4-inch at length and 150 in width. NEUROLOGICAL: Reflexes in biceps, triceps, and brachioradialis were present. Patella retinaculum on the left lower extremity was no attempted. Plantars were in flexion. Cranial nerve IV to XII were symmetric and equal. Cerebellar function, there was no tremor. No nystagmus. No extrapyramidal rigidity. Sensory exam to pinprick, cotton touch, and position were grossly normal. Motor strength was 5/5 against resistance in the right upper extremity and as expected by age. Cranial nerves II to XII were symmetric and equal. Cerebellar function, there was no tremor. No nystagmus. No extrapyramidal rigidity. Sensory exam to pinprick, cotton touch, and position are normal in upper extremity, in the left lower extremity up to the area above the feet. LABORATORY AND DIAGNOSTIC DATA: Hemoglobin is 4.9, hematocrit 15.9 with MCV of 83, WBC of 11.9, and platelets of 426. His BUN and creatinine are 57 and 2.1 respectively. His sodium is 136, potassium 4.3, chloride 102, and CO2 is 26. His lactic acid was 2.9. It was unchanged two hours later. Alkaline phosphatase is 115. His total CK was 45. Troponin was undetected. Albumin is 1.6. IMPRESSION: The patient has severe drop in H and H. Three units of packed RBCs. Repeat laboratory tests will be done in the a.m. Venous duplex scan was ordered for the left lower extremities. Repeat laboratory tests will be done in the a.m. Domingo Anderson M.D. DR: Catarino JOB#: [id number] CC:
--- NOTE | 2019-12-12 02:58 | NUR ---
NURSE NOTES: Wound care done for pt.'s left leg, left foot, and sacrum. Pt. tolerated well.
[2019-12-12 04:00] VITALS: BP 107/51
--- NOTE | 2019-12-12 06:56 | Consultation ---
History of Present Illness General Chief Complaint: General Complaint Present Illness Allergies: Coded Allergies: No Known Allergies (Unverified , 04/15/19) Medication History Scheduled Atorvastatin Calcium* (Lipitor*), 10 MG ORAL BEDTIME, (Reported) Brimonidine Tartrate* (Alphagan*), 1 DROP BOTH EYES BID, (Reported) Cholecalciferol (Vitamin D3) (Vitamin D3), 50,000 UNIT PO ONCE A WEEK, (Reported) Dextran 70/Hypromellose (Artificial Tears), 1 EACH BOTH EYES Q4HR, (Reported) Docusate Sodium* (Docusate Sodium*), 250 MG ORAL DAILY, (Reported) Enoxaparin* (Lovenox*), 40 MG SUBQ DAILY, (Reported) Ferrous Sulfate* (Ferrous Sulfate*), 325 MG ORAL TWICE A DAY, (Reported) Gabapentin* (Gabapentin*), 100 MG ORAL THREE TIMES A DAY, (Reported) Gabapentin* (Gabapentin*), 300 MG ORAL BID, (Reported) Insulin Aspart (Novolog), 6 SUBQ THREE TIMES A DAY, (Reported) Insulin Glargine (Lantus), 34 UNIT SUBQ DAILY, (Reported) Latanoprost* (Xalatan*), 1 DROP BOTH EYES BEDTIME, (Reported) Losartan Potassium* (Losartan Potassium*), 25 MG ORAL DAILY, (Reported) Losartan Potassium* (Losartan Potassium*), 50 MG ORAL DAILY, (Reported) Melatonin (Melatonin), 6 MG ORAL BEDTIME, (Reported) Metformin Hcl* (Metformin Hcl*), 1,000 MG ORAL BID, (Reported) Multivitamins* (Multivitamins*), 1 TAB ORAL DAILY, (Reported) Sennosides (Senna), 8.6 MG PO BEDTIME, (Reported) Scheduled PRN Acetaminophen* (Acetaminophen 325MG Tablet*), 650 MG ORAL Q4H PRN for Mild Pain/Temp > 100.5, (Reported) Acetaminophen* (Tylenol Extra Strength*), 500 MG ORAL Q6H PRN for Mild Pain/Temp > 100.5, (Reported) Albuterol Sulfate* (Albuterol Sulfate Hfa*), 2 PUFFS IH Q6HR PRN for Shortness of Breath, (Reported) Bisacodyl (Bisacodyl), 10 MG RC for Constipation, (Reported) Heparin Sod (Porcine) (Heparin Sodium*), 5,000 UNITS SUBQ EVERY 12 HOURS PRN for dvt ppx, (Reported) Hydrocodone Bit/Acetaminophen 5-325* (Mesa 5-325 Tablet*), 1 TAB ORAL Q6H PRN for FOR PAIN, (Reported) Miscellaneous Medications Cranberry Fruit (Cranberry), 450 MG PO, (Reported) Insulin Aspart (Insulin Aspart), 100 UNIT SQ, (Reported) Patient History Healthcare decision maker Resuscitation status Advanced Directive on File Physical Exam Last 24 Hour Vital Signs Date Time Temp Pulse Resp B/P (MAP) Pulse Ox O2 Delivery O2 Flow Rate FiO2 12/12/19 04:00 97.9 75 20 107/51 (69) 100 75 12/12/19 04:00 75 12/12/19 00:00 97.5 79 16 100/53 (69) 98 12/12/19 00:00 76 12/11/19 21:00 Room Air 12/11/19 20:12 Room Air 12/11/19 20:00 78 12/11/19 19:05 Room Air 12/11/19 19:05 97.5 79 20 95/62 (73) 100 12/11/19 17:00 98.9 88 18 98/47 100 Room Air 12/11/19 16:00 98.9 88 18 98/47 100 Room Air 12/11/19 14:45 98.9 83 18 12/11/19 14:30 98.6 83 18 12/11/19 14:00 98.1 83 16 103/50 100 Room Air 12/11/19 13:30 98.1 88 18 114/89 95 Room Air 12/11/19 13:30 88 18 Room Air 12/11/19 12:35 98.1 88 18 114/89 (97) 95 Room Air Intake and Output 12/11/19 12/12/19 18:59 06:59 Intake Total 0 ml 192.5 ml Output Total 250 ml 600 ml Balance -250 ml -407.5 ml Intake Oral 0 ml IV Total 192.5 ml Output Urine Total 250 ml 600 ml # Voids 1 # Bowel Movements 1 Laboratory Tests Test 12/11/19 12:50 12/11/19 13:05 12/11/19 14:10 White Blood Count 11.9 K/UL (4.8-10.8) H Red Blood Count 1.92 M/UL (4.70-6.10) L Hemoglobin 4.9 G/DL (14.2-18.0) *L Hematocrit 15.9 % (42.0-52.0) L Mean Corpuscular Volume 83 FL (80-99) Mean Corpuscular Hemoglobin 25.3 PG (27.0-31.0) L Mean Corpuscular Hemoglobin Concent 30.6 G/DL (32.0-36.0) L Red Cell Distribution Width 15.2 % (11.6-14.8) H Platelet Count 426 K/UL (150-450) Mean Platelet Volume 5.3 FL (6.5-10.1) L Neutrophils (%) (Auto) % (45.0-75.0) Lymphocytes (%) (Auto) % (20.0-45.0) Monocytes (%) (Auto) % (1.0-10.0) Eosinophils (%) (Auto) % (0.0-3.0) Basophils (%) (Auto) % (0.0-2.0) Differential Total Cells Counted 100 Neutrophils % (Manual) 67 % (45-75) Lymphocytes % (Manual) 23 % (20-45) Monocytes % (Manual) 2 % (1-10) Eosinophils % (Manual) 0 % (0-3) Basophils % (Manual) 1 % (0-2) Band Neutrophils 7 % (0-8) Platelet Estimate Adequate Platelet Morphology Normal Hypochromasia 2+ Anisocytosis 1+ Microcytosis 1+ Prothrombin Time 11.6 SEC (9.30-11.50) H Prothromb Time International Ratio 1.1 (0.9-1.1) Activated Partial Thromboplast Time 37 SEC (23-33) H Sodium Level 138 MMOL/L (136-145) Potassium Level 4.3 MMOL/L (3.5-5.1) Chloride Level 102 MMOL/L (98-107) Carbon Dioxide Level 26 MMOL/L (21-32) Anion Gap 10 mmol/L (5-15) Blood Urea Nitrogen 57 mg/dL (7-18) H Creatinine 2.1 MG/DL (0.55-1.30) H Estimat Glomerular Filtration Rate 36.7 mL/min (>60) Glucose Level 238 MG/DL (74-106) H Lactic Acid Level 2.90 mmol/L (0.4-2.0) H 2.90 mmol/L (0.66-2.22) H Calcium Level 9.3 MG/DL (8.5-10.1) Phosphorus Level 2.3 MG/DL (2.5-4.9) L Magnesium Level 1.5 MG/DL (1.8-2.4) L Total Bilirubin 0.4 MG/DL (0.2-1.0) Aspartate Amino Transf (AST/SGOT) 12 U/L (15-37) L Alanine Aminotransferase (ALT/SGPT) 12 U/L (12-78) Alkaline Phosphatase 115 U/L (46-116) Total Creatine Kinase 45 U/L (26-308) Creatine Kinase MB 0.7 NG/ML (0.0-3.6) Creatine Kinase MB Relative Index 1.5 Troponin I 0.000 ng/mL (0.000-0.056) Total Protein 7.7 G/DL (6.4-8.2) Albumin 1.6 G/DL (3.4-5.0) L Globulin 6.1 g/dL Albumin/Globulin Ratio 0.3 (1.0-2.7) L Urine Color Brown Urine Appearance Very cloudy Urine pH 7 (4.5-8.0) Urine Specific [place] 1.015 (1.005-1.035) Urine Protein 4+ (NEGATIVE) H Urine Glucose (UA) Negative (NEGATIVE) Urine Ketones 2+ (NEGATIVE) H Urine Blood 5+ (NEGATIVE) H Urine Nitrite Negative (NEGATIVE) Urine Bilirubin Negative (NEGATIVE) Urine Urobilinogen 1 MG/DL (0.0-1.0) H Urine Leukocyte Esterase 3+ (NEGATIVE) H Urine RBC 5-10 /HPF (0 - 0) H Urine WBC Tntc /HPF (0 - 0) H Urine Squamous Epithelial Cells None /LPF (NONE/OCC) Urine Bacteria Many /HPF (NONE) H Microbiology Date/Time Source Procedure Growth Status 12/11/19 13:55 Nasopharynx SARS-CoV-2 RdRp Gene Assay - Final Complete Height (Feet): 5 Height (Inches): 6.00 Weight (Pounds): 140 Medications Current Medications Medications (Trade) Dose Ordered Sig/Neftaly Route PRN Reason Start Time Stop Time Status Last Admin Dose Admin Acetaminophen (Tylenol) 650 mg Q4H PRN ORAL MILD/TEMP 12/11/19 20:45 01/10/20 20:44 Acetaminophen/ Hydrocodone Bitart (Mesa 5/325) 1 tab Q6H PRN ORAL Moderate Pain (Pain Scale 4-6) 12/11/19 20:45 12/18/19 20:44 Albuterol Sulfate (Proventil MDI) 2 puff Q6H PRN INH Shortness of Breath 12/11/19 20:45 03/10/20 20:44 Atorvastatin Calcium (Lipitor) 10 mg BEDTIME ORAL 12/11/19 21:00 03/10/20 20:59 12/11/19 21:50 Bisacodyl (Dulcolax) 10 mg DAILY PRN RECTAL Constipation 12/11/19 20:45 03/10/20 20:44 Brimonidine Tartrate (Alphagan) 1 drop BID BOTH EYES 12/12/19 09:00 03/11/20 08:59 Ceftriaxone Sodium 1 gm/ Dextrose 55 ml @ 110 mls/hr Q24H IVPB 12/12/19 00:00 12/19/19 00:00 12/12/19 00:59 Ferrous Sulfate (Feosol) 325 mg TWICE A DAY ORAL 12/12/19 09:00 03/11/20 08:59 Gabapentin (Neurontin) 300 mg BID ORAL 12/12/19 09:00 01/11/20 08:59 Insulin Aspart (NovoLOG) 6 units THREE TIMES A DAY SUBQ 12/12/19 09:00 03/11/20 08:59 Latanoprost (Xalatan) 1 drop BEDTIME BOTH EYES 12/11/19 21:00 01/10/20 20:59 12/11/19 21:49 Losartan Potassium (Cozaar) 50 mg DAILY ORAL 12/12/19 09:00 01/11/20 08:59 Metformin HCl (Glucophage) 1,000 mg BID ORAL 12/12/19 09:00 01/11/20 08:59 UNV Multivitamins (Multivitamins) 1 tab DAILY ORAL 12/12/19 09:00 01/11/20 08:59 Sennosides (Senokot) 8.6 mg BEDTIME ORAL 12/11/19 21:00 01/10/20 20:59 10/7/20 21:49 Vancomycin HCl ([facility] to dose) 1 ea DAILY PRN MISC Per rx protocol 12/11/19 21:30 01/10/20 21:29 Assessment/Plan Assessment/Plan: Hematology Consultation REQ : Paola Anderson RFC: Progressive anemia since admission DOS: 12/12/19 HPI 84-year-old male past medical history of 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 Unclear baseline mental status. Unable to obtain further history due to patient being nonverbal at this time. GI consulted for CBD dilation. Patient seen, awake A&O NAD with no active N/V. At the time of evaluation, the patient denies any abdominal pain, constipation or diarrhea. has been given 3 units prbc thus far. Patient unsure of his endoscopic /colonoscopic history. Home Meds Reported Medications Sennosides (SENNA) 8.6 Mg Tablet, 8.6 MG PO BEDTIME for CONSTIPATION, TAB 04/16/19 Acetaminophen* (TYLENOL EXTRA STRENGTH*) 500 Mg Tablet, 500 MG ORAL Q6H PRN for Mild Pain/Temp > 100.5, TAB 0 Refills 04/16/19 Insulin Aspart (NOVOLOG) 100 Unit/1 Ml Vial, 6 SUBQ THREE TIMES A DAY for DM 04/16/19 Docusate Sodium* (DOCUSATE SODIUM*) 250 Mg Capsule, 250 MG ORAL DAILY for BOWEL MANAGEMENT, CAP 04/16/19 Cholecalciferol (Vitamin D3) (Vitamin D3) 10,000 Unit Capsule, 28349 UNIT PO ONCE A WEEK for SUPPLEMENT, CAP EVERY Monday04/16/19 Brimonidine Tartrate* (ALPHAGAN*) 5 Ml Drops, 1 DROP BOTH EYES BID for GLAUCOMA, ML 04/16/19 Dextran 70/Hypromellose (ARTIFICIAL TEARS) 1 Each Droperette, 1 EACH BOTH EYES Q4HR for DRY EYES 04/16/19 Melatonin (MELATONIN) 3 Mg Tablet, 6 MG ORAL BEDTIME for SLEEP, TAB 04/16/19 Bisacodyl (BISACODYL) 10 Mg Supp.rect, 10 MG RC PRN for Constipation, SUPP 04/16/19 Atorvastatin Calcium* (LIPITOR*) 10 Mg Tablet, 10 MG ORAL BEDTIME for HYPERLIPIDEMIA, TAB 04/16/19 Albuterol Sulfate (Albuterol Sulfate Hfa) 8.5 Gm Hfa.aer.ad, 2 PUFFS IH Q6HR PRN for Shortness of Breath 04/16/19 Acetaminophen* (ACETAMINOPHEN 325MG TABLET*) 325 Mg Tablet, 650 MG ORAL Q4H PRN for Mild Pain/Temp > 100.5, TAB 04/15/19 Multivitamins* (MULTIVITAMINS*) 1 Each Tablet, 1 TAB ORAL DAILY for SUPPLEMENT, TAB 0 Refills 04/15/19 Metformin Hcl* (METFORMIN HCL*) 1,000 Mg Tablet, 1000 MG ORAL BID for DM, TAB 04/15/19 Losartan Potassium* (LOSARTAN POTASSIUM*) 25 Mg Tablet, 25 MG ORAL DAILY for HYPERTENSION, TAB 04/15/19 Latanoprost* (XALATAN*) 2.5 Ml Drops, 1 DROP BOTH EYES BEDTIME for GLAUCOMA, ML 0 Refills 04/15/19 Insulin Glargine (LANTUS) 100 Unit/1 Ml Insuln.pen, 34 UNIT SUBQ DAILY for DM, #1 EA 0 Refills 04/15/19 Gabapentin* (GABAPENTIN*) 100 Mg Capsule, 100 MG ORAL THREE TIMES A DAY for PHANTOM LIMB SYNDROME, CAP 04/15/19 Enoxaparin* (LOVENOX*) 40 Mg/0.4 Ml Inj, 40 MG SUBQ DAILY for DVT 04/15/19 Discontinued Reported Medications Melatonin/Pyridoxine HCl (B6) (Melatonin 3 mg Tablet) 1 Each Tablet, 1 EACH PO for unk, TAB 04/15/19 Bisacodyl* (DULCOLAX*) 5 Mg Tablet.dr, 10 MG ORAL DAILY for unk, #10 TAB 0 Refills 04/15/19 Atorvastatin Calcium* (ATORVASTATIN CALCIUM*) 20 Mg Tablet, 10 MG ORAL BEDTIME for unk, TAB 04/15/19 Albuterol Sulfate* (ALBUTEROL SULFATE HHN*) 2.5 Mg/3 Ml Vial.neb, 3 ML INH Q4H PRN for Shortness of Breath, EA 04/15/19 Med list reviewed/reconciled: Yes Allergies: No Known Allergies (Unverified , 04/15/19) History Provided By: Patient, Medical Record PM Narrative Past Medical History: No History, Except For Social History: Denies: smoking, alcohol use, drug use, other Review of Systems All Other Systems: difficult to obtain given nv Physical Exam: Vitals: reviewed General: NAD HEENT: nc, at Neck: supple + trach/vent Chest: clear breath sounds bilaterally Cardiovascular: RRR, no s3, s4 Abdomen: soft, nontender, nd Extremities: no cce, normal range of motion, R++ bka Neuro: confused Labs: reviewed Imaging: noted Assessment and Recs: # Anemia of chronic disease due to underlying chronic medical issues, multifactorial v Gi bleed --> Anemia workup has been ordered, rule out gi bleed --> ferritin is >1500 --> No evidence of hemolysis is noted, peripheral smear has been reviewed. --> Hgb goal >7. Transfuse prn. --> continue on po iron --> Medications have been reviewed --> low threshold for gi evaluation in case has occult + --> EGD/COLO 04/23/19-> reviewed with gastritis/iH --> bone marrow biopsy is not indicated given the other more likely causes --> hgb 8-->7.4->>>4.9 --> blood tx 3 units 12/11 # Protein caloric malnutrition --> ensure and 1:1 feeding recommended --> have added mirtazapine for appetite stimulant --> avoid megace as is vte risk --> daily weight count # Left lower ext wound --> ABX ctx/vanc # Transaminitis --> has improved # Sepsis with uti, polymicrobial --> s/p abx # Dehydration --> renal prn # Dvt ppx scds The timing of this note does not necessarily reflect the time of the patient was seen. Greatly appreciate consultation. Jett Nicole MD Dec 12, 2019 06:56
[2019-12-12 07:25] LABS: HEMATOCRIT 22.2 % (42.0-52.0); MEAN CORPUSCULAR VOLUME 83 FL (80-99); PLATELET COUNT 443 K/UL (150-450); RED BLOOD COUNT 2.67 M/UL (4.70-6.10); RED CELL DISTRIBUTION WIDTH 13.8 % (11.6-14.8)
[2019-12-12 07:26] LABS: HEMOGLOBIN 7.1 G/DL (14.2-18.0)
--- NOTE | 2019-12-12 07:27 | NUR ---
NURSE HAND-OFF REPORT: Important Events on Shift:[blood transfusion completed, wound care performed and wound pictures taken] Patient Status: sleeping Diet: CCHO Low, [place] Pending Orders: OB stool Pending Results/Labs:na Pending MD notification:na Latest Vital Signs: Temperature 97.9 , Pulse 75 , B/P 107 /51 , Respiratory Rate 20 , O2 SAT 100 , Room Air, O2 Flow Rate . Vital Sign Comment: Stable EKG Rhythm: Sinus Rhythm Rhythm change?: N MD Notified?: - MD Response: Latest Clark Fall Score: 50 Fall Risk: High Risk Safety Measures: Call light Within Reach, Bed Alarm Zone 1, Side Rails Side Rails x3, Bed position Low and Locked. Fall Precautions: Yellow Socks Patient Fall Education Report given to KWASI Au.
[2019-12-12 08:00] VITALS: BP 123/49
[2019-12-12 08:01] LABS: ALANINE AMINOTRANSFERASE 14 U/L (12-78); ALBUMIN 1.6 G/DL (3.4-5.0); ALKALINE PHOSPHATASE 120 U/L (46-116); ANION GAP 10 mmol/L (5-15); ASPARTATE AMINO TRANSFERASE 22 U/L (15-37); BILIRUBIN,DIRECT 0.1 MG/DL (0.0-0.3); BILIRUBIN,TOTAL 0.4 MG/DL (0.2-1.0); BLOOD UREA NITROGEN 55 mg/dL (7-18); CARBON DIOXIDE 25 MMOL/L (21-32); CHLORIDE 105 MMOL/L (98-107); CHOLESTEROL 85 MG/DL (< 200); CREATININE 1.8 MG/DL (0.55-1.30); HDL CHOLESTEROL 12 MG/DL (40-60); POTASSIUM 4.3 MMOL/L (3.5-5.1); SODIUM 140 MMOL/L (136-145); TRIGLYCERIDES 130 MG/DL (30-150)
[2019-12-12] MEDS ORDERED: Enoxaparin 30mg Inj SUBQ SCH (09:00)
[2019-12-12] MEDS: Losartan 50mg tab ORAL SCH (09:05)
[2019-12-12] MEDS: Brimonidine 0.2% Opth Sol BOTH EYES SCH ×2 (09:27→17:58)
[2019-12-12] MEDS: metFORMIN 500mg tab ORAL SCH ×2 (09:27→17:56)
[2019-12-12] MEDS: NovoLOG Insulin Flexpen SUBQ SCH ×3 (09:31→18:22)
--- NOTE | 2019-12-12 10:49 | NUR ---
CASE MANAGEMENT: REVIEW 84 YEAR OLD MALE BIBA FROM [facility] CC: BLOODY DRAINAGE LEFT LOWER LEG WOUND SI: ANEMIA T 97.5 HR 79 RR 16 BP 100/53 SAT 98% ROOM AIR H/H 4.9/15.9 BUN 55 CR 1.8 LACTIC ACID 2.90 OB STOOL PENDING IS: VANCOMYCIN IV X1 CEFEPIME IV X1 NS IVF BOLUS X1 TRANSFUSE PRBC 2 UNITS WOUND CARE PATIENT ADMITTED TO TELEMETRY UNIT 12/11/2019 DCP: PATIENT IS FROM [facility]
--- NOTE | 2019-12-12 11:37 | NUR ---
NURSE NOTES: Skin/wound assessment:Left posterior lower leg Vascular wound 15.02x4.0x1.8 40% gangrene necrotic black dry eschar ,60%yellow/green/garcia stringy slough ,necrotic muscle and bone exposed with strong foul odor and moderate infectious drainage.Left heel vascular wound 7.3x4.5.0.8 gangrene 100% necrotic black soft eschar with garcia tissue surrounding wound borders , necrotic muscle and bone exposed ,strong foul odor and moderate infectious drainage. Left anterior foot vascular wound 7.0x3.0x0.2 80% yellow slough and 20% pink granulation tissue,moderate serosanguineous drainage and strong foul odor. Wet to dry dressing applied to all vascular wounds Dakin's solution recommended.Sacral stage 3 pressure ulcer 2.5x0.8x0.3 30% yellow slough 70% red granulation tissue ,small amount serosanguineous drainage Thera Honey and Optifoam applied.Spoke with RN taking care of patient physician wound consult recommended.Arterial studies were done.Right lower leg BKA noted.
[2019-12-12 12:00] VITALS: BP 121/61
[2019-12-12] MEDS ORDERED: Vancomycin 750mg/NS 275ml IVPB ONE ×2 (12:00)
--- NOTE | 2019-12-12 13:07 | NUR ---
INSURANCE CLINICALS/REVIEW FAXED TO [facility] P:[phone] F:[phone]
--- NOTE | 2019-12-12 15:08 | Consultation ---
History of Present Illness General Date patient seen: Dec 12, 2019 Reason for Hospitalization: General Complaint Present Illness HPI This is a very unfortunate 84-year-old male with multiple medical comorbidities who is well-known to me from prior [place] care [place] [facility] [place], [place], abnormal labs, worsening condition identified to have worsening lower extremity ischemia wounds sacral decubitus ulcer malnutrition failure to thrive. Patient admitted for further care management and surgery called to evaluate and assist with care. Patient seen, patient evaluated, chart reviewed Allergies: Coded Allergies: No Known Allergies (Unverified , 04/15/19) COVID-19 Screening Contact w/high risk pt: No Experienced COVID-19 symptoms?: No Medication History Scheduled Atorvastatin Calcium* (Lipitor*), 10 MG ORAL BEDTIME, (Reported) Brimonidine Tartrate* (Alphagan*), 1 DROP BOTH EYES BID, (Reported) Cholecalciferol (Vitamin D3) (Vitamin D3), 50,000 UNIT PO ONCE A WEEK, (Reported) Dextran 70/Hypromellose (Artificial Tears), 1 EACH BOTH EYES Q4HR, (Reported) Docusate Sodium* (Docusate Sodium*), 250 MG ORAL DAILY, (Reported) Enoxaparin* (Lovenox*), 40 MG SUBQ DAILY, (Reported) Ferrous Sulfate* (Ferrous Sulfate*), 325 MG ORAL TWICE A DAY, (Reported) Gabapentin* (Gabapentin*), 100 MG ORAL THREE TIMES A DAY, (Reported) Gabapentin* (Gabapentin*), 300 MG ORAL BID, (Reported) Insulin Aspart (Novolog), 6 SUBQ THREE TIMES A DAY, (Reported) Insulin Glargine (Lantus), 34 UNIT SUBQ DAILY, (Reported) Latanoprost* (Xalatan*), 1 DROP BOTH EYES BEDTIME, (Reported) Losartan Potassium* (Losartan Potassium*), 25 MG ORAL DAILY, (Reported) Losartan Potassium* (Losartan Potassium*), 50 MG ORAL DAILY, (Reported) Melatonin (Melatonin), 6 MG ORAL BEDTIME, (Reported) Metformin Hcl* (Metformin Hcl*), 1,000 MG ORAL BID, (Reported) Multivitamins* (Multivitamins*), 1 TAB ORAL DAILY, (Reported) Sennosides (Senna), 8.6 MG PO BEDTIME, (Reported) Scheduled PRN Acetaminophen* (Acetaminophen 325MG Tablet*), 650 MG ORAL Q4H PRN for Mild Pain/Temp > 100.5, (Reported) Acetaminophen* (Tylenol Extra Strength*), 500 MG ORAL Q6H PRN for Mild Pain/Temp > 100.5, (Reported) Albuterol Sulfate* (Albuterol Sulfate Hfa*), 2 PUFFS IH Q6HR PRN for Shortness of Breath, (Reported) Bisacodyl (Bisacodyl), 10 MG RC for Constipation, (Reported) Heparin Sod (Porcine) (Heparin Sodium*), 5,000 UNITS SUBQ EVERY 12 HOURS PRN for dvt ppx, (Reported) Hydrocodone Bit/Acetaminophen 5-325* ([place] 5-325 Tablet*), 1 TAB ORAL Q6H PRN for FOR PAIN, (Reported) Miscellaneous Medications Cranberry Fruit (Cranberry), 450 MG PO, (Reported) Insulin Aspart (Insulin Aspart), 100 UNIT SQ, (Reported) Patient History Limited by: age, medical condition History Provided By: Medical Record, PMD Healthcare decision maker Resuscitation status Advanced Directive on File Past Medical/Surgical History Past Medical/Surgical History: (1) Laceration of face (2) Gram-negative bacteremia (3) Dilated cbd, acquired (4) GI bleeding (5) Diabetes mellitus (6) History of hypertension (7) COPD (chronic obstructive pulmonary disease) (8) Anemia (9) Severe protein-calorie malnutrition Review of Systems Review of Symptoms General ROS: no weight loss or fever Psychological ROS: no depression or mood changes, no memory loss Ophthalmic ROS: no visual changes or eye irritation ENT ROS: no nasal congestion, hearing loss, dizziness Allergy and Immunology ROS: no allergic symptoms or urticaria Hematological and Lymphatic ROS: no swollen glands, unusual bleeding or bruising Endocrine ROS: no polyuria, polydipsia, weight changes, temperature intolerance Respiratory ROS: no cough, shortness of breath, or wheezing Cardiovascular ROS: no chest pain or dyspnea on exertion Gastrointestinal ROS: denies abdominal pain, bright red blood in stool. Musculoskeletal ROS: no myalgias or arthralgias Neurological ROS: no TIA or stroke symptoms Dermatological ROS: no new or changing skin lesions, rashes or pruritis Physical Exam Physical Exam General appearance: no distress, appears stated age Head: Normocephalic, without obvious abnormality, atraumatic Eyes: conjunctivae/corneas clear. PERRL, EOM's intact. Fundi benign Throat: Lips, mucosa, and tongue normal. Teeth and gums normal Neck: supple, symmetrical, trachea midline, no adenopathy, thyroid: not enlarged, symmetric, no tenderness/mass/nodules, no carotid bruit and no JVD Lungs: clear to auscultation bilaterally Heart: regular rate and rhythm, S1, S2 normal, no murmur, click, rub or gallop Abdomen: soft, non-tender. Bowel sounds normal. No masses, no organomegaly Extremities: extremities see below Pulses: decreased Skin: Skin see below Neurologic: Grossly normal Last 24 Hour Vital Signs Date Time Temp Pulse Resp B/P (MAP) Pulse Ox O2 Delivery O2 Flow Rate FiO2 12/12/19 12:00 97.7 80 18 121/61 (81) 100 12/12/19 12:00 73 12/12/19 09:05 123/49 12/12/19 09:00 Room Air 12/12/19 08:00 73 12/12/19 08:00 97.9 81 19 123/49 (73) 99 12/12/19 04:00 97.9 75 20 107/51 (69) 100 75 12/12/19 04:00 75 12/12/19 00:00 97.5 79 16 100/53 (69) 98 12/12/19 00:00 76 12/11/19 21:00 Room Air 12/11/19 20:12 Room Air 12/11/19 20:00 78 12/11/19 19:05 Room Air 12/11/19 19:05 97.5 79 20 95/62 (73) 100 12/11/19 17:00 98.9 88 18 98/47 100 Room Air 12/11/19 16:00 98.9 88 18 98/47 100 Room Air Intake and Output 12/11/19 12/12/19 19:00 07:00 Intake Total 0 ml 192.5 ml Output Total 250 ml 600 ml Balance -250 ml -407.5 ml Intake Oral 0 ml IV Total 192.5 ml Output Urine Total 250 ml 600 ml # Voids 1 # Bowel Movements 1 Laboratory Tests Test 12/12/19 05:59 12/12/19 09:29 White Blood Count 10.0 K/UL (4.8-10.8) Red Blood Count 2.67 M/UL (4.70-6.10) L Hemoglobin 7.1 G/DL (14.2-18.0) #L Hematocrit 22.2 % (42.0-52.0) #L Mean Corpuscular Volume 83 FL (80-99) Mean Corpuscular Hemoglobin 26.4 PG (27.0-31.0) L Mean Corpuscular Hemoglobin Concent 31.7 G/DL (32.0-36.0) L Red Cell Distribution Width 13.8 % (11.6-14.8) Platelet Count 443 K/UL (150-450) Mean Platelet Volume 5.2 FL (6.5-10.1) L Neutrophils (%) (Auto) % (45.0-75.0) Lymphocytes (%) (Auto) % (20.0-45.0) Monocytes (%) (Auto) % (1.0-10.0) Eosinophils (%) (Auto) % (0.0-3.0) Basophils (%) (Auto) % (0.0-2.0) Differential Total Cells Counted 100 Neutrophils % (Manual) 62 % (45-75) Lymphocytes % (Manual) 22 % (20-45) Monocytes % (Manual) 5 % (1-10) Eosinophils % (Manual) 1 % (0-3) Basophils % (Manual) 0 % (0-2) Band Neutrophils 10 % (0-8) H Platelet Estimate Adequate Platelet Morphology Normal Hypochromasia 1+ Erythrocyte Sedimentation Rate 137 MM/HR (0-20) H Sodium Level 140 MMOL/L (136-145) Potassium Level 4.3 MMOL/L (3.5-5.1) Chloride Level 105 MMOL/L (98-107) Carbon Dioxide Level 25 MMOL/L (21-32) Anion Gap 10 mmol/L (5-15) Blood Urea Nitrogen 55 mg/dL (7-18) H Creatinine 1.8 MG/DL (0.55-1.30) H Estimat Glomerular Filtration Rate 43.9 mL/min (>60) Glucose Level 169 MG/DL (74-106) H Hemoglobin A1c 5.3 % (4.3-6.0) Calcium Level 9.0 MG/DL (8.5-10.1) Ferritin > 2000 NG/ML (8-388) H Total Bilirubin 0.4 MG/DL (0.2-1.0) Direct Bilirubin 0.1 MG/DL (0.0-0.3) Aspartate Amino Transf (AST/SGOT) 22 U/L (15-37) Alanine Aminotransferase (ALT/SGPT) 14 U/L (12-78) Alkaline Phosphatase 120 U/L (46-116) H C-Reactive Protein, Quantitative 37.1 mg/dL (0.00-0.90) H Pro-B-Type Natriuretic Peptide 815 pg/mL (0-125) H Total Protein 7.3 G/DL (6.4-8.2) Albumin 1.6 G/DL (3.4-5.0) L Triglycerides Level 130 MG/DL (30-150) Cholesterol Level 85 MG/DL (< 200) LDL Cholesterol 36 mg/dL (<100) HDL Cholesterol 12 MG/DL (40-60) L Cholesterol/HDL Ratio 7.1 (3.3-4.4) H Vitamin D 25-Hydroxy Pending 25-Hydroxy Vitamin D2 Pending 25-Hydroxy Vitamin D3 Pending Random Vancomycin Level 18.2 ug/mL POC Whole Blood Glucose 186 MG/DL (74-106) H Height (Feet): 5 Height (Inches): 6.00 Weight (Pounds): 140 Medications Current Medications Medications (Trade) Dose Ordered Sig/Neftaly Route PRN Reason Start Time Stop Time Status Last Admin Dose Admin Acetaminophen (Tylenol) 650 mg Q4H PRN ORAL MILD/TEMP 12/11/19 20:45 01/10/20 20:44 Acetaminophen/ Hydrocodone Bitart ([place] 5/325) 1 tab Q6H PRN ORAL Moderate Pain (Pain Scale 4-6) 12/11/19 20:45 12/18/19 20:44 Albuterol Sulfate (Proventil MDI) 2 puff Q6H PRN INH Shortness of Breath 12/11/19 20:45 03/10/20 20:44 Atorvastatin Calcium (Lipitor) 10 mg BEDTIME ORAL 12/11/19 21:00 03/10/20 20:59 12/11/19 21:50 Bisacodyl (Dulcolax) 10 mg DAILY PRN RECTAL Constipation 12/11/19 20:45 03/10/20 20:44 Brimonidine Tartrate (Alphagan) 1 drop BID BOTH EYES 12/12/19 09:00 03/11/20 08:59 12/12/19 09:27 Ceftriaxone Sodium 1 gm/ Dextrose 55 ml @ 110 mls/hr Q24H IVPB 12/12/19 00:00 12/19/19 00:00 12/12/19 00:59 Ferrous Sulfate (Feosol) 325 mg TWICE A DAY ORAL 12/12/19 09:00 03/11/20 08:59 12/12/19 09:05 Gabapentin (Neurontin) 300 mg BID ORAL 12/12/19 09:00 01/11/20 08:59 12/12/19 09:05 Insulin Aspart (NovoLOG) 6 units THREE TIMES A DAY SUBQ 12/12/19 09:00 03/11/20 08:59 12/12/19 09:31 Latanoprost (Xalatan) 1 drop BEDTIME BOTH EYES 12/11/19 21:00 01/10/20 20:59 12/11/19 21:49 Losartan Potassium (Cozaar) 50 mg DAILY ORAL 12/12/19 09:00 01/11/20 08:59 12/12/19 09:05 Metformin HCl (Glucophage) 1,000 mg BID ORAL 12/12/19 09:00 01/11/20 08:59 12/12/19 09:27 Mirtazapine (Remeron) 15 mg BEDTIME ORAL 12/12/19 21:00 03/11/20 20:59 Multivitamins (Multivitamins) 1 tab DAILY ORAL 12/12/19 09:00 01/11/20 08:59 12/12/19 09:05 Sennosides (Senokot) 8.6 mg BEDTIME ORAL 12/11/19 21:00 01/10/20 20:59 12/11/19 21:49 Vancomycin HCl (Vanco pharmacy to dose) 1 ea DAILY PRN MISC Per rx protocol 12/11/19 21:30 01/10/20 21:29 Assessment/Plan Problem List: (1) Sacral decubitus ulcer Assessment & Plan: Left posterior lower leg Vascular wound 15.02x4.0x1.8 40% gangrene necrotic black dry eschar ,60%yellow/green/garcia stringy slough ,necrotic muscle and bone exposed with strong foul odor and moderate infectious drainage. Left heel vascular wound 7.3x4.5.0.8 gangrene 100% necrotic black soft eschar with garcia tissue surrounding wound borders , necrotic muscle and bone exposed ,strong foul odor and moderate infectious drainage. Left anterior foot vascular wound 7.0x3.0x0.2 80% yellow slough and 20% pink granulation tissue,moderate serosanguineous drainage and strong foul odor. Wet to dry dressing applied to all vascular wounds Dakin's solution recommended. Sacral stage 3 pressure ulcer 2.5x0.8x0.3 30% yellow slough 70% red granulation tissue ,small amount serosanguineous drainage Thera Honey and Optifoam applied. Arterial studies were done. Right lower leg BKA noted. stable ICD Codes: L89.159 - Pressure ulcer of sacral region, unspecified stage SNOMED: 526971691 (2) Ischemia of left lower extremity Assessment & Plan: left heel and leg arterial ischemia vascular wounds noted very unkept and broken down local wound care will be initiated will need on going evaluation for salvage vs amputation thank you ICD Codes: I99.8 - Other disorder of circulatory system SNOMED: 304718641 (3) GI bleeding ICD Codes: K92.2 - Gastrointestinal hemorrhage, unspecified SNOMED: 08150402 (4) Gram-negative bacteremia ICD Codes: R78.81 - Bacteremia SNOMED: 269071015707 (5) Laceration of face ICD Codes: S01.81XA - Laceration without foreign body of other part of head, initial encounter SNOMED: 389413667 (6) Dilated cbd, acquired ICD Codes: K83.8 - Other specified diseases of biliary tract SNOMED: 362752728 (7) Diabetes mellitus ICD Codes: E11.9 - Type 2 diabetes mellitus without complications SNOMED: 93473327 (8) History of hypertension ICD Codes: Z86.79 - Personal history of other diseases of the circulatory system SNOMED: 529127843 (9) COPD (chronic obstructive pulmonary disease) ICD Codes: J44.9 - Chronic obstructive pulmonary disease, unspecified SNOMED: 45076739 (10) Anemia ICD Codes: D64.9 - Anemia, unspecified SNOMED: 195952219 (11) Severe protein-calorie malnutrition Assessment & Plan: nutritional supplementation ICD Codes: E43 - Unspecified severe protein-calorie malnutrition SNOMED: 880492947, 330492520, 658832203 (12) Hx of right BKA ICD Codes: Z89.511 - Acquired absence of right leg below knee SNOMED: 334411819, [id number] Alex Garzon Dec 12, 2019 15:08
[2019-12-12 16:00] VITALS: BP 125/62
--- NOTE | 2019-12-12 16:00 | NUR ---
NURSE NOTES: Pt hgb is 7.[address] Nicoel and he ordered 1 unit pRBC. Pt afebrile and vitals stable. Started PRBC. No reaction noted as of the moment. Will continue to monitor.
--- NOTE | 2019-12-12 17:29 | Consultation ---
History of Present Illness General Date patient seen: Dec 12, 2019 Chief Complaint: General Complaint Present Illness HPI 84 y/o M with hx of R BKA w/ phantom limb syndrome, glaucoma, K.pna bacteremia 04/2019, OA, HLD, HTN, dyphagia s/p GT, chronic resp failure s/p trach, DM2, COPD/asthma, cognitive communication deficit, SNF resident presented to ED on 12/11/19 with anemia, weakness, AMS, abnormal labs and worsening LE ischemic and sacral decubitus wounds. Noted to have Hgb of 5.1 at the facility No report of nausea, vomiting, abd pain, diarrhea. Tested neg for COVID on 12/03 Allergies: Coded Allergies: No Known Allergies (Unverified , 04/15/19) Medication History Scheduled Arginine/Ascorbate Sod/Chelsy AC (Arginaid Powder), 1 EACH PO BID, (Reported) Atorvastatin Calcium* (Lipitor*), 10 MG ORAL BEDTIME, (Reported) Brimonidine Tartrate* (Alphagan*), 1 DROP BOTH EYES BID, (Reported) Dextran 70/Hypromellose (Artificial Tears), 1 EACH BOTH EYES Q4HR, (Reported) Ferrous Sulfate* (Ferrous Sulfate*), 325 MG ORAL TWICE A DAY, (Reported) Gabapentin* (Gabapentin*), 300 MG ORAL BID, (Reported) Insulin Aspart (Novolog), 6 SUBQ THREE TIMES A DAY, (Reported) Latanoprost* (Xalatan*), 1 DROP BOTH EYES BEDTIME, (Reported) Losartan Potassium* (Losartan Potassium*), 50 MG ORAL DAILY, (Reported) Metformin Hcl* (Metformin Hcl*), 1,000 MG ORAL BID, (Reported) Multivitamins* (Multivitamins*), 1 TAB ORAL DAILY, (Reported) Povidone-Iodine (Povidone-Iodine), 1 APPL TOPIC DAILY, (Reported) Sennosides (Senna), 8.6 MG PO BEDTIME, (Reported) Silver Sulfadiazine (Silvadene), Unknown Dose TP DAILY, (Reported) Scheduled PRN Acetaminophen* (Acetaminophen 325MG Tablet*), 650 MG ORAL Q4H PRN for Mild Pain/Temp > 100.5, (Reported) Albuterol Sulfate* (Albuterol Sulfate Hfa*), 2 PUFFS IH Q6HR PRN for Shortness of Breath, (Reported) Bisacodyl (Bisacodyl), 10 MG RC for Constipation, (Reported) Heparin Sod (Porcine) (Heparin Sodium*), 5,000 UNITS SUBQ EVERY 12 HOURS PRN for dvt ppx, (Reported) Hydrocodone Bit/Acetaminophen 5-325* ([place] 5-325 Tablet*), 1 TAB ORAL Q6H PRN for FOR PAIN, (Reported) Miscellaneous Medications Cranberry Fruit (Cranberry), 450 MG PO, (Reported) Discontinued Medications Cholecalciferol (Vitamin D3) (Vitamin D3), 50,000 UNIT PO ONCE A WEEK, (Reported) Discontinued Reason: Pt stopped taking med Docusate Sodium* (Docusate Sodium*), 250 MG ORAL DAILY, (Reported) Discontinued Reason: Pt stopped taking med Enoxaparin* (Lovenox*), 40 MG SUBQ DAILY, (Reported) Discontinued Reason: Therapy completed Melatonin (Melatonin), 6 MG ORAL BEDTIME, (Reported) Discontinued Reason: Pt stopped taking med Patient History Healthcare decision maker Resuscitation status Advanced Directive on File Patient History Narrative PMhx: as above Shx: Denies: smoking, alcohol use, drug use, other. He is single. He was born in [place]. He has been on SSI since his skilled nursing. Prior to the appearance of his total disability, he worked at different jobs Fhx: non contributory Review of Systems All Other Systems: negative except mentioned in HPI Physical Exam Physical Exam Narrative General: NAD HEENT: nc, at Neck: supple Chest: clear breath sounds bilaterally Cardiovascular: RRR, no s3, s4 Abdomen: soft, nontender, nd Extremities: no cce, normal range of motion, R++ bka, L LE ischemic/necrotic wounds sacral decubitus ulcers Neuro: confused Last 24 Hour Vital Signs Date Time Temp Pulse Resp B/P (MAP) Pulse Ox O2 Delivery O2 Flow Rate FiO2 12/12/19 12:00 97.7 80 18 121/61 (81) 100 12/12/19 12:00 73 12/12/19 09:05 123/49 12/12/19 09:00 Room Air 12/12/19 08:00 73 12/12/19 08:00 97.9 81 19 123/49 (73) 99 12/12/19 04:00 97.9 75 20 107/51 (69) 100 75 12/12/19 04:00 75 12/12/19 00:00 97.5 79 16 100/53 (69) 98 12/12/19 00:00 76 12/11/19 21:00 Room Air 12/11/19 20:12 Room Air 12/11/19 20:00 78 12/11/19 19:05 Room Air 12/11/19 19:05 97.5 79 20 95/62 (73) 100 12/11/19 17:00 98.9 88 18 98/47 100 Room Air Intake and Output 12/11/19 12/12/19 19:00 07:00 Intake Total 0 ml 192.5 ml Output Total 250 ml 600 ml Balance -250 ml -407.5 ml Intake Oral 0 ml IV Total 192.5 ml Output Urine Total 250 ml 600 ml # Voids 1 # Bowel Movements 1 Laboratory Tests Test 12/12/19 05:59 12/12/19 09:29 White Blood Count 10.0 K/UL (4.8-10.8) Red Blood Count 2.67 M/UL (4.70-6.10) L Hemoglobin 7.1 G/DL (14.2-18.0) #L Hematocrit 22.2 % (42.0-52.0) #L Mean Corpuscular Volume 83 FL (80-99) Mean Corpuscular Hemoglobin 26.4 PG (27.0-31.0) L Mean Corpuscular Hemoglobin Concent 31.7 G/DL (32.0-36.0) L Red Cell Distribution Width 13.8 % (11.6-14.8) Platelet Count 443 K/UL (150-450) Mean Platelet Volume 5.2 FL (6.5-10.1) L Neutrophils (%) (Auto) % (45.0-75.0) Lymphocytes (%) (Auto) % (20.0-45.0) Monocytes (%) (Auto) % (1.0-10.0) Eosinophils (%) (Auto) % (0.0-3.0) Basophils (%) (Auto) % (0.0-2.0) Differential Total Cells Counted 100 Neutrophils % (Manual) 62 % (45-75) Lymphocytes % (Manual) 22 % (20-45) Monocytes % (Manual) 5 % (1-10) Eosinophils % (Manual) 1 % (0-3) Basophils % (Manual) 0 % (0-2) Band Neutrophils 10 % (0-8) H Platelet Estimate Adequate Platelet Morphology Normal Hypochromasia 1+ Erythrocyte Sedimentation Rate 137 MM/HR (0-20) H Sodium Level 140 MMOL/L (136-145) Potassium Level 4.3 MMOL/L (3.5-5.1) Chloride Level 105 MMOL/L (98-107) Carbon Dioxide Level 25 MMOL/L (21-32) Anion Gap 10 mmol/L (5-15) Blood Urea Nitrogen 55 mg/dL (7-18) H Creatinine 1.8 MG/DL (0.55-1.30) H Estimat Glomerular Filtration Rate 43.9 mL/min (>60) Glucose Level 169 MG/DL (74-106) H Hemoglobin A1c 5.3 % (4.3-6.0) Calcium Level 9.0 MG/DL (8.5-10.1) Ferritin > 2000 NG/ML (8-388) H Total Bilirubin 0.4 MG/DL (0.2-1.0) Direct Bilirubin 0.1 MG/DL (0.0-0.3) Aspartate Amino Transf (AST/SGOT) 22 U/L (15-37) Alanine Aminotransferase (ALT/SGPT) 14 U/L (12-78) Alkaline Phosphatase 120 U/L (46-116) H C-Reactive Protein, Quantitative 37.1 mg/dL (0.00-0.90) H Pro-B-Type Natriuretic Peptide 815 pg/mL (0-125) H Total Protein 7.3 G/DL (6.4-8.2) Albumin 1.6 G/DL (3.4-5.0) L Triglycerides Level 130 MG/DL (30-150) Cholesterol Level 85 MG/DL (< 200) LDL Cholesterol 36 mg/dL (<100) HDL Cholesterol 12 MG/DL (40-60) L Cholesterol/HDL Ratio 7.1 (3.3-4.4) H Vitamin D 25-Hydroxy Pending 25-Hydroxy Vitamin D2 Pending 25-Hydroxy Vitamin D3 Pending Random Vancomycin Level 18.2 ug/mL POC Whole Blood Glucose 186 MG/DL (74-106) H Height (Feet): 5 Height (Inches): 6.00 Weight (Pounds): 140 Medications Current Medications Medications (Trade) Dose Ordered Sig/Neftaly Route PRN Reason Start Time Stop Time Status Last Admin Dose Admin Acetaminophen (Tylenol) 650 mg Q4H PRN ORAL MILD/TEMP 12/11/19 20:45 01/10/20 20:44 Acetaminophen/ Hydrocodone Bitart ([place] 5/325) 1 tab Q6H PRN ORAL Moderate Pain (Pain Scale 4-6) 12/11/19 20:45 12/18/19 20:44 Albuterol Sulfate (Proventil MDI) 2 puff Q6H PRN INH Shortness of Breath 12/11/19 20:45 03/10/20 20:44 Atorvastatin Calcium (Lipitor) 10 mg BEDTIME ORAL 12/11/19 21:00 03/10/20 20:59 12/11/19 21:50 Bisacodyl (Dulcolax) 10 mg DAILY PRN RECTAL Constipation 12/11/19 20:45 03/10/20 20:44 Brimonidine Tartrate (Alphagan) 1 drop BID BOTH EYES 12/12/19 09:00 03/11/20 08:59 12/12/19 09:27 Ceftriaxone Sodium 1 gm/ Dextrose 55 ml @ 110 mls/hr Q24H IVPB 12/12/19 00:00 12/19/19 00:00 12/12/19 00:59 Ferrous Sulfate (Feosol) 325 mg TWICE A DAY ORAL 12/12/19 09:00 03/11/20 08:59 12/12/19 09:05 Gabapentin (Neurontin) 300 mg BID ORAL 12/12/19 09:00 01/11/20 08:59 12/12/19 09:05 Insulin Aspart (NovoLOG) 6 units THREE TIMES A DAY SUBQ 12/12/19 09:00 03/11/20 08:59 12/12/19 09:31 Latanoprost (Xalatan) 1 drop BEDTIME BOTH EYES 12/11/19 21:00 01/10/20 20:59 12/11/19 21:49 Losartan Potassium (Cozaar) 50 mg DAILY ORAL 12/12/19 09:00 01/11/20 08:59 12/12/19 09:05 Metformin HCl (Glucophage) 1,000 mg BID ORAL 12/12/19 09:00 01/11/20 08:59 12/12/19 09:27 Mirtazapine (Remeron) 15 mg BEDTIME ORAL 12/12/19 21:00 03/11/20 20:59 Multivitamins (Multivitamins) 1 tab DAILY ORAL 12/12/19 09:00 01/11/20 08:59 12/12/19 09:05 Sennosides (Senokot) 8.6 mg BEDTIME ORAL 12/11/19 21:00 01/10/20 20:59 12/11/19 21:49 Vancomycin HCl (Vanco pharmacy to dose) 1 ea DAILY PRN MISC Per rx protocol 12/11/19 21:30 01/10/20 21:29 Assessment/Plan Assessment/Plan: Abx: IV Vancomycin 12/10- Ceftriaxone 12/10- Cefepime x1 12/10 Assessment: COVID19 neg x1 -12/10rapid COVID PCR neg CXR: Right perihilar fullness, possibly on the basis of prominent normal vasculature, but appears asymmetric and increased from earlier studies. Possibility of infiltrate or mass or adenopathy should be considered. --previously neg PCR 12/03 Afebrile Mild leukocytosis- SP Probable UTI -u/a wbc tntc, nit neg, leuk +3 Acute on chronic anemia (Hgb up to 4.9 upon admission) Acute encephalopathy Sacral decubitus ulcer (POA) L LE ischemic wounds SANNA, improving hx of K.pna bacteremia 04/2019 -04/15 Bcx 06/07 K. pna (R Amp, I Ancef, Zosyn) hx of polymicrobial UTI 04/2019 -04/16 ucx >100kE. fecalis -04/15 ucx >100k K.pna (R amp, macrobid; otherwise S); repeat ucx >100k K,pna (R Amp, I Ancef), >100k P stuarti (R Amp, cipro.levo), macrobid, ancef, >100k enterococcus fecalis (S Amp, Vanco, macrobid) HLD HTN DM2 COPD/asthma cognitive communication deficit R BKA w/ phantom limb syndrome glaucoma SNF resident ([facility]) Plan: -Continue empiric IV Vancomycin #2 and switch Ceftriaxone #2 to Cefepime -f/u cx -Monitor CBC/CMP, temperatures -Gen sx f/u -wound care per surgical team -aspiration precautions Thank you for consulting [facility]. Will continue to follow along with you. Discussed justina VILLALPANDO. Ana M Kramer M.D. Dec 12, 2019 17:29
[2019-12-12] MEDS ORDERED: SILVADENE20 GM TP (17:45)
[2019-12-12] MEDS ORDERED: POVIDONE IODIN TOPIC (17:45)
[2019-12-12] MEDS ORDERED: ARGINAID POWDE1 EACH PO (17:45)
[2019-12-12] MEDS: Cefepime HCl 1 GM in D5W 55 ML IVPB SCH (18:40)
--- NOTE | 2019-12-12 19:23 | NUR ---
NURSE HAND-OFF REPORT: Important Events on Shift:[] Patient Status: [] Diet: [] Pending Orders: [] Pending Results/Labs:[] Pending MD notification:[] Latest Vital Signs: Temperature 98.5 , Pulse 75 , B/P 125 /62 , Respiratory Rate 20 , O2 SAT 96 , Room Air, O2 Flow Rate . Vital Sign Comment: [] EKG Rhythm: Sinus Rhythm Rhythm change?: N MD Notified?: - MD Response: Latest Clark Fall Score: 50 Fall Risk: High Risk Safety Measures: Call light Within Reach, Bed Alarm Zone 1, Side Rails Side Rails x3, Bed position Low and Locked. Fall Precautions: Yellow Socks Patient Fall Education Report given to [KWASI Paez].
--- NOTE | 2019-12-12 19:24 | NUR ---
NURSE NOTES: Patient received from Angely VILLALPANDO. Patient in stable condition but confused. Alert and oriented x1. No s/s of distress and no complains of pain. IV site on Right EJ pulled out by patient during change of shift will try to put in a new one later this shift. Pike catheter patent and intact draining well to gravity. Call light within reach. Bed in lowest position and locked. Will continue plan of care.
--- NOTE | 2019-12-12 19:48 | General Progress Note ---
Subjective Constitutional: Reports: no symptoms HEENT: Reports: no symptoms Cardiovascular: Reports: no symptoms Respiratory: Reports: no symptoms Gastrointestinal/Abdominal: Reports: no symptoms Genitourinary: Reports: no symptoms Neurologic/Psychiatric: Reports: no symptoms, anxiety, weakness Hematologic/Lymphatic: Reports: no symptoms, anemia Allergies: Coded Allergies: No Known Allergies (Unverified , 04/15/19) Objective Last 24 Hour Vital Signs Date Time Temp Pulse Resp B/P (MAP) Pulse Ox O2 Delivery O2 Flow Rate FiO2 12/12/19 16:00 75 12/12/19 16:00 98.5 73 20 125/62 (83) 96 12/12/19 12:00 97.7 80 18 121/61 (81) 100 12/12/19 12:00 73 12/12/19 09:05 123/49 12/12/19 09:00 Room Air 12/12/19 08:00 73 12/12/19 08:00 97.9 81 19 123/49 (73) 99 12/12/19 04:00 97.9 75 20 107/51 (69) 100 75 12/12/19 04:00 75 12/12/19 00:00 97.5 79 16 100/53 (69) 98 12/12/19 00:00 76 12/11/19 21:00 Room Air 12/11/19 20:12 Room Air 12/11/19 20:00 78 Intake and Output 12/11/19 12/12/19 19:00 07:00 Intake Total 0 ml 192.5 ml Output Total 250 ml 600 ml Balance -250 ml -407.5 ml Intake Oral 0 ml IV Total 192.5 ml Output Urine Total 250 ml 600 ml # Voids 1 # Bowel Movements 1 Laboratory Tests 12/12/19 05:59: White Blood Count 10.0, Red Blood Count 2.67L, Hemoglobin 7.1#L, Hematocrit 22.2#L, Mean Corpuscular Volume 83, Mean Corpuscular Hemoglobin 26.4L, Mean Corpuscular Hemoglobin Concent 31.7L, Red Cell Distribution Width 13.8, Platelet Count 443, Mean Platelet Volume 5.2L, Neutrophils (%) (Auto) , Lymphocytes (%) (Auto) , Monocytes (%) (Auto) , Eosinophils (%) (Auto) , Basophils (%) (Auto) , Differential Total Cells Counted 100, Neutrophils % (Manual) 62, Lymphocytes % (Manual) 22, Monocytes % (Manual) 5, Eosinophils % (Manual) 1, Basophils % (Manual) 0, Band Neutrophils 10H, Platelet Estimate Adequate, Platelet Morphology Normal, Hypochromasia 1+, Erythrocyte Sedimentation Rate 137H, Sodium Level 140, Potassium Level 4.3, Chloride Level 105, Carbon Dioxide Level 25, Anion Gap 10, Blood Urea Nitrogen 55H, Creatinine 1.8H, Estimat Glomerular Filtration Rate 43.9, Glucose Level 169H, Hemoglobin A1c 5.3, Calcium Level 9.0, Ferritin > 2000H, Total Bilirubin 0.4, Direct Bilirubin 0.1, Aspartate Amino Transf (AST/SGOT) 22, Alanine Aminotransferase (ALT/SGPT) 14, Alkaline Phosph atase 120H, C-Reactive Protein, Quantitative 37.1H, Pro-B-Type Natriuretic Peptide 815H, Total Protein 7.3, Albumin 1.6L, Triglycerides Level 130, Cholesterol Level 85, LDL Cholesterol 36, HDL Cholesterol 12L, Cholesterol/HDL Ratio 7.1H, Vitamin D 25-Hydroxy [Pending], 25-Hydroxy Vitamin D2 [Pending], 25- Hydroxy Vitamin D3 [Pending], Random Vancomycin Level 18.2 12/12/19 09:29: POC Whole Blood Glucose 186H Height (Feet): 5 Height (Inches): 6.00 Weight (Pounds): 140 General Appearance: WD/WN, no apparent distress, alert EENT: normal ENT inspection Neck: supple Cardiovascular: normal rate, regular rhythm, no gallop/murmur, no JVD Respiratory/Chest: lungs clear, normal breath sounds, no respiratory distress, no accessory muscle use Abdomen: normal bowel sounds, non tender, soft, no organomegaly, no mass Extremities: non-tender Edema: mild edema Neurologic: alert, responsive Assessment/Plan Status Narrative Patient is awake alert afebrile hemodynamically stableReceive multiple back RBCs transfusion his wound has been assessed today both general surgeon infectious disease specialist Patient currently is on cefepime 1 g IV piggyback every 12 arterial duplex scan done today revealed the patient has blockage of the femoral superficial femoral artery and increase in collateral circulation in the left lower extremity. A chest x-ray shows some fullness in the suspicion of mild CT scan of the chest without contrast was ordered Repeat laboratory tests will be done in a.m. Domingo Sapp MD, MD Dec 12, 2019 19:48
[2019-12-12 20:00] VITALS: BP 138/69
[2019-12-12] MEDS: Sennosides 8.6mg tab ORAL SCH (21:07)
[2019-12-12] MEDS: Latanoprost 0.005% Opth 2.5ml Soln BOTH EYES SCH (21:07)
[2019-12-13] VITALS: BP 143/77
[2019-12-13 04:00] VITALS: BP 140/67
--- NOTE | 2019-12-13 07:55 | NUR ---
NURSE HAND-OFF REPORT: Important Events on Shift:[None] Patient Status: [Stable] Diet: [Cardiac No added salt] Pending Orders: [] Pending Results/Labs:[] Pending MD notification:[] Latest Vital Signs: Temperature 96.4 , Pulse 68 , B/P 140 /67 , Respiratory Rate 14 , O2 SAT 98 , Room Air, O2 Flow Rate . Vital Sign Comment: [] EKG Rhythm: Sinus Rhythm Rhythm change?: N MD Notified?: - MD Response: Latest Clark Fall Score: 50 Fall Risk: High Risk Safety Measures: Call light Within Reach, Bed Alarm Zone 1, Side Rails Side Rails x3, Bed position Low and Locked. Fall Precautions: Yellow Socks Patient Fall Education Report given to [Anai VILLALPANDO].
[2019-12-13 08:00] VITALS: BP 130/71
--- NOTE | 2019-12-13 08:02 | Hematology/Onc Progress Note ---
Assessment/Plan Assessment/Plan Assessment and Recs: # Anemia of chronic disease due to underlying chronic medical issues, multifactorial v Gi bleed --> Anemia workup has been ordered, rule out gi bleed --> ferritin is >1500 --> No evidence of hemolysis is noted, peripheral smear has been reviewed. --> Hgb goal >7. Transfuse prn. --> continue on po iron --> Medications have been reviewed --> low threshold for gi evaluation in case has occult + --> EGD/COLO 04/23/19-> reviewed with gastritis/iH --> bone marrow biopsy is not indicated given the other more likely causes --> hgb 8-->7.4->>>4.9->7.1 --> blood tx 3 units 12/11 # Protein caloric malnutrition --> ensure and 1:1 feeding recommended --> have added mirtazapine for appetite stimulant --> avoid megace as is vte risk --> daily weight count # Left lower ext wound --> ABX ctx/vanc-->vanc/cefepime # Transaminitis --> has improved # Sepsis with uti, polymicrobial --> s/p abx # Dehydration --> renal prn # Dvt ppx scds The timing of this note does not necessarily reflect the time of the patient was seen. Greatly appreciate consultation. Subjective HEENT: Denies: no symptoms, eye pain, blurred vision, tearing, double vision, ear pain, ear discharge, nose pain, nose congestion, throat pain, throat swelling, mouth pain, mouth swelling, other Cardiovascular: Denies: no symptoms, chest pain, edema, irregular heart rate, lightheadedness, palpitations, syncope, other Respiratory: Denies: no symptoms, cough, shortness of breath, SOB with excertion, SOB at rest, sputum, wheezing, other Gastrointestinal/Abdominal: Denies: no symptoms, abdomen distended, abdominal pain, black stools, tarry stools, blood in stool, constipated, diarrhea, difficulty swallowing, nausea, poor appetite, poor fluid intake, rectal bleeding, vomiting, other Genitourinary: Denies: no symptoms, burning, discharge, frequency, flank pain, hematuria, incontinence, pain, urgency, other Neurologic/Psychiatric: Denies: no symptoms, anxiety, depressed, emotional problems, headache, numbness, paresthesia, pre-existing deficit, seizure, tingling, tremors, weakness, other Endocrine: Denies: no symptoms, excessive sweating, flushing, intolerance to cold, intolerance to heat, increased hunger, increased thirst, increased urine, unexplained weight gain, unexplained weight loss, other Hematologic/Lymphatic: Denies: no symptoms, anemia, easy bleeding, easy bruising, adenopathy, other Allergies: Coded Allergies: No Known Allergies (Unverified , 04/15/19) Subjective 12/12 pending cbc from am, labs reviewed, no bleeding, meds noted Objective Objective Current Medications Medications (Trade) Dose Ordered Sig/Neftaly Route PRN Reason Start Time Stop Time Status Last Admin Dose Admin Acetaminophen (Tylenol) 650 mg Q4H PRN ORAL MILD/TEMP 12/11/19 20:45 01/10/20 20:44 Acetaminophen/ Hydrocodone Bitart ([place] 5/325) 1 tab Q6H PRN ORAL Moderate Pain (Pain Scale 4-6) 12/11/19 20:45 12/18/19 20:44 Albuterol Sulfate (Proventil MDI) 2 puff Q6H PRN INH Shortness of Breath 12/11/19 20:45 03/10/20 20:44 Atorvastatin Calcium (Lipitor) 10 mg BEDTIME ORAL 12/11/19 21:00 03/10/20 20:59 12/12/19 21:07 Bisacodyl (Dulcolax) 10 mg DAILY PRN RECTAL Constipation 12/11/19 20:45 03/10/20 20:44 Brimonidine Tartrate (Alphagan) 1 drop BID BOTH EYES 12/12/19 09:00 03/11/20 08:59 12/12/19 17:58 Cefepime HCl 1 gm/ Dextrose 55 ml @ 110 mls/hr Q24H IVPB 12/12/19 17:30 12/19/19 17:29 12/12/19 18:40 Ferrous Sulfate (Feosol) 325 mg TWICE A DAY ORAL 12/12/19 09:00 03/11/20 08:59 12/12/19 17:56 Gabapentin (Neurontin) 300 mg BID ORAL 12/12/19 09:00 01/11/20 08:59 12/12/19 17:56 Insulin Aspart (NovoLOG) 6 units THREE TIMES A DAY SUBQ 12/12/19 09:00 03/11/20 08:59 12/12/19 18:22 Latanoprost (Xalatan) 1 drop BEDTIME BOTH EYES 12/11/19 21:00 01/10/20 20:59 12/12/19 21:07 Losartan Potassium (Cozaar) 50 mg DAILY ORAL 12/12/19 09:00 01/11/20 08:59 12/12/19 09:05 Metformin HCl (Glucophage) 1,000 mg BID ORAL 12/12/19 09:00 01/11/20 08:59 12/12/19 17:56 Mirtazapine (Remeron) 15 mg BEDTIME ORAL 12/12/19 21:00 03/11/20 20:59 12/12/19 21:07 Multivitamins (Multivitamins) 1 tab DAILY ORAL 12/12/19 09:00 01/11/20 08:59 12/12/19 09:05 Sennosides (Senokot) 8.6 mg BEDTIME ORAL 12/11/19 21:00 01/10/20 20:59 12/12/19 21:07 Vancomycin HCl (Vanco pharmacy to dose) 1 ea DAILY PRN MISC Per rx protocol 12/11/19 21:30 01/10/20 21:29 Vancomycin HCl 1 gm/Sodium Chloride 250 ml @ 167.007 mls/hr ONCE IVPB 12/13/19 12:00 12/13/19 14:00 Last 24 Hour Vital Signs Date Time Temp Pulse Resp B/P (MAP) Pulse Ox O2 Delivery O2 Flow Rate FiO2 12/13/19 04:00 96.4 68 14 140/67 (91) 98 12/13/19 04:00 68 12/13/19 00:00 75 12/13/19 00:00 97.7 74 14 143/77 (99) 98 12/12/19 21:00 Room Air 12/12/19 20:00 98.1 72 16 138/69 (92) 98 12/12/19 20:00 72 12/12/19 16:00 75 12/12/19 16:00 98.5 73 20 125/62 (83) 96 12/12/19 12:00 97.7 80 18 121/61 (81) 100 12/12/19 12:00 73 12/12/19 09:05 123/49 12/12/19 09:00 Room Air 12/12/19 08:00 73 12/12/19 08:00 97.9 81 19 123/49 (73) 99 12/12/19 04:00 97.9 75 20 107/51 (69) 100 75 12/12/19 04:00 75 12/12/19 00:00 97.5 79 16 100/53 (69) 98 12/12/19 00:00 76 12/11/19 21:00 Room Air 12/11/19 20:12 Room Air 12/11/19 20:00 78 12/11/19 19:05 Room Air 12/11/19 19:05 97.5 79 20 95/62 (73) 100 12/11/19 17:00 98.9 88 18 98/47 100 Room Air 12/11/19 16:00 98.9 88 18 98/47 100 Room Air 12/11/19 14:45 98.9 83 18 12/11/19 14:30 98.6 83 18 12/11/19 14:00 98.1 83 16 103/50 100 Room Air 12/11/19 13:30 98.1 88 18 114/89 95 Room Air 12/11/19 13:30 88 18 Room Air 12/11/19 12:35 98.1 88 18 114/89 (97) 95 Room Air Intake and Output 12/12/19 12/13/19 19:00 07:00 Output Total 700 ml Balance -700 ml Output Urine Total 700 ml # Voids 1 # Bowel Movements 1 Labs Test 12/11/19 12:50 12/11/19 13:05 12/11/19 14:10 12/12/19 05:59 White Blood Count 11.9 K/UL (4.8-10.8) 10.0 K/UL (4.8-10.8) Red Blood Count 1.92 M/UL (4.70-6.10) 2.67 M/UL (4.70-6.10) Hemoglobin 4.9 G/DL (14.2-18.0) 7.1 G/DL (14.2-18.0) Hematocrit 15.9 % (42.0-52.0) 22.2 % (42.0-52.0) Mean Corpuscular Volume 83 FL (80-99) 83 FL (80-99) Mean Corpuscular Hemoglobin 25.3 PG (27.0-31.0) 26.4 PG (27.0-31.0) Mean Corpuscular Hemoglobin Concent 30.6 G/DL (32.0-36.0) 31.7 G/DL (32.0-36.0) Red Cell Distribution Width 15.2 % (11.6-14.8) 13.8 % (11.6-14.8) Platelet Count 426 K/UL (150-450) 443 K/UL (150-450) Mean Platelet Volume 5.3 FL (6.5-10.1) 5.2 FL (6.5-10.1) Neutrophils (%) (Auto) % (45.0-75.0) % (45.0-75.0) Lymphocytes (%) (Auto) % (20.0-45.0) % (20.0-45.0) Monocytes (%) (Auto) % (1.0-10.0) % (1.0-10.0) Eosinophils (%) (Auto) % (0.0-3.0) % (0.0-3.0) Basophils (%) (Auto) % (0.0-2.0) % (0.0-2.0) Differential Total Cells Counted 100 100 Neutrophils % (Manual) 67 % (45-75) 62 % (45-75) Lymphocytes % (Manual) 23 % (20-45) 22 % (20-45) Monocytes % (Manual) 2 % (1-10) 5 % (1-10) Eosinophils % (Manual) 0 % (0-3) 1 % (0-3) Basophils % (Manual) 1 % (0-2) 0 % (0-2) Band Neutrophils 7 % (0-8) 10 % (0-8) Platelet Estimate Adequate Adequate Platelet Morphology Normal Normal Hypochromasia 2+ 1+ Anisocytosis 1+ Microcytosis 1+ Prothrombin Time 11.6 SEC (9.30-11.50) Prothromb Time International Ratio 1.1 (0.9-1.1) Activated Partial Thromboplast Time 37 SEC (23-33) Sodium Level 138 MMOL/L (136-145) 140 MMOL/L (136-145) Potassium Level 4.3 MMOL/L (3.5-5.1) 4.3 MMOL/L (3.5-5.1) Chloride Level 102 MMOL/L (98-107) 105 MMOL/L (98-107) Carbon Dioxide Level 26 MMOL/L (21-32) 25 MMOL/L (21-32) Anion Gap 10 mmol/L (5-15) 10 mmol/L (5-15) Blood Urea Nitrogen 57 mg/dL (7-18) 55 mg/dL (7-18) Creatinine 2.1 MG/DL (0.55-1.30) 1.8 MG/DL (0.55-1.30) Estimat Glomerular Filtration Rate 36.7 mL/min (>60) 43.9 mL/min (>60) Glucose Level 238 MG/DL (74-106) 169 MG/DL (74-106) Lactic Acid Level 2.90 mmol/L (0.4-2.0) 2.90 mmol/L (0.66-2.22) Calcium Level 9.3 MG/DL (8.5-10.1) 9.0 MG/DL (8.5-10.1) Phosphorus Level 2.3 MG/DL (2.5-4.9) Magnesium Level 1.5 MG/DL (1.8-2.4) Total Bilirubin 0.4 MG/DL (0.2-1.0) 0.4 MG/DL (0.2-1.0) Aspartate Amino Transf (AST/SGOT) 12 U/L (15-37) 22 U/L (15-37) Alanine Aminotransferase (ALT/SGPT) 12 U/L (12-78) 14 U/L (12-78) Alkaline Phosphatase 115 U/L (46-116) 120 U/L (46-116) Total Creatine Kinase 45 U/L (26-308) Creatine Kinase MB 0.7 NG/ML (0.0-3.6) Creatine Kinase MB Relative Index 1.5 Troponin I 0.000 ng/mL (0.000-0.056) Total Protein 7.7 G/DL (6.4-8.2) 7.3 G/DL (6.4-8.2) Albumin 1.6 G/DL (3.4-5.0) 1.6 G/DL (3.4-5.0) Globulin 6.1 g/dL Albumin/Globulin Ratio 0.3 (1.0-2.7) Urine Color Brown Urine Appearance Very cloudy Urine pH 7 (4.5-8.0) Urine Specific [place] 1.015 (1.005-1.035) Urine Protein 4+ (NEGATIVE) Urine Glucose (UA) Negative (NEGATIVE) Urine Ketones 2+ (NEGATIVE) Urine Blood 5+ (NEGATIVE) Urine Nitrite Negative (NEGATIVE) Urine Bilirubin Negative (NEGATIVE) Urine Urobilinogen 1 MG/DL (0.0-1.0) Urine Leukocyte Esterase 3+ (NEGATIVE) Urine RBC 5-10 /HPF (0 - 0) Urine WBC Tntc /HPF (0 - 0) Urine Squamous Epithelial Cells None /LPF (NONE/OCC) Urine Bacteria Many /HPF (NONE) Erythrocyte Sedimentation Rate 137 MM/HR (0-20) Hemoglobin A1c 5.3 % (4.3-6.0) Ferritin > 2000 NG/ML (8-388) Direct Bilirubin 0.1 MG/DL (0.0-0.3) C-Reactive Protein, Quantitative 37.1 mg/dL (0.00-0.90) Pro-B-Type Natriuretic Peptide 815 pg/mL (0-125) Triglycerides Level 130 MG/DL (30-150) Cholesterol Level 85 MG/DL (< 200) LDL Cholesterol 36 mg/dL (<100) HDL Cholesterol 12 MG/DL (40-60) Cholesterol/HDL Ratio 7.1 (3.3-4.4) Random Vancomycin Level 18.2 ug/mL Test 12/12/19 09:29 12/13/19 05:25 12/13/19 07:18 POC Whole Blood Glucose 186 MG/DL (74-106) 130 MG/DL (74-106) Random Vancomycin Level 17.0 ug/mL Height (Feet): 5 Height (Inches): 6.00 Weight (Pounds): 140 Objective Physical Exam: Vitals: reviewed General: NAD HEENT: nc, at Neck: supple + trach/vent Chest: clear breath sounds bilaterally Cardiovascular: RRR, no s3, s4 Abdomen: soft, nontender, nd Extremities: no cce, normal range of motion, R++ bka Neuro: Jett Jackson MD Dec 13, 2019 08:02
--- NOTE | 2019-12-13 08:05 | NUR ---
NURSE NOTES: Received report from KWASI Paez. Observed pt sleeping, no s/sx of acute distress, breathing even and unlabored in RA. bed on lowest position, call light within reach. Will continue plan of care.
[2019-12-13] MEDS: metFORMIN 500mg tab ORAL SCH (09:05)
[2019-12-13] MEDS: Losartan 50mg tab ORAL SCH (09:05)
[2019-12-13] MEDS: Brimonidine 0.2% Opth Sol BOTH EYES SCH ×2 (09:06→17:49)
[2019-12-13] MEDS: NovoLOG Insulin Flexpen SUBQ SCH ×3 (09:12→17:55)
--- NOTE | 2019-12-13 09:39 | CDS Physician Query ---
Clarification is required for compliance, coding accuracy, and to reflect severity of illness for this patient Dear Dr.Ali José M.D. Date: 12/13/19 CDI/CDS Name: Bal Davis Clinical Documentation Statement: 66 -YOM came w/ chest pain for 2 days and rule out acute coronary syndrome, constipation. The patient had later on low-grade fever. [ HCharbelP Jett Nicole MD 12/12/19] ASSESSMENT: Chest pain for 2 days and rule out ACS Clinical Finding Show: Vitals (12/10): T102.4F, Pulse 122, RR 18 LAB (12/10) : Hemat; WBC9.7, Neut%71.8 Urine : Ur Bacteria "Moderate" Ur Leuck Esterase "3+" Medication: Cefepime IV According to the clinical indications above, please indicate below the condition PHYSICIAN RESPONSE: [ ] Sepsis [ ] SIRS [ ] SIRS with organ dysfunction [ ] Septic Shock [ ] Not applicable [ ] Other: Present on Admission: [ ]Yes [ ] No [ ] Clinically Undetermined Physician signature Date Please also document in your Progress Notes and/or Discharge Summary and indicate if the condition was present on admission. MTDD
--- NOTE | 2019-12-13 10:03 | NUR ---
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
--- NOTE | 2019-12-13 10:21 | Surgery Progress Note ---
Surgery Progress Note Subjective Additional Comments afebrile, leukocytosis resolved, no n/v labs pending exam stable Objective Last 24 Hour Vital Signs Date Time Temp Pulse Resp B/P (MAP) Pulse Ox O2 Delivery O2 Flow Rate FiO2 12/13/19 09:05 130/71 12/13/19 08:00 96.7 71 21 130/71 (90) 96 12/13/19 04:00 96.4 68 14 140/67 (91) 98 12/13/19 04:00 68 12/13/19 00:00 75 12/13/19 00:00 97.7 74 14 143/77 (99) 98 12/12/19 21:00 Room Air 12/12/19 20:00 98.1 72 16 138/69 (92) 98 12/12/19 20:00 72 12/12/19 16:00 75 12/12/19 16:00 98.5 73 20 125/62 (83) 96 12/12/19 12:00 97.7 80 18 121/61 (81) 100 12/12/19 12:00 73 I&O Intake and Output 12/12/19 12/13/19 19:00 07:00 Output Total 700 ml Balance -700 ml Output Urine Total 700 ml # Voids 1 # Bowel Movements 1 Dressing: saturated Cardiovascular: RSR Respiratory: decreased breath sounds Abdomen: non-tender, present bowel sounds, decreased bowel sounds Extremities: edema, cyanosis, other Laboratory Tests Test 12/13/19 05:25 12/13/19 07:18 12/13/19 09:08 Random Vancomycin Level 17.0 ug/mL POC Whole Blood Glucose 130 MG/DL (74-106) H 193 MG/DL (74-106) H Plan Problems: (1) Sacral decubitus ulcer Assessment & Plan: Left posterior lower leg Vascular wound 15.02x4.0x1.8 40% gangrene necrotic black dry eschar ,60%yellow/green/garcia stringy slough ,necrotic muscle and bone exposed with strong foul odor and moderate infectious drainage. Left heel vascular wound 7.3x4.5.0.8 gangrene 100% necrotic black soft eschar with garcia tissue surrounding wound borders , necrotic muscle and bone exposed ,strong foul odor and moderate infectious drainage. Left anterior foot vascular wound 7.0x3.0x0.2 80% yellow slough and 20% pink granulation tissue,moderate serosanguineous drainage and strong foul odor. Wet to dry dressing applied to all vascular wounds Dakin's solution recommended. Sacral stage 3 pressure ulcer 2.5x0.8x0.3 30% yellow slough 70% red granulation tissue ,small amount serosanguineous drainage Thera Honey and Optifoam applied. Arterial studies were done. Right lower leg BKA noted. stable (2) Ischemia of left lower extremity Assessment & Plan: left heel and leg arterial ischemia vascular wounds noted very unkept and broken down local wound care will be initiated will need on going evaluation for salvage vs amputation thank you (3) GI bleeding (4) Gram-negative bacteremia (5) Laceration of face (6) Dilated cbd, acquired (7) Diabetes mellitus (8) History of hypertension (9) COPD (chronic obstructive pulmonary disease) (10) Anemia (11) Severe protein-calorie malnutrition Assessment & Plan: nutritional supplementation (12) Hx of right BKA Alex Garzon Dec 13, 2019 10:21
[2019-12-13 12:00] VITALS: BP 133/75
--- NOTE | 2019-12-13 12:05 | Infectious Diseases Prog Note ---
Assessment/Plan Assessment: COVID19 neg x1 -12/10rapid COVID PCR neg CXR: Right perihilar fullness, possibly on the basis of prominent normal vasculature, but appears asymmetric and increased from earlier studies. Possibility of infiltrate or mass or adenopathy should be considered. --previously neg PCR 12/03 Afebrile Mild leukocytosis- SP -Bcx NTD Probable UTI -u/a wbc tntc, nit neg, leuk +3; ucx >100k GNR Acute on chronic anemia (Hgb up to 4.9 upon admission) Acute encephalopathy Sacral decubitus ulcer (POA) L LE ischemic wounds; infected -a. duplex: Left distal superficial femoral artery occlusion. Distal waveforms remain monophasic, although the upstroke and amplitude appears somewhat increased as compared to prior study of 04/16/2019. This may reflect improved collateral flow SANNA, improving hx of K.pna bacteremia 04/2019 -04/15 Bcx 06/07 K. pna (R Amp, I Ancef, Zosyn) hx of polymicrobial UTI 04/2019 -04/16 ucx >100kE. 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) Plan: -Continue empiric IV Vancomycin #3 and Cefepime #2 (abx d #3) -Add flagyl for anaerobic coverage of wounds -12/11 SP Ceftriaxone #2 -12/10 SP Cefepime x1 -f/u cx -Monitor CBC/CMP, temperatures -Gen sx f/u -wound care per surgical team -aspiration precautions Thank you for consulting [facility]. Will continue to follow along with you. Avery horn RN. Subjective Allergies: Coded Allergies: No Known Allergies (Unverified , 04/15/19) Objective Last 24 Hour Vital Signs Date Time Temp Pulse Resp B/P (MAP) Pulse Ox O2 Delivery O2 Flow Rate FiO2 12/13/19 09:05 130/71 12/13/19 09:00 Room Air 12/13/19 08:00 96.7 71 21 130/71 (90) 96 12/13/19 07:47 73 12/13/19 04:00 96.4 68 14 140/67 (91) 98 12/13/19 04:00 68 12/13/19 00:00 75 12/13/19 00:00 97.7 74 14 143/77 (99) 98 12/12/19 21:00 Room Air 12/12/19 20:00 98.1 72 16 138/69 (92) 98 12/12/19 20:00 72 12/12/19 16:00 75 12/12/19 16:00 98.5 73 20 125/62 (83) 96 12/12/19 12:00 97.7 80 18 121/61 (81) 100 12/12/19 12:00 73 Height (Feet): 5 Height (Inches): 6.00 Weight (Pounds): 140 General: NAD HEENT: nc, at Neck: supple Chest: clear breath sounds bilaterally Cardiovascular: RRR, no s3, s4 Abdomen: soft, nontender, nd Extremities: no cce, normal range of motion, R++ bka, L LE ischemic/necrotic wounds sacral decubitus ulcers Neuro: confused Microbiology Date/Time Source Procedure Growth Status 12/11/19 13:55 Rectum VRE Culture - Final NO VANCOMYCIN RESISTANT ENTEROCOCCUS ... Complete 12/11/19 13:55 Nasal Nares MRSA Culture - Final Staphylococcus Aureus - Mrsa Complete 12/11/19 13:55 Nasopharynx SARS-CoV-2 RdRp Gene Assay - Final Complete 12/11/19 13:05 Urine,Clean Catch Urine Culture - Preliminary Gram Negative Bacillus 1 Resulted 12/11/19 12:50 Blood Blood Culture - Preliminary NO GROWTH AFTER 24 HOURS Resulted 12/11/19 12:35 Blood Blood Culture - Preliminary NO GROWTH AFTER 24 HOURS Resulted Laboratory Tests Test 12/13/19 05:25 12/13/19 07:18 12/13/19 09:08 Random Vancomycin Level 17.0 ug/mL POC Whole Blood Glucose 130 MG/DL (74-106) H 193 MG/DL (74-106) H Current Medications Medications (Trade) Dose Ordered Sig/Neftaly Route PRN Reason Start Time Stop Time Status Last Admin Dose Admin Acetaminophen (Tylenol) 650 mg Q4H PRN ORAL MILD/TEMP 12/11/19 20:45 01/10/20 20:44 Acetaminophen/ Hydrocodone Bitart ([place] 5/325) 1 tab Q6H PRN ORAL Moderate Pain (Pain Scale 4-6) 12/11/19 20:45 12/18/19 20:44 Albuterol Sulfate (Proventil MDI) 2 puff Q6H PRN INH Shortness of Breath 12/11/19 20:45 03/10/20 20:44 Atorvastatin Calcium (Lipitor) 10 mg BEDTIME ORAL 12/11/19 21:00 03/10/20 20:59 12/12/19 21:07 Bisacodyl (Dulcolax) 10 mg DAILY PRN RECTAL Constipation 12/11/19 20:45 03/10/20 20:44 Brimonidine Tartrate (Alphagan) 1 drop BID BOTH EYES 12/12/19 09:00 03/11/20 08:59 12/13/19 09:06 Cefepime HCl 1 gm/ Dextrose 55 ml @ 110 mls/hr Q24H IVPB 12/12/19 17:30 12/19/19 17:29 12/12/19 18:40 Ferrous Sulfate (Feosol) 325 mg TWICE A DAY ORAL 12/12/19 09:00 03/11/20 08:59 12/13/19 09:05 Gabapentin (Neurontin) 300 mg BID ORAL 12/12/19 09:00 01/11/20 08:59 12/13/19 09:05 Insulin Aspart (NovoLOG) 6 units THREE TIMES A DAY SUBQ 12/12/19 09:00 03/11/20 08:59 12/13/19 09:12 Latanoprost (Xalatan) 1 drop BEDTIME BOTH EYES 12/11/19 21:00 01/10/20 20:59 12/12/19 21:07 Losartan Potassium (Cozaar) 50 mg DAILY ORAL 12/12/19 09:00 01/11/20 08:59 12/13/19 09:05 Mirtazapine (Remeron) 15 mg BEDTIME ORAL 12/12/19 21:00 03/11/20 20:59 12/12/19 21:07 Multivitamins (Multivitamins) 1 tab DAILY ORAL 12/12/19 09:00 01/11/20 08:59 12/13/19 09:05 Sennosides (Senokot) 8.6 mg BEDTIME ORAL 12/11/19 21:00 01/10/20 20:59 12/12/19 21:07 Vancomycin HCl ([facility] pharmacy to dose) 1 ea DAILY PRN MISC Per rx protocol 12/11/19 21:30 01/10/20 21:29 Vancomycin HCl 1 gm/Sodium Chloride 250 ml @ 167.007 mls/hr ONCE IVPB 12/13/19 12:00 12/13/19 14:00 Ana M Kramer M.D. Dec 13, 2019 12:05
--- NOTE | 2019-12-13 13:08 | General Progress Note ---
Subjective Constitutional: Reports: no symptoms HEENT: Reports: no symptoms Cardiovascular: Reports: no symptoms Respiratory: Reports: no symptoms Gastrointestinal/Abdominal: Reports: no symptoms Genitourinary: Reports: no symptoms Neurologic/Psychiatric: Reports: other - Even though the patient is alert he does not understand the fact that he have to potential surgical lesion and the severity Hematologic/Lymphatic: Reports: no symptoms Allergies: Coded Allergies: No Known Allergies (Unverified , 04/15/19) Objective Last 24 Hour Vital Signs Date Time Temp Pulse Resp B/P (MAP) Pulse Ox O2 Delivery O2 Flow Rate FiO2 12/13/19 12:00 96.8 83 21 133/75 (94) 99 12/13/19 11:46 82 12/13/19 09:05 130/71 12/13/19 09:00 Room Air 12/13/19 08:00 96.7 71 21 130/71 (90) 96 12/13/19 07:47 73 12/13/19 04:00 96.4 68 14 140/67 (91) 98 12/13/19 04:00 68 12/13/19 00:00 75 12/13/19 00:00 97.7 74 14 143/77 (99) 98 12/12/19 21:00 Room Air 12/12/19 20:00 98.1 72 16 138/69 (92) 98 12/12/19 20:00 72 12/12/19 16:00 75 12/12/19 16:00 98.5 73 20 125/62 (83) 96 Intake and Output 12/12/19 12/13/19 19:00 07:00 Output Total 700 ml Balance -700 ml Output Urine Total 700 ml # Voids 1 # Bowel Movements 1 Laboratory Tests 12/13/19 05:25: Random Vancomycin Level 17.0 12/13/19 07:18: POC Whole Blood Glucose 130H 12/13/19 09:08: POC Whole Blood Glucose 193H 12/13/19 11:53: POC Whole Blood Glucose [Pending] Height (Feet): 5 Height (Inches): 6.00 Weight (Pounds): 140 General Appearance: WD/WN, no apparent distress, alert, confused EENT: normal ENT inspection Neck: supple Cardiovascular: normal rate, regular rhythm, no gallop/murmur, no JVD Respiratory/Chest: lungs clear, normal breath sounds, no respiratory distress, no accessory muscle use Abdomen: normal bowel sounds, non tender, soft, no organomegaly, no mass Edema: 2+ Leg (L) Neurologic: alert, responsive Skin: warm/dry Assessment/Plan Status Narrative Patient is awake alert afebrile but does not understand the seriousness of the issue for which he was admitted Patient sacrum wound has been assessed by general surgeon and the progress is conservative treatment Patient longer ischemic wound in the left lower extremity is being assessed assessment is not completed and decision whether amputation or conservative management has not been reached as yet Repeat laboratory tests will be done in a.m. We will wait for the completion of the general surgeon and the final assessment base of the left lower extremity can be as solved without surgery Domingo Sapp MD, MD Dec 13, 2019 13:08
[2019-12-13] MEDS: metroNIDAZOLE 500mg tab ORAL SCH ×2 (14:36→21:04)
[2019-12-13 16:00] VITALS: BP 104/94
--- NOTE | 2019-12-13 16:06 | NUR ---
CASE MANAGEMENT:REVIEW 12/13/19 SI: ANEMIA....S/P 3 UNITS PRBC'S UTI. LLE ISCHEMIC WOUND 96.8 82 21 133/75 99% ON RA NO LABS FOR TODAY IS: IV CEFEPIME Q24 FLAGYL PO Q8HRS : TELEMETRY STATUS DCP: FROM [facility]
--- NOTE | 2019-12-13 16:13 | Diagnostic Imaging Report ---
Clinical Indication: Abnormal chest radiograph, possible hilar mass Technique: Spiral acquisitions obtained through the chest. No IV contrast utilized, redemonstrated. Multiplanar reconstructions generated. Total dose length product 191 mGycm. CTDIvol(s) 4 mGy. Dose reduction achieved using automated exposure control Comparison: Chest radiograph dated 12/11/2019. No comparison CT scan Findings: Although evaluation is somewhat limited in the absence of IV contrast, prominent vessels but no definite mass are seen in the right pulmonary hilum. There is trace right pleural fluid. There is also some pleural thickening with calcification posteriorly in the right lower hemithorax. There is some interstitial and airspace parenchymal opacity in the posterior inferior right lower lobe, probably partially atelectatic change but some consolidation is also possible. The right upper lobe demonstrates some apical scarring which is partially calcified, as well as some air trapping and possibly some bullous change. The right middle lobe is clear. The left lower lobe demonstrate probable trace pleural fluid as well as some pleural thickening. There is posterior parenchymal opacity, likely mostly representing atelectasis, but could also represent some scarring and or acute consolidation. A calcified granuloma is seen in the left lateral lung base. The left upper lobe is clear. The heart size is upper limits of normal. There is minimal anterior wall pericardial thickening versus fluid. The esophagus is unremarkable. There are granulomatous calcifications in the left pulmonary hilum. No mediastinal or hilar mass or adenopathy. The included thyroid is unremarkable. There is a small lipoma in the right lateral posterior upper back subcutaneous fat. No other axillary or chest wall mass or adenopathy. The bones are unremarkable. Included upper abdominal anatomy demonstrates calcifications within the liver. There is an eggshell calcification within or adjacent to the pancreatic tail which measures 17 mm in diameter. Impression: No definite pulmonary mass demonstrated. Findings on recent chest radiograph or presumably due to prominent pulmonary hilar vascular structures. Bilateral posterior pulmonary parenchymal opacities. Most likely represent atelectatic changes but there may be a component of parenchymal consolidation as well. Suspect trace bilateral pleural effusions Right apical calcific scarring, with some air trapping an early bullous changes Calcified pleural plaquing in the posterior right hemithorax, likely related to old infection/inflammation Evidence of old granulomatous disease elsewhere as well, within the left lung, left pulmonary hilum, and liver Eggshell calcification within or adjacent to the pancreatic tail. This may represent an old inflammatory lesion, but could also represent a calcified splenic artery aneurysm Incidental finding of right upper back subcutaneous lipoma The CT scanner at [facility] is accredited by the [employer] and the scans are performed using protocols designed to limit radiation exposure to as low as reasonably achievable to attain images of sufficient resolution adequate for diagnostic evaluation.
--- NOTE | 2019-12-13 16:39 | NUR ---
INSURANCE CLINICALS/REVIEW FAXED TO [facility] P:[phone] F:[phone]
[2019-12-13] MEDS: Cefepime HCl 1 GM in D5W 55 ML IVPB SCH (17:49)
--- NOTE | 2019-12-13 19:44 | NUR ---
NURSE NOTES: Patient received from Anai VILLALPANOD. Patient in alert and oriented x1. Patient is confused. On room air saturating well. IV site on Right AC 20g SL patent and intact. Pike catheter patent and intact draining well to gravity. Bed in lowest position and locked. Call light and bedside table within reach. Will continue plan of care.
--- NOTE | 2019-12-13 19:44 | NUR ---
NURSE HAND-OFF REPORT: Important Events on Shift: OBS sample sent to lab Patient Status: Diet: Pending Orders: Pending Results/Labs: Pending MD notification: Latest Vital Signs: Temperature 99.3 , Pulse 78 , B/P 104 /94 , Respiratory Rate 20 , O2 SAT 100 , Room Air, O2 Flow Rate . Vital Sign Comment: EKG Rhythm: Sinus Rhythm Rhythm change?: N MD Notified?: - MD Response: Latest Clark Fall Score: 50 Fall Risk: High Risk Safety Measures: Call light Within Reach, Bed Alarm Zone 1, Side Rails Side Rails x3, Bed position Low and Locked. Fall Precautions: Yellow Socks Patient Fall Education Report given to KWASI Paez
[2019-12-13 20:00] VITALS: BP 138/75
[2019-12-13] MEDS: Latanoprost 0.005% Opth 2.5ml Soln BOTH EYES SCH (20:44)
[2019-12-13] MEDS: Sennosides 8.6mg tab ORAL SCH (20:44)
[2019-12-14] VITALS: BP 131/63
[2019-12-14 04:00] VITALS: BP 132/68
[2019-12-14] MEDS: metroNIDAZOLE 500mg tab ORAL SCH ×3 (05:49→21:19)
--- NOTE | 2019-12-14 06:01 | NUR ---
NURSE NOTES: Patient only took half the dose for 6am medicine crushed Flagyl mixed with apple sauce. Refusing to finish it all.
[2019-12-14 07:19] LABS: BASOPHILS % (AUTO) 0.9 % (0.0-2.0); EOSINOPHILS % (AUTO) 1.8 % (0.0-3.0); HEMATOCRIT 31.8 % (42.0-52.0); HEMOGLOBIN 10.4 G/DL (14.2-18.0); LYMPHOCYTES % (AUTO) 18.8 % (20.0-45.0); MEAN CORPUSCULAR VOLUME 84 FL (80-99); MONOCYTES % (AUTO) 3.1 % (1.0-10.0); NEUTROPHILS % (AUTO) 75.5 % (45.0-75.0); PLATELET COUNT 496 K/UL (150-450); RED BLOOD COUNT 3.77 M/UL (4.70-6.10); RED CELL DISTRIBUTION WIDTH 14.3 % (11.6-14.8)
--- NOTE | 2019-12-14 07:24 | Hematology/Onc Progress Note ---
Assessment/Plan Assessment/Plan Assessment and Recs: # Anemia of chronic disease due to underlying chronic medical issues, multifactorial v Gi bleed --> Anemia workup has been ordered, rule out gi bleed --> ferritin is >1500 --> No evidence of hemolysis is noted, peripheral smear has been reviewed. --> Hgb goal >7. Transfuse prn. --> continue on po iron --> Medications have been reviewed --> low threshold for gi evaluation in case has occult + --> EGD/COLO 04/23/19-> reviewed with gastritis/iH --> bone marrow biopsy is not indicated given the other more likely causes --> hgb 8-->7.4->>>4.9->7.1--> --> s/p blood tx 3 units 12/11 # Protein caloric malnutrition --> ensure and 1:1 feeding recommended --> have added mirtazapine for appetite stimulant --> avoid megace as is vte risk --> daily weight count # Left lower ext wound --> ABX ctx/vanc-->vanc/cefepime # Transaminitis --> has improved # Sepsis with uti, polymicrobial --> s/p abx # Dehydration --> renal prn # Dvt ppx scds The timing of this note does not necessarily reflect the time of the patient was seen. Greatly appreciate consultation. Subjective Allergies: Coded Allergies: No Known Allergies (Unverified , 04/15/19) Subjective Subjective: 12/12 pending cbc from am, labs reviewed, no bleeding, meds noted 12/13: morning labs are pending, hgb 10.8 was 7.1, resting no acute distress. Objective Objective Current Medications Medications (Trade) Dose Ordered Sig/Neftaly Route PRN Reason Start Time Stop Time Status Last Admin Dose Admin Acetaminophen (Tylenol) 650 mg Q4H PRN ORAL MILD/TEMP 12/11/19 20:45 01/10/20 20:44 Acetaminophen/ Hydrocodone Bitart ([place] 5/325) 1 tab Q6H PRN ORAL Moderate Pain (Pain Scale 4-6) 12/11/19 20:45 12/18/19 20:44 Albuterol Sulfate (Proventil MDI) 2 puff Q6H PRN INH Shortness of Breath 12/11/19 20:45 03/10/20 20:44 Atorvastatin Calcium (Lipitor) 10 mg BEDTIME ORAL 12/11/19 21:00 03/10/20 20:59 12/13/19 20:44 Bisacodyl (Dulcolax) 10 mg DAILY PRN RECTAL Constipation 12/11/19 20:45 03/10/20 20:44 Brimonidine Tartrate (Alphagan) 1 drop BID BOTH EYES 12/12/19 09:00 03/11/20 08:59 12/13/19 17:49 Cefepime HCl 1 gm/ Dextrose 55 ml @ 110 mls/hr Q24H IVPB 12/12/19 17:30 12/19/19 17:29 12/13/19 17:49 Ferrous Sulfate (Feosol) 325 mg TWICE A DAY ORAL 12/12/19 09:00 03/11/20 08:59 12/13/19 17:49 Gabapentin (Neurontin) 300 mg BID ORAL 12/12/19 09:00 01/11/20 08:59 12/13/19 17:48 Insulin Aspart (NovoLOG) 6 units THREE TIMES A DAY SUBQ 12/12/19 09:00 03/11/20 08:59 12/13/19 12:21 Latanoprost (Xalatan) 1 drop BEDTIME BOTH EYES 12/11/19 21:00 01/10/20 20:59 12/13/19 20:44 Losartan Potassium (Cozaar) 50 mg DAILY ORAL 12/12/19 09:00 01/11/20 08:59 12/13/19 09:05 Metronidazole (Flagyl) 500 mg Q8HR ORAL 12/13/19 14:00 12/20/19 13:59 12/14/19 05:49 Mirtazapine (Remeron) 15 mg BEDTIME ORAL 12/12/19 21:00 03/11/20 20:59 12/13/19 20:43 Multivitamins (Multivitamins) 1 tab DAILY ORAL 12/12/19 09:00 01/11/20 08:59 12/13/19 09:05 Sennosides (Senokot) 8.6 mg BEDTIME ORAL 12/11/19 21:00 01/10/20 20:59 12/13/19 20:44 Vancomycin HCl (Vanco pharmacy to dose) 1 ea DAILY PRN MISC Per rx protocol 12/11/19 21:30 01/10/20 21:29 Last 24 Hour Vital Signs Date Time Temp Pulse Resp B/P (MAP) Pulse Ox O2 Delivery O2 Flow Rate FiO2 12/14/19 04:00 68 12/14/19 04:00 98.8 68 20 132/68 (89) 96 12/14/19 00:00 98.6 74 20 131/63 (85) 96 12/14/19 00:00 74 12/13/19 21:00 Room Air 12/13/19 20:00 97.3 92 18 138/75 (96) 97 12/13/19 20:00 92 12/13/19 16:11 78 12/13/19 16:00 99.3 74 20 104/94 (97) 100 12/13/19 12:00 96.8 83 21 133/75 (94) 99 12/13/19 11:46 82 12/13/19 09:05 130/71 12/13/19 09:00 Room Air 12/13/19 08:00 96.7 71 21 130/71 (90) 96 12/13/19 07:47 73 12/13/19 04:00 96.4 68 14 140/67 (91) 98 12/13/19 04:00 68 12/13/19 00:00 75 12/13/19 00:00 97.7 74 14 143/77 (99) 98 12/12/19 21:00 Room Air 12/12/19 20:00 98.1 72 16 138/69 (92) 98 12/12/19 20:00 72 12/12/19 16:00 75 12/12/19 16:00 98.5 73 20 125/62 (83) 96 12/12/19 12:00 97.7 80 18 121/61 (81) 100 12/12/19 12:00 73 12/12/19 09:05 123/49 12/12/19 09:00 Room Air 12/12/19 08:00 73 12/12/19 08:00 97.9 81 19 123/49 (73) 99 Intake and Output 12/13/19 12/14/19 19:00 07:00 Output Total 2300 ml 600 ml Balance -2300 ml -600 ml Output Urine Total 2300 ml 600 ml # Voids 1 1 # Bowel Movements 2 Labs Test 12/11/19 12:50 12/11/19 13:05 12/11/19 14:10 12/12/19 05:59 White Blood Count 11.9 K/UL (4.8-10.8) 10.0 K/UL (4.8-10.8) Red Blood Count 1.92 M/UL (4.70-6.10) 2.67 M/UL (4.70-6.10) Hemoglobin 4.9 G/DL (14.2-18.0) 7.1 G/DL (14.2-18.0) Hematocrit 15.9 % (42.0-52.0) 22.2 % (42.0-52.0) Mean Corpuscular Volume 83 FL (80-99) 83 FL (80-99) Mean Corpuscular Hemoglobin 25.3 PG (27.0-31.0) 26.4 PG (27.0-31.0) Mean Corpuscular Hemoglobin Concent 30.6 G/DL (32.0-36.0) 31.7 G/DL (32.0-36.0) Red Cell Distribution Width 15.2 % (11.6-14.8) 13.8 % (11.6-14.8) Platelet Count 426 K/UL (150-450) 443 K/UL (150-450) Mean Platelet Volume 5.3 FL (6.5-10.1) 5.2 FL (6.5-10.1) Neutrophils (%) (Auto) % (45.0-75.0) % (45.0-75.0) Lymphocytes (%) (Auto) % (20.0-45.0) % (20.0-45.0) Monocytes (%) (Auto) % (1.0-10.0) % (1.0-10.0) Eosinophils (%) (Auto) % (0.0-3.0) % (0.0-3.0) Basophils (%) (Auto) % (0.0-2.0) % (0.0-2.0) Differential Total Cells Counted 100 100 Neutrophils % (Manual) 67 % (45-75) 62 % (45-75) Lymphocytes % (Manual) 23 % (20-45) 22 % (20-45) Monocytes % (Manual) 2 % (1-10) 5 % (1-10) Eosinophils % (Manual) 0 % (0-3) 1 % (0-3) Basophils % (Manual) 1 % (0-2) 0 % (0-2) Band Neutrophils 7 % (0-8) 10 % (0-8) Platelet Estimate Adequate Adequate Platelet Morphology Normal Normal Hypochromasia 2+ 1+ Anisocytosis 1+ Microcytosis 1+ Prothrombin Time 11.6 SEC (9.30-11.50) Prothromb Time International Ratio 1.1 (0.9-1.1) Activated Partial Thromboplast Time 37 SEC (23-33) Sodium Level 138 MMOL/L (136-145) 140 MMOL/L (136-145) Potassium Level 4.3 MMOL/L (3.5-5.1) 4.3 MMOL/L (3.5-5.1) Chloride Level 102 MMOL/L (98-107) 105 MMOL/L (98-107) Carbon Dioxide Level 26 MMOL/L (21-32) 25 MMOL/L (21-32) Anion Gap 10 mmol/L (5-15) 10 mmol/L (5-15) Blood Urea Nitrogen 57 mg/dL (7-18) 55 mg/dL (7-18) Creatinine 2.1 MG/DL (0.55-1.30) 1.8 MG/DL (0.55-1.30) Estimat Glomerular Filtration Rate 36.7 mL/min (>60) 43.9 mL/min (>60) Glucose Level 238 MG/DL (74-106) 169 MG/DL (74-106) Lactic Acid Level 2.90 mmol/L (0.4-2.0) 2.90 mmol/L (0.66-2.22) Calcium Level 9.3 MG/DL (8.5-10.1) 9.0 MG/DL (8.5-10.1) Phosphorus Level 2.3 MG/DL (2.5-4.9) Magnesium Level 1.5 MG/DL (1.8-2.4) Total Bilirubin 0.4 MG/DL (0.2-1.0) 0.4 MG/DL (0.2-1.0) Aspartate Amino Transf (AST/SGOT) 12 U/L (15-37) 22 U/L (15-37) Alanine Aminotransferase (ALT/SGPT) 12 U/L (12-78) 14 U/L (12-78) Alkaline Phosphatase 115 U/L (46-116) 120 U/L (46-116) Total Creatine Kinase 45 U/L (26-308) Creatine Kinase MB 0.7 NG/ML (0.0-3.6) Creatine Kinase MB Relative Index 1.5 Troponin I 0.000 ng/mL (0.000-0.056) Total Protein 7.7 G/DL (6.4-8.2) 7.3 G/DL (6.4-8.2) Albumin 1.6 G/DL (3.4-5.0) 1.6 G/DL (3.4-5.0) Globulin 6.1 g/dL Albumin/Globulin Ratio 0.3 (1.0-2.7) Urine Color Brown Urine Appearance Very cloudy Urine pH 7 (4.5-8.0) Urine Specific [place] 1.015 (1.005-1.035) Urine Protein 4+ (NEGATIVE) Urine Glucose (UA) Negative (NEGATIVE) Urine Ketones 2+ (NEGATIVE) Urine Blood 5+ (NEGATIVE) Urine Nitrite Negative (NEGATIVE) Urine Bilirubin Negative (NEGATIVE) Urine Urobilinogen 1 MG/DL (0.0-1.0) Urine Leukocyte Esterase 3+ (NEGATIVE) Urine RBC 5-10 /HPF (0 - 0) Urine WBC Tntc /HPF (0 - 0) Urine Squamous Epithelial Cells None /LPF (NONE/OCC) Urine Bacteria Many /HPF (NONE) Erythrocyte Sedimentation Rate 137 MM/HR (0-20) Hemoglobin A1c 5.3 % (4.3-6.0) Ferritin > 2000 NG/ML (8-388) Direct Bilirubin 0.1 MG/DL (0.0-0.3) C-Reactive Protein, Quantitative 37.1 mg/dL (0.00-0.90) Pro-B-Type Natriuretic Peptide 815 pg/mL (0-125) Triglycerides Level 130 MG/DL (30-150) Cholesterol Level 85 MG/DL (< 200) LDL Cholesterol 36 mg/dL (<100) HDL Cholesterol 12 MG/DL (40-60) Cholesterol/HDL Ratio 7.1 (3.3-4.4) Random Vancomycin Level 18.2 ug/mL Test 12/12/19 09:29 12/12/19 13:06 12/12/19 18:12 12/12/19 21:24 POC Whole Blood Glucose 186 MG/DL (74-106) 128 MG/DL (74-106) 130 MG/DL (74-106) 141 MG/DL (74-106) Test 12/13/19 05:25 12/13/19 07:18 12/13/19 09:08 12/13/19 11:53 Random Vancomycin Level 17.0 ug/mL POC Whole Blood Glucose 130 MG/DL (74-106) 193 MG/DL (74-106) Test 12/13/19 16:52 12/13/19 17:55 12/14/19 05:40 12/14/19 05:50 Stool Occult Blood Negative (NEGATIVE) Height (Feet): 5 Height (Inches): 6.00 Weight (Pounds): 140 Objective Physical Exam: Vitals: reviewed General: NAD HEENT: nc, at Neck: supple Chest: clear breath sounds bilaterally Cardiovascular: RRR, no s3, s4 Abdomen: soft, nontender, nd Extremities: no cce, normal range of motion, R++ bka left foot dressing CDI Neuro: confused, awake Benita Subramanian NP Dec 14, 2019 07:24
--- NOTE | 2019-12-14 07:34 | NUR ---
NURSE HAND-OFF REPORT: Important Events on Shift:[None] Patient Status: [Stable] Diet: [CC[employer] MED and Low Bernice] Pending Orders: [] Pending Results/Labs:[] Pending MD notification:[] Latest Vital Signs: Temperature 98.8 , Pulse 68 , B/P 132 /68 , Respiratory Rate 20 , O2 SAT 96 , Room Air, O2 Flow Rate . Vital Sign Comment: [] EKG Rhythm: Sinus Rhythm Rhythm change?: N MD Notified?: - MD Response: Latest Clark Fall Score: 50 Fall Risk: High Risk Safety Measures: Call light Within Reach, Bed Alarm Zone 1, Side Rails Side Rails x3, Bed position Low and Locked. Fall Precautions: Yellow Socks Patient Fall Education Report given to []. Addendum: 12/14/19 at 0735 by Jeannine Sofia RN Diet No added salt and CCHO MED. Report given to Dottie VILLALPANDO.
--- NOTE | 2019-12-14 07:35 | NUR ---
NURSE NOTES: Received patient in bed asleep. No SOB or acute distress. IV line intact. HOB elevated. Bed locked in low position. Call light within reach. Will continue plan of care.
[2019-12-14 08:00] VITALS: BP 141/76
[2019-12-14] MEDS: Losartan 50mg tab ORAL SCH (09:20)
[2019-12-14] MEDS: Brimonidine 0.2% Opth Sol BOTH EYES SCH ×2 (09:20→18:21)
[2019-12-14] MEDS: NovoLOG Insulin Flexpen SUBQ SCH ×3 (09:26→18:00)
[2019-12-14 11:31] VITALS: BP 100/60
--- NOTE | 2019-12-14 12:42 | Surgery Progress Note ---
Surgery Progress Note Subjective Additional Comments no acute events labs noted exam stable Objective Last 24 Hour Vital Signs Date Time Temp Pulse Resp B/P (MAP) Pulse Ox O2 Delivery O2 Flow Rate FiO2 12/14/19 12:00 73 12/14/19 11:31 97.5 73 20 100/60 (73) 95 12/14/19 09:20 141/76 12/14/19 09:00 Room Air 12/14/19 08:00 96.7 73 28 141/76 (97) 96 12/14/19 08:00 66 12/14/19 04:00 68 12/14/19 04:00 98.8 68 20 132/68 (89) 96 12/14/19 00:00 98.6 74 20 131/63 (85) 96 12/14/19 00:00 74 12/13/19 21:00 Room Air 12/13/19 20:00 97.3 92 18 138/75 (96) 97 12/13/19 20:00 92 12/13/19 16:11 78 12/13/19 16:00 99.3 74 20 104/94 (97) 100 I&O Intake and Output 12/13/19 12/14/19 18:59 06:59 Output Total 2300 ml 600 ml Balance -2300 ml -600 ml Output Urine Total 2300 ml 600 ml # Voids 1 1 # Bowel Movements 2 Dressing: other Wound: other Cardiovascular: RSR Respiratory: decreased breath sounds Abdomen: soft, non-tender, present bowel sounds Extremities: no tenderness, no cyanosis Laboratory Tests Test 12/13/19 16:52 12/13/19 17:55 12/14/19 05:40 12/14/19 05:50 Stool Occult Blood Negative (NEGATIVE) POC Whole Blood Glucose Pending Pending White Blood Count 10.0 K/UL (4.8-10.8) Red Blood Count 3.77 M/UL (4.70-6.10) L Hemoglobin 10.4 G/DL (14.2-18.0) L Hematocrit 31.8 % (42.0-52.0) L Mean Corpuscular Volume 84 FL (80-99) Mean Corpuscular Hemoglobin 27.5 PG (27.0-31.0) Mean Corpuscular Hemoglobin Concent 32.5 G/DL (32.0-36.0) Red Cell Distribution Width 14.3 % (11.6-14.8) Platelet Count 496 K/UL (150-450) H Mean Platelet Volume 5.3 FL (6.5-10.1) L Neutrophils (%) (Auto) 75.5 % (45.0-75.0) H Lymphocytes (%) (Auto) 18.8 % (20.0-45.0) L Monocytes (%) (Auto) 3.1 % (1.0-10.0) Eosinophils (%) (Auto) 1.8 % (0.0-3.0) Basophils (%) (Auto) 0.9 % (0.0-2.0) Random Vancomycin Level 19.6 ug/mL Plan Problems: (1) Sacral decubitus ulcer Assessment & Plan: Left posterior lower leg Vascular wound 15.02x4.0x1.8 40% gangrene necrotic black dry eschar ,60%yellow/green/garcia stringy slough ,necrotic muscle and bone exposed with strong foul odor and moderate infectious drainage. Left heel vascular wound 7.3x4.5.0.8 gangrene 100% necrotic black soft eschar with garcia tissue surrounding wound borders , necrotic muscle and bone exposed ,strong foul odor and moderate infectious drainage. Left anterior foot vascular wound 7.0x3.0x0.2 80% yellow slough and 20% pink granulation tissue,moderate serosanguineous drainage and strong foul odor. Wet to dry dressing applied to all vascular wounds Dakin's solution recommended. Sacral stage 3 pressure ulcer 2.5x0.8x0.3 30% yellow slough 70% red granulation tissue ,small amount serosanguineous drainage Thera Honey and Optifoam applied. Arterial studies were done. Right lower leg BKA noted. stable (2) Ischemia of left lower extremity Assessment & Plan: left heel and leg arterial ischemia vascular wounds noted very unkept and broken down local wound care will be initiated will need on going evaluation for salvage vs amputation thank you (3) GI bleeding (4) Gram-negative bacteremia (5) Laceration of face (6) Dilated cbd, acquired (7) Diabetes mellitus (8) History of hypertension (9) COPD (chronic obstructive pulmonary disease) (10) Anemia (11) Severe protein-calorie malnutrition Assessment & Plan: nutritional supplementation (12) Hx of right BKA Benyamini,Alex Dec 14, 2019 12:42
--- NOTE | 2019-12-14 13:07 | NUR ---
NURSE NOTES: Patient drowsy but arousable. Insulin not given, patient has not eaten lunch.
[2019-12-14 16:00] VITALS: BP 127/62
--- NOTE | 2019-12-14 16:13 | Infectious Diseases Prog Note ---
Assessment/Plan Assessment: COVID19 neg x1 -12/10rapid COVID PCR neg CXR: Right perihilar fullness, possibly on the basis of prominent normal vasculature, but appears asymmetric and increased from earlier studies. Possibility of infiltrate or mass or adenopathy should be considered. --previously neg PCR 12/03 ?lung mass- no evidence of mass on CT -CT chest: No definite pulmonary mass demonstrated. Findings on recent chest radiograph or presumably due to prominent pulmonary hilar vascular structures. Bilateral posterior pulmonary parenchymal opacities. Most likely represent atelectatic changes but there may be a component of parenchymal consolidation as well. Suspect trace bilateral pleural effusions. Right apical calcific scarring, with some air trapping an early bullous changes. Calcified pleural plaquing in the posterior right hemithorax, likely related to old infection/inflammation. Evidence of old granulomatous disease elsewhere as well, within the left lung, left pulmonary hilum, and liver. Eggshell calcification within or adjacent to the pancreatic tail. This may represent an old inflammatory lesion, but could also represent a calcified splenic artery aneurysm.Incidental finding of right upper back subcutaneous lipoma Afebrile Mild leukocytosis- SP -Bcx NTD Probable UTI -u/a wbc tntc, nit neg, leuk +3; ucx >100k P. stuarti (S Ceftriaxone, Cefepime, Zosyn), >100k GNR Acute on chronic anemia (Hgb up to 4.9 upon admission) Acute encephalopathy Sacral decubitus ulcer (POA) L LE ischemic wounds; infected -a. duplex: Left distal superficial femoral artery occlusion. Distal waveforms remain monophasic, although the upstroke and amplitude appears somewhat increased as compared to prior study of 04/16/2019. This may reflect improved collateral flow SANNA, improving hx of K.pna bacteremia 04/2019 -04/15 Bcx 06/07 K. pna (R Amp, I Ancef, Zosyn) hx of polymicrobial UTI 04/2019 -04/16 ucx >100kE. fecalis -04/15 ucx >100k K.pna (R amp, macrobid; otherwise S); repeat ucx >100k K,pna (R Amp, I Ancef), >100k P stuarti (R Amp, cipro.levo), macrobid, ancef, >100k enterococcus fecalis (S Amp, Vanco, macrobid) HLD HTN DM2 COPD/asthma cognitive communication deficit R BKA w/ phantom limb syndrome glaucoma SNF resident ([facility]) Plan: -Continue empiric IV Vancomycin #4 and Cefepime #3 (abx d #4) -Add flagyl #2 for anaerobic coverage of wounds -12/11 SP Ceftriaxone #2 -12/10 SP Cefepime x1 -f/u cx -Monitor CBC/CMP, temperatures -Gen sx f/u -wound care per surgical team -aspiration precautions Thank you for consulting [facility]. Will continue to follow along with you. Avery horn RN. Subjective Allergies: Coded Allergies: No Known Allergies (Unverified , 04/15/19) Objective Last 24 Hour Vital Signs Date Time Temp Pulse Resp B/P (MAP) Pulse Ox O2 Delivery O2 Flow Rate FiO2 12/14/19 12:00 73 12/14/19 11:31 97.5 73 20 100/60 (73) 95 12/14/19 09:20 141/76 12/14/19 09:00 Room Air 12/14/19 08:00 96.7 73 28 141/76 (97) 96 12/14/19 08:00 66 12/14/19 04:00 68 12/14/19 04:00 98.8 68 20 132/68 (89) 96 12/14/19 00:00 98.6 74 20 131/63 (85) 96 12/14/19 00:00 74 12/13/19 21:00 Room Air 12/13/19 20:00 97.3 92 18 138/75 (96) 97 12/13/19 20:00 92 12/13/19 16:11 78 12/13/19 16:00 99.3 74 20 104/94 (97) 100 Height (Feet): 5 Height (Inches): 6.00 Weight (Pounds): 140 General: NAD HEENT: nc, at Neck: supple Chest: clear breath sounds bilaterally Cardiovascular: RRR, no s3, s4 Abdomen: soft, nontender, nd Extremities: no cce, normal range of motion, R++ bka, L LE ischemic/necrotic wounds sacral decubitus ulcers Neuro: confused Laboratory Tests Test 12/13/19 16:52 10/9/20 17:55 12/14/19 05:40 12/14/19 05:50 Stool Occult Blood Negative (NEGATIVE) POC Whole Blood Glucose Pending Pending White Blood Count 10.0 K/UL (4.8-10.8) Red Blood Count 3.77 M/UL (4.70-6.10) L Hemoglobin 10.4 G/DL (14.2-18.0) L Hematocrit 31.8 % (42.0-52.0) L Mean Corpuscular Volume 84 FL (80-99) Mean Corpuscular Hemoglobin 27.5 PG (27.0-31.0) Mean Corpuscular Hemoglobin Concent 32.5 G/DL (32.0-36.0) Red Cell Distribution Width 14.3 % (11.6-14.8) Platelet Count 496 K/UL (150-450) H Mean Platelet Volume 5.3 FL (6.5-10.1) L Neutrophils (%) (Auto) 75.5 % (45.0-75.0) H Lymphocytes (%) (Auto) 18.8 % (20.0-45.0) L Monocytes (%) (Auto) 3.1 % (1.0-10.0) Eosinophils (%) (Auto) 1.8 % (0.0-3.0) Basophils (%) (Auto) 0.9 % (0.0-2.0) Random Vancomycin Level 19.6 ug/mL Current Medications Medications (Trade) Dose Ordered Sig/Neftaly Route PRN Reason Start Time Stop Time Status Last Admin Dose Admin Acetaminophen (Tylenol) 650 mg Q4H PRN ORAL MILD/TEMP 12/11/19 20:45 01/10/20 20:44 Acetaminophen/ Hydrocodone Bitart ([place] 5/325) 1 tab Q6H PRN ORAL Moderate Pain (Pain Scale 4-6) 12/11/19 20:45 12/18/19 20:44 Albuterol Sulfate (Proventil MDI) 2 puff Q6H PRN INH Shortness of Breath 12/11/19 20:45 03/10/20 20:44 Atorvastatin Calcium (Lipitor) 10 mg BEDTIME ORAL 12/11/19 21:00 03/10/20 20:59 12/13/19 20:44 Bisacodyl (Dulcolax) 10 mg DAILY PRN RECTAL Constipation 12/11/19 20:45 03/10/20 20:44 Brimonidine Tartrate (Alphagan) 1 drop BID BOTH EYES 12/12/19 09:00 03/11/20 08:59 12/14/19 09:20 Cefepime HCl 1 gm/ Dextrose 55 ml @ 110 mls/hr Q24H IVPB 12/12/19 17:30 12/19/19 17:29 12/13/19 17:49 Ferrous Sulfate (Feosol) 325 mg TWICE A DAY ORAL 12/12/19 09:00 03/11/20 08:59 12/14/19 09:19 Gabapentin (Neurontin) 300 mg BID ORAL 12/12/19 09:00 01/11/20 08:59 12/14/19 09:20 Insulin Aspart (NovoLOG) 6 units THREE TIMES A DAY SUBQ 12/12/19 09:00 03/11/20 08:59 12/14/19 09:26 Latanoprost (Xalatan) 1 drop BEDTIME BOTH EYES 12/11/19 21:00 01/10/20 20:59 12/13/19 20:44 Losartan Potassium (Cozaar) 50 mg DAILY ORAL 12/12/19 09:00 01/11/20 08:59 12/14/19 09:20 Metronidazole (Flagyl) 500 mg Q8HR ORAL 12/13/19 14:00 12/20/19 13:59 12/14/19 13:08 Mirtazapine (Remeron) 15 mg BEDTIME ORAL 12/12/19 21:00 03/11/20 20:59 12/13/19 20:43 Multivitamins (Multivitamins) 1 tab DAILY ORAL 12/12/19 09:00 01/11/20 08:59 12/14/19 09:19 Sennosides (Senokot) 8.6 mg BEDTIME ORAL 12/11/19 21:00 01/10/20 20:59 12/13/19 20:44 Vancomycin HCl (Vanco pharmacy to dose) 1 ea DAILY PRN MISC Per rx protocol 12/11/19 21:30 01/10/20 21:29 Ana M Kramer M.D. Dec 14, 2019 16:13
[2019-12-14] MEDS: Cefepime HCl 1 GM in D5W 55 ML IVPB SCH (18:21)
--- NOTE | 2019-12-14 19:19 | NUR ---
NURSE NOTES: Received report from KWASI Sinclair. Pt is resting comfortably in bed and denies any pain. Pt is A/Ox2 and Bedbound; confused and aspiration risk taking pills crushed. Pt is on cardiac monitoring SR and asymptomatic. Pt is breathing unlabored on RA and asymptomatic. Pt has RAC 20G running IV antibiotics patent with skin dry and intact. Bed is locked in lowest position and call light is within reach. Will continue to monitor.
--- NOTE | 2019-12-14 19:22 | NUR ---
NURSE HAND-OFF REPORT: Important Events on Shift: Patient Status: asleep during the day Diet: CCHO low, [place] Pending Orders: Pending Results/Labs: Pending MD notification: Latest Vital Signs: Temperature 98.1 , Pulse 69 , B/P 127 /62 , Respiratory Rate 20 , O2 SAT 98 , Room Air, O2 Flow Rate . Vital Sign Comment: EKG Rhythm: Sinus Rhythm Rhythm change?: N MD Notified?: N - MD Response: Latest Clark Fall Score: 50 Fall Risk: High Risk Safety Measures: Call light Within Reach, Bed Alarm Zone 1, Side Rails Side Rails x3, Bed position Low and Locked. Fall Precautions: Yellow Socks Patient Fall Education Report given to Britton VILLALPANDO.
[2019-12-14 20:00] VITALS: BP 106/58
--- NOTE | 2019-12-14 20:13 | General Progress Note ---
Subjective Constitutional: Reports: no symptoms HEENT: Reports: no symptoms Cardiovascular: Reports: no symptoms Respiratory: Reports: no symptoms Gastrointestinal/Abdominal: Reports: no symptoms Genitourinary: Reports: no symptoms Neurologic/Psychiatric: Reports: other - Confused Hematologic/Lymphatic: Reports: no symptoms Allergies: Coded Allergies: No Known Allergies (Unverified , 04/15/19) Objective Last 24 Hour Vital Signs Date Time Temp Pulse Resp B/P (MAP) Pulse Ox O2 Delivery O2 Flow Rate FiO2 12/14/19 16:00 69 12/14/19 16:00 98.1 68 20 127/62 (83) 98 12/14/19 12:00 73 12/14/19 11:31 97.5 73 20 100/60 (73) 95 12/14/19 09:20 141/76 12/14/19 09:00 Room Air 12/14/19 08:00 96.7 73 28 141/76 (97) 96 12/14/19 08:00 66 12/14/19 04:00 68 12/14/19 04:00 98.8 68 20 132/68 (89) 96 12/14/19 00:00 98.6 74 20 131/63 (85) 96 12/14/19 00:00 74 12/13/19 21:00 Room Air Intake and Output 12/13/19 12/14/19 19:00 07:00 Output Total 2300 ml 600 ml Balance -2300 ml -600 ml Output Urine Total 2300 ml 600 ml # Voids 1 1 # Bowel Movements 2 Laboratory Tests 12/14/19 05:40: POC Whole Blood Glucose [Pending] 12/14/19 05:50: White Blood Count 10.0, Red Blood Count 3.77L, Hemoglobin 10.4L, Hematocrit 31.8L, Mean Corpuscular Volume 84, Mean Corpuscular Hemoglobin 27.5, Mean Corpuscular Hemoglobin Concent 32.5, Red Cell Distribution Width 14.3, Platelet Count 496H, Mean Platelet Volume 5.3L, Neutrophils (%) (Auto) 75.5H, Lymphocytes (%) (Auto) 18.8L, Monocytes (%) (Auto) 3.1, Eosinophils (%) (Auto) 1.8, Basophils (%) (Auto) 0.9, Random Vancomycin Level 19.6 Height (Feet): 5 Height (Inches): 6.00 Weight (Pounds): 140 General Appearance: WD/WN, alert, confused EENT: normal ENT inspection Neck: supple Cardiovascular: normal rate, regular rhythm, regularly irregular, no JVD Respiratory/Chest: lungs clear, no respiratory distress, no accessory muscle use Abdomen: normal bowel sounds, non tender, soft, no organomegaly, no mass Extremities: non-tender, swelling - Left lower extremity Edema: 2+ Leg (L) Assessment/Plan Status Narrative Patient is awake alert febrile without clear idea for the reason he is in the hospital. CT scan of the chest was done but no mass was identified. Currently is on vancomycin and cefepime for wound sepsis in the left lower extremity UTI and possible pulmonary consolidation Flagyl was added to cover anaerobic. Surgical consult will continue to assess the patient in order to determine amputation observation of the left leg. Repeat laboratory tests will be done in a.m. next. Domingo Sapp MD, MD Dec 14, 2019 20:13
[2019-12-14] MEDS: Sennosides 8.6mg tab ORAL SCH (21:19)
[2019-12-14] MEDS: Latanoprost 0.005% Opth 2.5ml Soln BOTH EYES SCH (21:19)
[2019-12-15] VITALS: BP 122/68
[2019-12-15 04:00] VITALS: BP 114/59
[2019-12-15] MEDS: metroNIDAZOLE 500mg tab ORAL SCH ×3 (06:17→21:32)
--- NOTE | 2019-12-15 06:58 | Hematology/Onc Progress Note ---
Assessment/Plan Assessment/Plan Assessment and Recs: # Anemia of chronic disease due to underlying chronic medical issues, multifactorial v Gi bleed --> Anemia workup has been ordered, rule out gi bleed --> ferritin is >1500 --> No evidence of hemolysis is noted, peripheral smear has been reviewed. --> Hgb goal >7. Transfuse prn. --> continue on po iron --> Medications have been reviewed --> low threshold for gi evaluation in case has occult + --> EGD/COLO 04/23/19-> reviewed with gastritis/iH --> bone marrow biopsy is not indicated given the other more likely causes --> hgb 8-->7.4->>>4.9->7.1-->10 --> blood tx 3 units 12/11 # Protein caloric malnutrition --> ensure and 1:1 feeding recommended --> have added mirtazapine for appetite stimulant --> avoid megace as is vte risk --> daily weight count # Left lower ext wound --> ABX ctx/vanc-->vanc/cefepime --> surg eval # Transaminitis --> has improved # Sepsis with uti, polymicrobial --> s/p abx # Dehydration --> renal prn # Dvt ppx scds The timing of this note does not necessarily reflect the time of the patient was seen. Greatly appreciate consultation. Subjective Constitutional: Denies: no symptoms, chills, fever, malaise, weakness, other HEENT: Denies: no symptoms, eye pain, blurred vision, tearing, double vision, ear pain, ear discharge, nose pain, nose congestion, throat pain, throat swelling, mouth pain, mouth swelling, other Cardiovascular: Denies: no symptoms, chest pain, edema, irregular heart rate, lightheadedness, palpitations, syncope, other Gastrointestinal/Abdominal: Denies: no symptoms, abdomen distended, abdominal pain, black stools, tarry stools, blood in stool, constipated, diarrhea, difficulty swallowing, nausea, poor appetite, poor fluid intake, rectal bleeding, vomiting, other Genitourinary: Denies: no symptoms, burning, discharge, frequency, flank pain, hematuria, incontinence, pain, urgency, other Neurologic/Psychiatric: Denies: no symptoms, anxiety, depressed, emotional problems, headache, numbness, paresthesia, pre-existing deficit, seizure, tingling, tremors, weakness, other Endocrine: Denies: no symptoms, excessive sweating, flushing, intolerance to cold, intolerance to heat, increased hunger, increased thirst, increased urine, unexplained weight gain, unexplained weight loss, other Hematologic/Lymphatic: Denies: no symptoms, anemia, easy bleeding, easy bruising, adenopathy, other Allergies: Coded Allergies: No Known Allergies (Unverified , 04/15/19) Subjective 12/12 pending cbc from am, labs reviewed, no bleeding, meds noted 12/13 labs reviewed, seen by surg 12/14 labs reviewed, less pain, managing lle, is on abx Objective Objective Current Medications Medications (Trade) Dose Ordered Sig/Neftaly Route PRN Reason Start Time Stop Time Status Last Admin Dose Admin Acetaminophen (Tylenol) 650 mg Q4H PRN ORAL MILD/TEMP 12/11/19 20:45 01/10/20 20:44 Acetaminophen/ Hydrocodone Bitart ([place] 5/325) 1 tab Q6H PRN ORAL Moderate Pain (Pain Scale 4-6) 12/11/19 20:45 12/18/19 20:44 Albuterol Sulfate (Proventil MDI) 2 puff Q6H PRN INH Shortness of Breath 12/11/19 20:45 03/10/20 20:44 Atorvastatin Calcium (Lipitor) 10 mg BEDTIME ORAL 12/11/19 21:00 03/10/20 20:59 12/14/19 21:19 Bisacodyl (Dulcolax) 10 mg DAILY PRN RECTAL Constipation 12/11/19 20:45 03/10/20 20:44 Brimonidine Tartrate (Alphagan) 1 drop BID BOTH EYES 12/12/19 09:00 03/11/20 08:59 12/14/19 18:21 Cefepime HCl 1 gm/ Dextrose 55 ml @ 110 mls/hr Q24H IVPB 12/12/19 17:30 12/19/19 17:29 12/14/19 18:21 Ferrous Sulfate (Feosol) 325 mg TWICE A DAY ORAL 12/12/19 09:00 03/11/20 08:59 12/14/19 18:19 Gabapentin (Neurontin) 300 mg BID ORAL 12/12/19 09:00 01/11/20 08:59 12/14/19 18:19 Insulin Aspart (NovoLOG) 6 units THREE TIMES A DAY SUBQ 12/12/19 09:00 03/11/20 08:59 12/14/19 09:26 Latanoprost (Xalatan) 1 drop BEDTIME BOTH EYES 12/11/19 21:00 01/10/20 20:59 12/14/19 21:19 Losartan Potassium (Cozaar) 50 mg DAILY ORAL 12/12/19 09:00 01/11/20 08:59 12/14/19 09:20 Metronidazole (Flagyl) 500 mg Q8HR ORAL 12/13/19 14:00 12/20/19 13:59 12/15/19 06:17 Mirtazapine (Remeron) 15 mg BEDTIME ORAL 12/12/19 21:00 03/11/20 20:59 12/14/19 21:19 Multivitamins (Multivitamins) 1 tab DAILY ORAL 12/12/19 09:00 01/11/20 08:59 12/14/19 09:19 Sennosides (Senokot) 8.6 mg BEDTIME ORAL 12/11/19 21:00 01/10/20 20:59 12/14/19 21:19 Vancomycin HCl (Vanco pharmacy to dose) 1 ea DAILY PRN MISC Per rx protocol 12/11/19 21:30 01/10/20 21:29 Last 24 Hour Vital Signs Date Time Temp Pulse Resp B/P (MAP) Pulse Ox O2 Delivery O2 Flow Rate FiO2 12/15/19 04:00 96.8 82 16 114/59 (77) 99 12/15/19 04:00 82 12/15/19 00:00 85 12/15/19 00:00 99.0 88 16 122/68 (86) 99 12/14/19 21:00 Room Air 12/14/19 20:00 78 12/14/19 20:00 98.1 84 20 106/58 (74) 99 12/14/19 16:00 69 12/14/19 16:00 98.1 68 20 127/62 (83) 98 12/14/19 12:00 73 12/14/19 11:31 97.5 73 20 100/60 (73) 95 12/14/19 09:20 141/76 12/14/19 09:00 Room Air 12/14/19 08:00 96.7 73 28 141/76 (97) 96 12/14/19 08:00 66 12/14/19 04:00 68 12/14/19 04:00 98.8 68 20 132/68 (89) 96 12/14/19 00:00 98.6 74 20 131/63 (85) 96 12/14/19 00:00 74 12/13/19 21:00 Room Air 12/13/19 20:00 97.3 92 18 138/75 (96) 97 12/13/19 20:00 92 12/13/19 16:11 78 12/13/19 16:00 99.3 74 20 104/94 (97) 100 12/13/19 12:00 96.8 83 21 133/75 (94) 99 12/13/19 11:46 82 12/13/19 09:05 130/71 12/13/19 09:00 Room Air 12/13/19 08:00 96.7 71 21 130/71 (90) 96 12/13/19 07:47 73 Intake and Output 12/14/19 12/15/19 19:00 07:00 Intake Total 480 ml 480 ml Output Total 100 ml Balance 380 ml 480 ml Intake Oral 480 ml 480 ml Output Urine Total 100 ml # Voids 1 Labs Test 12/12/19 09:29 12/12/19 13:06 12/12/19 18:12 12/12/19 21:24 POC Whole Blood Glucose 186 MG/DL (74-106) 128 MG/DL (74-106) 130 MG/DL (74-106) 141 MG/DL (74-106) Test 12/13/19 05:25 12/13/19 07:18 12/13/19 09:08 12/13/19 11:53 Random Vancomycin Level 17.0 ug/mL POC Whole Blood Glucose 130 MG/DL (74-106) 193 MG/DL (74-106) Test 12/13/19 16:52 12/13/19 17:55 12/14/19 05:40 12/14/19 05:50 Stool Occult Blood Negative (NEGATIVE) White Blood Count 10.0 K/UL (4.8-10.8) Red Blood Count 3.77 M/UL (4.70-6.10) Hemoglobin 10.4 G/DL (14.2-18.0) Hematocrit 31.8 % (42.0-52.0) Mean Corpuscular Volume 84 FL (80-99) Mean Corpuscular Hemoglobin 27.5 PG (27.0-31.0) Mean Corpuscular Hemoglobin Concent 32.5 G/DL (32.0-36.0) Red Cell Distribution Width 14.3 % (11.6-14.8) Platelet Count 496 K/UL (150-450) Mean Platelet Volume 5.3 FL (6.5-10.1) Neutrophils (%) (Auto) 75.5 % (45.0-75.0) Lymphocytes (%) (Auto) 18.8 % (20.0-45.0) Monocytes (%) (Auto) 3.1 % (1.0-10.0) Eosinophils (%) (Auto) 1.8 % (0.0-3.0) Basophils (%) (Auto) 0.9 % (0.0-2.0) Random Vancomycin Level 19.6 ug/mL Height (Feet): 5 Height (Inches): 6.00 Weight (Pounds): 140 Objective Physical Exam: Vitals: reviewed General: NAD HEENT: nc, at Neck: supple + trach/vent Chest: clear breath sounds bilaterally Cardiovascular: RRR, no s3, s4 Abdomen: soft, nontender, nd Extremities: no cce, normal range of motion, R++ bka Neuro: confused Jett Nicole MD Dec 15, 2019 06:58
[2019-12-15 07:19] LABS: BASOPHILS % (AUTO) 0.4 % (0.0-2.0); EOSINOPHILS % (AUTO) 2.1 % (0.0-3.0); HEMATOCRIT 27.8 % (42.0-52.0); HEMOGLOBIN 9.1 G/DL (14.2-18.0); LYMPHOCYTES % (AUTO) 21.3 % (20.0-45.0); MEAN CORPUSCULAR VOLUME 84 FL (80-99); MONOCYTES % (AUTO) 3.5 % (1.0-10.0); NEUTROPHILS % (AUTO) 72.7 % (45.0-75.0); PLATELET COUNT 473 K/UL (150-450); RED BLOOD COUNT 3.31 M/UL (4.70-6.10); RED CELL DISTRIBUTION WIDTH 14.4 % (11.6-14.8); WHITE BLOOD COUNT 9.6 K/UL (4.8-10.8)
--- NOTE | 2019-12-15 07:19 | NUR ---
NURSE HAND-OFF REPORT: Important Events on Shift:Pt jay catheter leaked Patient Status: stable Diet: CCHO, Low Sodium Pending Results/Labs:AM Labs Latest Vital Signs: Temperature 96.8 , Pulse 82 , B/P 114 /59 , Respiratory Rate 16 , O2 SAT 99 , Room Air, O2 Flow Rate . Vital Sign Comment: VSS EKG Rhythm: Sinus Rhythm Rhythm change?: N MD Notified?: N - MD Response: Latest Clark Fall Score: 50 Fall Risk: High Risk Safety Measures: Call light Within Reach, Bed Alarm Zone 1, Side Rails Side Rails x3, Bed position Low and Locked. Fall Precautions: Yellow Socks Patient Fall Education Report given to KWASI Sinclair.
--- NOTE | 2019-12-15 07:26 | NUR ---
NURSE NOTES: Received patient in bed awake. No SOB or acute distress. IV line intact. Pike catheter intact but leaking. Wound dressings dry and intact. HOB elevated. Bed locked in low position. Call light within reach. Will continue plan of care.
[2019-12-15 07:39] LABS: ALANINE AMINOTRANSFERASE 6 U/L (12-78); ALBUMIN 1.6 G/DL (3.4-5.0); ALBUMIN/GLOBULIN RATIO 0.3 (1.0-2.7); ALKALINE PHOSPHATASE 104 U/L (46-116); ANION GAP 12 mmol/L (5-15); ASPARTATE AMINO TRANSFERASE 13 U/L (15-37); BILIRUBIN,TOTAL 0.3 MG/DL (0.2-1.0); BLOOD UREA NITROGEN 36 mg/dL (7-18); CALCIUM 8.8 MG/DL (8.5-10.1); CARBON DIOXIDE 24 MMOL/L (21-32); CHLORIDE 106 MMOL/L (98-107); CREATININE 1.3 MG/DL (0.55-1.30); POTASSIUM 3.2 MMOL/L (3.5-5.1); SODIUM 142 MMOL/L (136-145)
[2019-12-15 08:00] VITALS: BP 128/59
[2019-12-15] MEDS: Losartan 50mg tab ORAL SCH (09:08)
[2019-12-15] MEDS: Brimonidine 0.2% Opth Sol BOTH EYES SCH ×2 (09:09→17:46)
[2019-12-15] MEDS: NovoLOG Insulin Flexpen SUBQ SCH ×3 (09:22→17:47)
[2019-12-15] MEDS ORDERED: Vancomycin 500mg/D5W 110ml IVPB ONE ×2 (10:00)
--- NOTE | 2019-12-15 10:19 | NUR ---
NURSE NOTES: Potassium 3.[address] Anderson, left message and awaiting callback. Addendum: 12/15/19 at 1027 by Dottie Pacheco RN Spoke to Dr Anderson. Orders noted and carried out.
[2019-12-15 11:49] VITALS: BP 103/60
--- NOTE | 2019-12-15 13:24 | NUR ---
NURSE NOTES: Patient noted with poor PO intake for lunch, Novolog dose held by RN.
--- NOTE | 2019-12-15 13:31 | General Progress Note ---
Subjective Constitutional: Reports: no symptoms HEENT: Reports: no symptoms Cardiovascular: Reports: no symptoms Respiratory: Reports: no symptoms Gastrointestinal/Abdominal: Reports: no symptoms Genitourinary: Reports: no symptoms Neurologic/Psychiatric: Reports: no symptoms Hematologic/Lymphatic: Reports: no symptoms Allergies: Coded Allergies: No Known Allergies (Unverified , 04/15/19) Objective Last 24 Hour Vital Signs Date Time Temp Pulse Resp B/P (MAP) Pulse Ox O2 Delivery O2 Flow Rate FiO2 12/15/19 11:49 98.1 77 20 103/60 (74) 94 12/15/19 09:08 128/59 12/15/19 09:00 Room Air 12/15/19 08:00 98.4 77 20 128/59 (82) 95 12/15/19 08:00 79 12/15/19 04:00 96.8 82 16 114/59 (77) 99 12/15/19 04:00 82 12/15/19 00:00 85 12/15/19 00:00 99.0 88 16 122/68 (86) 99 12/14/19 21:00 Room Air 12/14/19 20:00 78 12/14/19 20:00 98.1 84 20 106/58 (74) 99 12/14/19 16:00 69 12/14/19 16:00 98.1 68 20 127/62 (83) 98 Intake and Output 12/14/19 12/15/19 19:00 07:00 Intake Total 480 ml 480 ml Output Total 100 ml Balance 380 ml 480 ml Intake Oral 480 ml 480 ml Output Urine Total 100 ml # Voids 1 Laboratory Tests 12/15/19 06:02: White Blood Count 9.6, Red Blood Count 3.31L, Hemoglobin 9.1L, Hematocrit 27.8L, Mean Corpuscular Volume 84, Mean Corpuscular Hemoglobin 27.4, Mean Corpuscular Hemoglobin Concent 32.6, Red Cell Distribution Width 14.4, Platelet Count 473H, Mean Platelet Volume 4.9L, Neutrophils (%) (Auto) 72.7, Lymphocytes (%) (Auto) 21.3, Monocytes (%) (Auto) 3.5, Eosinophils (%) (Auto) 2.1, Basophils (%) (Auto) 0.4, Sodium Level 142, Potassium Level 3.2L, Chloride Level 106, Carbon Dioxide Level 24, Anion Gap 12, Blood Urea Nitrogen 36H, Creatinine 1.3, Estimat Glomerular Filtration Rate > 60, Glucose Level 144H, Calcium Level 8.8, Total Bilirubin 0.3, Aspartate Amino Transf (AST/SGOT) 13L, Alanine Aminotransferase (ALT/SGPT) 6L, Alkaline Phosphatase 104, Total Protein 7.0, Albumin 1.6L, Globulin 5.4, Albumin/Globulin Ratio 0.3L, Random Vancomycin Level 16.9 12/15/19 11:41: POC Whole Blood Glucose 137H Height (Feet): 5 Height (Inches): 6.00 Weight (Pounds): 140 General Appearance: alert, confused EENT: normal ENT inspection Neck: supple Cardiovascular: normal rate, regular rhythm, no JVD Respiratory/Chest: lungs clear, normal breath sounds, no respiratory distress, no accessory muscle use Abdomen: normal bowel sounds, non tender, soft, no organomegaly, no mass Extremities: non-tender, inflammation, other - The long wound and left lower extremity is clean moist without exudate and nonfriable Skin: warm/dry Assessment/Plan Status Narrative Patient is awake alert febrile and hemodynamically stable examination of his left lower extremity reveals the patient will benefit from [id number] amputation the case is been discussed with the general surgeon. However patient have cardiomyopathy advanced cardiovascular disease peripheral vascular disease and inability to take care of himself he does not appear to meet the patient will survive the postoperative surgery or at least will have to be intubated and placed will be permanently up on mechanical ventilation therefore the management of the patient will remain conservative in his bedside wound care the case will be discussed further with an oral surgeon however plan for discharge can be started as of now DOMINGO Anderson,Domingo DOWNS Dec 15, 2019 13:31
[2019-12-15 15:26] VITALS: BP 108/56
--- NOTE | 2019-12-15 17:32 | Surgery Progress Note ---
Surgery Progress Note Subjective Additional Comments afebrile, HD stable improved h/h stable discussed with pcp plan to d/c and cont local wound care Objective Last 24 Hour Vital Signs Date Time Temp Pulse Resp B/P (MAP) Pulse Ox O2 Delivery O2 Flow Rate FiO2 12/15/19 15:26 98.2 70 20 108/56 (73) 97 12/15/19 12:00 76 12/15/19 11:49 98.1 77 20 103/60 (74) 94 12/15/19 09:08 128/59 12/15/19 09:00 Room Air 12/15/19 08:00 98.4 77 20 128/59 (82) 95 12/15/19 08:00 79 12/15/19 04:00 96.8 82 16 114/59 (77) 99 12/15/19 04:00 82 12/15/19 00:00 85 12/15/19 00:00 99.0 88 16 122/68 (86) 99 12/14/19 21:00 Room Air 12/14/19 20:00 78 12/14/19 20:00 98.1 84 20 106/58 (74) 99 I&O Intake and Output 12/14/19 12/15/19 19:00 07:00 Intake Total 480 ml 480 ml Output Total 100 ml Balance 380 ml 480 ml Intake Oral 480 ml 480 ml Output Urine Total 100 ml # Voids 1 Dressing: saturated Cardiovascular: RSR Respiratory: decreased breath sounds Abdomen: soft, non-tender, present bowel sounds Extremities: cyanosis, other Laboratory Tests Test 12/15/19 06:02 12/15/19 11:41 White Blood Count 9.6 K/UL (4.8-10.8) Red Blood Count 3.31 M/UL (4.70-6.10) L Hemoglobin 9.1 G/DL (14.2-18.0) L Hematocrit 27.8 % (42.0-52.0) L Mean Corpuscular Volume 84 FL (80-99) Mean Corpuscular Hemoglobin 27.4 PG (27.0-31.0) Mean Corpuscular Hemoglobin Concent 32.6 G/DL (32.0-36.0) Red Cell Distribution Width 14.4 % (11.6-14.8) Platelet Count 473 K/UL (150-450) H Mean Platelet Volume 4.9 FL (6.5-10.1) L Neutrophils (%) (Auto) 72.7 % (45.0-75.0) Lymphocytes (%) (Auto) 21.3 % (20.0-45.0) Monocytes (%) (Auto) 3.5 % (1.0-10.0) Eosinophils (%) (Auto) 2.1 % (0.0-3.0) Basophils (%) (Auto) 0.4 % (0.0-2.0) Sodium Level 142 MMOL/L (136-145) Potassium Level 3.2 MMOL/L (3.5-5.1) L Chloride Level 106 MMOL/L (98-107) Carbon Dioxide Level 24 MMOL/L (21-32) Anion Gap 12 mmol/L (5-15) Blood Urea Nitrogen 36 mg/dL (7-18) H Creatinine 1.3 MG/DL (0.55-1.30) Estimat Glomerular Filtration Rate > 60 mL/min (>60) Glucose Level 144 MG/DL (74-106) H Calcium Level 8.8 MG/DL (8.5-10.1) Total Bilirubin 0.3 MG/DL (0.2-1.0) Aspartate Amino Transf (AST/SGOT) 13 U/L (15-37) L Alanine Aminotransferase (ALT/SGPT) 6 U/L (12-78) L Alkaline Phosphatase 104 U/L (46-116) Total Protein 7.0 G/DL (6.4-8.2) Albumin 1.6 G/DL (3.4-5.0) L Globulin 5.4 g/dL Albumin/Globulin Ratio 0.3 (1.0-2.7) L Random Vancomycin Level 16.9 ug/mL POC Whole Blood Glucose 137 MG/DL (74-106) H Plan Problems: (1) Sacral decubitus ulcer Assessment & Plan: Left posterior lower leg Vascular wound 15.02x4.0x1.8 40% gangrene necrotic black dry eschar ,60%yellow/green/garcia stringy slough ,necrotic muscle and bone exposed with strong foul odor and moderate infectious drainage. Left heel vascular wound 7.3x4.5.0.8 gangrene 100% necrotic black soft eschar with garcia tissue surrounding wound borders , necrotic muscle and bone exposed ,strong foul odor and moderate infectious drainage. Left anterior foot vascular wound 7.0x3.0x0.2 80% yellow slough and 20% pink granulation tissue,moderate serosanguineous drainage and strong foul odor. Wet to dry dressing applied to all vascular wounds Dakin's solution recommended. Sacral stage 3 pressure ulcer 2.5x0.8x0.3 30% yellow slough 70% red granulation tissue ,small amount serosanguineous drainage Thera Honey and Optifoam applied. Arterial studies were done. Right lower leg BKA noted. stable (2) Ischemia of left lower extremity Assessment & Plan: left heel and leg arterial ischemia vascular wounds noted very unkept and broken down local wound care will be initiated will need on going evaluation for salvage vs amputation d/c with local wound care. optimize and consider amputation if optimized for surgery thank you (3) GI bleeding (4) Gram-negative bacteremia (5) Laceration of face (6) Dilated cbd, acquired (7) Diabetes mellitus (8) History of hypertension (9) COPD (chronic obstructive pulmonary disease) (10) Anemia (11) Severe protein-calorie malnutrition Assessment & Plan: nutritional supplementation (12) Hx of right BKA DuranAlex Dec 15, 2019 17:32
[2019-12-15] MEDS: metFORMIN 500mg tab ORAL SCH (17:45)
[2019-12-15] MEDS: Cefepime HCl 1 GM in D5W 55 ML IVPB SCH (17:45)
--- NOTE | 2019-12-15 19:03 | NUR ---
NURSE HAND-OFF REPORT: Important Events on Shift: Patient Status: stable Diet: CCHO low, [place] Pending Orders: Pending Results/Labs: Pending MD notification: Latest Vital Signs: Temperature 98.2 , Pulse 73 , B/P 108 /56 , Respiratory Rate 20 , O2 SAT 97 , Room Air, O2 Flow Rate . Vital Sign Comment: EKG Rhythm: Sinus Rhythm Rhythm change?: N MD Notified?: N - MD Response: Latest Clark Fall Score: 50 Fall Risk: High Risk Safety Measures: Call light Within Reach, Bed Alarm Zone 1, Side Rails Side Rails x3, Bed position Low and Locked. Fall Precautions: Yellow Socks Patient Fall Education Report given to Britton VILLALPANDO.
--- NOTE | 2019-12-15 19:04 | NUR ---
NURSE NOTES: Received report from KWASI Sinclair. Pt is resting comfortably in bed and denies any pain. Pt is A/Ox2 and Bedbound; confused and aspiration risk taking pills crushed. Pt is on cardiac monitoring SR and asymptomatic. Pt is breathing unlabored on RA and asymptomatic. Pt has had no BM for 2 days. Pt has RAC 20G running IV antibiotics patent with skin dry and intact. Bed is locked in lowest position and call light is within reach. Will continue to monitor.
[2019-12-15 20:00] VITALS: BP 113/56
[2019-12-15] MEDS: Sennosides 8.6mg tab ORAL SCH (21:00)
[2019-12-15] MEDS: Latanoprost 0.005% Opth 2.5ml Soln BOTH EYES SCH (21:00)
[2019-12-16] VITALS: BP 117/58
[2019-12-16 04:00] VITALS: BP 112/53
[2019-12-16] MEDS: metroNIDAZOLE 500mg tab ORAL SCH ×2 (06:05→13:16)
--- NOTE | 2019-12-16 06:19 | Cardiology Report ---
APPROVED REPORT EKG Measurement Heart [id number] <Conclusion> Normal sinus rhythm Low voltage QRS Borderline ECG
--- NOTE | 2019-12-16 06:45 | Hematology/Onc Progress Note ---
Assessment/Plan Assessment/Plan Assessment and Recs: # Anemia of chronic disease due to underlying chronic medical issues, multifactorial v Gi bleed --> Anemia workup has been ordered, rule out gi bleed --> ferritin is >1500 --> No evidence of hemolysis is noted, peripheral smear has been reviewed. --> Hgb goal >7. Transfuse prn. --> continue on po iron --> Medications have been reviewed --> low threshold for gi evaluation in case has occult + --> EGD/COLO 04/23/19-> reviewed with gastritis/iH --> bone marrow biopsy is not indicated given the other more likely causes --> hgb 8-->7.4->>>4.9->7.1-->10 --> blood tx 3 units 12/11 # Protein caloric malnutrition --> ensure and 1:1 feeding recommended --> have added mirtazapine for appetite stimulant --> avoid megace as is vte risk --> daily weight count # Left lower ext wound --> ABX ctx/vanc-->vanc/cefepime --> surg eval # Transaminitis --> has improved # Sepsis with uti, polymicrobial --> s/p abx vanc # Dehydration --> renal prn # Dvt ppx scds The timing of this note does not necessarily reflect the time of the patient was seen. Greatly appreciate consultation. Subjective Constitutional: Denies: no symptoms, chills, fever, malaise, weakness, other HEENT: Denies: no symptoms, eye pain, blurred vision, tearing, double vision, ear pain, ear discharge, nose pain, nose congestion, throat pain, throat swelling, mouth pain, mouth swelling, other Cardiovascular: Denies: no symptoms, chest pain, edema, irregular heart rate, lightheadedness, palpitations, syncope, other Respiratory: Denies: no symptoms, cough, shortness of breath, SOB with excertion, SOB at rest, sputum, wheezing, other Genitourinary: Denies: no symptoms, burning, discharge, frequency, flank pain, hematuria, incontinence, pain, urgency, other Neurologic/Psychiatric: Denies: no symptoms, anxiety, depressed, emotional problems, headache, numbness, paresthesia, pre-existing deficit, seizure, tingling, tremors, weakness, other Endocrine: Denies: no symptoms, excessive sweating, flushing, intolerance to cold, intolerance to heat, increased hunger, increased thirst, increased urine, unexplained weight gain, unexplained weight loss, other Hematologic/Lymphatic: Denies: no symptoms, anemia, easy bleeding, easy bruising, adenopathy, other Allergies: Coded Allergies: No Known Allergies (Unverified , 04/15/19) Subjective 12/12 pending cbc from am, labs reviewed, no bleeding, meds noted 12/13 labs reviewed, seen by surg 12/14 labs reviewed, less pain, managing lle, is on abx 12/15 confused, with unlabored breathing, on abx, labs pending Objective Objective Current Medications Medications (Trade) Dose Ordered Sig/Neftaly Route PRN Reason Start Time Stop Time Status Last Admin Dose Admin Acetaminophen (Tylenol) 650 mg Q4H PRN ORAL MILD/TEMP 12/11/19 20:45 01/10/20 20:44 Acetaminophen/ Hydrocodone Bitart ([place] 5/325) 1 tab Q6H PRN ORAL Moderate Pain (Pain Scale 4-6) 12/11/19 20:45 12/18/19 20:44 Albuterol Sulfate (Proventil MDI) 2 puff Q6H PRN INH Shortness of Breath 12/11/19 20:45 03/10/20 20:44 Atorvastatin Calcium (Lipitor) 10 mg BEDTIME ORAL 12/11/19 21:00 03/10/20 20:59 12/15/19 21:00 Bisacodyl (Dulcolax) 10 mg DAILY PRN RECTAL Constipation 12/11/19 20:45 03/10/20 20:44 Brimonidine Tartrate (Alphagan) 1 drop BID BOTH EYES 12/12/19 09:00 03/11/20 08:59 12/15/19 17:46 Cefepime HCl 1 gm/ Dextrose 55 ml @ 110 mls/hr Q24H IVPB 12/12/19 17:30 12/19/19 17:29 12/15/19 17:45 Ferrous Sulfate (Feosol) 325 mg TWICE A DAY ORAL 12/12/19 09:00 03/11/20 08:59 12/15/19 17:45 Gabapentin (Neurontin) 300 mg BID ORAL 12/12/19 09:00 01/11/20 08:59 12/15/19 17:44 Insulin Aspart (NovoLOG) 6 units THREE TIMES A DAY SUBQ 12/12/19 09:00 03/11/20 08:59 12/15/19 17:47 Latanoprost (Xalatan) 1 drop BEDTIME BOTH EYES 12/11/19 21:00 01/10/20 20:59 12/15/19 21:00 Losartan Potassium (Cozaar) 50 mg DAILY ORAL 12/12/19 09:00 01/11/20 08:59 12/15/19 09:08 Metformin HCl (Glucophage) 1,000 mg BID ORAL 12/15/19 18:00 01/14/20 17:59 12/15/19 17:45 Metronidazole (Flagyl) 500 mg Q8HR ORAL 12/13/19 14:00 12/20/19 13:59 12/16/19 06:05 Mirtazapine (Remeron) 15 mg BEDTIME ORAL 12/12/19 21:00 03/11/20 20:59 12/15/19 21:00 Multivitamins (Multivitamins) 1 tab DAILY ORAL 12/12/19 09:00 01/11/20 08:59 12/15/19 09:09 Sennosides (Senokot) 8.6 mg BEDTIME ORAL 12/11/19 21:00 01/10/20 20:59 12/15/19 21:00 Sodium Hypochlorite (Dakin's Quarter Strength) 1 applic DAILY TOPIC 12/16/19 09:00 01/15/20 08:59 Vancomycin HCl (Vanco pharmacy to dose) 1 ea DAILY PRN MISC Per rx protocol 12/11/19 21:30 01/10/20 21:29 Last 24 Hour Vital Signs Date Time Temp Pulse Resp B/P (MAP) Pulse Ox O2 Delivery O2 Flow Rate FiO2 12/16/19 04:00 97.4 75 20 112/53 (72) 95 12/16/19 04:00 79 12/16/19 00:00 98.2 74 20 117/58 (77) 96 12/16/19 00:00 72 12/15/19 21:00 Room Air 12/15/19 20:00 77 12/15/19 20:00 97.9 78 20 113/56 (75) 96 10/11/20 16:00 73 12/15/19 15:26 98.2 70 20 108/56 (73) 97 12/15/19 12:00 76 12/15/19 11:49 98.1 77 20 103/60 (74) 94 12/15/19 09:08 128/59 12/15/19 09:00 Room Air 12/15/19 08:00 98.4 77 20 128/59 (82) 95 12/15/19 08:00 79 12/15/19 04:00 96.8 82 16 114/59 (77) 99 12/15/19 04:00 82 12/15/19 00:00 85 12/15/19 00:00 99.0 88 16 122/68 (86) 99 12/14/19 21:00 Room Air 12/14/19 20:00 78 12/14/19 20:00 98.1 84 20 106/58 (74) 99 12/14/19 16:00 69 12/14/19 16:00 98.1 68 20 127/62 (83) 98 12/14/19 12:00 73 12/14/19 11:31 97.5 73 20 100/60 (73) 95 12/14/19 09:20 141/76 12/14/19 09:00 Room Air 12/14/19 08:00 96.7 73 28 141/76 (97) 96 12/14/19 08:00 66 Intake and Output 12/15/19 12/16/19 19:00 07:00 Intake Total 510 ml 120 ml Output Total 400 ml 470 ml Balance 110 ml -350 ml Intake Oral 510 ml 120 ml Output Urine Total 400 ml 470 ml Labs Test 12/13/19 07:18 12/13/19 09:08 12/13/19 11:53 12/13/19 16:52 POC Whole Blood Glucose 130 MG/DL (74-106) 193 MG/DL (74-106) Stool Occult Blood Negative (NEGATIVE) Test 12/13/19 17:55 12/14/19 05:40 12/14/19 05:50 12/15/19 06:02 White Blood Count 10.0 K/UL (4.8-10.8) 9.6 K/UL (4.8-10.8) Red Blood Count 3.77 M/UL (4.70-6.10) 3.31 M/UL (4.70-6.10) Hemoglobin 10.4 G/DL (14.2-18.0) 9.1 G/DL (14.2-18.0) Hematocrit 31.8 % (42.0-52.0) 27.8 % (42.0-52.0) Mean Corpuscular Volume 84 FL (80-99) 84 FL (80-99) Mean Corpuscular Hemoglobin 27.5 PG (27.0-31.0) 27.4 PG (27.0-31.0) Mean Corpuscular Hemoglobin Concent 32.5 G/DL (32.0-36.0) 32.6 G/DL (32.0-36.0) Red Cell Distribution Width 14.3 % (11.6-14.8) 14.4 % (11.6-14.8) Platelet Count 496 K/UL (150-450) 473 K/UL (150-450) Mean Platelet Volume 5.3 FL (6.5-10.1) 4.9 FL (6.5-10.1) Neutrophils (%) (Auto) 75.5 % (45.0-75.0) 72.7 % (45.0-75.0) Lymphocytes (%) (Auto) 18.8 % (20.0-45.0) 21.3 % (20.0-45.0) Monocytes (%) (Auto) 3.1 % (1.0-10.0) 3.5 % (1.0-10.0) Eosinophils (%) (Auto) 1.8 % (0.0-3.0) 2.1 % (0.0-3.0) Basophils (%) (Auto) 0.9 % (0.0-2.0) 0.4 % (0.0-2.0) Random Vancomycin Level 19.6 ug/mL 16.9 ug/mL Sodium Level 142 MMOL/L (136-145) Potassium Level 3.2 MMOL/L (3.5-5.1) Chloride Level 106 MMOL/L (98-107) Carbon Dioxide Level 24 MMOL/L (21-32) Anion Gap 12 mmol/L (5-15) Blood Urea Nitrogen 36 mg/dL (7-18) Creatinine 1.3 MG/DL (0.55-1.30) Estimat Glomerular Filtration Rate > 60 mL/min (>60) Glucose Level 144 MG/DL (74-106) Calcium Level 8.8 MG/DL (8.5-10.1) Total Bilirubin 0.3 MG/DL (0.2-1.0) Aspartate Amino Transf (AST/SGOT) 13 U/L (15-37) Alanine Aminotransferase (ALT/SGPT) 6 U/L (12-78) Alkaline Phosphatase 104 U/L (46-116) Total Protein 7.0 G/DL (6.4-8.2) Albumin 1.6 G/DL (3.4-5.0) Globulin 5.4 g/dL Albumin/Globulin Ratio 0.3 (1.0-2.7) Test 12/15/19 11:41 12/16/19 05:35 POC Whole Blood Glucose 137 MG/DL (74-106) Height (Feet): 5 Height (Inches): 6.00 Weight (Pounds): 140 Objective Physical Exam: Vitals: reviewed General: NAD HEENT: nc, at Neck: supple + trach/vent Chest: clear breath sounds bilaterally Cardiovascular: RRR, no s3, s4 Abdomen: soft, nontender, nd Extremities: no cce, normal range of motion, R++ bka Neuro: confused Jett Nicole MD Dec 16, 2019 06:45
[2019-12-16 07:08] LABS: BASOPHILS % (AUTO) 0.5 % (0.0-2.0); EOSINOPHILS % (AUTO) 2.8 % (0.0-3.0); HEMATOCRIT 27.4 % (42.0-52.0); HEMOGLOBIN 8.6 G/DL (14.2-18.0); LYMPHOCYTES % (AUTO) 21.2 % (20.0-45.0); MEAN CORPUSCULAR VOLUME 85 FL (80-99); NEUTROPHILS % (AUTO) 71.4 % (45.0-75.0); PLATELET COUNT 479 K/UL (150-450); RED BLOOD COUNT 3.23 M/UL (4.70-6.10); RED CELL DISTRIBUTION WIDTH 14.9 % (11.6-14.8); WHITE BLOOD COUNT 10.1 K/UL (4.8-10.8)
[2019-12-16 07:14] LABS: ANION GAP 10 mmol/L (5-15); BLOOD UREA NITROGEN 31 mg/dL (7-18); CALCIUM 8.6 MG/DL (8.5-10.1); CARBON DIOXIDE 25 MMOL/L (21-32); CHLORIDE 110 MMOL/L (98-107); CREATININE 1.2 MG/DL (0.55-1.30); POTASSIUM 3.8 MMOL/L (3.5-5.1); SODIUM 145 MMOL/L (136-145)
[2019-12-16 08:00] VITALS: BP 136/61
[2019-12-16] MEDS: Losartan 50mg tab ORAL SCH (08:40)
[2019-12-16] MEDS: metFORMIN 500mg tab ORAL SCH (08:41)
[2019-12-16] MEDS: Brimonidine 0.2% Opth Sol BOTH EYES SCH (08:41)
[2019-12-16] MEDS: NovoLOG Insulin Flexpen SUBQ SCH ×2 (08:42→13:00)
[2019-12-16] MEDS ORDERED: Dakin's 0.125% Soln (Quarter Strength) 16oz TOPIC SCH (09:00)
--- NOTE | 2019-12-16 10:25 | NUR ---
*-*DISCAHREG PLANNING*-* PATIENT HAS BEEN REFERRED BACK TO: [facility] P:[phone]
--- NOTE | 2019-12-16 11:36 | Surgery Progress Note ---
Surgery Progress Note Subjective Additional Comments no acute events afebrile HD Stable d/c planning no n/v Objective Last 24 Hour Vital Signs Date Time Temp Pulse Resp B/P (MAP) Pulse Ox O2 Delivery O2 Flow Rate FiO2 12/16/19 09:00 Room Air 12/16/19 08:40 136/61 12/16/19 08:00 99.9 77 20 136/61 (86) 96 12/16/19 04:00 97.4 75 20 112/53 (72) 95 12/16/19 04:00 79 12/16/19 00:00 98.2 74 20 117/58 (77) 96 12/16/19 00:00 72 12/15/19 21:00 Room Air 12/15/19 20:00 77 12/15/19 20:00 97.9 78 20 113/56 (75) 96 12/15/19 16:00 73 12/15/19 15:26 98.2 70 20 108/56 (73) 97 12/15/19 12:00 76 12/15/19 11:49 98.1 77 20 103/60 (74) 94 I&O Intake and Output 12/15/19 12/16/19 19:00 07:00 Intake Total 510 ml 120 ml Output Total 400 ml 470 ml Balance 110 ml -350 ml Intake Oral 510 ml 120 ml Output Urine Total 400 ml 470 ml Dressing: saturated Cardiovascular: RSR Respiratory: decreased breath sounds Abdomen: soft, non-tender, present bowel sounds Extremities: cyanosis, no tenderness, other Laboratory Tests Test 12/15/19 11:41 12/16/19 05:35 12/16/19 08:38 POC Whole Blood Glucose 137 MG/DL (74-106) H 171 MG/DL (74-106) H White Blood Count 10.1 K/UL (4.8-10.8) Red Blood Count 3.23 M/UL (4.70-6.10) L Hemoglobin 8.6 G/DL (14.2-18.0) L Hematocrit 27.4 % (42.0-52.0) L Mean Corpuscular Volume 85 FL (80-99) Mean Corpuscular Hemoglobin 26.6 PG (27.0-31.0) L Mean Corpuscular Hemoglobin Concent 31.4 G/DL (32.0-36.0) L Red Cell Distribution Width 14.9 % (11.6-14.8) H Platelet Count 479 K/UL (150-450) H Mean Platelet Volume 4.8 FL (6.5-10.1) L Neutrophils (%) (Auto) 71.4 % (45.0-75.0) Lymphocytes (%) (Auto) 21.2 % (20.0-45.0) Monocytes (%) (Auto) 4.0 % (1.0-10.0) Eosinophils (%) (Auto) 2.8 % (0.0-3.0) Basophils (%) (Auto) 0.5 % (0.0-2.0) Sodium Level 145 MMOL/L (136-145) Potassium Level 3.8 MMOL/L (3.5-5.1) Chloride Level 110 MMOL/L (98-107) H Carbon Dioxide Level 25 MMOL/L (21-32) Anion Gap 10 mmol/L (5-15) Blood Urea Nitrogen 31 mg/dL (7-18) H Creatinine 1.2 MG/DL (0.55-1.30) Estimat Glomerular Filtration Rate > 60 mL/min (>60) Glucose Level 142 MG/DL (74-106) H Calcium Level 8.6 MG/DL (8.5-10.1) Plan Problems: (1) Sacral decubitus ulcer Assessment & Plan: Left posterior lower leg Vascular wound 15.02x4.0x1.8 40% gangrene necrotic black dry eschar ,60%yellow/green/garcia stringy slough ,necrotic muscle and bone exposed with strong foul odor and moderate infectious drainage. Left heel vascular wound 7.3x4.5.0.8 gangrene 100% necrotic black soft eschar with garcia tissue surrounding wound borders , necrotic muscle and bone exposed ,strong foul odor and moderate infectious drainage. Left anterior foot vascular wound 7.0x3.0x0.2 80% yellow slough and 20% pink g ranulation tissue,moderate serosanguineous drainage and strong foul odor. Wet to dry dressing applied to all vascular wounds Dakin's solution recommended. Sacral stage 3 pressure ulcer 2.5x0.8x0.3 30% yellow slough 70% red granulation tissue ,small amount serosanguineous drainage Thera Honey and Optifoam applied. Arterial studies were done. Right lower leg BKA noted. stable (2) Ischemia of left lower extremity Assessment & Plan: left heel and leg arterial ischemia vascular wounds noted very unkept and broken down local wound care will be initiated will need on going evaluation for salvage vs amputation d/c with local wound care. optimize and consider amputation if optimized for surgery thank you (3) GI bleeding (4) Gram-negative bacteremia (5) Laceration of face (6) Dilated cbd, acquired (7) Diabetes mellitus (8) History of hypertension (9) COPD (chronic obstructive pulmonary disease) (10) Anemia (11) Severe protein-calorie malnutrition Assessment & Plan: nutritional supplementation (12) Hx of right BKA Alex Garzon Dec 16, 2019 11:36
[2019-12-16 12:00] VITALS: BP 101/56
--- NOTE | 2019-12-16 13:34 | Infectious Diseases Prog Note ---
Assessment/Plan Assessment: COVID19 neg x1 -12/10rapid COVID PCR neg CXR: Right perihilar fullness, possibly on the basis of prominent normal vasculature, but appears asymmetric and increased from earlier studies. Possibility of infiltrate or mass or adenopathy should be considered. --previously neg PCR 12/03 ?lung mass- no evidence of mass on CT -CT chest: No definite pulmonary mass demonstrated. Findings on recent chest radiograph or presumably due to prominent pulmonary hilar vascular structures. Bilateral posterior pulmonary parenchymal opacities. Most likely represent atelectatic changes but there may be a component of parenchymal consolidation as well. Suspect trace bilateral pleural effusions. Right apical calcific scarring, with some air trapping an early bullous changes. Calcified pleural plaquing in the posterior right hemithorax, likely related to old infection/inflammation. Evidence of old granulomatous disease elsewhere as well, within the left lung, left pulmonary hilum, and liver. Eggshell calcification within or adjacent to the pancreatic tail. This may represent an old inflammatory lesion, but could also represent a calcified splenic artery aneurysm.Incidental finding of right upper back subcutaneous lipoma Afebrile Mild leukocytosis- SP -Bcx NTD UTI, polymicrobial -u/a wbc tntc, nit neg, leuk +3; ucx >100k P. stuarti (S Ceftriaxone, Cefepime, Zosyn), >100k P. mirabilis (R macrobid; otherwise S), >100k k,pna (R amp; I ancef, macrobid) Acute on chronic anemia (Hgb up to 4.9 upon admission) Acute encephalopathy Sacral decubitus ulcer (POA) L LE ischemic wounds; infected -a. duplex: Left distal superficial femoral artery occlusion. Distal waveforms remain monophasic, although the upstroke and amplitude appears somewhat increased as compared to prior study of 04/16/2019. This may reflect improved collateral flow SANNA, improving hx of K.pna bacteremia 04/2019 -04/15 Bcx 06/07 K. pna (R Amp, I Ancef, Zosyn) hx of polymicrobial UTI 04/2019 -04/16 ucx >100kE. 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 Will continue to follow along with you. Avery horn RN. Subjective Allergies: Coded Allergies: No Known Allergies (Unverified , 04/15/19) afebrile no leukocytosis cr improving Objective Last 24 Hour Vital Signs Date Time Temp Pulse Resp B/P (MAP) Pulse Ox O2 Delivery O2 Flow Rate FiO2 12/16/19 12:00 98.1 72 18 101/56 (71) 97 12/16/19 12:00 72 12/16/19 09:00 Room Air 12/16/19 08:40 136/61 12/16/19 08:00 99.9 77 20 136/61 (86) 96 12/16/19 08:00 79 12/16/19 04:00 97.4 75 20 112/53 (72) 95 12/16/19 04:00 79 12/16/19 00:00 98.2 74 20 117/58 (77) 96 12/16/19 00:00 72 12/15/19 21:00 Room Air 12/15/19 20:00 77 12/15/19 20:00 97.9 78 20 113/56 (75) 96 12/15/19 16:00 73 12/15/19 15:26 98.2 70 20 108/56 (73) 97 Height (Feet): 5 Height (Inches): 6.00 Weight (Pounds): 140 General: NAD HEENT: nc, at Neck: supple Chest: clear breath sounds bilaterally Cardiovascular: RRR, no s3, s4 Abdomen: soft, nontender, nd Extremities: no cce, normal range of motion, R++ bka, L LE ischemic/necrotic wounds sacral decubitus ulcers Neuro: confused Laboratory Tests Test 12/16/19 05:35 12/16/19 08:38 12/16/19 11:52 12/16/19 13:14 White Blood Count 10.1 K/UL (4.8-10.8) Red Blood Count 3.23 M/UL (4.70-6.10) L Hemoglobin 8.6 G/DL (14.2-18.0) L Hematocrit 27.4 % (42.0-52.0) L Mean Corpuscular Volume 85 FL (80-99) Mean Corpuscular Hemoglobin 26.6 PG (27.0-31.0) L Mean Corpuscular Hemoglobin Concent 31.4 G/DL (32.0-36.0) L Red Cell Distribution Width 14.9 % (11.6-14.8) H Platelet Count 479 K/UL (150-450) H Mean Platelet Volume 4.8 FL (6.5-10.1) L Neutrophils (%) (Auto) 71.4 % (45.0-75.0) Lymphocytes (%) (Auto) 21.2 % (20.0-45.0) Monocytes (%) (Auto) 4.0 % (1.0-10.0) Eosinophils (%) (Auto) 2.8 % (0.0-3.0) Basophils (%) (Auto) 0.5 % (0.0-2.0) Sodium Level 145 MMOL/L (136-145) Potassium Level 3.8 MMOL/L (3.5-5.1) Chloride Level 110 MMOL/L (98-107) H Carbon Dioxide Level 25 MMOL/L (21-32) Anion Gap 10 mmol/L (5-15) Blood Urea Nitrogen 31 mg/dL (7-18) H Creatinine 1.2 MG/DL (0.55-1.30) Estimat Glomerular Filtration Rate > 60 mL/min (>60) Glucose Level 142 MG/DL (74-106) H Calcium Level 8.6 MG/DL (8.5-10.1) POC Whole Blood Glucose 171 MG/DL (74-106) H 116 MG/DL (74-106) H 123 MG/DL (74-106) H Current Medications Medications (Trade) Dose Ordered Sig/Neftaly Route PRN Reason Start Time Stop Time Status Last Admin Dose Admin Acetaminophen (Tylenol) 650 mg Q4H PRN ORAL MILD/TEMP 12/11/19 20:45 01/10/20 20:44 Acetaminophen/ Hydrocodone Bitart ([place] 5/325) 1 tab Q6H PRN ORAL Moderate Pain (Pain Scale 4-6) 12/11/19 20:45 12/18/19 20:44 Albuterol Sulfate (Proventil MDI) 2 puff Q6H PRN INH Shortness of Breath 12/11/19 20:45 03/10/20 20:44 Atorvastatin Calcium (Lipitor) 10 mg BEDTIME ORAL 12/11/19 21:00 03/10/20 20:59 12/15/19 21:00 Bisacodyl (Dulcolax) 10 mg DAILY PRN RECTAL Constipation 12/11/19 20:45 03/10/20 20:44 Brimonidine Tartrate (Alphagan) 1 drop BID BOTH EYES 12/12/19 09:00 03/11/20 08:59 12/16/19 08:41 Cefepime HCl 1 gm/ Dextrose 55 ml @ 110 mls/hr Q24H IVPB 12/12/19 17:30 12/19/19 17:29 12/15/19 17:45 Ferrous Sulfate (Feosol) 325 mg TWICE A DAY ORAL 12/12/19 09:00 03/11/20 08:59 12/16/19 08:41 Gabapentin (Neurontin) 300 mg BID ORAL 12/12/19 09:00 01/11/20 08:59 12/16/19 08:40 Insulin Aspart (NovoLOG) 6 units THREE TIMES A DAY SUBQ 12/12/19 09:00 03/11/20 08:59 12/16/19 08:42 Latanoprost (Xalatan) 1 drop BEDTIME BOTH EYES 12/11/19 21:00 01/10/20 20:59 12/15/19 21:00 Losartan Potassium (Cozaar) 50 mg DAILY ORAL 12/12/19 09:00 01/11/20 08:59 12/16/19 08:40 Metformin HCl (Glucophage) 1,000 mg BID ORAL 12/15/19 18:00 01/14/20 17:59 12/16/19 08:41 Metronidazole (Flagyl) 500 mg Q8HR ORAL 12/13/19 14:00 12/20/19 13:59 12/16/19 13:16 Mirtazapine (Remeron) 15 mg BEDTIME ORAL 12/12/19 21:00 03/11/20 20:59 12/15/19 21:00 Multivitamins (Multivitamins) 1 tab DAILY ORAL 12/12/19 09:00 01/11/20 08:59 12/16/19 08:41 Sennosides (Senokot) 8.6 mg BEDTIME ORAL 12/11/19 21:00 01/10/20 20:59 12/15/19 21:00 Sodium Hypochlorite (Dakin's Quarter Strength) 1 applic DAILY TOPIC 12/16/19 09:00 01/15/20 08:59 12/16/19 08:41 Vancomycin HCl (Vanco pharmacy to dose) 1 ea DAILY PRN MISC Per rx protocol 12/11/19 21:30 01/10/20 21:29 Ana M Kramer M.D. Dec 16, 2019 13:34
--- NOTE | 2019-12-16 14:08 | NUR ---
*-*DISCHARGE PLANNED*-* PATIENT HAS BEEN ACCEPTED AND WILL BE DISCHARGED BACK TO: [facility] P:[phone] FOR NURSE REPORT ROOM# 32.[facility] TRANSPORTATION SET FOR 4PM S/W ISHMAEL [id number] S/W PATIENTS DELICIA LEVI, WHO IS IN AGREEMENT WITH DISCHARGE PLAN.
--- NOTE | 2019-12-16 15:18 | NUR ---
CASE MANAGEMENT:REVIEW 12/14/19 SI: ANEMIA....S/P 3 UNITS PRBC'S KLEBSIELLA UTI. LLE ISCHEMIC WOUND. SACRAL DECUB. SANNA 96.7 73 28 141 76 96% ON RA H/H-10.4/31.8 IS: IV CEFEPIME Q24 FLAGYL PO Q8HRS METFORMIN PO BID REMERON PO QHS COZAAR PO QD NEURONTIN PO BID : TELEMETRY STATUS DCP: FROM [facility] 12/15/19 SI: ANEMIA....S/P 3 UNITS PRBC'S KLEBSIELLA UTI. LLE ISCHEMIC WOUND. SACRAL DECUB. SANNA 98.4 77 20 128/59 95% ON RA H/H-9.1/27.8 K-3.2 BUN+36 ALB-1.6 IS: IV CEFEPIME Q24 FLAGYL PO Q8HRS METFORMIN PO BID REMERON PO QHS COZAAR PO QD NEURONTIN PO BID : TELEMETRY STATUS DCP: FROM [facility] 12/16/19 DISCHARGE BACK TO [facility]
--- NOTE | 2019-12-16 15:27 | NUR ---
NURSE NOTES: For discharge back to [facility], report given to Ngozi VILLALPANDO. No belongings. IV line on right AC g20 intact and patent. FC intact, leaking, Ngozi VILLALPANDO aware. Leg dressing changed. Skin check done, picture taken. Discharge instructions given, verbalized understanding. Ember aware of discharge. Awaiting ambulance draft roller picker at 4pm.
[2019-12-16 16:00] VITALS: BP 108/58
[2019-12-16] MEDS ORDERED: Tubing IV Secondary IV ONE (17:24)
--- NOTE | 2019-12-18 15:34 | Discharge Summary ---
Discharge Summary Discharge Summary _ DATE OF ADMISSION: 12/11/2019 DATE OF DISCHARGE: 12/16/2019 DISCHARGED BY: Dr. Anderson REASON FOR ADMISSION: 84 years old male, [facility], with past medical history of hypertension, diabetes mellitus, asthma, osteoarthritis, was sent for evaluation due to anemia . At the facility hemoglobin was noted to be 5.1. No known recent bleeding. History was limited due to patient's mental status . Laboratory work-up revealed mild leukocytosis, hemoglobin 4.9 ,hematocrit 16.9, platelet count 426. Lactic acid 2.9 BUN 57, creatinine 2.01. Glucose 238. Troponin negative. Urinalysis revealed +3 pyuria and many bacteria . Rapid COVID-19 in ED negative. Chest x-ray demonstrated right perihilar fullness , possibly on the basis of prominent normal vasculature , but appeared asymmetric and increased from earlier studies. Possibility of infiltrate or mass or adenopathy should be considered. Patient admitted for severe anemia , acute kidney injury and lactic acidosis CONSULTANTS: ID specialist Dr. Kramer diploma pharmacy technician/oncologist Dr. Nicole surgery Dr. Garzon HOSPITAL COURSE: Patient admitted to telemetry floor and started on broad-spectrum antibiotic as per ID specialist recommendation. Patient received blood transfusion. Patient received total of 3 units of packed red blood cells. Ferritin high . Stool for occult blood was negative. No evidence of hemolysis. Patient was on oral iron. Patient undergone EGD and colonoscopy in April which showed gastritis. GI prophylaxis provided. Prior to discharge hemoglobin 8.6. Urine culture revealed Providencia, Proteus mirabilis and Klebsiella pneumonia. Blood cultures were negative. Antibiotic regimen was optimized as per ID specialist recommendation . Mild leukocytosis resolved , patient remained afebrile. Wound care for sacral decubitus ulcer present on admission , provided as per surgeon recommendation ; continue wound care at the facility. Renal parameters and electrolytes we re closely monitored. Electrolytes corrected as needed. Nephrotoxic's were avoided. BUN from 57 down to 31 . SNF medication continued. DVT prophylaxis provided. Patient had ischemic left heel and left leg wounds. Local wound care initiated. Arterial duplex left lower extremity revealed left distal superficial femoral artery occlusion. Distal waveforms remained monophasic, although the upstroke and amplitude appears somewhat increased as compared to prior study of 04/16/2019. This may reflect improved collateral flow. Patient will need ongoing evaluation for salvage versus amputation as per surgeon recommendation. Patient however, remained conservatively managed , given multiple underlying medical conditions, including cardiomyopathy , advanced cardiovascular disease, peripheral vascular disease and inability to care for himself. CT scan of the chest showed no definite pulmonary mass. Findings on recent chest X ray were presumably due to prominent pulmonary hilar vascular structures.w Patient started on appetite stimulant. Oral intake was closely monitored. Protein supplements provided as per registered dietitian recommendation. Patient clinically stabilized and was ready for [facility] to [facility] for [facility] of care. FINAL DIAGNOSES: Probably sepsis due to UTI Polymicrobial UTI Acute encephalopathy SANNA due to dehydration - improved Hypertension Hyperlipidemia Diabetes mellitus History of Klebsiella pneumonia bacteremia in 2019 Severe protein calorie malnutrition Sacral decubitus ulcer present on admission Right leg BKA DISCHARGE MEDICATIONS: List of medication was sent to accepting facility DISCHARGE INSTRUCTIONS: [facility]. Follow up with medical doctor at the facility. I have been assigned to dictate discharge summary for this account. I was not involved in the patient's management. Nidhi Fallon NP Dec 18, 2019 15:34
== END 2019-12-16 17:25 | DRG 871 ==
LOC: EDBD 12:34 → EDBEDREQ 13:38 → EMR 14:08 → 2E 14:59 → EDBEDREQ 15:57
PROC: 30233N1 Transfusion of Nonautologous Red Blood Cells into Peripheral Vein, Percutaneous Approach (ICD-10-PCS; principal; 2019-12-11)
DX: A41.9 Sepsis, unspecified organism (principal); L89.153 Pressure ulcer of sacral region, stage 3; E43 Unspecified severe protein-calorie malnutrition; N39.0 Urinary tract infection, site not specified; G93.40 Encephalopathy, unspecified; N17.9 Acute kidney failure, unspecified; L97.829 Non-pressure chronic ulcer of other part of left lower leg with unspecified severity; L97.429 Non-pressure chronic ulcer of left heel and midfoot with unspecified severity; K92.2 Gastrointestinal hemorrhage, unspecified; D63.8 Anemia in other chronic diseases classified elsewhere; E86.0 Dehydration; J44.9 Chronic obstructive pulmonary disease, unspecified; Z89.511 Acquired absence of right leg below knee; E11.9 Type 2 diabetes mellitus without complications; Z79.4 Long term (current) use of insulin; B96.1 Klebsiella pneumoniae [K. pneumoniae] as the cause of diseases classified elsewhere; B96.4 Proteus (mirabilis) (morganii) as the cause of diseases classified elsewhere; B96.89 Other specified bacterial agents as the cause of diseases classified elsewhere; I70.244 Atherosclerosis of native arteries of left leg with ulceration of heel and midfoot; H40.9 Unspecified glaucoma; S01.81XA Laceration without foreign body of other part of head, initial encounter; X58.XXXA Exposure to other specified factors, initial encounter; I70.248 Atherosclerosis of native arteries of left leg with ulceration of other part of lower leg
CPT/HCPCS: 36415; 71045; 71250; 80048; 80053; 80061; 80076; 80202; 81003; 82270; 82306; 82550; 82553; 82728; 82962; 83036; 83605; 83735; 83880; 84100; 84484; 85007; 85025; 85610; 85651; 85730; 86140; 86850; 86900; 86901; 86920; 87040; 87081; 87086; 87181; 93005; 93926; 96361; 96365; 99285; J1815; J7030; J8499; U0002